=== PATIENT | male | born 1950 | race Caucasian/White ===

== ENCOUNTER → 2017-12-28 11:38 | Outpatient (CLI) | payer BC, MEDICARE, SELFPAY ==
[2017-12-28 11:44] LABS: Mucous, Urine 0 SEEN /hpf (<or=2+); Squamous Epithelial Cells - UA 0 SEEN /hpf (0-5)
[2017-12-28 14:06] LABS: Color, Urine Yellow (Yellow); Glucose, Dipstick Normal (Normal); Ketone-Dipstick Negative (Negative); Leukocyte Esterase-Dipstick 500 /ul (Negative); Nitrite-Dipstick Negative (Negative); Occult Blood-Urine 250 /ul (Negative); Protein-Dipstick 30 mg/dl (Negative); Specific Gravity, Urine 1.005 (1.002-1.030); Urine Clarity Sl. Cloudy (Clear); Urine Urobilinogen Normal (Normal)
[2017-12-28 14:08] LABS: Urine Bilirubin Dipstick 6 mg/dL (Negative)
[2017-12-28 14:12] LABS: Bacteria 2+ /hpf (None Seen); Red Blood Cells-Urine 25-50 SEEN /hpf (0-5); White Blood Cells 25-50 SEEN /hpf (0-5)
== END ==
PROVIDERS: Family Provider Family Medicine; PCP Family Medicine; Visit Provider Family Medicine
DX: N41.9 Inflammatory disease of prostate, unspecified (principal)
CPT/HCPCS: 81001; 87077; 87086; 87088; 87186

== ENCOUNTER → 2018-01-14 13:05 | Outpatient (CLI) | payer BC, SELFPAY ==
--- NOTE | 2018-01-14 13:09 | RAD_ITS ---
STUDY: X-RAY - LEFT KNEE REASON FOR EXAM: Male, 67 years old. Chronic pain TECHNIQUE: Four view(s) of the knee were obtained. COMPARISON: None. FINDINGS: There are small osteophytes on the distal femur. There are small osteophytes on the tibial plateau. There is marked narrowing of the medial femorotibial compartment. There is marked narrowing of the lateral femorotibial compartment. Normal patellofemoral articulation. There is minimal fullness above the patella. The soft tissue structures are unremarkable. RAD/Knee 4 or More Views IMPRESSION: There are marked degenerative changes in the medial and lateral compartments of the left knee. There is a small joint effusion. Electronically Signed: Hattie Zaragoza MD at 16:54 EST Tel Direct: [phone], Service support ,
--- NOTE | 2018-01-14 13:09 | RAD_ITS ---
STUDY: X-RAY - RIGHT KNEE REASON FOR EXAM: Male, 67 years old. Chronic pain TECHNIQUE: Four view(s) of the knee were obtained. COMPARISON: None. FINDINGS: There are small spurs off the medial femoral condyle. There are small spurs off the medial tibial plateau. There is marked narrowing of the medial femorotibial compartment. Normal lateral femorotibial compartment. Normal patellofemoral articulation. There is trace fullness above the patella. The soft tissue structures are unremarkable. RAD/Knee 4 or More Views IMPRESSION: There are marked degenerative changes in the medial compartment of the right knee. There is a trace joint effusion. Electronically Signed: Hattie Zaragoza MD at 16:53 EST Tel Direct: [phone], Service support ,
== END ==
PROVIDERS: Family Provider Family Medicine; PCP Family Medicine; Visit Provider Orthopaedic Surgery
DX: M25.561 Pain in right knee (principal); M25.562 Pain in left knee
CPT/HCPCS: 73564

== ENCOUNTER → 2018-06-23 12:34 | Outpatient (CLI) | payer BC, SELFPAY ==
--- NOTE | 2018-06-23 12:54 | RAD_ITS ---
STUDY: X-RAY CHEST REASON FOR EXAM: Male, 67 years old. Right-sided chest tightness with history of pneumonia. TECHNIQUE: PA and lateral chest. COMPARISON: 12/29/2016. FINDINGS: There are pulmonary features consistent with underlying COPD/emphysema. Correlate smoking history. The lungs are otherwise acutely clear. Normal cardiomediastinal silhouette, helen and pleural margins. No acute osseous or upper abdominal process. RAD/Chest PA and Lateral IMPRESSION: No acute cardiopulmonary process. Electronically Signed: Brijesh Mccollum, at 13:17 EDT Tel , Service support ,
== END ==
PROVIDERS: Family Provider Family Medicine; PCP Family Medicine; Visit Provider Nurse Practitioner Family
DX: R07.89 Other chest pain (principal); Z87.01 Personal history of pneumonia (recurrent)
CPT/HCPCS: 71046

== ENCOUNTER → 2018-08-04 10:54 | Outpatient (CLI) | payer BC, SELFPAY ==
[2018-08-04 12:47] LABS: Cholesterol 199 mg/dL (200); Glucose 101 mg/dL (74-106); High Density Lipoprotein 34 mg/dL; Triglycerides 193 mg/dL; Very Low Density Lipoprotein 39 mg/dL (5-40)
== END ==
PROVIDERS: Family Provider Family Medicine; PCP Family Medicine; Visit Provider Family Medicine
DX: Z01.89 Encounter for other specified special examinations (principal)
CPT/HCPCS: 36415; 80061; 82947

== ENCOUNTER 2018-10-25 10:38 | Inpatient (IN) | payer BC, MEDICARE, SELFPAY ==
[2018-10-10 14:38] VITALS: BP 137/97; PULSE 73; RESP 16; TEMP 36.9; O2SAT 96; BMI 28.3
--- NOTE | 2018-10-10 14:46 | SDCEKG_ITS ---
Test Reason : Blood Pressure : / mmHG Vent. Rate : 073 BPM Atrial Rate : 073 BPM P-R Int : 208 ms QRS Dur : 112 ms QT Int : 398 ms P-R-T Axes : 039 -49 032 degrees QTc Int : 438 ms Poor data quality, interpretation may be adversely affected Normal sinus rhythm Incomplete right bundle branch block Left anterior fascicular block Abnormal ECG Confirmed by ISRAEL AYOUB, DILLON ([id number]), fan mail editor SIRI LOZADA ([id number]) on 10/12/2018 1:12:47 PM Referred By: Dwayne Bobo Confirmed By:DILLON WOOD MD
[2018-10-10 15:18] LABS: Absolute Lymphocyte Count 2.43 X10^3/ul (0.83-4.51); Absolute Neutrophil Count 4.3 X10^3/uL (2.0-7.7); Basophil# 0.08 X10^3/uL; Eosinophil# 0.41 X10^3/uL; Eosinophils% 5.2 % (0-5); Hematocrit 46.5 % (40-54); Lymphocyte # 2.43 X10^3/ul (4.0); Lymphocyte % 30.5 % (19-41); Mean Corp Hgb Conc 34.4 g/gl (32-36); Mean Corpuscular Hgb 30.8 pg (27.0-32.0); Mean Corpuscular Volume 89.6 fL (80-94); Mean Platelet Vol. 9.7 fl (6.2-12.0); Monocyte# 0.75 X10^3/uL; Monocyte% 9.4 % (0-10); Neutrophil # 4.26 X10^3/uL (2.7-7.7); Neutrophil % 53.5 % (47-70); Platelet Count 231 K/mm3 (150-450); RBC Distribution Width CV 13.4 % (11.6-14.6); RBC Distribution Width SD 43.8 fl (35.1-43.9); Red Blood Count 5.19 M/mm3 (4.6-6.2)
[2018-10-10 15:19] LABS: POSITIVE COUNT NO; POSITIVE DIFFERENTIAL NO; POSITIVE MORPHOLOGY NO
[2018-10-10 15:39] LABS: Anion Gap 6 (5-15); BUN 12 mg/dL (7-18); BUN/Creat Ratio 11.7 RATIO (10-20); Calcium,Total 8.8 mg/dL (8.5-10.1); Chloride 108 mmol/L (98-107); Creatinine, Serum 1.03 mg/dL (0.70-1.30); EST Glomerular Filtration Rate 76 mL/min (>60); Est Glom Filt Rate - Afr Amer 92 mL/min (>60); Estimated Creatinine Clearance 83.18 ml/min; Glucose 96 mg/dL (74-106); Potassium 3.9 mmol/L (3.5-5.1); Sodium Level 141 mmol/L (136-145); Thyroid Stim Hormone (TSH) 2.55 uIU/mL (0.358-3.74)
[2018-10-25] VITALS (9 sets, daily range): BP systolic 106–154; BP diastolic 73–103; PULSE 73–91; RESP 16–18; TEMP 36.3–37; O2SAT 93–97; BMI 28.3
[2018-10-25] MEDS: Acetaminophen 500 MG Tablet 1000 MG PO ×2 (11:15→21:47)
[2018-10-25] MEDS: Cefazolin 2 GM in 0.9% Normal Saline 100 ML IV (13:58)
--- NOTE | 2018-10-25 14:25 | RAD_ITS ---
STUDY: X-RAY - LEFT KNEE REASON FOR EXAM: Male, 67 years old. Postop left knee replacement. TECHNIQUE: 2 view(s) of the knee. COMPARISON: 01/14/2018. Findings: There is a recent total knee arthroplasty. The femoral and tibial components appear in satisfactory position. There has been patellar resurfacing. The visualized femoral, tibial, and fibular shafts are unremarkable. RAD/Knee 1 or 2 Views IMPRESSION: Satisfactory appearance of a total knee arthroplasty. Electronically Signed: Theodore Coughlin MD at 16:52 EST , Service support ,
--- NOTE | 2018-10-25 15:36 | PCM.OPRPT ---
Report of Operation Date of Procedure: 10/25/18 Pre-Operative Diagnosis: Left knee osteoarthritis Post-Operative Diagnosis: Left knee osteoarthritis Surgery/Procedure Performed:: Left total knee replacement, cemented CR Description of Surgical Findings:: Stable knee with good patella tracking linen room worker: Sarabjit Lovell Type of Anesthesia:: Spinal Anesthesiologist: Montana Puentes Special Medications: 2 g Ancef, 1 g TXA at incision, 1 g TXA closure, 10 mg Decadron, joint cocktail (5 mg Duramorph, 30 mL of 0.5% Ropivicaine, 1000 units of epinephrine, 30 mg of Toradol) Specimen's removed: Bony cuts Estimated Blood Loss (mL): 150 Fluids Replaced: 1600 ML Description of Procedure: Implants used: 1. Addie size 6 press-fit triathlon cruciate retaining distal femoral component 2. [place] size 7 press-fit tibial baseplate 3. [place] X3 9 mm CS polyethylene 4. Addie X3 38 mm asymmetric patella Brief history operative indications: 67-year-old M with history of L knee osteoarthritis with radiographic findings with loss of joint space, osteophyte formation and subchondral sclerosis. Failed conservative measures as mentioned in the H&P. Discussion of total knee arthroplasty as well as risk and benefits were discussed the patient including but not limited to blood loss, DVTs, PEs, neurovascular damage, general risk of anesthesia including loss of life, and stiffness or instability were discussed with patient. Patient demonstrated understanding and was able to sign informed consent. Procedure: On the date of procedure patient's L lower extremity was marked in the preoperative area. The patient was then taken back to the operating room where the patient was placed on the table in the supine position. All bony prominences were identified a well-padded. Anesthesia assumed control of the C-spine and airway and remained controlled throughout the remainder of the procedure. A tourniquet was placed on the L upper thigh and the leg was prepped in a sterile fashion. The surgeon then scrubbed at this time. Upon reentering the room R lower extremity was draped in a standard orthopedic fashion. A timeout was then called and everyone agreed upon the side, the site, the procedure to be performed, patient's identity and antibiotics given. Esmarch bandage was used to exsanguinate the extremity and the tourniquet was placed up to 250 mmHg with the knee in flexion. A midline skin incision was made and sharp dissection was taken down through skin subcutaneous tissue and fat. The standard medial parapatellar incision was made and the patella was subluxed laterally. The standard deep MCL release was done and the fat pad was resected. Next our attention was directed to the femur. Navigation pins were placed, navigation was registered. We attempted to use the navigation however the size of the patient made the resection quite large based on the interpretation provided. At this time we elected to not use navigation. Intramedullary drill was used to open up the medullary canal. Intramedullary guide was placed. The distal femur was cut at 5 degrees valgus and a 10 mm resection was measured and cut.. The knee was then placed in deep flexion in the standard [place] sizing guide was used to place the femoral component in 3? external rotation based on the posterior condyles. A size 6 4-in-1 cutting block was selected and pinned into place. The anterior cut was then made and checked for notching. The subsequent anterior chamfer cuts, posterior condylar cuts and posterior chamfer cuts were made while ensuring the MCL and LCL were protected. Our attention was then turned to the tibia where the DigePrint tibial cutting guide was used to make the appropriate tibial cut 90 degrees from the mechanical axis. A drop russel was then used to verify the cut. A size 7 tibial base plate was selected. the knee was flexed to 90 degrees and the soft tissues and posterior osteophytes were removed from the joint. 40 cc of the periarticular injection was injected into the posterior medial corner of the joint. The appropriate trials were then placed on the femur and tibia. A trial polyethylene was trialed to ensure proper balancing and stability of the knee. Patella tracking, was then verified and corrected appropriately as needed. The appropriate tibial internal rotation was then marked with a bovie. Our attention was then directed to the patella. The patella was everted and a flat resection was made. The lug holes were drilled and the patella trial was placed. Patellar tracking was checked and deemed appropriate. Once we were happy lug holes were drilled for the femur and trial components were removed. Cement was mixed at this time and the tourniquet was let down the tibia was subluxed and pinned into place and the keel was punched and the canal was reamed. Final components were verified and opened, and cement was mixed in a vacuum. Salem Simplex cement was used. The wound was copiously irrigated with normal saline. When the cement was ready the press-fit components were impacted into place starting with the tibia, femur and finally the patella cemented into place. The trial poly component was placed and the knee was placed in full extension. All excess cement was removed in the process. Once the cement had cured the tracking, alignment and balance were verified and a size 11 mm polyethylene component was placed. Once the final components were placed the wound was copiously irrigated with normal saline solution and the periarticular injection was given. The wound was closed in a layer urbina fashion using #1 vicryl interrupted sutures for the arthrotomy, 2-0 interrupted Vicryl suture for the subcuticular layer and sony for final skin closure. A sterile compressive dressing was then placed. The patient was then awakened from anesthesia, transferred to the [facility] and transferred to the PACU for recovery. Post op plan DVT ppx: ASA 81mg, thigh high compression stockings Follow up: in office in 2 weeks for wound check PT: to start POD #0 at hospital, outpatient PT should be arranged. My physician catalog library assistant was a vital part of this case. He was important in appropriate retraction during the case, and protection of soft tissues during bony cuts. His intimate knowledge of the case and my steps aided in safe and expedient completion of the procedure as well as appropriate position of the leg during the case. He was also vital in assisting with closure under my direct supervision. Grafts/Implants Used: Addie triathlon press-fit CR total knee - Complications NONE - Admit VTE Documentation VTE Present on Admission: No VTE Mechan Device Prophylaxis: SCD's, Thigh High SONG Hose VTE Pharm Prophylaxis ordered?: Yes
[2018-10-25] MEDS: Lactated Ringers 1,000 ML 999 ML IV (16:00)
[2018-10-25] MEDS: Lactated Ringers 1,000 ML 125 ML IV (17:18)
[2018-10-25] MEDS: Aspirin 81 MG TAB.CHEW PO (17:54)
[2018-10-25] MEDS: oxyCODONE 5 MG Tablet PO ×2 (17:57→23:26)
[2018-10-25] MEDS: Pantoprazole Sodium 20 MG Tablet PO (21:46)
[2018-10-25] MEDS: Senna/Docusate Sodium 1 Tablet 2 TABLET PO (21:46)
[2018-10-25] MEDS: Cefazolin 1 GM/50 ML BAG IV (21:46)
[2018-10-25] MEDS: Fluticasone 0.05% 1 SPRAY NASAL.SRY NASAL (23:25)
[2018-10-26 03:40] VITALS: BP 149/103; PULSE 95; RESP 16; TEMP 36.4; O2SAT 93
[2018-10-26] MEDS: Levothyroxine 75 MCG Tablet PO (05:37)
[2018-10-26] MEDS: Acetaminophen 500 MG Tablet 1000 MG PO ×2 (05:37→15:17)
[2018-10-26] MEDS: Cefazolin 1 GM/50 ML BAG IV (05:37)
[2018-10-26] MEDS: 0.9% NaCl Peripheral Flush Adult/Peds IV (06:12)
[2018-10-26 06:27] LABS: Hematocrit 43.6 % (40-54); Hemoglobin 15.2 g/dl (13.0-16.5); Mean Corp Hgb Conc 34.9 g/gl (32-36); Mean Corpuscular Hgb 30.9 pg (27.0-32.0); Mean Corpuscular Volume 88.6 fL (80-94); Mean Platelet Vol. 9.9 fl (6.2-12.0); Platelet Count 232 K/mm3 (150-450); RBC Distribution Width CV 13.3 % (11.6-14.6); RBC Distribution Width SD 42.9 fl (35.1-43.9); Red Blood Count 4.92 M/mm3 (4.6-6.2); White Blood Count 16.7 K/mm3 (4.4-11.0)
[2018-10-26 06:32] LABS: Scan Indicated on CBC? Y/N NO
[2018-10-26 06:43] LABS: BUN 13 mg/dL (7-18); BUN/Creat Ratio 12.1 RATIO (10-20); Calcium,Total 8.6 mg/dL (8.5-10.1); Creatinine, Serum 1.07 mg/dL (0.70-1.30); EST Glomerular Filtration Rate 73 mL/min (>60); Est Glom Filt Rate - Afr Amer 88 mL/min (>60); Estimated Creatinine Clearance 80.07 ml/min; Glucose 134 mg/dL (74-106); Potassium 4.1 mmol/L (3.5-5.1); Sodium Level 141 mmol/L (136-145)
[2018-10-26 06:44] LABS: Anion Gap 11 (5-15); Chloride 107 mmol/L (98-107)
[2018-10-26] MEDS: oxyCODONE 5 MG Tablet PO ×2 (06:53→12:30)
--- NOTE | 2018-10-26 07:43 | PCM.PN.ORT ---
Subjective: The patient was sitting in bedside chair upon examination. Patient denies any chest pain, shortness of breath, dizziness, lightheadedness, nausea or vomiting, or calf pain. Pain is controlled on medications. No adverse overnight events. [ ]. Objective: Vital signs stable and afebrile. Patient is able to plantarflex and dorsiflex actively. Sensation is intact to light touch to saphenous, sural, superficial and deep peroneal, and tibial distribution. Dressing is clean dry and intact. Negative Homans bilaterally, negative signs and symptoms of DVT. - Physical Exam General: Alert, Oriented x3, Cooperative, No apparent distress Vital Signs Temp Pulse Resp BP Pulse Ox 97.5 F L 95 16 149/103 H 93 10/26/18 03:40 10/26/18 03:40 10/26/18 03:40 10/26/18 03:40 10/26/18 03:40 Oxygen Delivery Method Room Air Weight: 102.7 kg Body Mass Index (BMI) 28.3 Intake and Output for Last 24 Hours 10/24/18 10/25/18 10/26/18 23:59 23:59 23:59 Intake Total 4228 / 4228 998 / 998 Output Total 525 / 525 525 / 525 Balance 3703 / 3703 473 / 473 Laboratory Tests Past 24 Hrs 10/26/18 10/26/18 05:50 05:50 WBC 16.7 H RBC 4.92 Hgb 15.2 Hct 43.6 MCV 88.6 MCH 30.9 MCHC 34.9 RDW 13.3 RDW Differential 42.9 Plt Count 232 MPV 9.9 Sodium 141 Potassium 4.1 Chloride 107 Carbon Dioxide 23.0 Anion Gap 11 BUN 13 Creatinine 1.07 Estim Creat Clear Calc 80.07 Est GFR (MDRD) Af Amer 88 Est GFR (MDRD) Non-Af 73 BUN/Creatinine Ratio 12.1 Glucose 134 H Calcium 8.6 Medical Necessity - Tobacco Use Smoking Status: Former smoker Assessment/Plan 1. S/P left total knee arthroplasty POD #1 2. Continue Pain Medications: Tylenol and OxyIR 3. DVT Prophylaxis: Aspirin 81 mg twice daily with food for 4 weeks postoperatively 4. PT/OT: Weightbearing as tolerated 5. H & H: 15.2/43.6, asymptomatic 6. Reactive leukocytosis: Currently 16.7, afebrile. Patient did receive Decadron intraoperatively 7. Encouraged Incentive Spirometry 8. Disposition: Plan will be for possible discharge home this afternoon if patient tolerates physical therapy and pain is well controlled. Patient did have elevated blood pressure today denies any symptoms associated with this or any chest pain. Patient preoperatively came in with higher blood pressure. I explained to the patient I would like him to follow-up with his primary care physician upon discharge to discuss his hypertension. Patient states he has never had a problem in the past. Prescriptions will be attached to chart. Patient will follow-up per postop instructions. Patient currently takes 5 HTP for depression and there is an interaction with the oxycodone. I advised him to not take that medication while taking the oxycodone if he is having pain. He is to also discuss this medication with his primary care physician. Patient voiced understanding and agreement with treatment plan.
[2018-10-26] MEDS: Loratadine 10 MG Tablet PO (07:50)
[2018-10-26] MEDS: Famotidine 20 MG Tablet PO (07:50)
[2018-10-26] MEDS: Senna/Docusate Sodium 1 Tablet 2 TABLET PO (07:50)
[2018-10-26] MEDS: Multivitamins,Ther W-Minerals Tablet 1 TABLET PO (07:50)
[2018-10-26] MEDS: Aspirin 81 MG TAB.CHEW PO (07:50)
--- NOTE | 2018-10-26 07:51 | DCINST_ITS ---
Discharge Diet: No Restrictions Discharge Activity: May Not Drive May shower in (days): 1 - Turned dressing away from water Ice area for (Minutes): 20 - every hour while awake. Weight Bearing Status: Weight bearing as tolerated Elevate: Operative Extremity Additional Activity Instructions:: Wear elastic stockings for 2 weeks after your surgery. Call your doctor if your incision/area has: Continuous Slow Oozing, Sudden Increased Bleeding, Increased Pain/ Swelling, Increased Redness, Foul Smelling Discharge Call your doctor if you observe: Fever of 101 or Higher, Coldness, Increased Pain, Numbness or Tingling, Change in Color, Calf discomfort, Uncontrolled pain Remove Dressing in (days):: 4 - Remove dressing on October 30, 2018 Additional Instructions: Follow [facility] postop instructions Do not take herbals and supplements for 2 weeks postoperatively while taking current medications Discussed taking 5 HTP with your primary care physician with current medications Allergies/Adverse Reactions: Allergies Sulfa (Sulfonamide Antibiotics) Allergy (Verified 10/10/18 14:12) Rash Medications to take at Discharge Celecoxib [Celebrex] 100 mg PO BID 11/21/17 Levothyroxine Sodium 75 mcg PO DAILY 11/21/17 Omeprazole [Prilosec] 20 mg PO BID 11/21/17 calcium carbonate 550 mg-magnesium hydroxide 110 mg chewable tablet 2 tab PO Q6H PRN 01/14/18 dicyclomine 20 mg tablet 20 mg PO Q6H PRN 01/14/18 fexofenadine 180 mg tablet 180 mg PO DAILY 01/14/18 fluticasone 50 mcg/actuation nasal spray,suspension 50 mcg INTRANASAL QHS 01/14/18 magnesium 200 mg tablet 200 mg PO PRN PRN 01/14/18 multivit with minerals-folic acid-lycopene 0.4 mg-600 mcg tablet 1 tab PO DAILY 01/14/18 sildenafil 100 mg tablet 100 mg PO ONCE PRN 01/14/18 valacyclovir 1 gram tablet 1,000 mg PO QDAY PRN 01/14/18 Chlorpheniramine Maleate 4 mg PO Q6H PRN PRN 10/10/18 Acetaminophen [Tylenol Extra Strength] 1,000 mg PO Q8 #60 tab 10/26/18 Aspirin [Aspirin, Baby] 81 mg PO BIDCM #60 tab.chew 10/26/18 Oxycodone [Oxyir] 5 - 10 mg PO Q4H PRN PRN 5 Days #60 tab 10/26/18 Senna/Docusate Sodium [Senokot-S] 2 tab PO BID #20 tab 10/26/18 The following prescriptions were given: Oxycodone [Oxyir] 5 - 10 mg PO Q4H PRN PRN 5 Days #60 tab PRN Reason: Mod-Severe Pain (-08/31) Acetaminophen [Tylenol Extra Strength] 1,000 mg PO Q8 #60 tab Aspirin [Aspirin, Baby] 81 mg PO BIDCM #60 tab.chew Senna/Docusate Sodium [Senokot-S] 2 tab PO BID #20 tab Primary Care Physician: Montana Bills MD [Primary Care Provider] - Please follow up with your Primary Care Physician in: In the next 1 week upon discharge Test Results: Test results from this visit will be discussed in further detail at your follow- up appointment, if applicable. Please Follow Up With: [facility] When: 10/28/18 @ 1:00 pm Please Follow Up With: Sarabjit Lovell PA-C When: 11/07/18 @ 1:15 pm
[2018-10-26] MEDS: Pantoprazole Sodium 20 MG Tablet PO (07:55)
[2018-10-26 08:03] VITALS: BP 129/90; PULSE 79; RESP 16; TEMP 36.4; O2SAT 97
--- NOTE | 2018-10-26 10:25 | CASEMGMT ---
DELROY LADD Face to Face with patient for initial transition planning/care coordination assessment. RN CM introduced self and role at [facility]. Patient lying in bed, alert and oriented. Patient willing to participate in assessment and is able to answer all questions appropriately. Care providers, pharmacy, and demographics verified. Patient wishes to discharge home with [facility] for therapy, patient is homebound. DELROY CM to setup HHC with in-network provider. Patient states he has no further needs or concerns at this time. CM to follow for discharge planning needs that may arise. Disposition Plan: Patient to discharge with C, family support, and follow-up plans in place. Keyonna VIVAS, RN, CM
--- NOTE | 2018-10-26 15:00 | CASEMGMT ---
Referral sent to [facility] for HHC. [facility] not in network. RN CM sent referral to [facility] and they are able to accept the patient with start of care for Wednesday 10/31. Dr. Bobo updated with start of care for therpay and ok with start of care for 10/31 and instructed for patient to continue home exercises.
[2018-10-26 15:42] VITALS: BP 144/82; PULSE 79; RESP 16; TEMP 36.5; O2SAT 99
== END 2018-10-26 16:30 | disposition home or self-care (01) | DRG 470 ==
LOC: ACINP 10:39 → MS3 11:57
PROVIDERS: Anesthesiology; Admitting Provider Specialist; Family Provider Family Medicine; PCP Family Medicine; Referring Provider Specialist; Visit Provider Specialist
PROC: 0SRD0J9 Replacement of Left Knee Joint with Synthetic Substitute, Cemented, Open Approach (ICD-10-PCS; CPT 27447; principal; 2018-10-25 12:45)
DX: M17.12 Unilateral primary osteoarthritis, left knee (principal); Z87.891 Personal history of nicotine dependence; F32.9 Major depressive disorder, single episode, unspecified
CPT/HCPCS: 36415; 73560; 80048; 84443; 85025; 85027; 87081; 93005; 97161; 97165; 97530; 97802; 99406; C1776; J7120; A4216

== ENCOUNTER 2018-10-30 13:15 | Emergency (ER) | payer BC, SELFPAY ==
[2018-10-25 17:39] VITALS: BMI 28.3
[2018-10-30 13:15] VITALS: BP 132/76; PULSE 94; RESP 18; TEMP 37.1; O2SAT 99; BMI 25.8
--- NOTE | 2018-10-30 13:33 | RAD_ITS ---
STUDY: X-RAY CHEST REASON FOR EXAM: Male, 67 years old. Postop, left-sided pleuritic chest pain TECHNIQUE: PA and lateral views of the chest. COMPARISON: 06/23/2018 FINDINGS: There is hyperinflation of the lungs consistent with chronic obstructive lung disease (COPD). There is no demonstrated pleural abnormality. Normal size heart. Normal mediastinum and helen. Normal visualized pulmonary arteries. There is atherosclerotic tortuosity of the aortic arch and descending thoracic aorta. There is demineralization of the osseous structures. Normal visualized ribs, clavicles, and shoulders. There is no demonstrated abnormality of the visualized soft tissue structures of the upper abdomen. RAD/Chest PA and Lateral IMPRESSION: 1. No acute cardiopulmonary process. 2. COPD. Stable exam. Electronically Signed: Jorge Lange MD at 16:14 EST , Service support ,
--- NOTE | 2018-10-30 13:33 | EKG12_ITS ---
Test Reason : DISRHYTHMIA Blood Pressure : / mmHG Vent. Rate : 091 BPM Atrial Rate : 091 BPM P-R Int : 200 ms QRS Dur : 112 ms QT Int : 376 ms P-R-T Axes : 056 -45 024 degrees QTc Int : 462 ms Normal sinus rhythm Left anterior fascicular block Abnormal ECG Confirmed by ISRAEL AYOUB, DILLON ([id number]), online editor SIRI LOZADA ([id number]) on 11/01/2018 8:51:03 AM Referred By: ZAKI Confirmed By:DILLON WOOD MD
[2018-10-30 14:19] LABS: Absolute Lymphocyte Count 1.12 X10^3/ul (0.83-4.51); Absolute Neutrophil Count 8.8 X10^3/uL (2.0-7.7); Basophil# 0.03 X10^3/uL; Basophil% 0.3 % (0-1); Eosinophil# 0.21 X10^3/uL; Eosinophils% 1.8 % (0-5); Hematocrit 36.5 % (40-54); Hemoglobin 12.5 g/dl (13.0-16.5); Lymphocyte # 1.12 X10^3/ul (4.0); Lymphocyte % 9.6 % (19-41); Mean Corp Hgb Conc 34.2 g/gl (32-36); Mean Corpuscular Hgb 30.3 pg (27.0-32.0); Mean Corpuscular Volume 88.4 fL (80-94); Mean Platelet Vol. 9.6 fl (6.2-12.0); Monocyte# 1.47 X10^3/uL; Monocyte% 12.6 % (0-10); Neutrophil # 8.82 X10^3/uL (2.7-7.7); Neutrophil % 75.4 % (47-70); Platelet Count 261 K/mm3 (150-450); RBC Distribution Width SD 42.2 fl (35.1-43.9); Red Blood Count 4.13 M/mm3 (4.6-6.2); White Blood Count 11.7 K/mm3 (4.4-11.0)
[2018-10-30 14:23] LABS: POSITIVE COUNT NO; POSITIVE DIFFERENTIAL NO; POSITIVE MORPHOLOGY NO
[2018-10-30 14:32] LABS: Anion Gap 9 (5-15); BUN 11 mg/dL (7-18); BUN/Creat Ratio 11.2 RATIO (10-20); Calcium,Total 8.8 mg/dL (8.5-10.1); Chloride 98 mmol/L (98-107); Creatinine, Serum 0.98 mg/dL (0.70-1.30); EST Glomerular Filtration Rate 80 mL/min (>60); Est Glom Filt Rate - Afr Amer 97 mL/min (>60); Estimated Creatinine Clearance 92.18 ml/min; Glucose 155 mg/dL (74-106); Sodium Level 135 mmol/L (136-145)
[2018-10-30] MEDS: LORazepam 2 MG/ML Syringe 0.5 MG IV (14:41)
--- NOTE | 2018-10-30 15:09 | CT_ITS ---
STUDY: CTA CHEST REASON FOR EXAM: Male, 67 years old. Status post knee replacement, shortness of breath, chest pain RADIATION DOSAGE (If Supplied By Facility): CTDIvol = ( 15.18 ) mGy, DLP = ( 535.25 ) mGycm TECHNIQUE: The examination was performed with the intravenous administration of 100 ml of Isovue 370 contrast material. Post-processing of the angiographic images was performed, with multiplanar reformation and 3D reconstruction. Individualized dose optimization techniques were used for this CT. COMPARISON: None. FINDINGS: Normal enhancement of the main pulmonary artery and right and left pulmonary arteries. Normal enhancement of the bilateral peripheral pulmonary arteries. There is no demonstrated pulmonary embolism. Normal thoracic aorta and visualized great vessels. There is no demonstrated aortic dissection. Normal heart and pericardium. Normal mediastinum. Normal hilar regions. Normal visualized trachea and bronchi. The lungs are well expanded. Airspace consolidation with air bronchograms involving the medial right upper lobe abuts the mediastinum. No cavitating process is seen. Moderate paraseptal and centrilobular emphysema of the bilateral upper lobes. There is pleural fibrotic thickening of the pulmonary lung apices. Normal chest wall structures. There are degenerative changes of thoracic spine. Normal visualized upper abdomen. Normal variant accessory left hepatic artery arises from the left gastric artery. CT/CTA Chest W/WO Contrast IMPRESSION: 1. No central or segmental pulmonary embolism. 2. Right upper lobe (anterior segment) pneumonia. 3. Emphysema. Electronically Signed: Jorge Lange MD at 16:46 EST , Service support ,
--- NOTE | 2018-10-30 15:54 | ED.DCSUM_ITS ---
- ER Visit Summary Date of Service: 10/30/18 Chief Complaint: Left lower extremity pain, swelling discoloration. History of Present Illness: The patient is a 67 M Left lower extremity pain, swelling discoloration. This was noted and of last week. He is postop day 5 from total knee arthroplasty by Dr. Kemal Bobo. This morning he complained of shortness of breath and complained of pleuritic chest pain while using incentive spirometer. He states he is not able to take his breath. He does report slight shortness of breath. He denies hemoptysis. He does report temperature 100 degrees. He denies rhinorrhea, congestion, postnasal drainage. Denies sore throat. He denies earache. He denies nausea, vomiting diarrhea. He denies any urologic symptoms. Please read note for complete detail. Physical Examination: Vital signs were noted. Blood pressure is elevated sligh tly at 132/76. Heart rate is 91. He is not hypoxic. Head is atraumatic normocephalic. Pupils are equal round reactive. Extraocular muscles are intact. TMs are pearly white with landmarks noted. Nares patent with no drainage. Posterior pharynx without erythema or exudate. Uvula is midline. There is no dysphonia or dysphasia. Trachea is midline. There is no stridor with auscultation of the neck. Heart is regular without murmur, gallop or rub. Rales noted left side. There is no wheezing with forced expiration. Abdomen soft nontender. Left lower extremity is discolored swollen with tenderness along the distribution of deep venous system. Neuro exam is nonfocal. Test Results: EKG reveals a normal sinus rhythm rate of 91 with a left anterior fascicular block. KS interval is 200 ms. QRS duration is prolonged at 112 ms. QT interval is normal. [place] is to the left. There is no ischemic changes noted. Two-view chest x-ray reveals no evidence of infiltrate, pneumonia or effusion. There is prominence of the right hilum. Cardiac silhouette is normal. Osseous structures appear normal. White count is slightly low at 11.7. I panel is remarkable for slight elevation of glucose 155. Sodium and potassium are slightly low at 135 and 3.0. CTA for pulmonary embolus is pending. Emergency Department Course and Treatment: Patient is moderate to high risk for pulmonary embolus. Since there is abnormal findings on the left will obtain chest x-ray to determine if he has a pneumonia or explanation for his pleuritic pain, elevated temperature and shortness of breath. Otherwise a CTA is indicated. Baseline blood work was obtained to assess white count, hemoglobin renal function. D-dimer was not obtained since he is not low risk. Treatment Plan: If CTA is negative he will require Lovenox and outpatient venous duplex study. If CTA is positive he will require long-term anticoagulation therapy. Also will contact his orthopedic surgeon. Disposition: Pending results of CTA and to be determined by Dr. Montana Baptiste the afternoon physician. Impression: 1. Dyspnea with pleuritic chest pain uncertain etiology 2. Left lower extremity swelling discoloration evaluate for DVT 3. Postop day 5 left total knee arthroplasty 4. History of anxiety disorder 5. History of hypothyroidism This note was generated with [employer] dictation software. It may contain incorrect words, spelling, and punctuation that were not noted in review of the chart prior to signing ED Disposition - Plan for ED Patient: Chief Complaint: Lower Extremity Injury Referrals: Montana Bills MD [Primary Care Provider] -
[2018-10-30 15:58] VITALS: BP 136/89; PULSE 97; RESP 19; O2SAT 95
[2018-10-30] MEDS: Acetaminophen 500 MG Tablet 1000 MG PO (16:37)
[2018-10-30] MEDS: oxyCODONE 5 MG Tablet PO (16:38)
--- NOTE | 2018-10-30 17:17 | ED.VISSUMM ---
- ER Visit Summary Date of Service: 10/30/18 Chief Complaint: [] History of Present Illness: The patient is a 67 M [] Physical Examination: [] Test Results: [] Emergency Department Course and Treatment: [] Treatment Plan: [] Disposition: [] Impression: [] This note was generated with [employer] dictation software. It may contain incorrect words, spelling, and punctuation that were not noted in review of the chart prior to signing ED Disposition - Plan for ED Patient: Disposition: Home or Assisted Living Chief Complaint: Lower Extremity Injury Diagnosis: Healthcare-associated pneumonia Instructions: ED Pneumonia Adult Prescriptions: levoFLOXacin tablet [Levaquin tablet] 750 mg PO DAILY #10 tab Referrals: Montana Bills MD [Primary Care Provider] -
[2018-10-30 17:34] VITALS: BP 113/69; PULSE 105; RESP 14; O2SAT 92
[2018-10-30] MEDS: levoFLOXacin 750 MG Tablet PO (17:36)
[2018-10-30] MEDS: Enoxaparin 100 MG/ML Syringe SC (17:36)
== END 2018-10-30 18:14 | disposition home or self-care (01) ==
PROVIDERS: Emergency Medicine; Emergency Provider Emergency Medicine; Family Provider Family Medicine; PCP Family Medicine
DX: R06.00 Dyspnea, unspecified (principal); R07.81 Pleurodynia; M79.89 Other specified soft tissue disorders; F41.9 Anxiety disorder, unspecified; E03.9 Hypothyroidism, unspecified; Z96.652 Presence of left artificial knee joint; I44.4 Left anterior fascicular block; R21 Rash and other nonspecific skin eruption
CPT/HCPCS: 71046; 71275; 80048; 85025; 93005; 96361; 96374; 99285; J7030; J7040; Q9967; A4216

== ENCOUNTER → 2018-10-31 11:09 | Outpatient (CLI) | payer BC, SELFPAY ==
[2018-10-25 17:39] VITALS: BMI 28.3
[2018-10-30 13:15] VITALS: BMI 25.8
--- NOTE | 2018-10-31 11:13 | VDLE_ITS ---
Reason For Study: LLE Pain RIGHT LEFT CFV is compressible, spontaneous, phasic, GSV is normal. competent and demonstrates normal CFV is compressible, spontaneous, phasic, augmentation. competent, and demonstrates normal Procedure augmentation. Exam performed in department. FV is compressible, spontaneous, phasic, A preliminary report was called and/or faxed competent and demonstrates normal to Dr. Bobo. augmentation. POP V is compressible, spontaneous, phasic, competent and demonstrates normal augmentation. T/P Trunk is compressible. PTV is compressible. LT PerV is compressible. Interpretation Summary Deep veins of the left lower extremity are patent and compressible segmentally. There is no evidence of left lower extremity deep vein thrombosis. Valvular competence appears intact within the proximal deep venous system on the left . The left greater saphenous vein appears patent and compressible segmentally. Ordering Physician: Dwayne Bobo Referring Physician: Montana Bills MD Performed By: Darcy Armstrong RVT and Student
== END ==
PROVIDERS: Family Provider Family Medicine; PCP Family Medicine; Visit Provider Specialist
DX: M79.662 Pain in left lower leg (principal)
CPT/HCPCS: 93971

== ENCOUNTER → 2018-12-06 15:02 | Outpatient (CLI) | payer BC, SELFPAY | PROVIDERS: Family Provider Family Medicine; PCP Family Medicine; Visit Provider Urology | DX: R35.1 Nocturia (principal) | CPT/HCPCS: 36415; 84153; G0103 ==

== ENCOUNTER → 2019-03-20 14:10 | Outpatient (CLI) | payer BC, SELFPAY ==
--- NOTE | 2019-03-20 14:16 | CT_ITS ---
STUDY: CT ABDOMEN AND PELVIS WITH CONTRAST REASON FOR EXAM: Male, 68 years old. Left-sided inguinal lymphadenopathy. RADIATION DOSAGE (If Supplied By Facility): CTDIvol = ( 21.51 ) mGy, DLP = ( 1208.19 ) mGycm TECHNIQUE: Transaxial images were obtained from the dome of the diaphragm to the symphysis pubis with oral contrast. 100 of ml IV Isovue 300 was administered. Sagittal and coronal images were reconstructed. Individualized dose optimization techniques were used for this CT. COMPARISON: Prior comparison studies are not available for review at this time. FINDINGS: The visualized lung bases are unremarkable. The visualized portions of the heart are within normal limits. Normal liver. Normal gallbladder and extrahepatic biliary system. Normal spleen. Normal pancreas. Normal bilateral adrenal glands. The right kidney has a small cyst measuring approximately 11.7 mm in greatest dimension. Left kidney has multiple cysts with the largest measuring approximately 4.9 cm in size. This is attenuation of approximately 12.5 Hounsfield units. Normal visualized stomach. There is no evidence for dilated bowel, ascites or pneumoperitoneum. There is groundglass attenuation within the central mesentery suggesting possible sequela of mesenteric adenitis. Stool and/or enteric contrast is visible throughout most of the colon with scattered diverticula. The appendix is visualized and appears normal. There is mild atherosclerotic calcification of the abdominal aorta with elongation and tortuosity, but without a demonstrated aneurysm. There is venous distention of the inferior vena cava (IVC). Normal retroperitoneum. Normal urinary bladder. There is enlargement of the prostate gland. There are enlarged left-sided inguinal lymph nodes. The largest haris mass measures 4.9 x 1.9 x 1.6 cm in size. There are also large right-sided inguinal lymph nodes. There are diffuse degenerative changes of the visualized lumbar spine. CT/Abdomen/Pelvis WITH Contrast IMPRESSION: 1. Increased attenuation within the central mesentery of the small bowel suggests possible sequela of mesenteric adenitis with prominent mesenteric nodes. 2. Bilateral inguinal lymphadenopathy. 3. Bilateral renal cystic lesions. Electronically Signed: Anna Gonzales MD at 18:33 EDT , Service support ,
[2019-03-20 14:41] LABS: CREATININE FINGERSTICK 1.1 mg/dL (0.70-1.30)
== END ==
PROVIDERS: Family Provider Family Medicine; PCP Family Medicine; Referring Provider Family Medicine; Visit Provider Family Medicine
DX: R59.0 Localized enlarged lymph nodes (principal)
CPT/HCPCS: 74177; Q9967

== ENCOUNTER → 2019-04-20 15:59 | Outpatient (CLI) | payer BC, SELFPAY ==
--- NOTE | 2019-04-19 | IMM_PTH ---
PATIENT: ROB BLANCO LOC: [facility] U#:[id number] AGE/SX: 74/M ROOM: RE04/20/[address]: Dr. Flavia Gay MD : 1950 BED: DIS: SPEC #: [id number] RECD: 04/21/19 13:38 STATUS: SALVADOR REQ #: [id number] COLT: 04/19/19 00:[address]: Flavia Gay DEPT: IMMUNOHISTOCHEMISTRY RECD BY: Nuvia Quispe ENTERED: 04/21/19 13:41 SP TYPE: IMMUNO OTHR DR: Dr. Montana Bills MD Tissues: LYMPH NODE BIOPSY Procedures: BCL-2 (add) BCL-6 (add) CD10 (add) CD138 (add) CD15 (add) CD20 (add) CD23 (add) CD3 (add) CD30 (add) CD43 (add) CD45 (add) CD5 (add) CD79A (add) CYCLIN (add) KAPPA (add) LAMBDA (add) Vimentin (add) MUM1 (add) C-MYC (add) Pankeratin (initial) PHYSICIAN & [address] [address] SPECIMEN INFORMATION: Tissue Source: Left groin lymph node biopsy Clinical Info: Left groin enlarged lymph nodes Specimen Number: [id number] CPT code: 86938, 68761 x19 METHODOLOGY: Deparaffinized sections of prefer/formalin-fixed tissue or PAP/DQ stained slides are incubated with monoclonal/polyclonal antibodies/oligonucleotide probes. Localization is made via biotin free immunoperoxidase method. Appropriate controls are performed and reacted as expected. Results on target cell population are indicated in the following table: RESULTS: ANTIBODY / CLONE RESULT AE1-3 (AE1/AE3/PCK26) negative CD3 (PS1) positive CD5 (SP10) positive CD10 (56C6) positive CD15 (MMA) negative CD20 (L26) positive CD23 (1B12) positive CD30 (Tal-H2) negative CD43 (L60) positive CD45 (RP2/18) positive CD79a (11E3) positive CD138 (B-A38) negative BCL-2 (bcl-2/100/D5) positive BCL-6 (LD348Q/A8) negative Minkler (polyclonal) negative Lambda (polyclonal) negative Cyclin D1/BCL-1 (SP4) negative MUM1 (MRQ-43) negative C-MYC (Y69) negative Vimentin (V9) positive These tests were developed and their performance characteristics determined by [facility]. They may not have been cleared or approved by the U.S. Food and Drug Administration. The FDA has determined that such clearance or approval is not necessary. INTERPRETATION: Left groin lymph node biopsy: B-cell clonal proliferation. AM:lance 04/25/19 Comment: A CD10 positive B-cell neoplasm is present. The above IHC profile and flow analysis concur. A follicular lymphoma is in the differential diagnosis. Excision of lymph node is recommended for definitive classification. Case has been reviewed in consultation with Dr. Robles who concurs with the above diagnosis. IDC:SJ
--- NOTE | 2019-04-19 14:35 | LYMN_PTH ---
PATIENT: ROB BLANCO LOC: [facility] U#:[id number] AGE/SX: 74/M ROOM: RE04/20/[address]: Dr. Flavia Gay MD : 1950 BED: DIS: SPEC #: [id number] RECD: 04/20/19 15:06 STATUS: SALVADOR LAVON #: [id number] COLT: 04/19/19 14:[address]: Flavia Gay DEPT: SURGICAL PATHOLOGY RECD BY: Nuvia Quispe ENTERED: 04/21/19 07:30 SP TYPE: LYMPH NODE OTHR DR: Dr. Montana Bills MD Tissues: LYMPH NODE BIOPSY Procedures: Surgery Specimen Level IV HEADER OPERATION: Left groin lymph node biopsy PRE-OP DIAGNOSIS: Left groin enlarged lymph nodes; rule out lymphoma TISSUE SUBMITTED: Left groin lymph node MICROSCOPIC DIAGNOSIS Left groin lymph node, needle core biopsy: Atypical CD10 positive B-cell proliferation See comment. AM:lance 04/21/19 COMMENT Immunohistochemistry ([id number]) and flow cytometry analysis supports the above diagnosis. The complete flow cytometry analysis report is viewable in patient's EMR. A low grade lymphoma such as follicular lyphoma is suspected. Excisional biopsy is recommended for definitive classification. Case has been reviewed in consultation with Dr. Robles who concurs with the above diagnosis. IDC:SJ MICROSCOPIC DESCRIPTION Slides are reviewed. GROSS DESCRIPTION Received fresh labeled with the patient's name is a specimen designated left groin lymph node. The specimen consists of three cores of light bentley soft tissue. Each core has an average length of 1 cm and maximal diameter of <0.1 cm. One core is submitted for flow cytometry analysis. Lean Specialist touch preps are prepared from the other core and the remainder of the cores is submitted for permanent sections in one cassette. / AM:lance 04/20/19 TC:0 CPT: 22695
[2019-04-20 14:27] VITALS: BMI 25.8
== END ==
PROVIDERS: Family Provider Family Medicine; PCP Family Medicine; Referring Provider Surgery; Visit Provider Surgery
DX: R59.9 Enlarged lymph nodes, unspecified (principal)
CPT/HCPCS: 88305; 88341; 88342

== ENCOUNTER 2019-04-28 09:09 | Day surgery (SDC) | payer BC, SELFPAY ==
[2019-04-20 14:27] VITALS: BMI 25.8
--- NOTE | 2019-04-28 | IMM_PTH ---
PATIENT: ROB BLANCO LOC: [facility] U#:[id number] AGE/SX: 68/M ROOM: RE04/28/[address]: Dr. Flavia Gay MD : 1950 BED: DIS: 04/28/2019 SPEC #: [id number] RECD: 05/01/19 12:12 STATUS: SOUMustapha REQ #: [id number] COLT: 04/28/19 00:[address]: Flavia Gay DEPT: IMMUNOHISTOCHEMISTRY RECD BY: Nuvia Quispe ENTERED: 05/01/19 12:21 SP TYPE: IMMUNO OTHR DR: Dr. Montana Bills MD Tissues: Inguinal lymph node, NOS Procedures: BCL-2 (add) BCL-6 (add) CD10 (add) CD138 (add) CD15 (add) CD20 (add) CD23 (add) CD3 (add) CD30 (add) CD43 (add) CD45 (add) CD5 (add) CD79A (add) CYCLIN (add) KAPPA (add) KI-67 (add) LAMBDA (add) MPO (add) P53 (add) Vimentin (add) MUM1 (add) C-MYC (add) Pankeratin (initial) PHYSICIAN & INSTITUTION [place] [address] SPECIMEN INFORMATION: Tissue Source: Left inguinal lymph node Clinical Info: Left inguinal lymphadenopathy; abnormal CT Specimen Number: [id number] #1 CPT code: 89434, 48933 x22 METHODOLOGY: Deparaffinized sections of prefer/formalin-fixed tissue or PAP/DQ stained slides are incubated with monoclonal/polyclonal antibodies/oligonucleotide probes. Localization is made via biotin free immunoperoxidase method. Appropriate controls are performed and reacted as expected. Results on target cell population are indicated in the following table: RESULTS: ANTIBODY / CLONE RESULT Block 1 AE1-3 (AE1/AE3/PCK26) negative CD3 (PS1) negative CD5 (SP10) negative CD10 (56C6) positive CD15 (MMA) negative CD20 (L26) positive CD23 (1B12) positive CD30 (Tal-H2) negative CD43 (L60) negative CD45 (RP2/18) positive CD79a (11E3) positive CD138 (B-A38) negative BCL-2 (bcl-2/100/D5) positive BCL-6 (IS078A/A8) positive Cyclin D1/BCL-1 (SP4) negative [place] (polyclonal) negative Lambda (polyclonal) negative MUM1 (MRQ-43) negative C-MYC (Y69) negative MPO (polyclonal) negative Vimentin (V9) positive Ki-67 (30-9) positive, low P53 (DO-7) negative These tests were developed and their performance characteristics determined by [facility]. They may not have been cleared or approved by the U.S. Food and Drug Administration. The FDA has determined that such clearance or approval is not necessary. INTERPRETATION: Left inguinal lymph node, excisional biopsy: Consistent with follicle center lymphoma, grade 1. AM:lance 05/02/19 FLOW analysis concurs with the diagnosis. Case has been reviewed in consultation with Dr. Robles who concurs with the above diagnosis. IDC:SJ
[2019-04-28 09:45] VITALS: BP 135/86; PULSE 74; RESP 16; TEMP 36.9; O2SAT 97; BMI 27.7
--- NOTE | 2019-04-28 10:29 | HP.PCM_ITS ---
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 Is patient in pain?: Yes (LLQ to Left testicle ) Pain scale (1-10): 5 Allergies Sulfa (Sulfonamide Antibiotics) Allergy (Verified 04/19/19 13:57) Rash Medications Celecoxib [Celebrex] 100 mg PO BID 11/21/17 [History Confirmed 04/19/19] Levothyroxine Sodium 75 mcg PO DAILY 11/21/17 [History Confirmed 04/19/19] Omeprazole [Prilosec] 20 mg PO BID 11/21/17 [History Confirmed 04/19/19] calcium carbonate 550 mg-magnesium hydroxide 110 mg chewable tablet 2 tab PO Q6H PRN 01/14/18 [History Confirmed 04/19/19] dicyclomine 20 mg tablet 20 mg PO Q6H PRN 01/14/18 [History Confirmed 04/19/19] fexofenadine 180 mg tablet 180 mg PO DAILY 01/14/18 [History Confirmed 04/19/19] fluticasone propionate 50 mcg/actuation nasal spray,suspension 50 mcg INTRANASAL QHS 01/14/18 [History Confirmed 04/19/19] multivit with minerals-folic acid-lycopene 0.4 mg-600 mcg tablet 1 tab PO DAILY 01/14/18 [History Confirmed 04/19/19] sildenafil 100 mg tablet 100 mg PO ONCE PRN 01/14/18 [History Confirmed 04/19/19] valacyclovir 1 gram tablet 1,000 mg PO QDAY PRN 01/14/18 [History Confirmed 04/19/19] Chlorpheniramine Maleate 4 mg PO Q6H PRN PRN 10/10/18 [History Confirmed 04/19/19] Senna/Docusate Sodium [Senokot-S] 2 tab PO BID #20 tab 10/26/18 [Rx Confirmed ] 5-hydroxytryptophan (5-HTP) 100 mg capsule 200 mg PO DAILY cap 04/19/19 [History Confirmed 04/19/19] hydroxyzine HCl 25 mg tablet 25 mg PO QHS 04/19/19 [History Confirmed 04/19/19] tamsulosin 0.4 mg capsule 0.4 mg PO DAILY PRN 04/19/19 [History Confirmed 04/19/19] PFSH Medical History Hemorrhoids (Acute) Abdominal pain (Acute) COPD (chronic obstructive pulmonary disease) (Chronic) SOB (shortness of breath) (Acute) Anxiety (Acute) Depression (Acute) Hypertension (Chronic) Numbness and tingling (Acute) Gout (Acute) Arthritis (Acute) Back problem (Acute) Thyroid disease (Acute) Fatigue (Acute) Hypothyroidism (Chronic) IBS (irritable bowel syndrome) (Chronic) GERD (gastroesophageal reflux disease) (Chronic) Surgical History Hx of colonoscopy (Acute) Hx of bilateral inguinal hernia repair (Acute) Hx of vasectomy (Acute) H/O vasectomy (Inactive) S/P hernia repair (Inactive) Family History Mother CVA (cerebral vascular accident) Diabetes Heart disease Arthritis Father Cancer lung Arthritis Ulcer Social History Smoking Status: Never smoker second hand exposure: No alcohol intake: current alcohol intake frequency: 0-2 drinks per day substance use type: does not use caffeine: Yes what type of physical activity do you participate in: walking, running, bi cycling frequency: 5-6 times per week seatbelt use: always HPI HPI HPI: ROB BLANCO, is a 68 M who presents to the office today for bilateral and large inguinal lymph nodes. Patient states that back in December he had some back pain which will run around to his sides. And he can get some tingling in his arms. Patient states he still gets tingling in his arms and has some dull back pain. he did go see Dr. Bills for that who recommended further exercises however it did not improve. During this time approximate about 2 months ago, he did start having some left lower quadrant pain which would radiate to his left testicle as well. He states the pain is 5/10 in the left lower quadrant abdominal pain comes and goes in the left testicle pains pretty constant. Patient states he does have bowel movements daily. Last colonoscopy was 18 years ago. Denies any family history of colon cancer. Patient currently denies any abdominal pain. He denies any nausea or vomiting has been able to tolerate p.o. He had a CT scan of abdomen pelvis done which did show some groundglass opacity of the central mesentery questionable mesenteric adenitis as well as the enlarged bilateral inguinal lymph nodes. HPI HPI HPI: ROB BLANCO, is a 68 M who presents to the office today for ROS General General: Yes fatigue; no weight change Psych Psychiatric: Yes depression and anxiety Gastro Gastrointestinal: Yes abdominal pain, No nausea or vomiting, No diarrhea, No constipation, No blood in stool, Yes acid reflux, Yes hemorrhoids, No ulcers, No gallbladder problem, No black,tarry stools Russell Hematologic: No blood thinners, No blood disorders, No bleeding, No anemia, No blood clots Exam Const General: cooperative Chest Breast Palpation: No axillary lymphadenopathy Resp Effort & Inspection: normal respiratory effort Cardio Rate: regular rate GI Inspection: non-distended Palpation: soft, no guarding, nontender Other: Bilateral inguinal adenopathy on exam larger on the left Assessment & Plan Problems 1. Inguinal lymphadenopathy R59.[address] of the abdomen R93.5 Groundglass opacity to the central mesentery, questionable mesenteric adenitis per report Plan Discussed with patient is would plan to do ultrasound-guided inguinal lymph node core biopsy in the office. Did describe the procedure to the patient and his including but not limited to risk of bleeding, infection, need for further surgery if not get enough sample for diagnosis, and etc. Patient that since his last colonoscopy was 18 years ago-and he had a polyp per the patient- also be recommending an EGD and colonoscopy once the inguinal lymph nodes were biopsied. Flavia Gay M.D. Pager: [phone] [facility] [address] [place] [address], [address] [place] [id number] Office: [phone] Plan Detail Follow Up Patient will come back for ultrasound-guided biopsy of inguinal lymph nodes. Coding Level of Care Code Off vis,new,level 3 Diagnoses Inguinal lymphadenopathy R59.[address] of the abdomen R93.5 04/19/19 1429 <Electronically signed by Flavia Gay MD> Date Flavia Gay MD I have examined the patient the following changes are noted: Patient did undergo a core needle biopsy of left inguinal lymph nodes. Pathology report consistent with low-grade lymphoma however they preferred an excisional biopsy for a more definite diagnosis. Patient has been referred to hematology?Dr. laurent, still complains of left-sided abdominal pain on exam and some left testicular pain which is more constant. Discussed the procedure of excision of the left inguinal lymph node with the patient including but not limited to bleeding, hematoma, seroma, and anesthesia. Patient is had no further questions at this time. Flavia Gay M.D. Pager: [phone] [facility] [address] [place] [address] [address] [place] [address] Office: [phone]
[2019-04-28] MEDS: Cefazolin 2 GM in 0.9% Normal Saline 100 ML IV (10:45)
--- NOTE | 2019-04-28 10:45 | LYMN_PTH ---
PATIENT: ROB BLANCO LOC: [facility] [place] U#:[id number] AGE/SX: 68/M ROOM: RE04/28/[address]: Dr. Flavia Gay MD : 1950 BED: DIS: 04/28/2019 SPEC #: [id number] RECD: 04/28/19 11:50 STATUS: SALVADOR LAVON #: [id number] COLT: 04/28/19 10:[address]: Flavia Gay DEPT: SURGICAL PATHOLOGY RECD BY: Joselito Joshua ENTERED: 04/28/19 14:00 SP TYPE: LYMPH NODE OTHR DR: Dr. Montana Bills MD Tissues: Inguinal lymph node, NOS Procedures: Surgery Specimen Level V HEADER OPERATION: Excisional inguinal lymph node biopsy PRE-OP DIAGNOSIS: Left inguinal lymphadenopathy, abnormal CT of abdomen TISSUE SUBMITTED: Left inguinal lymph node MICROSCOPIC DIAGNOSIS Left inguinal lymph node, excisional biopsy: Consistent with follicular lymphoma, grade 1. AM:lance 05/01/19 COMMENT Immunohistochemistry ([id number]) and flow cytometry analysis supports the above diagnosis. The flow report is viewable in patient's EMR. Case has been reviewed in consultation with Dr. Robles who concurs with the above diagnosis. IDC:SJ MICROSCOPIC DESCRIPTION Slides are reviewed. GROSS DESCRIPTION Received fresh for lymph node protocol labeled with the patient's name is a specimen designated left inguinal lymph node biopsy. The specimen consists of an ovoid fragment of pink, glistening tissue measuring 4.5 x 2 x 0.5 cm. Serial sections reveal homogenous light bentley-pink, bulging tissue. Iron Melter touch prep (four Diff-Quik and four H & E) are prepared. Iron Melter portions are submitted for flow cytometry analysis. The remainder of the tissue is totally submitted in two cassettes. / AM:lance 04/28/19 TC:0 CPT: 41558
--- NOTE | 2019-04-28 11:49 | OP.PCM_ITS ---
Report of Operation Date of Procedure: 04/28/19 Pre-Operative Diagnosis: Bilateral inguinal lymphadenopathy, suspect low-grade lymphoma Post-Operative Diagnosis: Same Type of Anesthesia:: Local MAC Anesthesiologist: Montana Puentes Specimen's removed: Left inguinal lymph node Estimated Blood Loss (mL): < 5 cc Fluids Replaced: 800 cc Description of Procedure: Indications: 60-year-old male who presented with bilateral inguinal lymphadenopathy, glasslike opacity in the mesentery with left-sided abdominal pain. Patient underwent a core needle biopsy of left inguinal nodes which suspect low-grade lymphoma recommended excisional biopsy for more definitive diagnosis. Patient was brought in the operating room placed supine operating table. Time out was completed verifying correct patient, procedure, site, positioning, special, prior to beginning procedure. MAC anesthesia was induced. The left groin was prepped draped in usual sterile fashion. Using ultrasound the lymph nodes were localized. Local anesthesia of 1% lidocaine with epinephrine was used for local anesthesia. This was infiltrated with the use of ultrasound. A transverse incision of the left groin was made overlying the nodes with a 15 blade scalpel. This was deepened with electrocautery. Multiple lymph nodes were identified. The node was dissected with lymphatics and vessels clipped then ligated. Left inguinal lymph node was sent to pathology. Wound was irrigated. Hemostasis was assured. The wound was closed with subdermal 3-0 Vicryl sutures and the skin was closed with a running suture of 4-0 Monocryl. Steri-Strips and OpSite were placed. Patient tolerated procedure well was taken to the postanesthesia care unit in stable condition. - Complications none
--- NOTE | 2019-04-28 11:51 | DCINST_ITS ---
Discharge Diet: No Restrictions Discharge Activity: May not drive while taking narcotic pain medications. May shower in (days): 1 Ice area for (Minutes): 20 - PRN Call your doctor if your incision/area has: Continuous Slow Oozing, Sudden Increased Bleeding, Increased Pain/ Swelling, Increased Redness, Foul Smelling Discharge, Swelling at the incision site Remove Dressing in (days):: 1 - opsite maybe removed tomorrow, steri stay on un til fall off in 7-10 days, after 10 days ok to remove Allergies/Adverse Reactions: Allergies Sulfa (Sulfonamide Antibiotics) Allergy (Verified 04/27/19 08:25) Rash Medications to take at Discharge Celecoxib [Celebrex] 100 mg PO BID 11/21/17 Levothyroxine Sodium 75 mcg PO DAILY 11/21/17 Omeprazole [Prilosec] 20 mg PO BID 11/21/17 calcium carbonate 550 mg-magnesium hydroxide 110 mg chewable tablet 2 tab PO Q6H PRN 01/14/18 fexofenadine 180 mg tablet 180 mg PO DAILY 01/14/18 fluticasone propionate 50 mcg/actuation nasal spray,suspension 50 mcg INTRANASAL QHS 01/14/18 multivit with minerals-folic acid-lycopene 0.4 mg-600 mcg tablet 1 tab PO DAILY 01/14/18 sildenafil 100 mg tablet 100 mg PO ONCE PRN 01/14/18 valacyclovir 1 gram tablet 1,000 mg PO QDAY PRN 01/14/18 5-hydroxytryptophan (5-HTP) 100 mg capsule 200 mg PO DAILY cap 04/19/19 hydroxyzine HCl 25 mg tablet 25 mg PO QHS 04/19/19 Oxycodone HCl/Acetaminophen [Percocet 5/325] 1 - 2 tablet PO Q6H PRN PRN #5 tablet 04/28/19 The following prescriptions were given: Oxycodone HCl/Acetaminophen [Percocet 5/325] 1 - 2 tablet PO Q6H PRN PRN #5 ta blet PRN Reason: Pain Primary Care Physician: Montana Bills MD [Primary Care Provider] - Test Results: Test results from this visit will be discussed in further detail at your follow- up appointment, if applicable. Please Follow Up With: Flavia Gay MD - After 5 PM and on weekends call [phone] with any concerns When: Follow-up in the office 1 to 2 weeks call the office for appointment Proposed Discharge Date: 04/28/19
[2019-04-28 11:55] VITALS: BP 110/79; BP 135/86; PULSE 72; RESP 15; TEMP 36.7; O2SAT 93
[2019-04-28 12:00] VITALS: BP 123/83; BP 135/86; PULSE 71; RESP 16; O2SAT 93
[2019-04-28 12:05] VITALS: BP 116/77; BP 135/86; PULSE 67; RESP 16; O2SAT 93
[2019-04-28 12:08] VITALS: BP 119/85; BP 135/86; PULSE 63; RESP 16; TEMP 36.6; O2SAT 93
[2019-04-28 12:39] VITALS: BP 135/86
== END 2019-04-28 12:49 | disposition home or self-care (01) ==
LOC: SDC 09:12 → AC 09:12
PROVIDERS: Family Provider Family Medicine; PCP Family Medicine; Referring Provider Surgery; Visit Provider Surgery
PROC: (CPT 38500; principal; 2019-04-28 10:30)
DX: C82.05 Follicular lymphoma grade I, lymph nodes of inguinal region and lower limb (principal); R93.5 Abnormal findings on diagnostic imaging of other abdominal regions, including retroperitoneum; I10 Essential (primary) hypertension; J44.9 Chronic obstructive pulmonary disease, unspecified; E03.9 Hypothyroidism, unspecified; K21.9 Gastro-esophageal reflux disease without esophagitis; K58.9 Irritable bowel syndrome, unspecified; Z88.2 Allergy status to sulfonamides; F32.9 Major depressive disorder, single episode, unspecified; F41.9 Anxiety disorder, unspecified
CPT/HCPCS: 00800; 38531; 88307; 88341; 88342; J7120; J2405

== ENCOUNTER 2019-05-24 08:44 | Day surgery (SDC) | payer BC, SELFPAY ==
[2019-05-22 13:09] VITALS: BMI 28.0
[2019-05-24] VITALS (9 sets, daily range): BP systolic 105–166; BP diastolic 80–134; PULSE 63–84; RESP 16; TEMP 36.3–36.9; O2SAT 92–98; BMI 27.7
--- NOTE | 2019-05-24 | FLU_PTH ---
PATIENT: ROB BLANCO LOC: EN U#:[id number] AGE/SX: 68/M ROOM: RE05/24/[address]: Dr. Dalton oPtter DO : 1950 BED: DIS: 05/24/2019 SPEC #: [id number] RECD: 05/24/19 14:06 STATUS: SALVADOR LAVON #: [id number] COLT: 05/24/19 00:[address]: Dalton Potter DEPT: CYTOLOGY RECD BY: Iglesia Walton ENTERED: 05/24/19 14:06 SP TYPE: Fluid OTHR DR: Dr. Montana Bills MD Tissues: Lung, NOS Procedures: PAS Fungus (control) Special Stain Group II Special Stain Group I Surgery Specimen Level IV AFB Stain (control) Cytospin Fluid HEADER OPERATION: Bronchoscopy with BAL PRE-OP DIAGNOSIS: Abnormal PET TISSUE SUBMITTED: Right middle lobe, fluid for cytology DIAGNOSIS CYTOLOGY Right middle lobe fluid, BAL (cytospin and cell block): Negative for malignant cells. Numerous organisms consistent with actinomyces. Special stains for acid fast bacilli and fungi are negative for organisms; matched controls are appropriate. See comment. SJ:rg 05/26/19 COMMENT Organisms may represent contents from the mouth. Correlation with clinical findings and appropriate follow up are necessary. CYTOLOGY STUDY Slides are reviewed. CYTOLOGY GROSS Received is 20 ml of red cloudy fluid labeled with the patient's name and and designated per the requisition as right middle lobe. Submitted for cytology preparation including cell block. 05/24/19 TC:5 CPT: 90064, 38439, 42797 x2
--- NOTE | 2019-05-24 08:49 | PCM.HP.STD ---
History of Present Illness Date of Admission: 05/24/19 Chief Complaint: Abnormal PET scan of lung The patient is a 68-year-old male who presented to the pulmonary clinic on May 22, 2019 for the evaluation of an abnormal PET scan. The patient is currently being followed by Dr. Coyne of oncology due to a history of grade 1 follicular lymphoma. As part of his recent work-up, a PET scan was obtained on May 08, 2019 which revealed increased glucose metabolism noted in the right mid/lower anterior medial hemithorax extending anterior to the pleural space. Prior CTA chest from October 2018 was personally reviewed, and at that time, revealed what appeared to be possible airspace consolidation with air bronchograms involving the area in question on the PET scan. The patient does have a reported smoking history of approximately 30 pack years, having quit smoking completely 20 years ago. He denies any significant shortness of breath, chest tightness, wheezing or cough. His weight has been stable. His appetite is good. He does report occasional episodes of intermittent rather acute onset shortness of breath which is self-limited. The patient attributes most of the symptoms to underlying anxiety. He denies any hemoptysis, fevers, chills or night sweats. He denies any previous TB exposure. The patient is currently prescribed an albuterol metered-dose inhaler that he is able to utilize on an as-needed basis in his home environment. He did undergo pulmonary function studies in 2017 which did reveal evidence of irreversible mild large airways obstructive lung disease. Given concerns over the findings noted on the patient's PET scan, he was referred to undergo bronchoscopic evaluation of his airway. Past Medical History Past Medical History (Chronic Problems): Chronic Problems (Last Reviewed 05/22/19 @ 13:10 by Samantha Duke) Follicular lymphoma (Chronic) Abnormal PET scan of lung (Chronic) COPD (chronic obstructive pulmonary disease) (Chronic) Hypertension (Chronic) Hypothyroidism (Chronic) IBS (irritable bowel syndrome) (Chronic) GERD (gastroesophageal reflux disease) (Chronic) Medical History: Medical History (Last Reviewed 05/22/19 @ 13:10 by Samantha Duke) Hemorrhoids (Acute) K64.9 Abdominal pain (Acute) R10.9 COPD (chronic obstructive pulmonary disease) (Chronic) J44.9 SOB (shortness of breath) (Acute) R06.02 Anxiety (Acute) F41.9 Depression (Acute) F32.9 Hypertension (Chronic) I10 Numbness and tingling (Acute) R20.0, R20.2 Gout (Acute) M10.9 Arthritis (Acute) M19.90 Back problem (Acute) M53.9 Thyroid disease (Acute) E07.9 Fatigue (Acute) R53.83 Hypothyroidism (Chronic) E03.9 IBS (irritable bowel syndrome) (Chronic) K58.9 GERD (gastroesophageal reflux disease) (Chronic) K21.9 Allergies Sulfa (Sulfonamide Antibiotics) Allergy (Severe, Verified 05/23/19 08:25) Rash Home Medications: Ambulatory Orders Medication Instructions Recorded Celecoxib [Celebrex] 100 mg PO BID 11/21/17 Levothyroxine Sodium 75 mcg PO DAILY 11/21/17 Omeprazole [Prilosec] 20 mg PO BID 11/21/17 calcium carbonate 550 mg-magnesium 2 tab PO Q6H PRN 01/14/18 hydroxide 110 mg chewable tablet fexofenadine 180 mg tablet 180 mg PO DAILY 01/14/18 fluticasone propionate 50 50 mcg INTRANASAL QHS PRN 01/14/18 mcg/actuation nasal spray,suspension multivit with minerals-folic 1 tab PO DAILY 01/14/18 acid-lycopene 0.4 mg-600 mcg tablet sildenafil 100 mg tablet 100 mg PO ONCE PRN 01/14/18 valacyclovir 1 gram tablet 1,000 mg PO QDAY PRN 01/14/18 5-hydroxytryptophan (5-HTP) 100 mg 200 mg PO DAILY cap 04/19/19 capsule hydroxyzine HCl 25 mg tablet 25 mg PO QHS 04/19/19 Chlorpheniramine Maleate 4 mg PO UD PRN 05/03/19 Colchicine [Colcrys] 0.6 mg PO UD PRN 05/03/19 Dicyclomine HCl 20 mg PO UD PRN 05/03/19 Tamsulosin HCl [Flomax] 0.4 mg PO UD PRN 05/03/19 Surgical History: Surgical History (Last Reviewed 05/22/19 @ 13:10 by Samantha Duke) Hx of colonoscopy (Acute) Z98.890 2001 Hx of bilateral inguinal hernia repair (Acute) Z98.890, Z87.19 2008 Hx of vasectomy (Acute) Z98.52 History of left knee replacement Z96.652 OCT 2018 H/O vasectomy Z98.52 S/P hernia repair Z98.890, Z87.19 Smoking Status: Former smoker Review of Systems Constitutional: Denies: Chills, Fever, Night Sweats Eyes: Denies: Double vision HEENT: Denies: Head Aches, Sinus Congestion, Sinus Drainage Cardiovascular: Denies: Chest Pain, Palpitations Respiratory: Denies: Cough, Shortness of breath at rest, Sputum production Gastrointestinal: Denies: Abdominal Pain, Nausea, Vomiting Genitourinary: Denies: Dysuria Musculoskeletal: Denies: Joint Pain, Joint Tenderness Skin: Denies: Rash, Wounds Neurological: Denies: Numbness, Tingling, Focal weakness Psychiatric: Denies: Anxiety, Depression, Homicidal Ideations, Suicidal Ideations Hematologic/ Lymphatic: Denies: Easy Bruising, Easy Bleeding VTE Information - Inpt Only VTE Present on Admission: No VTE Mechan Device Prophylaxis: None VTE Pharm Prophylaxis ordered?: No - Physical Exam General: Alert, Oriented x3, Cooperative HEENT: Atraumatic, PERRLA, EOMI, Normocephalic Neck: Supple, No JVD, Negative Carotid Bruits Lungs: Clear to auscultation, Normal air movement Cardiovascular: Regular rate, No murmurs Abdomen: Bowel Sounds Present, Soft, Non Tender Extremities: No edema, Capillary Refill Less than 3 Seconds Skin: No rashes, No breakdown Musculoskeletal: No Tenderness to Palpation of Joints or Extremities Neurological: Cranial nerves II-XII grossly intact Psych/Mental Status: Normal Affect, Appropriate Body Mass Index (BMI) 28.0 Assessment/Plan All Active Problems (Last Reviewed 05/22/19 @ 13:10 by Samantha Duke) Hx of colonoscopy (Acute) Hx of bilateral inguinal hernia repair (Acute) Hx of vasectomy (Acute) Hemorrhoids (Acute) Abdominal pain (Acute) SOB (shortness of breath) (Acute) Anxiety (Acute) Depression (Acute) Numbness and tingling (Acute) Gout (Acute) Arthritis (Acute) Back problem (Acute) Thyroid disease (Acute) Fatigue (Acute) 1. Abnormal PET scan of lung R94.2 Plan The patient's recent PET scan revealed an intense focus of increased glucose metabolism in the right mid hemithorax which extended outward to involve the pleural surface. This happens to coincide with an area of infection previously noted on CT chest from 2018. Clinical considerations would be that for an underlying indolent infectious process (such as MAC), possible endobronchial lesion leading to atelectasis and possible malignancy. At this time, given the location of the PET positive lesion, EBUS would be of little utility given its peripheral location and lack of mediastinal lymphadenopathy. Alternatively, I spoke with the patient at length about proceeding with a basic bronchoscopy to perform an airway evaluation to ensure that there are no endobronchial lesions of concern. If nothing is noted within the patient's airway, I would proceed with obtaining a bronchoalveolar lavage of the patient's right middle lobe to evaluate for the presence of an indolent infection. Following a discussion regarding the risks of benefits of proceeding with such a procedure, the patient is in agreement to move forward.
--- NOTE | 2019-05-24 10:46 | OP.ENDO_ITS ---
Patient Name: Brett Leslie Procedure Date: 05/24/2019 9:34 AM Date of : 1950 Age: 68 Procedure: Bronchoscopy Indications: Abnormal CT scan of chest Providers: Dalton Potter MD Referring MD: Dalton Potter MD Medicines: Monitored Anesthesia Care Complications: No immediate complications Procedure: Pre-Anesthesia Assessment: - A History and Physical has been performed. Patient meds and allergies have been reviewed. The risks and benefits of the procedure and the sedation options and risks were discussed with the patient. All questions were answered and informed consent was obtained. Patient identification and proposed procedure were verified prior to the procedure by the physician and the nurse in the procedure room. Mental Status Examination: normal. Airway Examination: normal oropharyngeal airway. Respiratory Examination: clear to auscultation. CV Examination: normal. ASA Grade Assessment: II - A patient with mild systemic disease. After reviewing the risks and benefits, the patient was deemed in satisfactory condition to undergo the procedure. The anesthesia plan was to use monitored anesthesia care (MAC). Immediately prior to administration of medications, the patient was re-assessed for adequacy to receive sedatives. The heart rate, respiratory rate, oxygen saturations, blood pressure, adequacy of pulmonary ventilation, and response to care were monitored throughout the procedure. The physical status of the patient was re-assessed after the procedure. After I obtained informed consent, the scope was passed under direct vision. Throughout the procedure, the patient's blood pressure, pulse, and oxygen saturations were monitored continuously. The bronchoscope was introduced through the mouth and advanced to the tracheobronchial tree. The procedure was accomplished without difficulty. The patient tolerated the procedure well. Findings: The oropharynx appears normal. The larynx appears normal. The vocal cords appear normal. The subglottic space is normal. The trachea is of normal caliber. The bita is sharp. The tracheobronchial tree was examined to at least the first subsegmental level. Bronchial mucosa and anatomy are normal; there are no endobronchial lesions. Bilateral Lung Abnormalities: Scant, mucoid secretions were found throughout the tracheobronchial tree. They were not obstructing the airway. BAL was performed in the right middle lobe of the lung and sent for cell count, bacterial culture, viral smears & culture, and fungal & AFB analysis and cytology. 80 mL of fluid were instilled. 30 mL were returned. The return was cloudy. There were no mucoid plugs in the return fluid. Impression: - Abnormal CT scan of chest - The airway examination was normal. - Scant, mucoid secretions were found throughout the tracheobronchial tree. - Bronchoalveolar lavage was performed. Recommendation: - Await BAL results. Procedure Code(s): --- Professional --- 31154, Bronchoscopy, rigid or flexible, including fluoroscopic guidance, when performed; with bronchial alveolar lavage Diagnosis Code(s): --- Professional --- R09.89, Other specified symptoms and signs involving the circulatory and respiratory systems R93.8, Abnormal findings on diagnostic imaging of other specified body structures CPT copyright 2017 [employer]. All rights reserved. The codes documented in this report are preliminary and upon fundraising manager review may be revised to meet current compliance requirements. DO Dalton Cullen MD 05/24/2019 10:30:58 AM This report has been signed electronically. Number of Addenda: 0 Note Initiated On: 05/24/2019 9:34 AM
[2019-05-24 10:49] LABS: Cytology, Washings SEE PATHOLOGY REPORT
[2019-05-24 11:44] LABS: Appearance/Body Fluid SL CLDY; Color/Body Fluid SLIGHTLY PINK; Source- Body Fluid BRONCHIAL LAVAGE
[2019-05-24 11:53] LABS: Red Cell Count/Body Fluid 1292 /mm3; White Blood Count/Body Fluid 412 /mm3
[2019-05-24 12:33] LABS: Body Fluid QC Type(s) BF1Q; Lymphocytes 24 %; Neutrophil (Segs) 37 %; Other Cell Type/BF 39 %
[2019-05-29 14:17] LABS: Pathologist Comment/Body Fluid Reviewed
== END 2019-05-24 12:02 | disposition home or self-care (01) ==
LOC: EN 08:44 → AC 08:46
PROVIDERS: Family Provider Family Medicine; PCP Family Medicine; Referring Provider Internal Medicine Critical Care Medicine; Visit Provider Internal Medicine Critical Care Medicine
PROC: 0BJ08ZZ Inspection of Tracheobronchial Tree, Via Natural or Artificial Opening Endoscopic (ICD-10-PCS; CPT 31622; principal; 2019-05-24 09:45)
DX: R94.2 Abnormal results of pulmonary function studies (principal); C82.00 Follicular lymphoma grade I, unspecified site; J44.9 Chronic obstructive pulmonary disease, unspecified; I10 Essential (primary) hypertension; E03.9 Hypothyroidism, unspecified; K21.9 Gastro-esophageal reflux disease without esophagitis; M19.90 Unspecified osteoarthritis, unspecified site; F41.9 Anxiety disorder, unspecified; F32.9 Major depressive disorder, single episode, unspecified; Z79.899 Other long term (current) drug therapy; Z87.891 Personal history of nicotine dependence
CPT/HCPCS: 31624; 87015; 87070; 87077; 87101; 87106; 87116; 87186; 87205; 87206; 87252; 88108; 88305; 88312; 88313; 89050; J7120; J2405

== ENCOUNTER 2019-06-08 13:28 | Emergency (ER) | payer BC, SELFPAY ==
[2019-05-31 10:51] VITALS: BMI 27.7
[2019-06-08 13:29] VITALS: BP 141/95; PULSE 72; RESP 17; TEMP 36.4; O2SAT 98; BMI 27.5
[2019-06-08 13:33] VITALS: BP 129/103; PULSE 72; RESP 18; O2SAT 96
--- NOTE | 2019-06-08 13:46 | RAD_ITS ---
STUDY: X-RAY CHEST REASON FOR EXAM: Male, 68 years old. Chest pain and left arm pain. TECHNIQUE: Single AP portable view of the chest. COMPARISON: Comparison is made with prior study dated October 30, 2018. FINDINGS: EKG electrodes are seen. Hyperinflation. Increased density in the right infrahilar region. This may represent an area of infiltration. Radiographic follow-up is recommended. There is no demonstrated pleural abnormality. Normal size heart. Normal visualized pulmonary arteries. There is atherosclerotic tortuosity of the aortic arch and descending thoracic aorta. Normal visualized thoracic spine. Normal visualized ribs, clavicles, and shoulders. There is no demonstrated abnormality of the visualized soft tissue structures of the upper abdomen. RAD/Chest 1 View (Portable) IMPRESSION: Prominence of the right hilar region. Early infiltration be ruled out. Follow-up is recommended. Electronically Signed: Cam Dawn, at 14:24 EDT , Service support ,
--- NOTE | 2019-06-08 13:46 | EKG12_ITS ---
Test Reason : CP Blood Pressure : / mmHG Vent. Rate : 067 BPM Atrial Rate : 067 BPM P-R Int : 200 ms QRS Dur : 112 ms QT Int : 404 ms P-R-T Axes : 055 -51 044 degrees QTc Int : 426 ms Normal sinus rhythm Left anterior fascicular block Abnormal ECG Confirmed by ISRAEL AYOUB, DILLON ([id number]), fan mail editor TAM SCHUSTER ([id number]) on 06/12/2019 12:55:20 PM Referred By: Montana Bills Confirmed By:DILLON WOOD MD
[2019-06-08 14:03] LABS: Absolute Neutrophil Count 3.6 X10^3/uL (2.0-7.7); Basophil# 0.09 X10^3/uL; Basophil% 1.2 % (0-1); Eosinophil# 0.46 X10^3/uL; Hematocrit 46.3 % (40-54); Hemoglobin 15.9 g/dL (13.0-16.5); Lymphocyte % 35.3 % (19-41); Mean Corp Hgb Conc 34.3 g/dL (32-36); Mean Corpuscular Hgb 30.5 pg (27.0-32.0); Mean Corpuscular Volume 88.9 fL (80-94); Mean Platelet Vol. 9.6 fl (6.2-12.0); Monocyte% 10.5 % (0-10); NRBC Flagged by Analyzer 0 % (0-5); Neutrophil # 3.55 X10^3/uL (2.7-7.7); Neutrophil % 46.5 % (47-70); Platelet Count 211 K/mm3 (150-450); RBC Distribution Width CV 13.4 % (11.6-14.6); Red Blood Count 5.21 M/mm3 (4.6-6.2); White Blood Count 7.6 K/mm3 (4.4-11.0)
[2019-06-08 14:12] LABS: Anion Gap 3 (5-15); BUN 11 mg/dL (7-18); BUN/Creat Ratio 9.3 RATIO (10-20); Calcium,Total 9.1 mg/dL (8.5-10.1); Chloride 104 mmol/L (98-107); Creatinine, Serum 1.18 mg/dL (0.70-1.30); EST Glomerular Filtration Rate 65 mL/min (>60); Est Glom Filt Rate - Afr Amer 79 mL/min (>60); Estimated Creatinine Clearance 71.61 ml/min; Glucose 95 mg/dL (74-106); Sodium Level 137 mmol/L (136-145)
--- NOTE | 2019-06-08 15:45 | ED.DCSUM_ITS ---
- ER Visit Summary Date of Service: 06/08/19 Chief Complaint: Chest pain History of Present Illness: The patient is a [address] Montana Bills and Dr. Potter. He reports that he has left-sided chest pain that began yesterday while he was at rest. Its a constant pain that he describes as a dull, pressur e. It is 7 out of 10 at worst and 3 out of 10 currently. Is worsened by nothing including exertion, movement, or breathing. He actually reports it is relieved by walking. He denies any associated nausea, vomiting, or diaphoresis. He reports he has shortness of breath that is chronic and unchanged. 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 Potter. Physical Examination: Vitals: Stable. Afebrile. General: Well-nourished and well-developed. Head: Normocephalic atraumatic. Neck: Supple, no lymphadenopathy. No JVD. Nontender. Cardiovascular: Regular rate and rhythm. No murmurs. Respiratory: No respiratory distress. Clear to auscultation bilaterally. Abdominal: Soft, nontender, nondistended, normal bowel sounds. No guarding, rebound, or peritoneal signs. Back: Nontender. Extremities: Nontender, no edema. Skin: Normal color, no rash. Neurologic: Alert and oriented ?3. Cranial nerves II through XII are intact. Normal strength and sensation. Psych: Normal affect. Test Results: EKG sinus at 67 with left anterior fascicular block. There are no acute changes. Troponin is negative despite greater than 12 hours of constant pain. Chem-7 is normal. CBC is more for monocytes 11 eosinophils of 6. Chest x-ray shows prominence of the right hilar region, infiltrate should be ruled out. Emergency Department Course and Treatment: Patient has rested comfortably throughout his stay in the emergency department without complaint. I did discuss him the risk of a PE with his history of lymphoma. He is refused a CT of the chest and reports that he feels much improved. Treatment Plan: Patient's pain is very atypical and I do not feel that this is cardiac in etiology. He will be discharged instructions to follow-up with his primary care physician 1 to 2 days for another exam. He does understand that if he has worsening symptoms to return. He also understands that he will require a CT of the chest for further evaluation if not improving. Disposition: To home in improved and stable condition. Impression: 1. Atypical chest pain. This note was generated with [employer] dictation software. It may contain incorrect words, spelling, and punctuation that were not noted in review of the chart prior to signing ED Disposition - Plan for ED Patient: Disposition: Home or Assisted Living Instructions: CHEST PAIN, Uncertain Cause Referrals: Montana Bills MD [Primary Care Provider] - 1-2 Days if not improving
[2019-06-08 16:11] VITALS: RESP 17
== END 2019-06-08 16:13 | disposition home or self-care (01) ==
LOC: ED 14:06
PROVIDERS: Emergency Provider Emergency Medicine; Family Provider Family Medicine; PCP Family Medicine
DX: R07.89 Other chest pain (principal); I44.4 Left anterior fascicular block; R06.02 Shortness of breath; A42.9 Actinomycosis, unspecified; B96.1 Klebsiella pneumoniae [K. pneumoniae] as the cause of diseases classified elsewhere; E78.00 Pure hypercholesterolemia, unspecified; R19.7 Diarrhea, unspecified; Z85.79 Personal history of other malignant neoplasms of lymphoid, hematopoietic and related tissues
CPT/HCPCS: 71045; 80048; 84484; 85025; 93005; 99285

== ENCOUNTER 2019-07-05 07:55 | Day surgery (SDC) | payer BC, SELFPAY ==
--- NOTE | 2019-05-11 08:06 | HP_ITS ---
Intake Vital Signs 05/10/19 Body Mass Index (BMI) 28.1 Intake Visit Reasons: Removal Lymph Node lt Groin 04/28 Chief Complaint: Lymphoma, new diagnosis Clockmaker Required: No Is patient in pain?: Yes (lower abdomen) Pain scale (1-10): 1 Allergies Sulfa (Sulfonamide Antibiotics) Allergy (Severe, Verified 05/10/19 09:59) Rash Medications Celecoxib [Celebrex] 100 mg PO BID 11/21/17 [History Confirmed 05/10/19] Levothyroxine Sodium 75 mcg PO DAILY 11/21/17 [History Confirmed 05/10/19] Omeprazole [Prilosec] 20 mg PO BID 11/21/17 [History Confirmed 05/10/19] calcium carbonate 550 mg-magnesium hydroxide 110 mg chewable tablet 2 tab PO Q6H PRN 01/14/18 [History Confirmed 05/10/19] fexofenadine 180 mg tablet 180 mg PO DAILY 01/14/18 [History Confirmed 05/10/19] fluticasone propionate 50 mcg/actuation nasal spray,suspension 50 mcg INTRANASAL QHS 01/14/18 [History Confirmed 05/10/19] multivit with minerals-folic acid-lycopene 0.4 mg-600 mcg tablet 1 tab PO DAILY 01/14/18 [History Confirmed 05/10/19] sildenafil 100 mg tablet 100 mg PO ONCE PRN 01/14/18 [History Confirmed 05/10/19] valacyclovir 1 gram tablet 1,000 mg PO QDAY PRN 01/14/18 [History Confirmed 05/10/19] 5-hydroxytryptophan (5-HTP) 100 mg capsule 200 mg PO DAILY cap 04/19/19 [History Confirmed 05/10/19] hydroxyzine HCl 25 mg tablet 25 mg PO QHS 04/19/19 [History Confirmed 05/10/19] Chlorpheniramine Maleate 4 mg PO UD PRN 05/03/19 [History Confirmed 05/10/19] Colchicine [Colcrys] 0.6 mg PO UD PRN 05/03/19 [History Confirmed 05/10/19] Dicyclomine HCl 20 mg PO UD PRN 05/03/19 [History Confirmed 05/10/19] Tamsulosin HCl [Flomax] 0.4 mg PO UD PRN 05/03/19 [History Confirmed 05/10/19] PFSH Medical History Hemorrhoids (Acute) Abdominal pain (Acute) COPD (chronic obstructive pulmonary disease) (Chronic) SOB (shortness of breath) (Acute) Anxiety (Acute) Depression (Acute) Hypertension (Chronic) Numbness and tingling (Acute) Gout (Acute) Arthritis (Acute) Back problem (Acute) Thyroid disease (Acute) Fatigue (Acute) Hypothyroidism (Chronic) IBS (irritable bowel syndrome) (Chronic) GERD (gastroesophageal reflux disease) (Chronic) Surgical History Hx of colonoscopy (Acute) Hx of bilateral inguinal hernia repair (Acute) Hx of vasectomy (Acute) History of left knee replacement (Acute) H/O vasectomy (Inactive) S/P hernia repair (Inactive) Family History Mother CVA (cerebral vascular accident) Diabetes Heart disease Arthritis Father Cancer lung Arthritis Ulcer Social History (Updated 05/11/19 @ 10:15 by Flavia Gay MD) Smoking Status: Former smoker second hand exposure: No alcohol intake: current alcohol intake frequency: 0-2 drinks per day substance use type: does not use caffeine: Yes what type of physical activity do you participate in: walking, running, bicycling frequency: 5-6 times per week seatbelt use: always HPI HPI HPI: ROB BLANCO, is a 68 M who presents to the office today for HPI HPI Surgical H&P: Yes HPI: ROB BLANCO, is a 68 M who presents to the office today for follow-up from left inguinal node excision. Patient states the left groin is doing well he did bump it the other day so it has been a little bit sore since then but has not needed any pain meds. Patient does have an appoint with Dr. Coyne tomorrow to discuss his PET CT results. Patient does complain of bloating in the after abdomen states he is taking Bentyl but is not really helping. He is also on omeprazole 20 mg p.o. twice daily and takes another form of antacid as well. Patient has been under quite a bit of stress with his new diagnosis as well as his 's surgery is coming up next week. Patient has never had an EGD or colonoscopy in the past. He states he has been on the omeprazole off on for about 20 years. Patient states he still has his left mid/lower quadrant abdominal pain which is constant but mild. he denies any family history of colon cancer. His dad did have a history of ulcers which required resection of the stomach. Patient states he drinks 2 beers nightly and does smoke pot does not smoke any cigarettes. Patient also gives a history of having diverticulitis about 5 years ago he went to [place] for abdominal pain in the left lower quadrant he had pain meds and antibiotics saw his PCP who put him on 2 different antibiotics. He denies having any further attacks with that. ROS General General: Yes fatigue; no weight change Gastro Gastrointestinal: Yes abdominal pain, Yes nausea or vomiting (Nauseated no vomiting), No diarrhea, No constipation, No hemorrhoids Exam Const General: cooperative, comfortable, no acute distress Resp Effort & Inspection: normal respiratory effort Cardio Rate: regular rate GI Inspection: distended Palpation: soft, no guarding, tender (mild L midquad, no PS) Skin Other: Left groin incision healing well, mild swelling no signs of erythema. Assessment & Plan Problems 1. 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 GERD (gastroesophageal reflux disease) K21.9 3. Screening for colon cancer Z12.11 Plan Patient's left groin incisions healing well, mild swelling. Patient meets with Dr. Coyne tomorrow to discuss treatment. I have discussed the above with the patient. I have offered the patient EGD & colonoscopy for evaluation, will schedule depending on patient's treatment plans with oncology I have explained the risks/benefits of the procedure and described the procedure. I have discussed the risks with the patient, including but not limited to: infection, bleeding, perforation of the GI tract requiring emergency surgery, inability to complete the procedure, injury to any internal organs, complications of anesthesia, etc. - the patient understands and agrees to proceed. I have answered all the patient's questions to the patient's satisfaction and the patient has no further questions. The patient has been given instructions for the colon cleansing preparation. 1 day of clears, MiraLAX Dulcolax split prep. Flavia Gay M.D. Pager: [phone] [facility] [address] [place] [address], [facility], [address] [place] [address] Office: 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
[2019-05-11 11:49] VITALS: BMI 27.7
[2019-07-05] VITALS (7 sets, daily range): BP systolic 131–152; BP diastolic 84–99; PULSE 66–78; RESP 16; TEMP 36.2–36.7; O2SAT 92–97; BMI 28.1
--- NOTE | 2019-07-05 08:35 | HP.PCM_ITS ---
History of Present Illness Date of Admission: 07/05/19 The patient is a 68 year old M presents for an EGD and colonoscopy. Patient has never had an EGD has been on omeprazole for reflux for a while. Patient states currently the omeprazole 20 mg p.o. twice daily does not seem to be working as well. Patient states that his last colonoscopy was about 18 years ago. He did have a couple polyps at that time. Patient was also recently diagnosed with low-grade follicular lymphoma. Patient denies any abdominal pain, vomiting. He denies any family history of colon cancer. His dad did have a history of ulcers which required resection of the stomach. Patient states he drinks 2 beers nightly and does smoke pot does not smoke any cigarettes. Patient also gives a history of having diverticulitis about 5 years ago he went to [place] for abdominal pain in the left lower quadrant he had pain meds and antibiotics saw his PCP who put him on 2 different antibiotics. He denies having any further attacks with that. Past Medical History Past Medical History (Chronic Problems): Chronic Problems (Last Reviewed 06/08/19 @ 13:08 by Xin García) Actinomycosis, pulmonary (Chronic) Follicular lymphoma (Chronic) COPD (chronic obstructive pulmonary disease) (Chronic) Hypertension (Chronic) Hypothyroidism (Chronic) IBS (irritable bowel syndrome) (Chronic) GERD (gastroesophageal reflux disease) (Chronic) Medical History: Medical History (Last Reviewed 06/08/19 @ 13:08 by Xin García) Hemorrhoids (Acute) K64.9 Abdominal pain (Acute) R10.9 COPD (chronic obstructive pulmonary disease) (Chronic) J44.9 SOB (shortness of breath) (Acute) R06.02 Anxiety (Acute) F41.9 Depression (Acute) F32.9 Hypertension (Chronic) I10 Numbness and tingling (Acute) R20.0, R20.2 Gout (Acute) M10.9 Arthritis (Acute) M19.90 Back problem (Acute) M53.9 Thyroid disease (Acute) E07.9 Fatigue (Acute) R53.83 Hypothyroidism (Chronic) E03.9 IBS (irritable bowel syndrome) (Chronic) K58.9 GERD (gastroesophageal reflux disease) (Chronic) K21.9 Allergies Sulfa (Sulfonamide Antibiotics) Allergy (Severe, Verified 06/29/19 10:45) Rash Home Medications: Ambulatory Orders Medication Instructions Recorded Celecoxib [Celebrex] 100 mg PO BID 11/21/17 Levothyroxine Sodium 75 mcg PO DAILY 11/21/17 Omeprazole [Prilosec] 20 mg PO BID 11/21/17 calcium carbonate 550 mg-magnesium 2 tab PO Q6H PRN 01/14/18 hydroxide 110 mg chewable tablet fexofenadine 180 mg tablet 180 mg PO DAILY 01/14/18 fluticasone propionate 50 50 mcg INTRANASAL QHS PRN 01/14/18 mcg/actuation nasal spray,suspension multivit with minerals-folic 1 tab PO DAILY 01/14/18 acid-lycopene 0.4 mg-600 mcg tablet sildenafil 100 mg tablet 100 mg PO ONCE PRN 01/14/18 valacyclovir 1 gram tablet 1,000 mg PO QDAY PRN 01/14/18 5-hydroxytryptophan (5-HTP) 100 mg 200 mg PO DAILY cap 04/19/19 capsule hydroxyzine HCl 25 mg tablet 25 mg PO QHS 04/19/19 Chlorpheniramine Maleate 4 mg PO UD PRN 05/03/19 Colchicine [Colcrys] 0.6 mg PO UD PRN 05/03/19 Dicyclomine HCl 20 mg PO UD PRN 05/03/19 Tamsulosin HCl [Flomax] 0.4 mg PO UD PRN 05/03/19 Amoxicillin [Amoxil] 500 mg PO TID 06/29/19 Surgical History: Surgical History (Last Reviewed 06/08/19 @ 13:08 by Xin García) Hx of colonoscopy (Acute) Z98.890 2000 Hx of bilateral inguinal hernia repair (Acute) Z98.890, Z87.19 2007 Hx of vasectomy (Acute) Z98.52 History of left knee replacement Z96.652 OCT 2018 H/O vasectomy Z98.52 S/P hernia repair Z98.890, Z87.19 Smoking Status: Former smoker VTE Information - Inpt Only VTE Present on Admission: Yes VTE Mechan Device Prophylaxis: SCD's - Physical Exam General: Alert, Oriented x3, Cooperative, No apparent distress HEENT: Atraumatic Lungs: Normal air movement Cardiovascular: Regular Rhythm Abdomen: Soft, Non Tender, Non-Distended Extremities: No clubbing, No cyanosis, No edema Vital Signs Temp Pulse Resp BP Pulse Ox 97.6 F L 75 16 135/84 H 97 07/05/19 08:09 07/05/19 08:09 07/05/19 08:09 07/05/19 08:09 07/05/19 08:09 Oxygen Delivery Method Room Air Weight: 225 lb 4.999 oz Body Mass Index (BMI) 28.1 Assessment/Plan All Active Problems (Last Reviewed 06/08/19 @ 13:08 by Xin García) Hx of colonoscopy (Acute) Hx of bilateral inguinal hernia repair (Acute) Hx of vasectomy (Acute) Hemorrhoids (Acute) Abdominal pain (Acute) SOB (shortness of breath) (Acute) Anxiety (Acute) Depression (Acute) Numbness and tingling (Acute) Gout (Acute) Arthritis (Acute) Back problem (Acute) Thyroid disease (Acute) Fatigue (Acute) 68-year-old male GERD, screening for colon cancer, recent diagnosis of follicular lymphoma I have discussed the above with the patient. I have offered the patient EGD and colonoscopy for evaluation. I have explained the risks/benefits of the procedure and described the procedure. I have discussed the risks with the patient, including but not limited to: infection, bleeding, perforation of the GI tract requiring emergency surgery, inability to complete the procedure, injury to any internal organs, complications of anesthesia, etc. - the patient understands and agrees to proceed. I have answered all the patient's questions to the patient's satisfaction and the patient has no further questions. Flavia Gay M.D. Pager: [phone] [facility] [address] [place] [address], [address] [place] [address] Office: [phone]
--- NOTE | 2019-07-05 08:45 | IMM_PTH ---
PATIENT: ROB BLANCO LOC: LINDA U#:[id number] AGE/SX: 68/M ROOM: RE07/05/[address]: Dr. Flavia Gay MD : 1950 BED: DIS: 07/05/2019 SPEC #: [id number] RECD: 07/05/19 13:44 STATUS: SALVADOR REQ #: [id number] COLT: 07/05/19 08:[address]: Flavia Gay DEPT: IMMUNOHISTOCHEMISTRY RECD BY: Nuvia Quispe ENTERED: 07/05/19 13:44 SP TYPE: IMMUNO OTHR DR: Dr. Montana Bills MD Tissues: A - Stomach, NOS Procedures: H Pylori (initial) PHYSICIAN & INSTITUTION [place] [id number] SPECIMEN INFORMATION: Tissue Source: A - Antrum biopsy Clinical Info: GERD, screening Specimen Number: [id number] CPT code: 80937 METHODOLOGY: Deparaffinized sections of prefer/formalin-fixed tissue or PAP/DQ stained slides are incubated with monoclonal/polyclonal antibodies/oligonucleotide probes. Localization is made via biotin free immunoperoxidase method. Appropriate controls are performed and reacted as expected. Results on target cell population are indicated in the following table: RESULTS: ANTIBODY / CLONE RESULT Block A H Pylori (polyclonal) negative These tests were developed and their performance characteristics determined by [facility]. They may not have been cleared or approved by the U.S. Food and Drug Administration. The FDA has determined that such clearance or approval is not necessary. INTERPRETATION: A. Antrum biopsy: Negative for Helicobacter pylori organisms. SJ:lance 07/06/19
--- NOTE | 2019-07-05 08:45 | EGD_PTH ---
PATIENT: ROB BLANCO LOC: LINDA U#:[id number] AGE/SX: 68/M ROOM: RE07/05/[address]: Dr. Flavia Gay MD : 1950 BED: DIS: 07/05/2019 SPEC #: [id number] RECD: 07/05/19 11:52 STATUS: SALVADOR LAVON #: [id number] COLT: 07/05/19 08:[address]: Flavia Gay DEPT: SURGICAL PATHOLOGY RECD BY: Peyman Alvarez ENTERED: 07/05/19 13:13 SP TYPE: EGD BIOPSY OTHR DR: Dr. Montana Bills MD Tissues: A - Gastric mucous membrane B - Gastric mucous membrane C - Gastric mucous membrane D - Gastric mucous membrane E - Ascending colon F - Ascending colon Procedures: Special Stain Group II Surgery Specimen Level IV Alcian Blue/PAS (control) HEADER OPERATION: Colonoscopy, EGD ([facility]) PRE-OP DIAGNOSIS: GERD, screening TISSUE SUBMITTED: A - Antrum biopsy for H. pylori and path, B - Gastric body biopsy, C - Gastric polyp, D - GE junction biopsy, E - Biopsy of ascending colon polyp, F - Biopsy of ascending colon polyp?#2 MICROSCOPIC DIAGNOSIS A. Antrum, biopsy: Mild gastritis. See microscopic description and comment. B. Gastric body, biopsy: Fragments of gastric mucosa with changes consistent with fundic gland polyp. C. Gastric polyp, biopsy: Fundic gland polyp. D. GE junction, biopsy: A fragment of gastroesophageal mucosa with chronic inflammation. Intestinal metaplasia (goblet cell metaplasia) is not identified. See comment. E. Ascending colon polyp, biopsy: Fragments of tubular adenoma. F. Ascending colon polyp #2, biopsy: Fragments of tubular adenoma. SJ:lance 07/06/19 COMMENT A. The results of immunohistochemistry for Helicobacter pylori will be reported separately ([id number]). D. Alcian blue/PAS stain with matched control is used in the evaluation of the specimen. This case is discussed with Dr. Gay on 07/06/19. MICROSCOPIC DESCRIPTION Slides are reviewed. A. The specimen shows fragments of gastric mucosa with chronic inflammatory cell infiltrates in the lamina propria consisting of lymphocytes and plasma cells, consistent with mild chronic gastritis. Focal mucosal congestion is also noted. GROSS DESCRIPTION A - Received in fixative is one container labeled with the patient's name and designated antrum biopsy. The specimen consists of one irregular fragment of light bentley soft tissue that measures 0.4 x 0.3 x 0.1 cm. The specimen is totally submitted in one cassette. B - Received in fixative is one container labeled with the patient's name and designated gastric body biopsy. The specimen consists of two irregular fragments of light bentley soft tissue that in aggregate measure 0.6 x 0.3 x 0.1 cm. The specimen is totally submitted in one cassette. C - Received in fixative is one container labeled with the patient's name and designated gastric polyp. The specimen consists of a bentley-pink polyp measuring 0.5 x 0.6 x 0.3 cm. The specimen is totally submitted in one cassette. D - Received in fixative is one container labeled with the patient's name and designated GE junction biopsy. The specimen consists of one irregular fragment of light bentley soft tissue that measures 0.6 x 0.2 x 0.1 cm. The specimen is totally submitted in one cassette. E - Received in fixative is one container labeled with the patient's name and designated biopsy of ascending colon polyp. The specimen consists of multiple irregular fragments of light bentley soft tissue that in aggregate measure 0.5 x 0.4 x 0.1 cm. The specimen is totally submitted in one cassette. F - Received in fixative is one container labeled with the patient's name and designated biopsy of ascending colon polyp #2. The specimen consists of multiple irregular fragments of light bentley soft tissue that in aggregate measure 0.7 x 0.5 x 0.1 cm. The specimen is totally submitted in one cassette. / SJ:rg 07/05/19 TC:1 CPT: 33242 x6, 66729
--- NOTE | 2019-07-05 09:37 | OP.ENDO_ITS ---
07/05/2019 Montana Bills [address] [place] [address] Re : Upper GI endoscopy procedure for Brett Leslie Dear Dr. Bills This procedure was performed on Friday, July 05, 2019. My impressions and recommendations are as follows: Impressions : - Z-line irregular. Biopsied. - Nodular mucosa in the gastric body. Biopsied. - Erythematous mucosa in the antrum. Biopsied. - Multiple gastric polyps. Resected and retrieved. - Normal examined duodenum. Recommendations : - Await pathology results. - Discharge patient to home. - Use Protonix (pantoprazole) 40 mg PO daily. - Use sucralfate tablets 1 gram PO QID. - Continue present medications. My findings are described in the full procedure note, which is enclosed. If I can be of further assistance, please feel free to contact me at Doctor phone number(s): , Work: . Sincerely, MD Flavia Jones MD 07/05/2019 9:37:42 AM This report has been signed electronically.
--- NOTE | 2019-07-05 09:44 | OP.ENDO_ITS ---
07/05/2019 Montana Bills [address] [place] [address] Re : Colonoscopy procedure for Brett Leslie Dear Dr. Bills This procedure was performed on Friday, July 05, 2019. My impressions and recommendations are as follows: Impressions : - Hemorrhoids found on perianal exam. - Four less than 5 mm polyps in the ascending colon, removed with a cold biopsy forceps. Resected and retrieved. - Diverticulosis in the sigmoid colon. - The examination was otherwise normal on direct and retroflexion views. Recommendations : - Discharge patient to home. - High fiber diet. - Continue present medications. - Await pathology results. - Repeat colonoscopy in 3 - 5 years for surveillance based on pathology results. My findings are described in the full procedure note, which is enclosed. If I can be of further assistance, please feel free to contact me at Doctor phone number(s): , Work: . Sincerely, MD Flavia Jones MD 07/05/2019 9:43:33 AM This report has been signed electronically.
== END 2019-07-05 11:14 | disposition home or self-care (01) ==
LOC: EN 07:55 → AC 07:56
PROVIDERS: Family Provider Family Medicine; PCP Family Medicine; Referring Provider Family Medicine; Visit Provider Surgery
PROC: 0DJD8ZZ Inspection of Lower Intestinal Tract, Via Natural or Artificial Opening Endoscopic (ICD-10-PCS; CPT 45378; principal; 2019-07-05 08:40)
DX: Z12.11 Encounter for screening for malignant neoplasm of colon (principal); K64.9 Unspecified hemorrhoids; D12.2 Benign neoplasm of ascending colon; K57.30 Diverticulosis of large intestine without perforation or abscess without bleeding; K22.8 Other specified diseases of esophagus; K31.89 Other diseases of stomach and duodenum; K31.7 Polyp of stomach and duodenum; K29.70 Gastritis, unspecified, without bleeding; B96.1 Klebsiella pneumoniae [K. pneumoniae] as the cause of diseases classified elsewhere; C82.90 Follicular lymphoma, unspecified, unspecified site; F12.90 Cannabis use, unspecified, uncomplicated; J44.9 Chronic obstructive pulmonary disease, unspecified; I10 Essential (primary) hypertension; E03.9 Hypothyroidism, unspecified; K21.9 Gastro-esophageal reflux disease without esophagitis; K58.9 Irritable bowel syndrome, unspecified; A42.0 Pulmonary actinomycosis; Z88.2 Allergy status to sulfonamides; Z87.891 Personal history of nicotine dependence
CPT/HCPCS: 43251; 45380; 88305; 88313; 88342; J7120; A4216; J2405

== ENCOUNTER → 2019-10-05 10:56 | Outpatient (CLI) | payer BC, SELFPAY ==
[2019-08-29 08:21] VITALS: BMI 28.8
--- NOTE | 2019-10-05 14:00 | PFTCOMP ---
COMPLETE PULMONARY FUNCTION TEST INTERPRETATION Brief HPI: Patient is a 68 year old male, currently under the care of Dr. Potter, who presents to [facility] for complete pulmonary function tests secondary to diagnosis of dyspnea. Respiratory therapist reports good effort and reproducible results. Interpretation: Forced expiration spirometry shows a mild large airways obstructive ventilatory defect with an FEV1 of 103% predicted. There is no significant bronchodilator response by strict ATS criteria. Spirograms are of good quality and plateau slowly, indicating slowly emptying areas of the lungs. The respiratory flow volume loop shows decreased expiratory flow rates at all lung volumes consistent with airway obstruction. Lung volumes by body plethysmography show a normal total lung capacity at 7.82 L, 101% predicted. All other lung volumes are within normal limits. Diffusion capacity by carbon monoxide is normal at 94% predicted. The airway resistance is slightly elevated. Compared to previous pulmonary function tests from 02/22/2017, there has been no significant change. Impression: These pulmonary function tests are grossly within normal limits.
== END ==
PROVIDERS: Family Provider Family Medicine; PCP Family Medicine; Referring Provider Internal Medicine Critical Care Medicine; Visit Provider Internal Medicine Critical Care Medicine
DX: R06.02 Shortness of breath (principal); A42.0 Pulmonary actinomycosis
CPT/HCPCS: 94060; 94726; 94729

== ENCOUNTER → 2019-11-06 13:36 | Outpatient (CLI) | payer BC, SELFPAY ==
[2019-08-29 08:21] VITALS: BMI 28.8
== END ==
PROVIDERS: Family Provider Family Medicine; PCP Family Medicine; Visit Provider Family Medicine
DX: E03.9 Hypothyroidism, unspecified (principal)

== ENCOUNTER → 2019-11-17 12:36 | Outpatient (CLI) | payer BC, SELFPAY ==
[2019-08-09 13:50] VITALS: BMI 28.6
[2019-08-29 08:21] VITALS: BMI 28.8
--- NOTE | 2019-11-17 12:37 | CT_ITS ---
STUDY: CT ABDOMEN AND PELVIS WITHOUT CONTRAST REASON FOR EXAM: Male, 68 years old. LYMPHOMA F/U. Lump lt groin. Previous bilateral inguinal hernia repair RADIATION DOSAGE (If Supplied By Facility): CTDIvol = ( 21.97 ) mGy, DLP = ( 3066.85 ) mGycm TECHNIQUE: Transaxial images were obtained from the dome of the diaphragm to the symphysis pubis without oral contrast, and without intravenous contrast. Sagittal and coronal images were reconstructed. Individualized dose optimization techniques were used for this CT. COMPARISON: Abdomen/pelvis CT of 03/20/2019, PET scan 05/08/2019 FINDINGS: Base of the chest described on chest CT report. Normal liver. Normal gallbladder and extrahepatic biliary system. Normal spleen. Normal pancreas. Normal bilateral adrenal glands. There are simple bilateral renal cysts, stable. Normal visualized stomach. Normal small intestine. Normal colon. The appendix is visualized and appears normal. Normal abdominal aorta. Induration of the mesentery root similar since the prior study with mildly prominent lymph nodes overall decreased in size since the prior study. No dominant haris mass. The largest single lymph node on axial image 45 has short axis VII mm (previously measured 9 mm). Normal inferior vena cava. There is borderline retroperitoneal lymphadenopathy with enlarged nodes no greater than 10mm in the short axis diameter. Normal urinary bladder. There is enlargement of the prostate gland. Left inguinal adenopathy has increased (adjacent surgical clips) since prior abdomen/pelvis CT. There are 2 lymph nodes on image 100 measuring 2.0 x 2.3 cm and 2.4 x 2.4 cm, respectively. These lymph nodes measure 1.6 x 1.9 cm and 1.5 x 2.1 cm on the prior study. Right inguinal adenopathy has also increased in size. For instance, lymph node on image 110 measures 1.5 x 1.7 cm (previously measured 1.1 x 1.3 cm). Bilateral iliac chain lymph nodes have also increased in size. For instance, 0.8 x 1.1 cm lymph node on axial image 82 previously measured 6 x 8 mm. There are diffuse degenerative changes of the visualized lumbar spine. CT/Abdomen/Pelvis W IV Cont ONLY IMPRESSION: 1. Since 03/20/2019 abdomen/pelvis CT (and April 2019 PET scan), unfavorable change. Increased size of bilateral inguinal and iliac chain adenopathy, detailed above. 2. Slightly decreased mesenteric root lymph node size since prior study. Electronically Signed: Jorge Lange MD ([place]) at 15:44 EST , Service support ,
--- NOTE | 2019-11-17 12:37 | CT_ITS ---
STUDY: CT CHEST WITH CONTRAST REASON FOR EXAM: Male, 68 years old. LYMPHOMA F/U. Lump lt groin. Previous bilateral inguinal hernia repair RADIATION DOSAGE (If Supplied By Facility): CTDIvol = ( 21.97 ) mGy, DLP = ( 3066.85 ) mGycm TECHNIQUE: Transaxial imaging was performed following intravenous administration of IV 100mL Isovue-300. Multiplanar coronal and sagittal images were reformatted. Individualized dose optimization techniques were used for this CT. COMPARISON: PET scan from 05/08/2019 FINDINGS: Base of the neck described on soft tissue neck CT report. Lungs are hyperinflated with centrilobular and paraseptal emphysematous changes predominantly in the upper lungs, stable. Localized parenchymal consolidation involving the medial right upper lobe is stable measures 5.2 x 4.2 cm on image 87 (previously measured 5.7 x 5.4 cm on a similar slice position on PET scan). Minimal parenchymal opacity extends into the superior portion of the right middle lobe (sagittal image 135). There is a granuloma the posterior right upper lobe. There is no demonstrated pleural abnormality. Normal heart and pericardium. Normal variant pericardial recess noted. Bilateral axillary adenopathy overall similar since the prior study, accounting for variation in arm positioning for the 2 studies. The largest single lymph node is lateral to the right pectoralis muscle on image with short axis measuring 1.5 long axis measuring 2.1 cm (stable). Normal hilar regions. Normal enhanced pulmonary arteries. There is atherosclerotic calcification of the aortic arch with tortuosity and elongation of the aortic arch and descending thoracic aorta. There are multi-level degenerative changes of the thoracic spine. Upper abdomen described on abdomen/pelvis CT report. CT/Chest WITH Contrast IMPRESSION: 1. Since 05/08/2019, stable exam. Right upper lobe masslike consolidation with minimal extension across the minor fissure into the right middle lobe. 2. Grossly stable bilateral axillary adenopathy. 3. Emphysema. 4. Atherosclerosis Electronically Signed: Jorge Lange MD ([place]) at 12:52 EST , Service support ,
--- NOTE | 2019-11-17 12:37 | CT_ITS ---
STUDY: CT SOFT TISSUE NECK WITH CONTRAST REASON FOR EXAM: Male, 68 years old. LYMPHOMA F/U. Lump lt groin. Previous bilateral inguinal hernia repair RADIATION DOSAGE (If Supplied By Facility): CTDIvol = ( 0 ) mGy, DLP = ( 0 ) mGycm TECHNIQUE: The patient was scanned in a multi-detector CT scanner. High resolution transaxial imaging was performed following intravenous administration of IV 100mL Isovue-300. Sagittal and coronal images were reconstructed. Individualized dose optimization techniques were used for this CT. COMPARISON: None. FINDINGS: Normal bilateral parotid glands. Normal bilateral computer drafter spaces. Normal bilateral parapharyngeal spaces. Normal bilateral carotid spaces. Normal bilateral sublingual and submandibular glands and spaces. Normal visualized nasopharynx. Normal retropharyngeal space. Normal perivertebral space. Normal visualized bilateral faucial tonsils. The visualized tongue, tongue base and oropharynx are normal. The visualized cervical lymph nodes (levels I-) are within normal size limits, and maintain normal morphology. There is no demonstrated solid or cystic mass lesion. There is no abnormal contrast enhancement. Normal epiglottis, bilateral vallecula and hypopharynx. The pre-epiglottic and paraglottic adipose spaces are normal. Normal visualized bilateral piriform sinuses, aryepiglottic folds, vocal cords, and arytenoid-cricoid articulations. Normal subglottic trachea. Normal bilateral lobes of the thyroid gland. There is multilevel degenerative changes of the cervical spine. CT/Soft Tissue Neck WITH Contrast IMPRESSION: No masses or lymphadenopathy. Electronically Signed: Dinesh Fry MD at 10:40 EST Tel , Service support ,
[2019-11-17 12:51] LABS: CREATININE FINGERSTICK 0.7 mg/dL (0.70-1.30); EGFR FINGERSTICK > 60.0000 mL/min (>60)
== END ==
PROVIDERS: Family Provider Family Medicine; PCP Family Medicine; Referring Provider Internal Medicine Hematology & Oncology; Visit Provider Internal Medicine Hematology & Oncology
DX: C82.90 Follicular lymphoma, unspecified, unspecified site (principal); A42.0 Pulmonary actinomycosis
CPT/HCPCS: 70491; 71260; 74177; Q9967

== ENCOUNTER → 2019-12-07 09:54 | Outpatient (CLI) | payer BC, SELFPAY ==
[2019-11-30 07:04] VITALS: BMI 29.3
[2019-12-07 12:45] LABS: ALB/GLOB Ratio 1.1 RATIO (0.9-2.4); AST(SGOT) 17 U/L (15-37); Alanine Aminotransfer ALT/SGPT 33 U/L (16-61); Albumin, Serum 3.9 g/dL (3.2-5.0); Alkaline Phosphatase 47 U/L (45-117); Anion Gap 6 (5-15); BUN 10 mg/dL (7-18); BUN/Creat Ratio 8.3 RATIO (10-20); Calcium,Total 9.3 mg/dL (8.5-10.1); Chloride 108 mmol/L (98-107); Creatinine, Serum 1.21 mg/dL (0.70-1.30); EST Glomerular Filtration Rate 63 mL/min (>60); Est Glom Filt Rate - Afr Amer 77 mL/min (>60); Globulin 3.5 g/dL (2.2-4.2); Glucose 97 mg/dL (74-106); PSA,Total - Annual Screen 1.43 ng/mL (0.00-4.00); Protein, Total 7.4 g/dL (6.4-8.2); Sodium Level 141 mmol/L (136-145); Thyroid Stim Hormone (TSH) 2.32 uIU/mL (0.358-3.74)
== END ==
PROVIDERS: PCP Family Medicine; Referring Provider Family Medicine; Visit Provider Family Medicine
DX: E03.9 Hypothyroidism, unspecified (principal)
CPT/HCPCS: 36415; 80053; 84153; 84443; G0103

== ENCOUNTER → 2019-12-18 12:43 | Outpatient (CLI) | payer BC, SELFPAY ==
[2019-11-30 07:04] VITALS: BMI 29.3
--- NOTE | 2019-12-18 12:45 | ECHODONC_ITS ---
Version 2 Reason For Study: DYSPNEA/SOB Procedure This was a 2D Doppler, Color Flow transthoracic echocardiogram. Myocardial strain analysis was performed in this exam to aid in the assessment of cardiac function. Exam performed in department. Left Ventricle Normal LV size. Left ventricular systolic function is normal. The estimated ejection fraction is 55 %. Stage 1 diastolic dysfunction. No regional wall motion abnormalities noted. Right Ventricle Normal RV size. Normal systolic function. Atria Normal left atrium. Normal right atrium. Mitral Valve There is mild to moderate mitral annular calcification. Tricuspid Valve Normal tricuspid valve. Mild tricuspid valve insufficiency. Aortic Valve Trisinus/trileaflet aortic valve. Pulmonic Valve The pulmonic valve is not well visualized. Great Vessels Normal aortic root. The pulmonary artery is normal size. Normal inferior vena cava. Pericardium/Pleural No pericardial effusion. MMode/2D Measurements & Calculations LVIDd: 4.5 cm IVSd: 1.1 cm Ao root diam: 3.5 cm LVIDs: 3.2 cm LVPWd: 1.1 cm RVDd: 2.8 cm FS: 29.0 % LAV(MOD-bp): 54.8 ml LA A4 area: 15.6 cm2 LA dimension(2D): 3.8 cm LAV(MOD-bp) Indexed: 23.4 ml/m2 LAV(MOD-sp2): 54.6 ml LAV(MOD-sp4): 43.6 ml RA A4 area: 12.8 cm2 Time Measurements MV dec time: 0.20 sec Doppler Measurements & Calculations MV E max adrien: 52.1 cm/sec Lat Peak E' Adrien: 8.6 cm/sec Med Peak E' Adrien: 6.6 cm/sec MV A max adrien: 76.4 cm/sec E/E' lat: 6.1 E/E' med: 7.8 MV E/A: 0.68 Ao V2 max: 111.9 cm/sec LV V1 max: 79.4 cm/sec TR max adrien: 222.7 cm/sec Ao max P.0 mmHg LV V1 max P.5 mmHg TR max P.8 mmHg Interpretation Summary Normal LV size. Left ventricular systolic function is normal. The estimated ejection fraction is 55 %. Stage 1 diastolic dysfunction. There is mild to moderate mitral annular calcification. The global longitudinal strain = -17.7 % (normal). Ordering Physician: Dalton Potter Referring Physician: Montana Bills Performed By: Manda Black RDCS, RVT
== END ==
PROVIDERS: PCP Family Medicine; Referring Provider Internal Medicine Critical Care Medicine; Visit Provider Internal Medicine Critical Care Medicine
DX: R06.02 Shortness of breath (principal); R06.00 Dyspnea, unspecified
CPT/HCPCS: 93306; 93356

== ENCOUNTER → 2020-04-19 12:24 | Outpatient (CLI) | payer MEDICARE, OTHER, SELFPAY ==
[2020-04-03 12:54] VITALS: BMI 29.3
--- NOTE | 2020-04-19 12:25 | CT_ITS ---
STUDY: CT CHEST WITHOUT CONTRAST REASON FOR EXAM: Male, 69 years old. LUNG INFECTION. HISTORY OF LYMPHOMA RADIATION DOSAGE (If Supplied By Facility): CTDIvol = ( 14.07 ) mGy, DLP = ( 558.95 ) mGycm TECHNIQUE: Transaxial imaging was performed without the administration of intravenous contrast material. Multiplanar coronal and sagittal images were reformatted. Individualized dose optimization techniques were used for this CT. COMPARISON: Comparison is made with prior examination dated November 17, 2019. FINDINGS: Stable slightly enlarged bilateral axillary lymph nodes more prominent on the right side. Emphysematous changes in both lungs with bullous formation more prominent in the right upper lobe with a fibrocalcific scarring. This is unchanged. Since prior study, there has been a progression of the airspace disease in the right upper lobe with volume loss. This may represent post radiation pneumonitis if the patient received radiation to that site. There is no demonstrated pleural abnormality. Normal heart and pericardium. There are multiple small lymph nodes within the mediastinum, which are normal in size and morphology most compatible with reactive lymph hyperplasia. Normal hilar regions. Normal unenhanced pulmonary arteries. There is atherosclerotic calcification of the aortic arch with tortuosity and elongation of the aortic arch and descending thoracic aorta. There are multi-level degenerative changes of the thoracic spine. There is no demonstrated abnormality of the visualized upper abdomen. CT/Chest without Contrast IMPRESSION: Progressive airspace disease in the medial aspect of the right upper lobe as described. Stable appearance of the emphysematous changes with bullous formation worse in the right upper lobe. Stable enlargement of the axillary lymph nodes bilaterally. Electronically Signed: Cam Dawn, at 13:17 EDT , Service support ,
[2020-04-19 12:52] VITALS: PULSE 100; PULSE 80; PULSE 81; PULSE 91; PULSE 94; PULSE 97; PULSE 99; O2SAT 92; O2SAT 93; O2SAT 94; O2SAT 95
--- NOTE | 2020-04-19 15:15 | PCM.PSN.6M ---
PSN 6 Minute Walk Test - 6 Minute Walk Test 6 Minute Walk Test: 6 Minute Walk Test PSN:6-Minute Walk Test Start: 04/19/20 12:52 Freq: Status: Active Protocol: [id number].6MINW Document 04/19/20 12:52 [facility] (Rec: 04/19/20 12:57 [facility] [id number]) 6 Minute Walk Test Date Performed 04/19/20 Time Performed 12:30 Height 6 ft 3 in Weight: 103.419 kg Weight in Pounds 228.[address]: Adela Rivera Assistive device used: None Pre-test Oxygen Delivery Method Room Air Pulse Ox (%) 94 Pulse Rate (60-100 beats/min) 80 Dyspnea Soledad Scale (0-10) 3 Reported Symptoms Increased Work of Breathing 1st minute Oxygen Delivery Method Room Air Pulse Ox (%) 93 Pulse Rate (60-100 beats/min) 91 Dyspnea Soledad Scale (0-10) 3 Number of Rests Taken 0 Reported Symptoms Increased Work of Breathing 2nd minute Oxygen Delivery Method Room Air Pulse Ox (%) 92 Pulse Rate (60-100 beats/min) 94 Dyspnea Sol[place]ad Scale (0-10) 3 Number of Rests Taken 0 Reported Symptoms Increased Work of Breathing 3rd minute Oxygen Delivery Method Room Air Pulse Ox (%) 92 Pulse Rate (60-100 beats/min) 97 Dyspnea Soledad Scale (0-10) 3 Number of Rests Taken 0 Reported Symptoms Increased Work of Breathing 4th minute Oxygen Delivery Method Room Air Pulse Ox (%) 93 Pulse Rate (60-100 beats/min) 99 Dyspnea Sol[place]ad Scale (0-10) 3 Number of Rests Taken 0 Reported Symptoms Increased Work of Breathing 5th minute Oxygen Delivery Method Room Air Pulse Ox (%) 92 Pulse Rate (60-100 beats/min) 100 Dyspnea Soledad Scale (0-10) 3 Number of Rests Taken 0 Reported Symptoms Increased Work of Breathing 6th minute Oxygen Delivery Method Room Air Pulse Ox (%) 95 Pulse Rate (60-100 beats/min) 99 Dyspnea Soledad Scale (0-10) 3 Number of Rests Taken 0 Reported Symptoms Increased Work of Breathing Post-test Oxygen Delivery Method Room Air Pulse Ox (%) 95 Pulse Rate (60-100 beats/min) 81 Dyspnea Soledad Scale (0-10) 3 Reported Symptoms Increased Work of Breathing Full Laps Walked 20 Partial Lap, Number of Tiles Walked 48 Total Distance Walked (ft) 1228 - Interpretation Interpretation: The patient was able to ambulate 1228 feet over the course of 6 minutes on room air with no assistive devices or breaks. The patient did have significant desaturation as low as 92% and tachycardia to 100 bpm. These findings are suggestive of a respiratory limitation exercise tolerance. - Recommendations Recommendations: No supplemental oxygen is indicated at this time.
== END ==
PROVIDERS: PCP Family Medicine; Referring Provider Nurse Practitioner Acute Care; Visit Provider Nurse Practitioner Acute Care
DX: R06.02 Shortness of breath (principal); A42.0 Pulmonary actinomycosis
CPT/HCPCS: 71250; 94618

== ENCOUNTER → 2020-04-29 14:58 | Outpatient (CLI) | payer MEDICARE, OTHER, SELFPAY ==
[2020-04-23 15:32] VITALS: BMI 28.7
--- NOTE | 2020-04-29 14:59 | CT_ITS ---
STUDY: CT ABDOMEN AND PELVIS WITH CONTRAST REASON FOR EXAM: Male, 69 years old. LYMPHOMA FOLLOW UP/SWOLLEN LYMPH NODES LEFT GROIN -- SURG- BILAT INGUINAL/UMBILLICAL RADIATION DOSAGE (If Supplied By Facility): CTDIvol = ( 20.93 ) mGy, DLP = ( 908.14 ) mGycm TECHNIQUE: Transaxial 3.75 mm images were obtained from the dome of the diaphragm to the symphysis pubis without oral contrast. IV 100ML ISOVUE 300 was administered. Sagittal and coronal images were reconstructed. Individualized dose optimization techniques were used for this CT. COMPARISON: CT abdomen and pelvis 11/17/2019. CT chest 11/17/2019. PET scan 05/08/2019. FINDINGS: Hyperinflation of lung bases. Stable minimal nodularity in the right middle lobe medial segment at the site of previous inflammation. The visualized portions of the heart are within normal limits. Normal liver. Normal gallbladder and extrahepatic biliary system. Normal spleen. Normal pancreas. Normal bilateral adrenal glands. Stable subcentimeter low-attenuation in the right upper renal pole and anterior mid renal cortex off 0.9 x 1.2 cm. Stable left upper renal pole cortical thinning and stable 2 x 2.4 and 2.9 x 3.7 cm left mid renal cyst. Normal visualized stomach. Normal small intestine. There are stable colonic diverticula consistent with diverticulosis. The appendix is visualized and appears normal. Stable central mesenteric induration with indistinct small and mildly enlarged mesenteric lymph nodes, the largest of 0.7 x 0.8 cm image 47 series 1002 measured 0.8 x 0.8 cm previously. There are multiple small indistinct retroperitoneal lymph nodes the largest between aorta and inferior vena cava anteriorly measuring 0.9 x 1.3 cm image 48, previously 0.8 x 1.3 cm. The indistinct precaval lymph node in the superior pelvis measures 2 x 1.7 cm, previously 1.9 x 1.6 cm image 64. The right external iliac chain lymph nodes appear overall stable measuring 1.5 x 2.6 cm, previously 1.6 x 2.6 cm. The bilateral inguinal lymph nodes appear stable, measuring on the right 2 x 2.6, 1.4 x 1.3 cm, image 105, previously 1.7 x 2.3, 1.4 and 1.7 cm, left 2.9 x 2.3 centimeter image 101, previously 3 x 2.3 cm. The conglomeration of lymph nodes along the left iliac chains are stable. The current lymph nodes appears slightly more indistinct. There is diffuse atherosclerotic calcification of the abdominal aorta and pelvic arteries, without a demonstrated aneurysm. Mild stable infrarenal ectasia 2.4 x 2.2 cm. Normal inferior vena cava. Normal retroperitoneum. Normal urinary bladder. There is enlargement of the prostate gland. Left inguinal surgical clips. There are stable diffuse degenerative changes of the visualized lumbar spine. CT/Abdomen/Pelvis W IV Cont ONLY IMPRESSION: Bilateral pelvic and inguinal lymphadenopathy, borderline to minimally enlarged retroperitoneal and mesenteric lymph nodes with mesenteric induration appear overall stable since most recent CT abdomen and pelvis exam. No new or large masses detected. Stable nodularity of the right middle lobe medial segment at the site of previous airspace disease is stable. Bilateral stable renal cysts, few scattered colonic diverticula, arteriosclerosis, prostate enlargement and degenerative changes. Electronically Signed: Aileen Julio MD at 5:57 EDT , Service support ,
== END ==
PROVIDERS: PCP Family Medicine; Referring Provider Internal Medicine Hematology & Oncology; Visit Provider Internal Medicine Hematology & Oncology
DX: C82.90 Follicular lymphoma, unspecified, unspecified site (principal)
CPT/HCPCS: 74177; Q9967

== ENCOUNTER → 2020-12-17 15:31 | Outpatient (CLI) | payer MEDICARE, OTHER, SELFPAY ==
[2020-04-23 15:32] VITALS: BMI 28.7
== END ==
PROVIDERS: PCP Family Medicine; Referring Provider Family Medicine; Visit Provider Family Medicine
DX: R09.89 Other specified symptoms and signs involving the circulatory and respiratory systems (principal)
CPT/HCPCS: 87635; U0003

== ENCOUNTER → 2020-12-18 11:40 | Outpatient (CLI) | payer MEDICARE, OTHER, SELFPAY ==
[2020-04-23 15:32] VITALS: BMI 28.7
== END ==
PROVIDERS: PCP Family Medicine; Referring Provider Family Medicine; Visit Provider Family Medicine
DX: R19.7 Diarrhea, unspecified (principal)
CPT/HCPCS: 87493; 87506

== ENCOUNTER → 2021-03-12 15:36 | Outpatient (CLI) | payer MEDICARE, OTHER, SELFPAY ==
[2020-04-23 15:32] VITALS: BMI 28.7
[2021-03-12 16:06] LABS: EGFR FINGERSTICK > 60.0000 mL/min (>60)
--- NOTE | 2021-03-12 16:10 | CT_ITS ---
STUDY: CT ABDOMEN AND PELVIS WITH CONTRAST REASON FOR EXAM: Male, 70 years old. Pain RADIATION DOSAGE (If Supplied By Facility): CTDIvol = ( 22.64 ) mGy, DLP = ( 955.87 ) mGycm TECHNIQUE: Transaxial images were obtained from the dome of the diaphragm to the symphysis pubis without oral contrast. Oral and amp; IV Readi-CAT and amp; 100mL Isovue-300 was administered. Sagittal and coronal images were reconstructed. Individualized dose optimization techniques were used for this CT. COMPARISON: 04/29/2020. FINDINGS: Patchy right middle lobe infiltrates. The visualized portions of the heart are within normal limits. Normal liver. Normal gallbladder and extrahepatic biliary system. Normal spleen. Normal pancreas. There are slightly prominent mesenteric nodes and mild central mesenteric thickening. Normal bilateral adrenal glands. Subcentimeter cysts in the right kidney. Up to 4 cm cysts in the left kidney. There is intraluminal density within the pylorus of the stomach, possibly related to intraluminal content. A an intraluminal nodule cannot be completely excluded. Normal small intestine. Normal colon. The appendix is visualized and appears normal. Normal abdominal aorta. Normal inferior vena cava. Subcentimeter nodes in the retroperitoneum and left iliac region. Normal urinary bladder. Mild bilateral inguinal adenopathy. Normal abdominal wall. Degenerative vertebral changes. CT/Abdomen/Pelvis WITH Contrast IMPRESSION: Slightly prominent mesenteric nodes and central mesenteric thickening. Subcentimeter retroperitoneal and left iliac nodes. Mild bilateral inguinal adenopathy. There is overall slightly improved adenopathy since the previous study. Bilateral renal cysts. Patchy right middle lobe infiltrates. There is intraluminal density within the pylorus of the stomach, possibly related to intraluminal content. A an intraluminal nodule cannot be completely excluded. Electronically Signed: Lamont Moore DO at 20:58 EDT Tel [phone], Service support ,
== END ==
PROVIDERS: PCP Family Medicine; Referring Provider Family Medicine; Visit Provider Family Medicine
DX: K57.92 Diverticulitis of intestine, part unspecified, without perforation or abscess without bleeding (principal)
CPT/HCPCS: 74177; Q9967

== ENCOUNTER → 2021-04-02 10:41 | Outpatient (CLI) | payer MEDICARE, OTHER, SELFPAY ==
[2020-04-23 15:32] VITALS: BMI 28.7
[2021-04-02 12:20] LABS: Absolute Lymphocyte Count 1.61 X10^3/uL (0.83-4.51); Basophil# 0.11 X10^3/uL; Basophil% 1.2 % (0-1); Eosinophil# 0.42 X10^3/uL; Eosinophils% 4.6 % (0-5); Hematocrit 50.7 % (40-54); Hemoglobin 17.2 g/dL (13.0-16.5); Lymphocyte # 1.61 X10^3/ul (0.83-4.51); Lymphocyte % 17.6 % (19-41); Mean Corp Hgb Conc 33.9 g/dL (32-36); Mean Corpuscular Hgb 30.3 pg (27.0-32.0); Mean Corpuscular Volume 89.4 fL (80-94); Mean Platelet Vol. 9.6 fl (6.2-12.0); Monocyte# 0.94 X10^3/uL; Monocyte% 10.3 % (0-10); NRBC Flagged by Analyzer 0 % (0-5); Neutrophil # 6.03 X10^3/uL (2.7-7.7); Neutrophil % 65.9 % (47-70); Platelet Count 257 K/mm3 (150-450); RBC Distribution Width CV 13.1 % (11.6-14.6); RBC Distribution Width SD 43.4 fl (35.1-43.9); Red Blood Count 5.67 M/mm3 (4.6-6.2); White Blood Count 9.2 K/mm3 (4.4-11.0)
[2021-04-02 12:43] LABS: ALB/GLOB Ratio 1.2 RATIO (0.9-2.4); AST(SGOT) 20 U/L (15-37); Alanine Aminotransfer ALT/SGPT 43 U/L (16-61); Albumin, Serum 4.1 g/dL (3.2-5.0); Alkaline Phosphatase 46 U/L (45-117); Anion Gap 8 (5-15); BUN 11 mg/dL (7-18); BUN/Creat Ratio 10.8 RATIO (10-20); Calcium,Total 9.1 mg/dL (8.5-10.1); Chloride 103 mmol/L (98-107); Creatinine, Serum 1.02 mg/dL (0.70-1.30); EST Glomerular Filtration Rate 77 mL/min (>60); Est Glom Filt Rate - Afr Amer 93 mL/min (>60); Globulin 3.3 g/dL (2.2-4.2); Glucose 107 mg/dL (74-106); PSA,Total - Annual Screen 1.54 ng/mL (0.00-4.00); Potassium 3.8 mmol/L (3.5-5.1); Protein, Total 7.4 g/dL (6.4-8.2); Sodium Level 136 mmol/L (136-145); Thyroid Stim Hormone (TSH) 1.13 uIU/mL (0.358-3.74)
== END ==
PROVIDERS: PCP Family Medicine; Referring Provider Family Medicine; Visit Provider Family Medicine
DX: C82.00 Follicular lymphoma grade I, unspecified site (principal); E03.9 Hypothyroidism, unspecified; Z12.5 Encounter for screening for malignant neoplasm of prostate
CPT/HCPCS: 36415; 80053; 84153; 84443; 85025; G0103

== ENCOUNTER → 2021-05-06 12:50 | Outpatient (CLI) | payer MEDICARE, OTHER, SELFPAY ==
[2020-04-23 15:32] VITALS: BMI 28.7
--- NOTE | 2021-05-07 14:17 | PFT ---
INTRODUCTION: The patient is a 70-year-old male that presents for pulmonary function studies secondary to a diagnosis of lung cancer. Respiratory therapy reports good patient effort. Bronchodilators were used during testing. INTERPRETATION: Forced expiration spirometry demonstrates the presence of a mild large airways obstructive ventilatory defect. There was no significant response to aerosolized bronchodilators. Spirograms are of good quality but do not plateau indicating slow emptying of the lungs. Body plethysmography was performed and reveals lung volumes to be within normal limits. Diffusing capacity by single breath CO was also within normal limits. IMPRESSION: Irreversible mild large airways obstructive ventilatory defect with preserved lung volumes and diffusing capacity.
== END ==
PROVIDERS: PCP Family Medicine
DX: C34.90 Malignant neoplasm of unspecified part of unspecified bronchus or lung (principal)
CPT/HCPCS: 94060; 94726; 94729

== ENCOUNTER 2022-02-10 15:21 | Emergency (ER) | payer MEDICARE, OTHER, SELFPAY ==
[2022-02-10 15:24] VITALS: BP 137/93; PULSE 103; RESP 20; TEMP 36.2; O2SAT 88; BMI 23.9
--- NOTE | 2022-02-10 15:49 | EDS_ITS ---
HPI History of Present Illness Chief Complaint: Cellulitis Informant: patient Onset/Context/Timing Onset: Days (8) Context: Gradual Onset Timing: Continuous Quality: Dull Location: Left foot Worsened by: Weightbearing Relieved by: Nothing Narrative Narrative: Patient presents with redness to his left foot that has been getting worse over the last 8 days. Initially, the patient stated that he thought it was his gout that was flaring up. Patient states this did not respond to his typical gout treatment. Patient states that initially it started on the bottom of his foot but is now over the dorsum of his foot. Patient denies any fevers or chills. Patient is on chemotherapy for stage IV lung cancer and lymphoma. Patient states his last chemo was 1 week ago. [facility] Medical History (Updated 02/10/22 @ 18:[address] Montana Chavez, ) Abdominal pain Anxiety Arthritis Back problem COPD (chronic obstructive pulmonary disease) Depression Fatigue GERD (gastroesophageal reflux disease) Gout Hemorrhoids Hypertension Hypothyroidism IBS (irritable bowel syndrome) Numbness and tingling SOB (shortness of breath) Thyroid disease Home Medications levothyroxine 150 mcg PO DAILY 11/21/17 [History Last Taken 07/05/19] fexofenadine 180 mg tablet 180 mg PO DAILY 01/14/18 [History Last Taken Unknown] fluticasone propionate 50 mcg/actuation nasal spray,suspension 50 mcg INTRANASAL QHS PRN 01/14/18 [History Last Taken Unknown] multivit with minerals-folic acid-lycopene 0.4 mg-600 mcg tablet 1 tab PO DAILY 01/14/18 [History Last Taken Unknown] valacyclovir 1 gram tablet 1,000 mg PO QDAY PRN 01/14/18 [History Last Taken Unknown] hydroxyzine HCl 25 mg tablet 25 mg PO QHS 04/19/19 [History Last Taken Unknown] colchicine 0.6 mg PO UD PRN 05/03/19 [History Last Taken Unknown] magnesium 1 tab PO DAILY 02/27/20 [History Last Taken Unknown] dicyclomine 20 mg PO DAILY 02/10/22 [History Last Taken Unknown] lorazepam 02/10/22 [History Last Taken Unknown] omeprazole 40 mg PO DAILY 02/10/22 [History Last Taken Unknown] promethazine 25 mg PO DAILY 02/10/22 [History Last Taken Unknown] tramadol 50 mg PO Q6H PRN PRN 02/10/22 [History Last Taken Unknown] Allergy/AdvReac Type Severity Reaction Status Date / Time Sulfa (Sulfonamide Allergy Severe Rash Verified 04/23/20 15:29 Antibiotics) levofloxacin [From Levaquin] Allergy Unknown Verified 04/23/20 15:29 metronidazole Allergy PT UNSURE Verified 02/10/22 15:27 OF REACTION Family History Mother CVA (cerebral vascular accident) Diabetes Heart disease Arthritis Father Cancer lung Arthritis Ulcer Surgical History H/O vasectomy History of left knee replacement Hx of bilateral inguinal hernia repair Hx of colonoscopy Hx of vasectomy S/P hernia repair Social History Smoking Status: Former smoker Tobacco: How many years used: 30 how long ago did patient quit smokin second hand exposure: No alcohol intake: current alcohol intake frequency: 0-2 drinks per day substance use type: does not use caffeine: Yes what type of physical activity do you participate in: walking, running and bicycling frequency: 5-6 times per week seatbelt use: always ROS ROS ED Constitutional Constitutional ED: Denies chills or fever(s) Eyes Eyes: Denies blurry vision or change in vision ENT ENT ED: Denies rhinorrhea or sore throat Cardiovascular Cardiovascular: Denies chest pain or palpitations Respiratory/Chest Respiratory/Chest: Denies cough or dyspnea Gastrointestinal Gastrointestinal: Denies nausea or vomiting Genitourinary Genitourinary ED: Denies dysuria or hematuria Musculoskeletal Musculoskeletal: Denies back pain or neck pain Integumentary Reports rash; Denies abscess Neurologic Neurologic: Denies headache(s) or weakness Allergic/Immunologic Allergic/Immunologic ED: Denies mouth swelling or urticaria EXAM Physical Exam Const Vital Signs: 02/10/22 15:24 02/10/22 16:15 02/10/22 17:00 Temperature 97.2 F L 97.8 F Temperature Source Temporal Temporal Pulse Rate 103 H 90 82 Respiratory Rate 20 H 20 H 17 Blood Pressure 137/93 H 115/75 118/82 H Blood Pressure Mean 107 88 94 Pulse Ox 88 95 98 Oxygen Delivery Method Nasal Cannula Nasal Cannula Nasal Cannula Oxygen Flow Rate (L/min) 2 2 2 Positive well nourished and well developed General Appearance ED: well developed HEENT Reports moist mucous membranes Neck supple and no JVD Resp normal respiratory effort and clear to auscultation bilaterally Cardio regular rate, regular rhythm and no murmurs GI normal to inspection, nondistended, normoactive bowel sounds and non-tender Palpation: soft Extremity Extremity Narrative: There is some erythema over the dorsal aspect of the left foot. There is no warmth noted. There is no discharge or drainage. There are no vesicles or pustules. There are no petechia noted. There is full range of motion of the left foot. Sensation was intact to light touch in all digits. Capillary refill is less than 2 seconds in all digits. Strength is 5/5 in flexion extension of all the digits as well as the ankle. General Extremety ED: Negative for edema or tenderness General Extremity: Negative for edema Neuro oriented x3, CN's II-XII intact bilaterally and no sensory deficits noted Sensorium / Orientation: alert Motor Exam: strength 5/5 throughout Psych mental status grossly normal MDM MDM MDM Narrative Medical decision making narrative: X-rays of the [left] foot were obtained. There are [3] views. On my interpretation, there is no acute fracture. There is no dislocation. There is no soft tissue swelling. Radiologist also interpreted the x-rays and agrees. CBC shows white blood cell count of 3.0. Absolute neutrophil count was 1.4. Comprehensive metabolic profile shows creatinine of 1.56. This is consistent with prior results. The remainder was within normal limits. Lactate was normal. I do not believe that this is a cellulitis. However, patient states he is already on Augmentin 875 mg 3 times a day. This would cover any cellulitis. The case was discussed with Dr. Menard. He will follow up with the patient. He has no further recommendations at this time. Patient understood and was agreeable with the plan. All questions were answered. Lab Data Attestation: I reviewed the patient's lab results. Labs: Laboratory Results - last 24 hr 02/10/22 02/10/22 02/10/22 16:00 16:00 16:00 WBC 3.0 L RBC 3.29 L Hgb 11.7 L Hct 33.4 L MCV 101.5 H MCH 35.6 H MCHC 35.0 RDW Std Deviation 52.1 H RDW Coeff of Callie 14.1 Plt Count 135 L MPV 9.3 Immature Gran % (Auto) 1.300 H Neut % (Auto) 46.2 L Lymph % (Auto) 41.9 H Dim[place] % (Auto) 5.3 Eos % (Auto) 5.0 Baso % (Auto) 0.3 Absolute Neuts (auto) 1.4 L Absolute Lymphs (auto) 1.27 Nucleated RBC % 0 Differential Comment SCANNED Reactive Lymphocytes RARE Sodium 137 Potassium 3.7 Chloride 102 Carbon Dioxide 29.0 Anion Gap 6 BUN 17 Creatinine 1.56 H Estim Creat Clear Calc 51.91 Est GFR (MDRD) Af Amer 57 L Est GFR (MDRD) Non-Af 47 L BUN/Creatinine Ratio 10.9 Glucose 110 H Lactic Acid 0.9 Calcium 9.1 Total Bilirubin 0.60 AST 26 ALT 36 Alkaline Phosphatase 102 Total Protein 6.9 Albumin 2.9 L Globulin 4.0 Albumin/Globulin Ratio 0.7 L Radiography Diagnostic Testing: Clinical Impression(s) from Imaging Studies Foot X-Ray 02/10/22 16:20 IMPRESSION: 1. No acute fracture or malalignment. No destructive bony process. 2. 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 Electronically Signed: Jorge Lange MD ([place]) at 16:38 EDT Reading Location ID and State: [address] [address] , Service support , Discharge Plan Triage Chief Complaint: Cellulitis Other Complaint: Lower Extremity Injury ED Provider: Montana Chavez Dx/Rx/DC Orders Clinical Impression: Dermatitis of left foot Instructions: Self-Care for Skin Rashes Prescriptions: No Action multivit with [id number] [Men's Daily Multivit-Mineral] 0.4-600 mg-mcg tablet 1 tab PO DAILY RF: 0 fexofenadine 180 mg tablet 180 mg PO DAILY RF: 0 fluticasone propionate 50 mcg/actuation spray,suspension 50 mcg INTRANASAL QHS PRN (Reason: Nasal Congestion) RF: 0 valacyclovir 1 gram tablet 1,000 mg PO QDAY PRN (Reason: cold sore) RF: 0 hydroxyzine HCl 25 mg tablet 25 mg PO QHS RF: 0 levothyroxine 75 MCG tablet 150 mcg PO DAILY RF: 0 colchicine 0.6 MG tablet 0.6 mg PO UD PRN (Reason: Pain) RF: 0 magnesium 30 MG tablet 1 tab PO DAILY RF: 0 omeprazole 40 mg capsule,delayed release(DR/EC) 40 mg PO DAILY RF: 0 tramadol 50 mg tablet 50 mg PO Q6H PRN PRN (Reason: Pain) RF: 0 lorazepam 0.5 mg tablet RF: 0 dicyclomine 20 mg Tablet 20 mg PO DAILY RF: 0 promethazine 25 mg tablet 25 mg PO DAILY RF: 0 Primary Care Provider: Montana Bills Referrals: Montana Bills MD [Primary Care Provider] - 3-5 Days Alfredo Walter DO [STAFF PHYSICIAN] - 3-5 Days Disposition Disposition: Home, Self Care
[2022-02-10 16:13] LABS: Absolute Lymphocyte Count 1.27 X10^3/uL (0.83-4.51); Absolute Neutrophil Count 1.4 X10^3/uL (2.0-7.7); Basophil# 0.01 X10^3/uL; Basophil% 0.3 % (0-1); Eosinophil# 0.15 X10^3/uL; Hematocrit 33.4 % (40-54); Hemoglobin 11.7 g/dL (13.0-16.5); Lymphocyte # 1.27 X10^3/ul (0.83-4.51); Lymphocyte % 41.9 % (19-41); Mean Corpuscular Hgb 35.6 pg (27.0-32.0); Mean Corpuscular Volume 101.5 fL (80-94); Mean Platelet Vol. 9.3 fl (6.2-12.0); Monocyte# 0.16 X10^3/uL; Monocyte% 5.3 % (0-10); NRBC Flagged by Analyzer 0 % (0-5); Neutrophil % 46.2 % (47-70); POSITIVE MORPHOLOGY YES; Platelet Count 135 K/mm3 (150-450); RBC Distribution Width CV 14.1 % (11.6-14.6); RBC Distribution Width SD 52.1 fl (35.1-43.9); Red Blood Count 3.29 M/mm3 (4.6-6.2)
[2022-02-10 16:15] VITALS: BP 115/75; PULSE 90; RESP 20; O2SAT 95
--- NOTE | 2022-02-10 16:20 | RAD_ITS ---
STUDY: X-RAY - LEFT FOOT CLINICAL: Male, 71 years old. PT STATES REDNESS AND PAIN ON TOP OF FOOT THAT STARTED ON BOTTOM OF THE FOOT. TECHNIQUE: 3 view(s) of the foot. COMPARISON: None. FINDINGS: Normal talus, calcaneus, and tarsal bones. There is ankylosis involving the first, second and third tarsal-metatarsal articulations. Normal metatarsi. There is degenerative arthrosis of the metatarsophalangeal joint of the hallux with a hallux valgus deformity. Normal tibial and fibular sesamoid bones. Normal interphalangeal joint of the great toe. Normal phalanges of the great toe. Normal second through fifth metatarsophalangeal joints. Normal interphalangeal joints and phalanges of the lesser toes. The soft tissue structures are unremarkable. RAD/Foot min 3 Views IMPRESSION: 1. No acute fracture or malalignment. No destructive bony process. 2. 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 Electronically Signed: Jorge Lange MD ([place]) at 16:38 EDT ,
[2022-02-10 16:21] LABS: Differential Indicated SCAN CRITERIA MET
[2022-02-10 16:28] LABS: ALB/GLOB Ratio 0.7 RATIO (0.9-2.4); AST(SGOT) 26 U/L (15-37); Alanine Aminotransfer ALT/SGPT 36 U/L (16-61); Albumin, Serum 2.9 g/dL (3.2-5.0); Alkaline Phosphatase 102 U/L (45-117); Anion Gap 6 (5-15); BUN 17 mg/dL (7-18); BUN/Creat Ratio 10.9 RATIO (10-20); Calcium,Total 9.1 mg/dL (8.5-10.1); Chloride 102 mmol/L (98-107); Creatinine, Serum 1.56 mg/dL (0.70-1.30); EST Glomerular Filtration Rate 47 mL/min (>60); Est Glom Filt Rate - Afr Amer 57 mL/min (>60); Estimated Creatinine Clearance 51.91 ml/min; Glucose 110 mg/dL (74-106); Potassium 3.7 mmol/L (3.5-5.1); Protein, Total 6.9 g/dL (6.4-8.2); Sodium Level 137 mmol/L (136-145)
[2022-02-10 16:38] LABS: Lactic Acid 0.9 mmol/L (0.4-1.9)
[2022-02-10 16:42] LABS: Differential Comment SCANNED; Reactive Lymphocyte RARE
[2022-02-10 17:00] VITALS: BP 118/82; PULSE 82; RESP 17; TEMP 36.6; O2SAT 98
== END 2022-02-10 18:25 | disposition home or self-care (01) ==
PROVIDERS: Emergency Provider Emergency Medicine; PCP Family Medicine; Visit Provider Emergency Medicine
DX: L30.9 Dermatitis, unspecified (principal); E03.9 Hypothyroidism, unspecified; F41.9 Anxiety disorder, unspecified; F32.A Depression, unspecified; Z87.891 Personal history of nicotine dependence; Z79.899 Other long term (current) drug therapy
CPT/HCPCS: 36415; 73630; 80053; 83605; 85025; 87040; 99283; A4216

== ENCOUNTER 2022-03-11 17:17 | Emergency (ER) | payer MEDICARE, OTHER, SELFPAY ==
[2022-03-11 17:18] VITALS: BP 115/70; PULSE 114; RESP 21; TEMP 36.6; O2SAT 88; BMI 23.7
[2022-03-11 17:45] VITALS: BP 115/70; PULSE 114; RESP 21; TEMP 36.6; O2SAT 88
--- NOTE | 2022-03-11 17:47 | EKG12_ITS ---
Test Reason : FEVER Blood Pressure : / mmHG Vent. Rate : 099 BPM Atrial Rate : 099 BPM P-R Int : 184 ms QRS Dur : 104 ms QT Int : 360 ms P-R-T Axes : 050 -48 048 degrees QTc Int : 462 ms Normal sinus rhythm Low voltage QRS Left anterior fascicular block Abnormal ECG Confirmed by RENALDO AYOUB, SIMBA ([id number]), online editor KATHY AGUILAR ([id number]) on 03/12/2022 12:50:46 P M Referred By: MARY Confirmed By:ARLENE MACARIO MD
--- NOTE | 2022-03-11 17:48 | EDS_ITS ---
HPI History of Present Illness Chief Complaint: Fever Informant: patient and spouse/S.O. Narrative Narrative: History of metastatic non-small cell lung cancer followed by Dr. Walter diagnosed back in April 2021. Started new chemo treatment this past Wednesday. Today noted fever of 102.3 orally around 2 PM. Status post Tylenol. He states nausea vomiting x2 shortly afterwards no hematemesis. Currently not nauseated. Denies diarrhea. Denies cough or urine symptoms. He states his states he has had erythema of the legs bilaterally 4 weeks ago being treated by his PCP. Since been on 2 antibiotics, finished doxycycline. He is chronically on Augmentin 3 times a day empirically since last year. Denies history of diabetes. Reporting some paresthesias. No injuries or drainage. He called his oncologist sent to the ED for evaluation. Remote tobacco over 20 years ago. Primary lesion on the right side of his lung. States the metastasis is to the left side of his lung there is no other organ involvement. Denies any lymph node involvement. He states he had lymphoma diagnosed 2 years ago. Patient is COVID vaccinated and influenza vaccinated. He reported earlier today had chills. Prior similar symptoms: No PFSH PFSH Medical History (Updated 03/11/22 @ 20:[address] James Pierre DO) Abdominal pain Anxiety Arthritis Back problem COPD (chronic obstructive pulmonary disease) Depression Fatigue GERD (gastroesophageal reflux disease) Gout Hemorrhoids Hypertension Hypothyroidism IBS (irritable bowel syndrome) Numbness and tingling SOB (shortness of breath) Thyroid disease Home Medications levothyroxine 150 mcg PO DAILY 11/21/17 [History Last Taken 07/05/19] fexofenadine 180 mg tablet 180 mg PO DAILY 01/14/18 [History Last Taken Unknown] fluticasone propionate 50 mcg/actuation nasal spray,suspension 50 mcg INTRANASAL QHS PRN 01/14/18 [History Last Taken Unknown] multivit with minerals-folic acid-lycopene 0.4 mg-600 mcg tablet 1 tab PO DAILY 01/14/18 [History Last Taken Unknown] valacyclovir 1 gram tablet 1,000 mg PO QDAY PRN 01/14/18 [History Last Taken Unknown] hydroxyzine HCl 25 mg tablet 25 mg PO QHS 04/19/19 [History Last Taken Unknown] colchicine 0.6 mg PO UD PRN 05/03/19 [History Last Taken Unknown] dicyclomine 20 mg PO DAILY 02/10/22 [History Last Taken Unknown] lorazepam 2 mg PO QHS 02/10/22 [History Last Taken Unknown] promethazine 25 mg PO DAILY 02/10/22 [History Last Taken Unknown] tramadol 50 mg PO Q6H PRN PRN 02/10/22 [History Last Taken Unknown] famotidine 20 mg PO BID 03/11/22 [History Last Taken Unknown] folic acid 1 mg PO DAILY 03/11/22 [History Last Taken Unknown] guaifenesin [Mucinex] 600 mg PO BID 03/11/22 [History Last Taken Unknown] levothyroxine 50 mcg PO DAILY 03/11/22 [History Last Taken Unknown] lubiprostone 24 mcg PO BID 03/11/22 [History Last Taken Unknown] magnesium 400 mg PO TID 03/11/22 [History Last Taken Unknown] morphine 15 mg PO BID 03/11/22 [History Last Taken Unknown] oxycodone 1 - 2 mg PO Q6H PRN 03/11/22 [History Last Taken Unknown] psyllium [Metamucil] 1 packet PO DAILY PRN PRN 03/11/22 [History Last Taken Unknown] Allergy/AdvReac Type Severity Reaction Status Date / Time Sulfa (Sulfonamide Allergy Severe Rash Verified 03/11/22 17:22 Antibiotics) levofloxacin [From Levaquin] Allergy Unknown Verified 03/11/22 17:22 metronidazole Allergy PT UNSURE Verified 03/11/22 17:22 OF REACTION Family History Mother CVA (cerebral vascular accident) Diabetes Heart disease Arthritis Father Cancer lung Arthritis Ulcer Surgical History H/O vasectomy History of left knee replacement Hx of bilateral inguinal hernia repair Hx of colonoscopy Hx of vasectomy S/P hernia repair Social History Smoking Status: Former smoker Tobacco: How many years used: 30 how long ago did patient quit smokin second hand exposure: No alcohol intake: current alcohol intake frequency: 0-2 drinks per day substance use type: does not use caffeine: Yes what type of physical activity do you participate in: walking, running and bicycling frequency: 5-6 times per week seatbelt use: always ROS ROS ED Constitutional Constitutional ED: Reports chills and fever(s); Denies sweats Eyes Eyes: Denies change in vision ENT ENT ED: Denies dysphagia or sore throat Cardiovascular Cardiovascular: Denies chest pain, leg edema, palpitations or racing heartbeat Respiratory/Chest Respiratory/Chest: Denies cough, dyspnea or dyspnea on exertion Gastrointestinal Gastrointestinal: Denies abdominal pain, diarrhea, nausea or vomiting Genitourinary Genitourinary ED: Denies dysuria, hematuria or urinary frequency Musculoskeletal Musculoskeletal: Denies back pain, extremity pain or neck pain Integumentary Reports other Details: Erythema of legs ; Denies rash or wounds Neurologic Neurologic: Denies headache(s), paresthesias or weakness EXAM Physical Exam Const Vital Signs: 03/11/22 17:18 03/11/22 17:45 03/11/22 17:46 Temperature 98 F 98 F Temperature Source Temporal Temporal Pulse Rate 114 H 114 H Respiratory Rate 21 H 21 H Respiratory Effort Normal Non-Labored Respiratory Pattern Normal Blood Pressure 115/70 115/70 Blood Pressure Mean 85 85 Pulse Ox 88 88 Oxygen Delivery Method Nasal Cannula Nasal Cannula Oxygen Flow Rate (L/min) 2 03/11/22 18:15 03/11/22 18:18 03/11/22 20:31 Temperature 98.8 F Temperature Source Oral Pulse Rate 100 94 Respiratory Rate 19 H 18 Respiratory Effort Respiratory Pattern Blood Pressure 121/74 H 114/71 Blood Pressure Mean 89 Pulse Ox 97 97 Oxygen Delivery Method Room Air Oxygen Flow Rate (L/min) Positive well nourished and well developed Constitutional Narrative: On chronic oxygen nasal cannula. General Appearance ED: well developed and NAD HEENT Reports dry mucous membranes normocephalic and atraumatic Mouth ED: Yes dry mucous membranes Mouth: dry mucous membranes Eyes PERRL, EOMs intact bilaterally and conjunctivae normal General Eye ED: Yes normal appearance of both eyes Neck no lymphadenopathy and supple General: Negative for tenderness Chest Wall Chest: Negative for tenderness Resp normal respiratory effort and normal air movement Effort and Inspection: symmetric chest movement; Negative for respiratory distress Cardio regular rate, regular rhythm and no murmurs Peripheral Pulses: pulses 2+ throughout GI normal to inspection, nondistended, normoactive bowel sounds and non-tender Palpation: Negative for guarding or rebound tenderness present Back/Spine no CVA tenderness and no thoracic nor lumbar tenderness Extremity normal to inspection General Extremety ED: Negative for edema or tenderness General Extremity: Negative for edema Neuro oriented x3 and no sensory deficits noted Sensorium / Orientation: awake and alert Skin Skin Narrative: There is erythema of both legs right greater than left, left side isolated to dorsal foot, right side to the ankle, however erythema yvette bilaterally with elevation and erythema would improve on both legs. Nontender. No crepitus. No distal wounds. MDM MDM MDM Narrative Medical decision making narrative: Patient currently afebrile recent chemo sepsis labs were ordered. Skin exam of the feet with blanching and improving with elevation likely a venous stasis and not cellulitis. Given IV fluids due to dry mucosal membranes. COVID and influenza swabs obtained. Creatinine returned at 1.75 up from 1.56 a month ago. He was given IV fluids. White count 13.1 hemoglobin 11.2 platelets 197. Lactic acid normal at 1.8. COVID and influenza negative. Chest x-ray on my review and read by radiology, there was infiltrative changes on the right side reported partial collapse and tracheal deviation there is no old for comparison, however his known metastatic cancer with no recent old imaging to compare to. There is reported by his oncologist as metastatic diffuse findings to expect changes. He is on chronic 3 L oxygen he is in no respiratory distress he has no cough. He has slight transaminitis on labs. I discussed with his oncologist, Dr. Walter pending urine at this time, reports typically would have fever from his new chemo the day after not 3 days later. He states typically would not have transaminitis. Patient clinically is feeling better. I discussed skin findings for likely venous stasis. He is chronically on Augmentin 3 times daily for over a year. No current fevers. He will be called by oncology nurse tomorrow to check up. I discussed the plan of care with the patient who understands and agrees with plan. Urine only had leukocytes no other findings. Urine culture pending. Is asymptomatic from this. Discharged with return precautions. All questions were answered. Lab Data Attestation: I reviewed the patient's lab results. Labs: Laboratory Results - last 24 hr 03/11/22 03/11/22 03/11/22 18:00 18:00 18:00 WBC 13.1 H RBC 3.20 L Hgb 11.2 L Hct 33.9 L MCV 105.9 H MCH 35.0 H MCHC 33.0 RDW Std Deviation 58.8 H RDW Coeff of Callie 14.9 H Plt Count 197 MPV 9.8 Immature Gran % (Auto) 0.900 Neut % (Auto) 90.7 H Lymph % (Auto) 6.5 L [place] % (Auto) 1.1 Eos % (Auto) 0.3 Baso % (Auto) 0.5 Absolute Neuts (auto) 11.9 H Absolute Lymphs (auto) 0.85 Nucleated RBC % 0 Platelet Estimate ADEQUATE RBC Morphology NORM C+C PT 14.7 INR 1.2 APTT 37.1 H Sodium 134 L Potassium 3.4 L Chloride 98 Carbon Dioxide 31.0 Anion Gap 5 BUN 28 H Creatinine 1.75 H Estim Creat Clear Calc 46.27 Est GFR (MDRD) Af Amer 50 L Est GFR (MDRD) Non-Af 41 L BUN/Creatinine Ratio 16.0 Glucose 130 H Lactic Acid Calcium 9.2 Total Bilirubin 1.00 AST 80 H ALT 86 H Alkaline Phosphatase 136 H Total Protein 7.2 Albumin 3.1 L Globulin 4.1 Albumin/Globulin Ratio 0.8 L Urine Color Urine Clarity Urine pH Ur Specific Gordon Urine Protein Urine Glucose (UA) Urine Ketones Urine Occult Blood Urine Nitrite Urine Bilirubin Urine Urobilinogen Ur Leukocyte Esterase Urine RBC Urine WBC Ur Squamous Epith Cells Urine Bacteria Urine Mucus 03/11/22 03/11/22 18:00 19:00 WBC RBC Hgb Hct MCV MCH MCHC RDW Std Deviation RDW Coeff of Callie Plt Count MPV Immature Gran % (Auto) Neut % (Auto) Lymph % (Auto) [place] % (Auto) Eos % (Auto) Baso % (Auto) Absolute Neuts (auto) Absolute Lymphs (auto) Nucleated RBC % Platelet Estimate RBC Morphology PT INR APTT Sodium Potassium Chloride Carbon Dioxide Anion Gap BUN Creatinine Estim Creat Clear Calc Est GFR (MDRD) Af Amer Est GFR (MDRD) Non-Af BUN/Creatinine Ratio Glucose Lactic Acid 1.8 Calcium Total Bilirubin AST ALT Alkaline Phosphatase Total Protein Albumin Globulin Albumin/Globulin Ratio Urine Color Yellow Urine Clarity Clear Urine pH 6.0 Ur Specific Gordon 1.010 Urine Protein 15 H Urine Glucose (UA) Normal Urine Ketones Negative Urine Occult Blood Negative Urine Nitrite Negative Urine Bilirubin Negative Urine Urobilinogen Normal Ur Leukocyte Esterase 25 H Urine RBC 0 SEEN Urine WBC 0-5 SEEN Ur Squamous Epith Cells 0 SEEN Urine Bacteria 0 SEEN Urine Mucus 0 SEEN Radiography Chest X-Ray - ED: 1 View, Read by ED Physician and Read by Radiologist Diagnostic Testing: Clinical Impression(s) from Imaging Studies Chest X-Ray 03/11/22 18:21 IMPRESSION: Near diffuse consolidation of the right lung with possible partial right lower lobe collapse and tracheal shift to the right. Differential includes chemotherapy induced lung injury and pneumonia. Recommend dedicated chest CT with contrast for further evaluation Electronically Signed: Mike Chen MD at 19:52 EDT , EKG Initial EKG: Attestation: I personally reviewed and interpreted this EKG as follows: Comments: Sinus rhythm 99, no ST or T wave changes. Discharge Plan Triage Chief Complaint: Fever ED Provider: James Pierre Dx/Rx/DC Orders Clinical Impression: Fever, Non-small cell carcinoma of left lung, stage 4, Transaminitis, Acute dehydration, Renal insufficiency, Chemotherapy adverse reaction Instructions: ED Dehydration (Adult), ED FUO Adult, ED Renal Insufficiency Prescriptions: No Action multivit with [id number] [Men's Daily Multivit-Mineral] 0.4-600 mg-mcg tablet 1 tab PO DAILY RF: 0 fexofenadine 180 mg tablet 180 mg PO DAILY RF: 0 fluticasone propionate 50 mcg/actuation spray,suspension 50 mcg INTRANASAL QHS PRN (Reason: Nasal Congestion) RF: 0 valacyclovir 1 gram tablet 1,000 mg PO QDAY PRN (Reason: cold sore) RF: 0 hydroxyzine HCl 25 mg tablet 25 mg PO QHS RF: 0 levothyroxine 75 MCG tablet 150 mcg PO DAILY RF: 0 colchicine 0.6 MG tablet 0.6 mg PO UD PRN (Reason: Pain) RF: 0 tramadol 50 mg tablet 50 mg PO Q6H PRN PRN (Reason: Pain) RF: 0 lorazepam 0.5 mg tablet 2 mg PO QHS RF: 0 dicyclomine 20 mg Tablet 20 mg PO DAILY RF: 0 promethazine 25 mg tablet 25 mg PO DAILY RF: 0 Metamucil Packet 1 packet PO DAILY PRN PRN (Reason: Constipation) RF: 0 famotidine 20 mg Tablet 20 mg PO BID RF: 0 levothyroxine 50 mcg Tablet 50 mcg PO DAILY RF: 0 magnesium 100 mg Tablet 400 mg PO TID RF: 0 folic acid 1 mg Tablet 1 mg PO DAILY RF: 0 morphine 15 mg tablet extended release 15 mg PO BID RF: 0 oxycodone 5 mg Tablet 1 - 2 mg PO Q6H PRN (Reason: Pain) RF: 0 lubiprostone 24 mcg Capsule 24 mcg PO BID RF: 0 guaifenesin [Mucinex] 600 mg Tablet Extended Release 12hr 600 mg PO BID RF: 0 Primary Care Provider: [place] Bills Referrals: [place] Bills MD [Primary Care Provider] - Alfredo Walter DO [STAFF PHYSICIAN] - 2 Days Activity Restrictions/Additional Instructions: WBC 13.1 Cr. 1.75, 1 month ago 1.56. Continue oral fluids. Covid and influenza negative. AST 80, ALT 86, ALP 130. Dr. Walter nurse with call you tomorrow for follow. Return if any worsening symptoms. Disposition Disposition: Home, Self Care Discharge Date/Time: 03/11/22 20:35
[2022-03-11] MEDS: 0.9% Normal Saline 1,000 ML 999 ML IV (18:00)
[2022-03-11 18:15] VITALS: PULSE 100; RESP 19; TEMP 37.1; O2SAT 97
[2022-03-11 18:18] VITALS: BP 121/74
[2022-03-11 18:19] LABS: Absolute Lymphocyte Count 0.85 X10^3/uL (0.83-4.51); Absolute Neutrophil Count 11.9 X10^3/uL (2.0-7.7); Basophil# 0.07 X10^3/uL; Basophil% 0.5 % (0-1); Eosinophil# 0.04 X10^3/uL; Eosinophils% 0.3 % (0-5); Hematocrit 33.9 % (40-54); Hemoglobin 11.2 g/dL (13.0-16.5); Lymphocyte # 0.85 X10^3/ul (0.83-4.51); Lymphocyte % 6.5 % (19-41); Mean Corpuscular Volume 105.9 fL (80-94); Mean Platelet Vol. 9.8 fl (6.2-12.0); Monocyte# 0.14 X10^3/uL; Monocyte% 1.1 % (0-10); NRBC Flagged by Analyzer 0 % (0-5); Neutrophil # 11.85 X10^3/uL (2.7-7.7); Neutrophil % 90.7 % (47-70); POSITIVE MORPHOLOGY YES; Platelet Count 197 K/mm3 (150-450); RBC Distribution Width CV 14.9 % (11.6-14.6); RBC Distribution Width SD 58.8 fl (35.1-43.9); White Blood Count 13.1 K/mm3 (4.4-11.0)
--- NOTE | 2022-03-11 18:21 | RAD_ITS ---
INDICATION: fever EXAMINATION/TECHNIQUE: X-RAY - XR Chest 1 View COMPARISON: 10/30/2018. FINDINGS: There is possible partial right lower lobe collapse. There is near diffuse consolidation of the right lung. Tortuous and calcified thoracic aorta. The heart is mildly enlarged. There is left to right tracheal shift. There is mediastinal adenopathy. No pleural effusion or pneumothorax. Degenerative changes of the thoracic spine. RAD/Chest 1 View (Portable) IMPRESSION: Near diffuse consolidation of the right lung with possible partial right lower lobe collapse and tracheal shift to the right. Differential includes chemotherapy induced lung injury and pneumonia. Recommend dedicated chest CT with contrast for further evaluation Electronically Signed: Mike Chen MD at 19:52 EDT ,
[2022-03-11 18:22] LABS: International Normalized Ratio 1.2; Prothrombin Time (Protime)PT. 14.7 SECONDS (11.7-14.9)
[2022-03-11 18:23] LABS: Partial Thromboplast Time 37.1 Seconds (24.1-36.2)
[2022-03-11 18:35] LABS: ALB/GLOB Ratio 0.8 RATIO (0.9-2.4); AST(SGOT) 80 U/L (15-37); Alanine Aminotransfer ALT/SGPT 86 U/L (16-61); Albumin, Serum 3.1 g/dL (3.2-5.0); Alkaline Phosphatase 136 U/L (45-117); Anion Gap 5 (5-15); BUN 28 mg/dL (7-18); Calcium,Total 9.2 mg/dL (8.5-10.1); Chloride 98 mmol/L (98-107); Creatinine, Serum 1.75 mg/dL (0.70-1.30); EST Glomerular Filtration Rate 41 mL/min (>60); Est Glom Filt Rate - Afr Amer 50 mL/min (>60); Estimated Creatinine Clearance 46.27 ml/min; Globulin 4.1 g/dL (2.2-4.2); Glucose 130 mg/dL (74-106); Lactic Acid 1.8 mmol/L (0.4-1.9); Potassium 3.4 mmol/L (3.5-5.1); Protein, Total 7.2 g/dL (6.4-8.2); Sodium Level 134 mmol/L (136-145)
[2022-03-11 18:46] LABS: Differential Indicated SCAN CRITERIA MET
[2022-03-11 18:47] LABS: Platelet Estimate ADEQUATE (ADEQ); Red Cell Morphology NORM C+C NORMAL (NORM C&C)
[2022-03-11 19:12] LABS: Bacteria 0 SEEN /hpf (None Seen); Mucous, Urine 0 SEEN /hpf (<or=2+); Red Blood Cells-Urine 0 SEEN /hpf (0-5); Squamous Epithelial Cells - UA 0 SEEN /hpf (0-5)
[2022-03-11 19:15] LABS: Color, Urine Yellow (Yellow); Glucose, Dipstick Normal (Normal); Ketone-Dipstick Negative (Negative); Leukocyte Esterase-Dipstick 25 /ul (Negative); Nitrite-Dipstick Negative (Negative); Occult Blood-Urine Negative /ul (Negative); Protein-Dipstick 15 mg/dl (Negative); Urine Bilirubin Dipstick Negative (Negative); Urine Clarity Clear (Clear); Urine Urobilinogen Normal (Normal)
[2022-03-11 20:21] LABS: White Blood Cells 0-5 SEEN /hpf (0-5)
[2022-03-11 20:31] VITALS: BP 114/71; PULSE 94; RESP 18; O2SAT 97
--- NOTE | 2022-03-11 20:33 | NURSING ---
discharge instruction reviewed with pt and spouse. dr rao nurse to follow up tomorrow, encourage to continue PO intake. pt and spouse denied questions.
== END 2022-03-11 20:35 | disposition home or self-care (01) ==
PROVIDERS: Emergency Provider Emergency Medicine; PCP Family Medicine; Visit Provider Emergency Medicine
DX: R50.9 Fever, unspecified (principal); C34.92 Malignant neoplasm of unspecified part of left bronchus or lung; J44.9 Chronic obstructive pulmonary disease, unspecified; T45.1X5A Adverse effect of antineoplastic and immunosuppressive drugs, initial encounter; I10 Essential (primary) hypertension; E86.0 Dehydration; Z87.891 Personal history of nicotine dependence; R74.01 Elevation of levels of liver transaminase levels; N28.9 Disorder of kidney and ureter, unspecified; E03.9 Hypothyroidism, unspecified; M10.9 Gout, unspecified; K21.9 Gastro-esophageal reflux disease without esophagitis
CPT/HCPCS: 71045; 80053; 81001; 83605; 85025; 85610; 85730; 87040; 87086; 87428; 93005; 99284; J7030; A4216

== ENCOUNTER 2022-04-28 16:30 | Emergency (ER) | payer MEDICARE, OTHER, SELFPAY ==
[2022-04-28 16:31] VITALS: BP 133/90; PULSE 92; RESP 17; TEMP 36.6; O2SAT 94; BMI 24.8
--- NOTE | 2022-04-28 16:44 | EKG12_ITS ---
Test Reason : CP Blood Pressure : / mmHG Vent. Rate : 091 BPM Atrial Rate : 091 BPM P-R Int : 202 ms QRS Dur : 094 ms QT Int : 358 ms P-R-T Axes : 044 -49 036 degrees QTc Int : 440 ms Normal sinus rhythm Left axis deviation Abnormal ECG Confirmed by ISRAEL AYOUB, DILLON ([id number]), avid editor KATHY AGUILAR ([id number]) on 04/29/2022 9:04:41 AM Referred By: ANGY Confirmed By:DILLON WOOD MD
--- NOTE | 2022-04-28 16:44 | EDS_ITS ---
HPI History of Present Illness Chief Complaint: Chest Pain Informant: patient Onset/Context/Timing Onset: Today Timing: Continuous Quality: Positive for Aching Location: Substernal Current Severity: Gone Maximum Severity: Mild Worsened By: Nothing Relieved By: Nothing Associated Symptoms: Positive for Acid Reflux; Negative for Nausea, Vomiting, Diaphoresis, Dyspnea, Cough, Fever and Palpitations Narrative Narrative: 71-year-old male history of hypertension and stage IV lung cancer. Today was undergoing a chemotherapy infusion at the [facility] and developed chest pain midsternal about an hour ago. Pain lasted between 35 and 45 minutes and has since totally resolved. He denies any diaphoresis. He denies any shortness of breath. He denies any exertional symptoms. He denies any history of DVT or PE. Pain was not pleuritic. No hemoptysis. No leg pain or swelling. No recent travel, surgery or hospitalization. Currently symptom- free. An episode like this 30 years ago that was secondary to reflux. States he took a stress test about a year ago at the [facility] and it was negative. Prior Similar Symptoms: Yes Recent Illness/Hospitalization: No CVD Risk Factors: Positive for Hypertension; Negative for Diabetes PE Risk Factors: Positive for Cancer; Negative for Recent Travel/Surgery, Recent Immobilization, Prior DVT or PE and OCP + Smoking + >/=35 TAD Risk Factors: Negative for Marfan's Syndrome [facility] Medical History (Updated 04/28/22 @ 20:[address] Edgar Arreaga MD) Abdominal pain Anxiety Arthritis Back problem COPD (chronic obstructive pulmonary disease) Depression Fatigue GERD (gastroesophageal reflux disease) Gout Hemorrhoids Hypertension Hypothyroidism IBS (irritable bowel syndrome) Numbness and tingling SOB (shortness of breath) Thyroid disease Home Medications levothyroxine 150 mcg PO DAILY 11/21/17 [History Last Taken 07/05/19] fexofenadine 180 mg tablet 180 mg PO DAILY 01/14/18 [History Last Taken Unknown] valacyclovir 1 gram tablet 1,000 mg PO QDAY PRN 01/14/18 [History Last Taken Unknown] colchicine 0.6 mg PO UD PRN 05/03/19 [History Last Taken Unknown] dicyclomine 20 mg PO DAILY PRN 02/10/22 [History Last Taken Unknown] lorazepam 1 mg PO Q8H PRN PRN 02/10/22 [History Last Taken Unknown] promethazine 25 mg PO DAILY PRN 02/10/22 [History Last Taken Unknown] famotidine 20 mg PO BID 03/11/22 [History Last Taken Unknown] folic acid 1 mg PO DAILY 03/11/22 [History Last Taken Unknown] guaifenesin [Mucinex] 600 mg PO DAILY PRN PRN 03/11/22 [History Last Taken Unknown] lubiprostone 24 mcg PO BID 03/11/22 [History Last Taken Unknown] morphine 15 mg PO BID 03/11/22 [History Last Taken Unknown] oxycodone 1 - 2 mg PO Q6H PRN 03/11/22 [History Last Taken Unknown] psyllium [Metamucil] 1 packet PO DAILY PRN PRN 03/11/22 [History Last Taken Unknown] celecoxib 200 mg PO BID PRN 04/28/22 [History Last Taken Unknown] chlorpheniramine maleate [Chlorpheniramine Allergy] 4 mg PO Q4H PRN 04/28/22 [History Last Taken Unknown] naloxone [Narcan] 4 mg INTRANASAL Q3M PRN 04/28/22 [History Last Taken Unknown] pregabalin 150 mg PO BID 04/28/22 [History Last Taken Unknown] Allergy/AdvReac Type Severity Reaction Status Date / Time Sulfa (Sulfonamide Allergy Severe Rash Verified 04/28/22 16:35 Antibiotics) levofloxacin [From Levaquin] Allergy Unknown Verified 04/28/22 16:35 metronidazole Allergy PT UNSURE Verified 04/28/22 16:35 OF REACTION Family History Mother CVA (cerebral vascular accident) Diabetes Heart disease Arthritis Father Cancer lung Arthritis Ulcer Surgical History H/O vasectomy History of left knee replacement Hx of bilateral inguinal hernia repair Hx of colonoscopy Hx of vasectomy S/P hernia repair Social History Smoking Status: Former smoker Tobacco: How many years used: 30 how long ago did patient quit smokin second hand exposure: No alcohol intake: current alcohol intake frequency: 0-2 drinks per day substance use type: does not use caffeine: Yes what type of physical activity do you participate in: walking, running and bicycling frequency: 5-6 times per week seatbelt use: always ROS ROS ED ROS Narrative Denies recent symptoms. Review of Systems ROS Unobtainable: Denies due to encephalopathy Constitutional Constitutional ED: Denies fever(s) Eyes Eyes: Denies none ENT ENT ED: Denies ear pain Cardiovascular Cardiovascular: Reports as per HPI and chest pain; Denies palpitations or racing heartbeat Respiratory/Chest Respiratory/Chest: Denies cough or dyspnea Gastrointestinal Gastrointestinal: Denies abdominal pain, diarrhea, nausea or vomiting Genitourinary Genitourinary ED: Denies dysuria Musculoskeletal Musculoskeletal: Denies myalgias Integumentary Denies rash Neurologic Neurologic: Denies headache(s) Psychiatric Psychiatric: Denies depression Endocrine Endocrinology: Denies polyuria Hematologic/Lymphatic Hematologic/Lymphatic: Denies easy bruising Allergic/Immunologic Allergic/Immunologic ED: Denies urticaria EXAM Physical Exam Narrative Exam Narrative: 71-year-old male no acute distress. Vital signs stable afebrile. Pulse ox 94% on 3 L. There is no hypoxia on his oxygen. He is on 3 L of oxygen all the time at home. H EENT exam unremarkable. Neck nontender. No JVD. Lungs clear to auscultation bilaterally. Heart regular rate and rhythm rate about 90 no murmur. Chest wall nontender. Abdomen soft nontender. Moving all 4 extremities. Calves are nontender without edema or cords. Equal symmetrical radial pulses. Normal tube bender hand strength. Neurologically is awake and alert with no focal motor deficits. Const Vital Signs: 04/28/22 16:31 04/28/22 18:01 04/28/22 19:02 Temperature 97.8 F Temperature Source Temporal Pulse Rate 92 84 91 Respiratory Rate 17 16 18 Blood Pressure 133/90 H 115/85 H 122/87 H Blood Pressure Mean 104 95 98 Pulse Ox 94 95 92 Oxygen Delivery Method Nasal Cannula Nasal Cannula Nasal Cannula Oxygen Flow Rate (L/min) 3 3 3 04/28/22 20:04 Temperature Temperature Source Pulse Rate Respiratory Rate Blood Pressure Blood Pressure Mean Pulse Ox Oxygen Delivery Method Nasal Cannula Oxygen Flow Rate (L/min) 3 Positive well nourished and well developed; Negative for obese, cachectic, contractures or unkempt General Appearance ED: well developed and NAD; Negative for unkempt, cachectic or contractures Nutritional Appearance: Negative for cachectic or obese HEENT Reports moist mucous membranes normocephalic and atraumatic; Negative for trauma or tenderness Eyes PERRL and EOMs intact bilaterally General Eye ED: Negative for pale conjunctiva or scleral icterus Neck no lymphadenopathy, supple and no JVD General: Negative for tenderness Chest Wall inspection of chest normal and palpation of chest normal Chest: Negative for tenderness Resp normal respiratory effort and clear to auscultation bilaterally Effort and Inspection: respiratory distress Auscultation: Negative for rales, rhonchi or wheezes Cardio regular rate, regular rhythm, S1 normal heart sound, S2 normal heart sound and no murmurs Rate: Negative for bradycardia or tachycardic Rhythm: Negative for abnormal rhythm GI normal to inspection, nondistended, normoactive bowel sounds, soft to palpation, non-tender, non-distended and no masses; Negative for hepatosplenomegaly Auscultation: Negative for hyperactive bowel sounds Palpation: Negative for splenomegaly or mass Back/Spine no CVA tenderness and no thoracic nor lumbar tenderness General Back: Negative for CVA tenderness or other Cervical Spine: Negative for cervical spine tenderness Extremity normal to inspection General Extremety ED: Negative for edema, pulses abnormal or tenderness General Extremity: Negative for edema or pulses abnormal Neuro oriented x3 Sensorium / Orientation: awake, alert, oriented to person, oriented to place and oriented to time; Negative for lethargic or stuporous Motor Exam: strength 5/5 throughout; Negative for general weakness Psych mental status grossly normal Appearance: Negative for unkempt Mood & Affect: Negative for depressed or tearful Skin no rashes or lesions noted and no wounds General Skin Exam: Negative for jaundice Heart Score History: Slightly/Non-Suspicious ECG: Normal Age: >/= 65 years Risk Factors: 1 or 2 Risk Factors Score: 3 MDM MDM MDM Narrative Medical decision making narrative: 71-year-old male with lung cancer undergoing infusion and midsternal chest pain last about 35 to 45 minutes is resolved. Nonexertional. Had a negative stress test about a year ago. Undergo cardiac work-up. Repeat exam patient is doing well at 8 PM. We went over his test results. I had previously spoken to his oncologist. Patient had had a chemical stress test less than a year ago which was unremarkable. The patient, myself and his oncologist are comfortable with him being discharged home with outpatient follow-up. Lab Data Attestation: I reviewed the patient's lab results. Lab results narrative: CBC shows a white count 8.6. H&H 10.9 and 33.6. Similar prior blood counts and a history of chronic anemia. Electrolytes unremarkable gap of 5 BUN and creatinine 25 and 1.41. High-sensitivity troponins were both less than 3, done 2 hours apart. Labs: Laboratory Results - last 24 hr 04/28/22 04/28/22 04/28/22 17:04 17:04 19:20 WBC 8.6 RBC 3.26 L Hgb 10.9 L Hct 33.6 L MCV 103.1 H MCH 33.4 H MCHC 32.4 RDW Std Deviation 52.7 H RDW Coeff of Callie 13.8 Plt Count 257 MPV 10.9 Immature Gran % (Auto) 2.000 H Neut % (Auto) 84.7 H Lymph % (Auto) 6.0 L [place] % (Auto) 5.8 Eos % (Auto) 0.9 Baso % (Auto) 0.6 Absolute Neuts (auto) 7.2 Absolute Lymphs (auto) 0.51 L Nucleated RBC % 0 Differential Comment SCANNED Sodium 138 Potassium 4.6 Chloride 105 Carbon Dioxide 28.0 Anion Gap 5 BUN 25 H Creatinine 1.41 H Estim Creat Clear Calc 57.43 Est GFR (MDRD) Af Amer 64 Est GFR (MDRD) Non-Af 53 L BUN/Creatinine Ratio 17.7 Glucose 112 H Calcium 9.1 Troponin I High Sens < 3 L < 3 L Radiography Chest X-Ray - ED: 1 View, Read by ED Physician, Heart, Mediastinum, Bony Structures, No Acute Disease and Chronic Changes Diagnostic Testing: Clinical Impression(s) from Imaging Studies Chest X-Ray 04/28/22 17:16 IMPRESSION: There has been no change in the appearance of the chest since the prior study. Electronically Signed: Mendel Leach MD at 17:42 EDT , Chest x-ray, portable, single view shows significant scarring of the right lung with a history of stage IV lung cancer seen on prior films. No acute change. Normal mediastinum. Rhythm Strip Rhythm Strip: Sinus Rhythm Rate: 91 Ectopy: None EKG Initial EKG: Attestation: I personally reviewed and interpreted this EKG as follows: Interpretation: Sinus Rhythm and No Acute Injury Pattern Comments: Normal sinus rhythm rate of 91 no acute signs of IL or ischemia. Discharge Plan Triage Chief Complaint: Chest Pain ED Provider: Edgar Arreaga Dx/Rx/DC Orders Clinical Impression: Chest pain of unknown etiology, History of lung cancer Instructions: ED Chest Pain, Uncertain Cause Prescriptions: No Action fexofenadine 180 mg tablet 180 mg PO DAILY RF: 0 valacyclovir 1 gram tablet 1,000 mg PO QDAY PRN (Reason: cold sore) RF: 0 levothyroxine 75 MCG tablet 150 mcg PO DAILY RF: 0 colchicine 0.6 MG tablet 0.6 mg PO UD PRN (Reason: Pain) RF: 0 lorazepam 0.5 mg tablet 1 mg PO Q8H PRN PRN (Reason: Anxiety) RF: 0 dicyclomine 20 mg Tablet 20 mg PO DAILY PRN (Reason: cramping) RF: 0 promethazine 25 mg tablet 25 mg PO DAILY PRN (Reason: Nausea) RF: 0 Metamucil Packet 1 packet PO DAILY PRN PRN (Reason: Constipation) RF: 0 famotidine 20 mg Tablet 20 mg PO BID RF: 0 folic acid 1 mg Tablet 1 mg PO DAILY RF: 0 morphine 15 mg tablet extended release 15 mg PO BID RF: 0 oxycodone 5 mg Tablet 1 - 2 mg PO Q6H PRN (Reason: Pain) RF: 0 lubiprostone 24 mcg Capsule 24 mcg PO BID RF: 0 guaifenesin [Mucinex] 600 mg Tablet Extended Release 12hr 600 mg PO DAILY PRN PRN (Reason: Congestion) RF: 0 celecoxib 200 mg Capsule 200 mg PO BID PRN (Reason: arthritis) RF: 0 chlorpheniramine maleate [Chlorpheniramine Allergy] 4 mg Tablet 4 mg PO Q4H PRN (Reason: allergies) RF: 0 pregabalin 150 mg Capsule 150 mg PO BID RF: 0 naloxone [Narcan] 4 mg/actuation [place],Non-Aerosol 4 mg INTRANASAL Q3M PRN (Reason: overdose) RF: 0 Primary Care Provider: [place] Bills Referrals: [place] Bills MD [Primary Care Provider] - Alfredo Walter DO [STAFF PHYSICIAN] - As Needed Activity Restrictions/Additional Instructions: Your test today were okay. We do not have a specific cause for your chest pain. Follow-up with your oncologist as needed. Disposition Disposition: Home, Self Care
--- NOTE | 2022-04-28 17:16 | RAD_ITS ---
STUDY: X-RAY CHEST REASON FOR EXAM: Male, 71 years old. chest pain TECHNIQUE: XR Chest 1 View COMPARISON: 03.11.22 FINDINGS: There is a right pleural effusion. Right infiltrate. Normal size heart. Normal mediastinum and helen. Normal visualized pulmonary arteries. There is atherosclerotic calcification of the aortic arch with tortuosity. There are diffuse degenerative changes of the visualized thoracic spine. There is degenerative osteoarthritis of the bilateral shoulders. There is no demonstrated abnormality of the visualized soft tissue structures of the upper abdomen. RAD/Chest 1 View (Portable) IMPRESSION: There has been no change in the appearance of the chest since the prior study. Electronically Signed: Mendel Leach MD at 17:42 EDT ,
[2022-04-28 17:28] LABS: Absolute Lymphocyte Count 0.51 X10^3/uL (0.83-4.51); Absolute Neutrophil Count 7.2 X10^3/uL (2.0-7.7); Basophil# 0.05 X10^3/uL; Basophil% 0.6 % (0-1); Eosinophil# 0.08 X10^3/uL; Eosinophils% 0.9 % (0-5); Hematocrit 33.6 % (40-54); Hemoglobin 10.9 g/dL (13.0-16.5); Lymphocyte # 0.51 X10^3/ul (0.83-4.51); Mean Corp Hgb Conc 32.4 g/dL (32-36); Mean Corpuscular Hgb 33.4 pg (27.0-32.0); Mean Corpuscular Volume 103.1 fL (80-94); Mean Platelet Vol. 10.9 fl (6.2-12.0); Monocyte% 5.8 % (0-10); NRBC Flagged by Analyzer 0 % (0-5); Neutrophil # 7.24 X10^3/uL (2.7-7.7); Neutrophil % 84.7 % (47-70); POSITIVE DIFFERENTIAL YES; Platelet Count 257 K/mm3 (150-450); RBC Distribution Width CV 13.8 % (11.6-14.6); RBC Distribution Width SD 52.7 fl (35.1-43.9); Red Blood Count 3.26 M/mm3 (4.6-6.2); White Blood Count 8.6 K/mm3 (4.4-11.0)
[2022-04-28 17:35] LABS: Differential Indicated SCAN CRITERIA MET
[2022-04-28 17:38] LABS: Anion Gap 5 (5-15); BUN 25 mg/dL (7-18); BUN/Creat Ratio 17.7 RATIO (10-20); Calcium,Total 9.1 mg/dL (8.5-10.1); Chloride 105 mmol/L (98-107); Creatinine, Serum 1.41 mg/dL (0.70-1.30); EST Glomerular Filtration Rate 53 mL/min (>60); Est Glom Filt Rate - Afr Amer 64 mL/min (>60); Estimated Creatinine Clearance 57.43 ml/min; Glucose 112 mg/dL (74-106); Potassium 4.6 mmol/L (3.5-5.1); Sodium Level 138 mmol/L (136-145); Troponin-I HS (w/2H Reflex) < 3 pg/mL (3.0-78.0)
[2022-04-28 18:01] VITALS: BP 115/85; PULSE 84; RESP 16; O2SAT 95
[2022-04-28 18:04] LABS: Differential Comment SCANNED
[2022-04-28 19:02] VITALS: BP 122/87; PULSE 91; RESP 18; O2SAT 92
[2022-04-28 19:08] LABS: Reflex Troponin-HS? (from REC) Y
[2022-04-28 19:45] LABS: Troponin-I HS < 3 pg/mL (3.0-78.0)
[2022-04-28 20:26] VITALS: BP 132/88; PULSE 82; RESP 16; O2SAT 98
== END 2022-04-28 20:26 | disposition home or self-care (01) ==
PROVIDERS: Emergency Provider Emergency Medicine; PCP Family Medicine; Visit Provider Emergency Medicine
DX: R07.9 Chest pain, unspecified (principal); C34.90 Malignant neoplasm of unspecified part of unspecified bronchus or lung; J44.9 Chronic obstructive pulmonary disease, unspecified; I10 Essential (primary) hypertension; Z87.891 Personal history of nicotine dependence; Z79.899 Other long term (current) drug therapy; E03.9 Hypothyroidism, unspecified; F41.9 Anxiety disorder, unspecified; M19.90 Unspecified osteoarthritis, unspecified site; F32.A Depression, unspecified; K21.9 Gastro-esophageal reflux disease without esophagitis; Z79.890 Hormone replacement therapy
CPT/HCPCS: 36415; 71045; 80048; 84484; 85025; 93005; 99285

== ENCOUNTER 2022-05-26 11:38 | Inpatient (IN) | payer MEDICARE, OTHER, SELFPAY ==
[2022-05-26] VITALS (13 sets, daily range): BP systolic 99–130; BP diastolic 67–75; PULSE 94–110; RESP 16–23; TEMP 36.6–38.2; O2SAT 72–96; BMI 22.8; BMI 22.5
--- NOTE | 2022-05-26 11:48 | ED.RN ---
PARTS ROOM ASSISTANT AND RT NOTIFIED OF PT'S SPO2. PT IN BED CONNECTED TO WALL O2
--- NOTE | 2022-05-26 12:10 | CT_ITS ---
STUDY: CTA CHEST REASON FOR EXAM: Male, 71 years old. Hypoxia RADIATION DOSAGE (If Supplied By Facility): CTDIvol = ( 10.27 ) mGy, DLP = ( 397.31 ) mGycm TECHNIQUE: The examination was performed with the intravenous administration of IV 100mL Isovue-300. Post-processing of the angiographic images was performed, with multiplanar reformation and 3D reconstruction. Individualized dose optimization techniques were used for this CT. COMPARISON: Comparison is made with prior examination dated 03/11/2022. FINDINGS: Normal enhancement of the main pulmonary artery and right and left pulmonary arteries. Normal enhancement of the bilateral peripheral pulmonary arteries. There is no demonstrated pulmonary embolism. Normal thoracic aorta and visualized great vessels. There is no demonstrated aortic dissection. Normal heart and pericardium. Normal mediastinum. Normal hilar regions. Normal visualized trachea and bronchi. Volume loss in the right hemithorax. There is dense consolidation in the right hemithorax involving both the upper and lower lobes with air bronchograms. Patchy infiltrates in the right upper lobe with areas of scarring and bullous formation in the upper lobes and emphysema. Small right pleural effusion. Normal chest wall structures. There are degenerative changes of thoracic spine. There is a 4.4 cm cyst in the posterior upper aspect of the left kidney. Nonobstructive small bilateral intrarenal calculi. CT/CTA Chest W/WO Contrast IMPRESSION: Dense consolidation in the right hemithorax as described with patchy infiltrates in the left lung worse in the left upper lobe superimposed on emphysema with bullous formation in the upper lobes. Electronically Signed: Cam Dawn MD at 13:47 EDT ,
--- NOTE | 2022-05-26 12:10 | EKG12_ITS ---
Test Reason : SOB Blood Pressure : / mmHG Vent. Rate : 105 BPM Atrial Rate : 105 BPM P-R Int : 184 ms QRS Dur : 094 ms QT Int : 340 ms P-R-T Axes : 049 -20 051 degrees QTc Int : 449 ms Sinus tachycardia Otherwise normal ECG Confirmed by SHANIQUE AYOUB, ALFREDA ([id number]), website/blog editor KATHY AGUILAR ([id number]) on 05/28/2022 9:00:48 AM Referred By: PATRICA Confirmed By:ALFREDA BAY MD
--- NOTE | 2022-05-26 12:12 | EX.ED.DYSGE1 ---
HPI History of Present Illness Chief Complaint: Shortness of Breath Informant: patient Onset/Context/Timing Onset: Days (4 to 5 days) Context: Gradual Onset Narrative Narrative: Patient has a history of lung cancer and wears home oxygen. He states normally he is on 2 to 3 L and sat is right around 90%. Patient states since Wednesday his oxygen levels have been low dropping into the 70s. He turned his home oxygen up but has not been able to get up to 90. He came into the infusion center today and was sent to the emergency room. He does report a cough with occasional sputum production. He has chronic chest pain that is unchanged from baseline. He denies fever or chills. [facility] Medical History (Updated 05/26/22 @ 14:[address] Hattie Espino MD) Abdominal pain Anxiety Arthritis Back problem COPD (chronic obstructive pulmonary disease) Depression Fatigue GERD (gastroesophageal reflux disease) Gout Hemorrhoids Hypertension Hypothyroidism IBS (irritable bowel syndrome) Numbness and tingling SOB (shortness of breath) Thyroid disease Home Medications levothyroxine 75 mcg tablet 150 mcg PO DAILY thyroid 11/21/17 [History Last Taken 07/05/19] fexofenadine 180 mg tablet 180 mg PO DAILY allergies 01/14/18 [History Last Taken Unknown] valacyclovir 1 gram tablet 1,000 mg PO QDAY PRN cold sore 01/14/18 [History Last Taken Unknown] colchicine 0.6 mg tablet 0.6 mg PO UD PRN Pain 05/03/19 [History Last Taken Unknown] dicyclomine 20 mg tablet 20 mg PO DAILY PRN cramping 02/10/22 [History Last Taken Unknown] lorazepam 0.5 mg tablet 1 mg PO Q8H PRN PRN Anxiety 02/10/22 [History Last Taken Unknown] promethazine 25 mg tablet 25 mg PO DAILY PRN Nausea 02/10/22 [History Last Taken Unknown] famotidine 20 mg tablet 20 mg PO BID 03/11/22 [History Last Taken Unknown] folic acid 1 mg tablet 1 mg PO DAILY 03/11/22 [History Last Taken Unknown] guaifenesin 600 mg tablet, extended release 12 hr (Mucinex) 600 mg PO DAILY PRN PRN Congestion 03/11/22 [History Last Taken Unknown] lubiprostone 24 mcg capsule 24 mcg PO BID 03/11/22 [History Last Taken Unknown] morphine 15 mg tablet,extended release 15 mg PO BID 03/11/22 [History Last Taken Unknown] oxycodone 5 mg tablet 1 - 2 mg PO Q6H PRN Pain 03/11/22 [History Last Taken Unknown] psyllium 1 packet PO DAILY PRN PRN Constipation 03/11/22 [History Last Taken Unknown] celecoxib 200 mg capsule 200 mg PO BID PRN arthritis 04/28/22 [History Last Taken Unknown] chlorpheniramine maleate 4 mg tablet 4 mg PO Q4H PRN allergies 04/28/22 [History Last Taken Unknown] naloxone 4 mg/actuation nasal spray (Narcan) 4 mg intranasal Q3M PRN overdose 04/28/22 [History Last Taken Unknown] pregabalin 150 mg capsule 150 mg PO BID 04/28/22 [History Last Taken Unknown] Allergy/AdvReac Type Severity Reaction Status Date / Time Sulfa (Sulfonamide Allergy Severe Rash Verified 05/26/22 11:41 Antibiotics) levofloxacin [From Levaquin] Allergy Unknown Verified 05/26/22 11:41 metronidazole Allergy PT UNSURE Verified 05/26/22 11:41 OF REACTION Family History Mother CVA (cerebral vascular accident) Diabetes Heart disease Arthritis Father Cancer lung Arthritis Ulcer Surgical History H/O vasectomy History of left knee replacement Hx of bilateral inguinal hernia repair Hx of colonoscopy Hx of vasectomy S/P hernia repair Social History Smoking Status: Former smoker Tobacco: How many years used: 30 how long ago did patient quit smokin second hand exposure: No alcohol intake: current alcohol intake frequency: 0-2 drinks per day substance use type: does not use caffeine: Yes what type of physical activity do you participate in: walking, running and bicycling frequency: 5-6 times per week seatbelt use: always ROS ROS ED Constitutional Constitutional ED: Denies chills or fever(s) Eyes Eyes: Denies change in vision or discharge from eye(s) ENT ENT ED: Denies discharge from eye(s), rhinorrhea or sore throat Cardiovascular Cardiovascular: Reports chest pain; Denies palpitations Respiratory/Chest Respiratory/Chest: Reports cough and dyspnea Gastrointestinal Gastrointestinal: Denies abdominal pain, diarrhea, nausea or vomiting Genitourinary Genitourinary ED: Denies difficulty urinating or dysuria Musculoskeletal Musculoskeletal: Denies back pain or extremity pain Integumentary Denies Abrasions or rash Neurologic Neurologic: Denies headache(s) or weakness Allergic/Immunologic Allergic/Immunologic ED: Denies lip swelling or urticaria EXAM Physical Exam Narrative Exam Narrative: Patient sitting upright in bed no acute distress. Speaking full sentences. He is on 7 L high flow nasal cannula at the time of my exam and satting between 89 and 93%. Const Vital Signs: 05/26/22 11:38 05/26/22 11:48 05/26/22 12:03 Temperature 97.9 F Temperature Source Temporal Pulse Rate 110 H Respiratory Rate 20 H Respiratory Effort Respiratory Depth Respiratory Pattern Blood Pressure 130/75 H Blood Pressure Mean 93 Pulse Ox 72 89 90 Oxygen Delivery Method Nasal Cannula Nasal Cannula Nasal Cannula Oxygen Flow Rate (L/min) 5 6 5 05/26/22 12:03 05/26/22 13:24 Temperature 98.5 F Temperature Source Temporal Pulse Rate 101 H Respiratory Rate 23 H Respiratory Effort Short of Breath Labored Accessory Muscle Use Respiratory Depth Deep Respiratory Pattern Tachypnea Blood Pressure 105/73 Blood Pressure Mean 83 Pulse Ox 96 Oxygen Delivery Method Nasal Cannula High Flow Oxygen Flow Rate (L/min) 5 8 Positive well nourished and well developed General Appearance ED: well developed HEENT Reports normocephalic and head/scalp atraumatic Eyes PERRL and EOMs intact bilaterally Neck supple Chest Wall inspection of chest normal and palpation of chest normal Resp normal respiratory effort Resp Narrative: Diminished lung sounds bilateral bases. No wheezing appreciated. Cardio regular rhythm Rate: tachycardic GI normal to inspection, nondistended, normoactive bowel sounds Palpation: soft Extremity normal to inspection Neuro oriented x3 and no sensory deficits noted Sensorium / Orientation: alert Motor Exam: strength 5/5 throughout Psych mental status grossly normal Skin no rashes or lesions noted MDM MDM MDM Narrative Medical decision making narrative: EKG and lab work obtained. Patient sent for CTA of the chest. Lab Data Attestation: I reviewed the patient's lab results. Labs: Laboratory Results - last 24 hr 05/26/22 05/26/22 05/26/22 12:20 12:20 12:20 WBC 12.5 H RBC 3.58 L Hgb 11.4 L Hct 35.6 L MCV 99.4 H MCH 31.8 MCHC 32.0 RDW Std Deviation 52.3 H RDW Coeff of Callie 14.5 Plt Count 194 MPV 11.1 Immature Gran % (Auto) 1.500 H Neut % (Auto) 79.7 H Lymph % (Auto) 8.3 L [place] % (Auto) 8.1 Eos % (Auto) 1.8 Baso % (Auto) 0.6 Absolute Neuts (auto) 9.9 H Absolute Lymphs (auto) 1.03 Nucleated RBC % 0 Sodium 140 Potassium 4.1 Chloride 106 Carbon Dioxide 29.0 Anion Gap 5 BUN 23 H Creatinine 1.36 H Estim Creat Clear Calc 58.49 Est GFR (MDRD) Af Amer 66 Est GFR (MDRD) Non-Af 55 L BUN/Creatinine Ratio 16.9 Glucose 112 H Calcium 9.3 Troponin I High Sens < 3 L B-Natriuretic Peptide 22.3 Rapid COVID: Negative Radiography Diagnostic Testing: Clinical Impression(s) from Imaging Studies Chest CTA 05/26/22 12:10 IMPRESSION: Dense consolidation in the right hemithorax as described with patchy infiltrates in the left lung worse in the left upper lobe superimposed on emphysema with bullous formation in the upper lobes. Electronically Signed: Cam Dawn MD at 13:47 EDT , EKG Initial EKG: Attestation: I personally reviewed and interpreted this EKG as follows: Interpretation: Sinus Tachycardia (Sinus tach at 105. No acute ischemia.) Treatment and Re-Evaluation Narrative: On repeat evaluation patient's O2 sat is between 9395% on 7-1/2 L nasal cannula. CBC reveals mildly elevated white count at 12.5. 79% neutrophils. Chemistry studies reveal a BUN of 23 and a creatinine 1.36. Troponin is negative. BNP is 22. CTA of the chest reveals a dense consolidation in the right side consistent with pneumonia. There are also patchy infiltrates noted in the left lung. On review of prior chest x-rays he has had abnormal findings in the right lung previously. It sounds like it was felt to be scar tissue. Patient has not had radiation. Imaging on CT clearly shows air bronchograms with what appears to be infiltrate. Patient will be started on Rocephin and Zithromax and blood cultures will be drawn. Patient will be admitted for further treatment as he is requiring higher levels of oxygen. Discharge Plan Triage Chief Complaint: Shortness of Breath ED Provider: Hattie Espino Dx/Rx/DC Orders Clinical Impression: Pneumonia, Respiratory insufficiency Prescriptions: No Action fexofenadine 180 mg tablet 180 mg PO DAILY valacyclovir 1 gram tablet 1,000 mg PO QDAY PRN (Reason: cold sore) levothyroxine 75 MCG tablet 150 mcg PO DAILY colchicine 0.6 MG tablet 0.6 mg PO UD PRN (Reason: Pain) lorazepam 0.5 mg tablet 1 mg PO Q8H PRN PRN (Reason: Anxiety) Label Comments: TAKE 1 TABLET BY MOUTH TWICE DAILY NEEDED FOR UP TO 30 DAYS. dicyclomine 20 mg Tablet 20 mg PO DAILY PRN (Reason: cramping) promethazine 25 mg tablet 25 mg PO DAILY PRN (Reason: Nausea) Metamucil Packet 1 packet PO DAILY PRN PRN (Reason: Constipation) famotidine 20 mg Tablet 20 mg PO BID folic acid 1 mg Tablet 1 mg PO DAILY morphine 15 mg tablet extended release 15 mg PO BID Label Comments: TAKE 1 TABLET BY MOUTH EVERY 12 HOURS FOR 14 DAYS. FOR PAIN. oxycodone 5 mg Tablet 1 - 2 mg PO Q6H PRN (Reason: Pain) lubiprostone 24 mcg Capsule 24 mcg PO BID guaifenesin [Mucinex] 600 mg Tablet Extended Release 12hr 600 mg PO DAILY PRN PRN (Reason: Congestion) celecoxib 200 mg Capsule 200 mg PO BID PRN (Reason: arthritis) chlorpheniramine maleate [Chlorpheniramine Allergy] 4 mg Tablet 4 mg PO Q4H PRN (Reason: allergies) pregabalin 150 mg Capsule 150 mg PO BID naloxone [Narcan] 4 mg/actuation [place],Non-Aerosol 4 mg INTRANASAL Q3M PRN (Reason: overdose) Primary Care Provider: Montana Bills Referrals: Montana Bills MD [Primary Care Provider] - Disposition Disposition: Acute Care [facility]
[2022-05-26 12:32] LABS: Absolute Lymphocyte Count 1.03 X10^3/uL (0.83-4.51); Absolute Neutrophil Count 9.9 X10^3/uL (2.0-7.7); Basophil# 0.08 X10^3/uL; Basophil% 0.6 % (0-1); Eosinophil# 0.23 X10^3/uL; Eosinophils% 1.8 % (0-5); Hematocrit 35.6 % (40-54); Hemoglobin 11.4 g/dL (13.0-16.5); Lymphocyte # 1.03 X10^3/ul (0.83-4.51); Lymphocyte % 8.3 % (19-41); Mean Corpuscular Hgb 31.8 pg (27.0-32.0); Mean Corpuscular Volume 99.4 fL (80-94); Mean Platelet Vol. 11.1 fl (6.2-12.0); Monocyte# 1.01 X10^3/uL; Monocyte% 8.1 % (0-10); NRBC Flagged by Analyzer 0 % (0-5); Neutrophil # 9.92 X10^3/uL (2.7-7.7); Neutrophil % 79.7 % (47-70); Platelet Count 194 K/mm3 (150-450); RBC Distribution Width CV 14.5 % (11.6-14.6); RBC Distribution Width SD 52.3 fl (35.1-43.9); Red Blood Count 3.58 M/mm3 (4.6-6.2); White Blood Count 12.5 K/mm3 (4.4-11.0)
[2022-05-26 12:49] LABS: Anion Gap 5 (5-15); BUN 23 mg/dL (7-18); BUN/Creat Ratio 16.9 RATIO (10-20); Calcium,Total 9.3 mg/dL (8.5-10.1); Chloride 106 mmol/L (98-107); Creatinine, Serum 1.36 mg/dL (0.70-1.30); EST Glomerular Filtration Rate 55 mL/min (>60); Est Glom Filt Rate - Afr Amer 66 mL/min (>60); Estimated Creatinine Clearance 58.49 ml/min; Glucose 112 mg/dL (74-106); Potassium 4.1 mmol/L (3.5-5.1); Sodium Level 140 mmol/L (136-145); Troponin-I HS < 3 pg/mL (3.0-78.0)
[2022-05-26 12:51] LABS: BNP,B-Type NATRIURETIC PEPTIDE 22.3 pg/mL (0-100)
[2022-05-26] MEDS: Ceftriaxone 1 GM/50 ML BAG IV (14:44)
--- NOTE | 2022-05-26 15:40 | PCM.HP.STD ---
HPI - General General Date of Admission: 05/26/22 Date of Service: 05/26/22 Chief Complaint: Shortness of breath HPI Narrative ROB BLANCO, is a 71 M who presents with shortness of breath. Patient has been chronically short of breath for a long period of time and is on home oxygen. Initially started 2 L and eventually up to 4 L. Patient been stable for some time but then starting Wednesday, he has become much more short of breath with minimal exertion. He is coughing but is nonproductive. He was feeling worse today presented to the emergency room. In the emergency room, patient had a CAT scan that showed dense consolidation in the right hemithorax. Patient was started on azithromycin and ceftriaxone in the emergency room. 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 Walter. Patient's primary bridge/structure inspection team leader is Dr. Archuleta in [place], who diagnosed him with the small cell lung cancer. Patient has small cell lung cancer bilaterally. He is undergoing chemotherapy but has never received any radiation therapy for this cancer nor his history of lymphoma. [facility] Medical History (Updated 05/26/22 @ 15:[address], ) Abdominal pain Anxiety Arthritis Back problem COPD (chronic obstructive pulmonary disease) Depression Fatigue GERD (gastroesophageal reflux disease) Gout Hemorrhoids Hypertension Hypothyroidism IBS (irritable bowel syndrome) Numbness and tingling Small cell lung cancer SOB (shortness of breath) Thyroid disease Home Medications fexofenadine 180 mg tablet 180 mg PO DAILY allergies 01/14/18 [History Last Taken 05/26/22] valacyclovir 1 gram tablet 1,000 mg PO DAILY PRN Cold Sores 01/14/18 [History Last Taken 05/24/22] colchicine 0.6 mg tablet 0.6 mg PO DAILY gout 05/03/19 [History Last Taken 05/26/22] dicyclomine 20 mg tablet 20 mg PO DAILY PRN cramping 02/10/22 [History Last Taken Unknown] promethazine 25 mg tablet 25 mg PO TID nausea 02/10/22 [History Last Taken 05/26/22] folic acid 1 mg tablet 1 mg PO DAILY 03/11/22 [History Last Taken 05/26/22] guaifenesin 600 mg tablet, extended release 12 hr (Mucinex) 600 mg PO BID 03/11/22 [History Last Taken 05/26/22] lubiprostone 24 mcg capsule 24 mcg PO BID 03/11/22 [History Last Taken 05/26/22] morphine 15 mg tablet,extended release 15 mg PO BID 03/11/22 [History Last Taken Unknown] oxycodone 5 mg tablet 1 - 2 mg PO Q6H PRN Pain 03/11/22 [History Last Taken 05/25/22] celecoxib 200 mg capsule 200 mg PO BID PRN arthritis 04/28/22 [History Last Taken 05/26/22] pregabalin 150 mg capsule 150 mg PO BID 04/28/22 [History Last Taken 05/26/22] levothyroxine 150 mcg tablet 150 mcg PO DAILY thyroid 05/26/22 [History Last Taken 05/26/22] lorazepam 1 mg tablet 1 mg PO QHS sleep 05/26/22 [History Last Taken 05/25/22] Allergy/AdvReac Type Severity Reaction Status Date / Time Sulfa (Sulfonamide Allergy Severe Rash Verified 05/26/22 11:41 Antibiotics) levofloxacin [From Levaquin] Allergy Unknown Verified 05/26/22 11:41 metronidazole Allergy PT UNSURE Verified 05/26/22 11:41 OF REACTION Family History Mother CVA (cerebral vascular accident) Diabetes Heart disease Arthritis Father Cancer lung Arthritis Ulcer Surgical History H/O vasectomy History of left knee replacement Hx of bilateral inguinal hernia repair Hx of colonoscopy Hx of vasectomy S/P hernia repair Social History Smoking Status: Former smoker Tobacco: How many years used: 30 how long ago did patient quit smokin second hand exposure: No alcohol intake: current alcohol intake frequency: 0-2 drinks per day substance use type: does not use caffeine: Yes what type of physical activity do you participate in: walking, running and bicycling frequency: 5-6 times per week seatbelt use: always ROS ROS Narrative Weight loss. Weakness. Chest pain. All review of systems were negative except as mentioned above in the history of present illness and the other review of systems. Vital Signs Vital Signs Vital Signs: 05/26/22 11:38 05/26/22 11:48 05/26/22 12:03 Temperature 36.6 C Temperature Source Temporal Pulse Rate 110 H Respiratory Rate 20 H Respiratory Effort Respiratory Depth Respiratory Pattern Blood Pressure 130/75 H Blood Pressure Mean 93 Pulse Ox 72 89 90 Oxygen Delivery Method Nasal Cannula Nasal Cannula Nasal Cannula Oxygen Flow Rate (L/min) 5 6 5 05/26/22 12:03 05/26/22 13:24 05/26/22 14:42 Temperature 36.9 C Temperature Source Temporal Pulse Rate 101 H Respiratory Rate 23 H 22 H Respiratory Effort Short of Breath Labored Accessory Muscle Use Respiratory Depth Deep Respiratory Pattern Tachypnea Blood Pressure 105/73 Blood Pressure Mean 83 Pulse Ox 96 92 Oxygen Delivery Method Nasal Cannula High Flow Nasal Cannula Oxygen Flow Rate (L/min) 5 8 8 05/26/22 14:43 05/26/22 15:00 Temperature 36.9 C Temperature Source Temporal Pulse Rate 103 H 109 H Respiratory Rate 22 H 22 H Respiratory Effort Respiratory Depth Respiratory Pattern Blood Pressure 122/74 H 110/73 Blood Pressure Mean 90 85 Pulse Ox 93 92 Oxygen Delivery Method Nasal Cannula High Flow Oxygen Flow Rate (L/min) 8 6 Weight Weight: 83.007 kg Body Mass Index (BMI) 22.8 Physical Exam Const alert and no apparent distress HEENT normocephalic and head/scalp atraumatic Eyes Eyes Narrative: No icterus Neck no lymphadenopathy Neck Narrative: No thyromegaly Resp Resp Narrative: Crackles in the right upper lobe. Cardio regular rate, regular rhythm, S1 normal heart sound and S2 normal heart sound GI normal to inspection, nondistended, normoactive bowel sounds, soft to palpation, non-tender and non-distended Extremity normal to inspection and no clubbing, cyanosis or edema Neuro Sensorium / Orientation: awake and alert Psych affect normal Results Lab / Micro Data Attestation: I reviewed the patient's lab results. Result Diagrams: 05/26/22 12:20 05/26/22 12:20 Labs: Laboratory Results - last 24 hr 05/26/22 12:20: WBC 12.5 H, RBC 3.58 L, Hgb 11.4 L, Hct 35.6 L, MCV 99.4 H, MCH 31.8, MCHC 32.0, RDW Std Deviation 52.3 H, RDW Coeff of Callie 14.5, Plt Count 194, MPV 11.1, Immature Gran % (Auto) 1.500 H, Neut % (Auto) 79.7 H, Lymph % (Auto) 8.3 L, [place] % (Auto) 8.1, Eos % (Auto) 1.8, Baso % (Auto) 0.6, Absolute Neuts (auto) 9.9 H, Absolute Lymphs (auto) 1.03, Nucleated RBC % 0 05/26/22 12:20: Sodium 140, Potassium 4.1, Chloride 106, Carbon Dioxide 29.0, Anion Gap 5, BUN 23 H, Creatinine 1.36 H, Estim Creat Clear Calc 58.49, Est GFR (MDRD) Af Amer 66, Est GFR (MDRD) Non-Af 55 L, BUN/Creatinine Ratio 16.9, Glucose 112 H, Calcium 9.3, Troponin I High Sens < 3 L 05/26/22 12:20: B-Natriuretic Peptide 22.3 Micro: Microbiology 05/26/22 12:20 Nasal Secretion SARS-CoV-2 Antigen (Rapid) - Final Radiology Impression Chest CTA 05/26/22 12:10 IMPRESSION: Dense consolidation in the right hemithorax as described with patchy infiltrates in the left lung worse in the left upper lobe superimposed on emphysema with bullous formation in the upper lobes. 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 Culture at that time showed Klebsiella. I don't see any culture results positive for actinomyces. Unclear if this is pneumonia or due to his underlying lung cancer combination thereof. But given his rapid worsening I would be highly suspicious of an acute bacterial pneumonia. Patient was negative for COVID-19. Plan: Pulmonary toilet with vest therapy Broad-spectrum antibiotics with piperacillin/tazobactam and vancomycin I did recommend pulmonary consultation to see if he be a candidate for bronchoscopy and BAL. He would prefer to hold off on that for now. I told him if he does not get any better from today to tomorrow or if he worsens then we should consult pulmonology. He was in agreement to that. Patient informed me that he had a falling out with Dr. Potter in the past. I informed him that Dr. Potter is not on this week and that it is Dr. Phillips. Patient also tells me that he had a falling out with Dr. Carcamo as well. Patient's primary bridge/structure inspection team leader is Dr. Archuleta. I told the patient if he would prefer to be transferred [facility], that he should do so while he is still in the emergency room because otherwise if he were to be transferred to that hospital horizontal transfer as we have seen pulmonary capabilities they did. He is okay with staying at [facility]. (2) Small cell lung cancer: PLAN: Complicates care. Patient is due for chemotherapy and was sent here from the oncology center as you supposed to initiate his round of chemotherapy this week. That will be on hold for now. Patient will follow-up with Dr. Walter as outpatient. Given that this is a chronic malignancy and no acute issues I do not feel it is necessary to bring Dr. Walter to the hospital at this time. PLAN: Plan 3. VTE prophylaxis with enoxaparin 4. CODE STATUS: Addressed with the patient and his significant other bedside. Patient wishes to be DNR Comfort Care arrest with intubation. Patient informed he can change his mind at any time. Charges/Coding Visit Charges Inpatient E&M: 25473 Init Hosp L3
[2022-05-26] MEDS: Acetaminophen 500 MG Tablet 1000 MG PO (16:46)
[2022-05-26] MEDS: Ipratropium/Albuterol Sulfate 3 ML AMPUL.NEB INHALATION (19:29)
--- NOTE | 2022-05-26 19:37 | PCM.RX.CS ---
Consult Pharmacy has been consulted to manage selected antiobiotic: Vancomycin Type of Consult: New start Suspected Infection: Pneumonia Labs: Sodium 140 mmol/L (136-145) 05/26/22 12:20 Potassium 4.1 mmol/L (3.5-5.1) 05/26/22 12:20 Chloride 106 mmol/L (98-107) 05/26/22 12:20 Carbon Dioxide 29.0 mmol/L (21.0-32.0) 05/26/22 12:20 Anion Gap 5 (5-15) 05/26/22 12:20 BUN 23 mg/dL (7-18) H 05/26/22 12:20 Creatinine 1.36 mg/dL (0.70-1.30) H 05/26/22 12:20 Est GFR (MDRD) Af Amer 66 mL/min (>60) 05/26/22 12:20 Est GFR (MDRD) Non-Af 55 mL/min (>60) L 05/26/22 12:20 BUN/Creatinine Ratio 16.9 RATIO (10-20) 05/26/22 12:20 Glucose 112 mg/dL (74-106) H 05/26/22 12:20 Microbiology: Microbiology 05/26/22 12:20 Nasal Secretion SARS-CoV-2 Antigen (Rapid) - Final Goal Trough: 15-20 mcg/mL Pharmacy Plan for Drug Dosing: NEW START IV VANCOMYCIN Consulting Physician: Alma Rosa Indication: Pneumonia Goal Trough: 15-20 SrCr: 1.36 CrCl: 58.5mls/min Comments: pt received a 1250mg dose on 05/26/22 at 1800 Vancomcyin Dose: based on pts weight and renal function, recommend an initial dose of 750mg q12h starting 05/27/22 at 0600. Trough before the 4th total dose Pending Level: 05/28/22 at 0530 Pharmacy Service will continue to monitor and adjust dosing as required. Follow-Up Labs: Trough Vancomycin - 05/28/22 at 0530
[2022-05-26] MEDS: morphine SR 15 MG Tablet PO (21:17)
[2022-05-26] MEDS: LORazepam 1 MG Tablet PO (21:17)
[2022-05-26] MEDS: Pregabalin 75 MG Capsule 150 MG PO (21:17)
[2022-05-26] MEDS: proMETHazine 25 MG Tablet PO (21:19)
[2022-05-26] MEDS: guaiFENesin 1,200 MG Tablet 1200 MG PO (21:19)
[2022-05-26] MEDS: Lubiprostone 24 MCG Capsule PO (21:20)
[2022-05-27] VITALS (21 sets, daily range): BP systolic 90–114; BP diastolic 59–71; PULSE 78–116; RESP 15–28; TEMP 36.6–39.4; O2SAT 85–99
--- NOTE | 2022-05-27 01:23 | EKG12_ITS ---
Test Reason : CHEST PAIN Blood Pressure : / mmHG Vent. Rate : 116 BPM Atrial Rate : 116 BPM P-R Int : 168 ms QRS Dur : 098 ms QT Int : 326 ms P-R-T Axes : 040 -46 044 degrees QTc Int : 453 ms Sinus tachycardia Left axis deviation Low voltage QRS (Limb Leads) Abnormal ECG Confirmed by SHANIQUE AYOUB, ALFREDA ([id number]), metropolitan editor KATHY AGUILAR ([id number]) on 05/28/2022 9:15:09 AM Referred By: YASH Confirmed By:ALFREDA BAY MD
[2022-05-27] MEDS: Acetaminophen 325 MG Tablet 650 MG PO ×2 (01:32→14:19)
--- NOTE | 2022-05-27 02:22 | NURSING ---
Discussed pt's status with respiratory. Pt's 02 sats initially increased to 91-93% on 12L hiflo but at time of report pt betwen 89/90%. discussed with pt that next step would be transferring to PCU to go on bipap. Pt agreeable to same. He stated he was 'not ready to yet'. This nurse let respiratory know that pt was agreeable to bipap. Respiratory therapist will discuss with physician re transfer.
--- NOTE | 2022-05-27 02:36 | NURSING ---
Respiratory discussed with physician and in light of pt's claustrophobia, opted to try airvo. pt to remain on floor at this time.
[2022-05-27] MEDS: Ibuprofen 400 MG Tablet PO (03:31)
[2022-05-27] MEDS: Levothyroxine 150 MCG Tablet PO (06:02)
[2022-05-27] MEDS: proMETHazine 25 MG Tablet PO ×2 (06:46→22:24)
[2022-05-27 07:00] LABS: Absolute Lymphocyte Count 1.71 X10^3/uL (0.83-4.51); Absolute Neutrophil Count 9.5 X10^3/uL (2.0-7.7); Basophil# 0.09 X10^3/uL; Basophil% 0.7 % (0-1); Eosinophils% 1.5 % (0-5); Hematocrit 27.2 % (40-54); Hemoglobin 9.2 g/dL (13.0-16.5); Lymphocyte # 1.71 X10^3/ul (0.83-4.51); Lymphocyte % 13.1 % (19-41); Mean Corp Hgb Conc 33.8 g/dL (32-36); Mean Corpuscular Hgb 32.3 pg (27.0-32.0); Mean Corpuscular Volume 95.4 fL (80-94); Mean Platelet Vol. 10.7 fl (6.2-12.0); Monocyte# 1.43 X10^3/uL; NRBC Flagged by Analyzer 0 % (0-5); Neutrophil # 9.47 X10^3/uL (2.7-7.7); Neutrophil % 72.7 % (47-70); Platelet Count 168 K/mm3 (150-450); RBC Distribution Width CV 14.8 % (11.6-14.6); RBC Distribution Width SD 51.2 fl (35.1-43.9); Red Blood Count 2.85 M/mm3 (4.6-6.2)
[2022-05-27 07:27] LABS: Anion Gap 5 (5-15); BUN 25 mg/dL (7-18); Calcium,Total 8.2 mg/dL (8.5-10.1); Chloride 104 mmol/L (98-107); Creatinine, Serum 1.47 mg/dL (0.70-1.30); EST Glomerular Filtration Rate 50 mL/min (>60); Est Glom Filt Rate - Afr Amer 61 mL/min (>60); Estimated Creatinine Clearance 53.26 ml/min; Glucose 132 mg/dL (74-106); Potassium 3.6 mmol/L (3.5-5.1); Sodium Level 136 mmol/L (136-145)
[2022-05-27] MEDS: Ipratropium/Albuterol Sulfate 3 ML AMPUL.NEB INHALATION ×3 (07:46→19:38)
--- NOTE | 2022-05-27 08:13 | PN.HOSP_ITS ---
Subjective Subjective Worsening respiratory status, now on airVo. Still with non-productive cough. Objective Data Objective Data Vital Signs: Vital Signs Temp Pulse Resp BP Pulse Ox O2 Del Method O2 Flow Rate 36.6 C 79 20 H 90/60 95 Airvo 50 05/27/22 07:52 05/27/22 07:52 05/27/22 07:52 05/27/22 07:52 05/27/22 07:52 05/27/22 07:52 05/27/22 07:52 FiO2 83 05/27/22 07:52 Oxygen Flow Rate (L/min) 50 Oxygen Delivery Method Airvo Weight: 81.692 kg Body Mass Index (BMI) 22.5 Intake & Output: Intake and Output for Last 24 Hours 05/25/22 05/26/22 05/27/22 23:59 23:59 23:59 Intake Total 580 / 580 315 / 315 Balance 580 / 580 315 / 315 Lab / Micro Data Result Diagrams: 05/27/22 06:30 05/27/22 06:30 Labs: Laboratory Results - last 24 hr 05/26/22 12:20: WBC 12.5 H, RBC 3.58 L, Hgb 11.4 L, Hct 35.6 L, MCV 99.4 H, MCH 31.8, MCHC 32.0, RDW Std Deviation 52.3 H, RDW Coeff of Acllie 14.5, Plt Count 194, MPV 11.1, Immature Gran % (Auto) 1.500 H, Neut % (Auto) 79.7 H, Lymph % (Auto) 8.3 L, [place] % (Auto) 8.1, Eos % (Auto) 1.8, Baso % (Auto) 0.6, Absolute Neuts (auto) 9.9 H, Absolute Lymphs (auto) 1.03, Nucleated RBC % 0 05/26/22 12:20: Sodium 140, Potassium 4.1, Chloride 106, Carbon Dioxide 29.0, Anion Gap 5, BUN 23 H, Creatinine 1.36 H, Estim Creat Clear Calc 58.49, Est GFR (MDRD) Af Amer 66, Est GFR (MDRD) Non-Af 55 L, BUN/Creatinine Ratio 16.9, Glucose 112 H, Calcium 9.3, Troponin I High Sens < 3 L 05/26/22 12:20: B-Natriuretic Peptide 22.3 05/27/22 06:30: WBC 13.0 H, RBC 2.85 L, Hgb 9.2 L, Hct 27.2 L, MCV 95.4 H, MCH 32.3 H, MCHC 33.8 D, RDW Std Deviation 51.2 H, RDW Coeff of Callie 14.8 H, Plt Count 168, MPV 10.7, Immature Gran % (Auto) 1.000 H, Neut % (Auto) 72.7 H, Lymph % (Auto) 13.1 L, [place] % (Auto) 11.0 H, Eos % (Auto) 1.5, Baso % (Auto) 0.7, Absolute Neuts (auto) 9.5 H, Absolute Lymphs (auto) 1.71, Nucleated RBC % 0 05/27/22 06:30: Sodium 136, Potassium 3.6, Chloride 104, Carbon Dioxide 27.0, Anion Gap 5, BUN 25 H, Creatinine 1.47 H, Estim Creat Clear Calc 53.26, Est GFR (MDRD) Af Amer 61, Est GFR (MDRD) Non-Af 50 L, BUN/Creatinine Ratio 17.0, Glucose 132 H, Calcium 8.2 L Micro: Microbiology 05/26/22 21:30 Urine, Random Legionella Antigen - Final 05/26/22 21:30 Interface Orders Streptococcus pneumoniae Antigen (M - Final 05/26/22 12:20 Nasal Secretion SARS-CoV-2 Antigen (Rapid) - Final Radiography Diagnostic Testing: Radiology Impression Chest CTA 05/26/22 12:10 IMPRESSION: Dense consolidation in the right hemithorax as described with patchy infiltrates in the left lung worse in the left upper lobe superimposed on emphysema with bullous formation in the upper lobes. Electronically Signed: Cam Dawn MD at 13:47 EDT , Physical Exam Const alert and no apparent distress HEENT head/scalp atraumatic Resp Resp Narrative: coarse crackles throughout right lung field. crackles in LLL. 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 Culture at that time showed Klebsiella. I don't see any culture results positive for actinomyces. Unclear if this is pneumonia or due to his underlying lung cancer combination thereof. But given his rapid worsening I would be highly suspicious of an acute bacterial pneumonia. Patient was negative for COVID-19. Plan: * Pulmonary toilet with vest therapy * Broad-spectrum antibiotics with piperacillin/tazobactam and vancomycin * I did recommend pulmonary consultation to see if he be a candidate for bronchoscopy and BAL. He would prefer to hold off on that for now. I told him if he does not get any better from today to tomorrow or if he worsens then we should consult pulmonology. He was in agreement to that. Patient informed me that he had a falling out with Dr. Potter in the past. I informed him that Dr. Potter is not on this week and that it is Dr. Phillips. Patient also tells me that he had a falling out with Dr. Carcamo as well. Patient's primary regional operations director is Dr. Archuleta. I told the patient if he would prefer to be transferred [facility], that he should do so while he is still in the emergency room because otherwise if he were to be transferred to that hospital horizontal transfer as we have seen pulmonary capabilities they did. He is okay with staying at [facility]. (2) Small cell lung cancer: PLAN: Complicates care. Patient is due for chemotherapy and was sent here from the oncology center as you supposed to initiate his round of chemotherapy this week. That will be on hold for now. Patient will follow-up with Dr. Walter as outpatient. Given that this is a chronic malignancy and no acute issues I do not feel it is necessary to bring Dr. Walter to the hospital at this time. (3) Acute respiratory failure with hypoxia: PLAN: 2/2 pneumonia, COPD and SCLC Worse, now on Airvo 2/2 pneumonia, SCLC Consult pulmonary started on Methylprednisolone. PLAN: Plan 4. VTE prophylaxis with enoxaparin 5. CODE STATUS: Addressed with the patient and his significant other bedside. Patient wishes to be DNR Comfort Care arrest with intubation. Patient informed he can change his mind at any time. Charges/Coding Visit Charges Inpatient E&M: 28792 Subs Hosp L2
--- NOTE | 2022-05-27 09:22 | EX.PCM.CONCC ---
Assessment & Plan Assessment/Plan (1) Acute respiratory failure with hypoxia: (2) Small cell lung cancer: (3) Gram-negative pneumonia: (4) COPD (chronic obstructive pulmonary disease): PLAN: Plan RECOMMENDATIONS: 1. Schedule steroids and bronchodilators. Continue mucolytic 2. Agree with Coiln and Jess given severity of illness 3. Obtain sputum culture if possible 4. Initiate vest therapy twice daily 5. Wean oxygen as tolerated 6. Consider AVAPS (tidal volume 450) with sleep 7. Keep saturations 90 to 94% IMPRESSIONS: 1. Acute on chronic hypoxic respiratory failure secondary to possible gram-negative pneumonia Unclear etiology at this time. Pattern on imaging is consistent with possible aspiration, but no acute event has been reported. Patient appears to have patent airways with alveolar infiltrates suggesting an infectious process. Given patient's cancer, agree with broad-spectrum antibiotics pending cultures. Will add bronchodilators and steroids to help with pulmonary toileting. Patient will also be placed on a vest twice daily to see if this will also help with mobilization of secretions. Pattern is not consistent or typical for pneumonitis associated with chemotherapy. Patient is at high risk for progression given comorbidities. Patient does have a history of actinomyces. Could consider infectious disease evaluation if not improving after 24 to 48 hours of broad-spectrum antibiotics. Did confirm the patient is willing to be intubated temporarily if necessary. This may require bronchoscopy, but given current oxygen requirements, patient would have to be intubated. We will wait and see if patient responds to conservative therapy, but if intubated, likely proceed with bronchoscopy with BAL. 2. Small cell lung cancer/advanced age/baseline COPD/anxiety/depression/hypertension/GERD Complicates care, management, recovery and prognosis. Will add empiric steroids and bronchodilators. Patient can continue on her baseline medications. May need to transition to IV if patient becomes BiPAP dependent. Patient may require AVAPS to facilitate sleep given level of hypoxia. Patient follows with Dr. Walter. HPI Consult Data Date of Consult: 05/27/22 HPI Narrative Reason for Consultation: Respiratory failure HPI Narrative: ROB BLANCO is a 71 M, with past medical history listed below, who presents to [facility] on 05/26/2022 secondary to progressive shortness of breath and hypoxia. Patient wears between 2 to 3 L at rest and 5 L with exertion, but had saturations dropping into the 70s. Patient increased his oxygen but was unable to get his saturations above 90% when he arrived at the infusion center. Patient was subsequently sent to the emergency room. Patient did report a cough with occasional sputum production and chronic chest pain that is unchanged from baseline. Patient denied any fevers or chills. Patient does have a history of small cell lung carcinoma treated by Dr. Walter. Patient has been following with Dr. Archuleta for his respiratory concerns. In the ER, patient was afebrile, but tachycardic at 110 bpm. Patient was requiring 8 L nasal cannula to maintain saturations and was tachypneic as high as 23 breaths/min. White blood cell count showed a white count of 12.5 with a hemoglobin of 11.4. Chemistries were relatively unremarkable except for a bicarbonate of 29 and a creatinine of 1.36. Troponin and BNP were unremarkable. COVID testing was negative. Patient had a dense consolidation of the right hemithorax that was confirmed by CTA of the chest. EKG showed sinus tachycardia. Patient was given Rocephin, Zithromax and blood cultures and was admitted to the hospital for further evaluation. Patient initially had refused pulmonary consult on admission. However, overnight patient's hypoxia has gotten significantly worse, so a pulmonary consult was obtained. Patient has been seen by Dr. Potter in the past, but states they had a difference of opinion. Patient has been receiving his pulmonary care in [place] and [facility]. Patient states he is between 2 and 3 L at rest and 5 to 6 L with exertion. Patient states he has had symptoms for approximately 4 to 6 days of progressive shortness of breath. Patient denies any aspiration events, environmental exposures or sick contacts. Patient has not been able to provide a sputum culture since arrival. Patient is not aware of any previous MDR infections in the past. Patient states his small cell is controlled following chemotherapy. Patient has not received radiation per his report. Patient is not aware of his home inhaler therapies. Review of systems otherwise negative from a constitutional, HEENT, respiratory, cardiovascular, GI, genitourinary, musculoskeletal, skin, neurologic, psychiatric and hematologic system unless stated above. [facility] Medical History Abdominal pain Anxiety Arthritis Back problem COPD (chronic obstructive pulmonary disease) Depression Fatigue GERD (gastroesophageal reflux disease) Gout Hemorrhoids Hypertension Hypothyroidism IBS (irritable bowel syndrome) Numbness and tingling Small cell lung cancer SOB (shortness of breath) Thyroid disease Home Medications fexofenadine 180 mg tablet 180 mg PO DAILY allergies 01/14/18 [History Last Taken 05/26/22] valacyclovir 1 gram tablet 1,000 mg PO DAILY PRN Cold Sores 01/14/18 [History Last Taken 05/24/22] colchicine 0.6 mg tablet 0.6 mg PO DAILY gout 05/03/19 [History Last Taken 05/26/22] dicyclomine 20 mg tablet 20 mg PO DAILY PRN cramping 02/10/22 [History Last Taken Unknown] promethazine 25 mg tablet 25 mg PO TID nausea 02/10/22 [History Last Taken 05/26/22] folic acid 1 mg tablet 1 mg PO DAILY 03/11/22 [History Last Taken 05/26/22] guaifenesin 600 mg tablet, extended release 12 hr (Mucinex) 600 mg PO BID 03/11/22 [History Last Taken 05/26/22] lubiprostone 24 mcg capsule 24 mcg PO BID 03/11/22 [History Last Taken 05/26/22] morphine 15 mg tablet,extended release 15 mg PO BID 03/11/22 [History Last Taken Unknown] oxycodone 5 mg tablet 1 - 2 mg PO Q6H PRN Pain 03/11/22 [History Last Taken 05/25/22] celecoxib 200 mg capsule 200 mg PO BID PRN arthritis 04/28/22 [History Last Taken 05/26/22] pregabalin 150 mg capsule 150 mg PO BID 04/28/22 [History Last Taken 05/26/22] levothyroxine 150 mcg tablet 150 mcg PO DAILY thyroid 05/26/22 [History Last Taken 05/26/22] lorazepam 1 mg tablet 1 mg PO QHS sleep 05/26/22 [History Last Taken 05/25/22] Allergy/AdvReac Type Severity Reaction Status Date / Time Sulfa (Sulfonamide Allergy Severe Rash Verified 05/26/22 11:41 Antibiotics) levofloxacin [From Levaquin] Allergy Unknown Verified 05/26/22 11:41 metronidazole Allergy PT UNSURE Verified 05/26/22 11:41 OF REACTION Family History Mother CVA (cerebral vascular accident) Diabetes Heart disease Arthritis Father Cancer lung Arthritis Ulcer Surgical History H/O vasectomy History of left knee replacement Hx of bilateral inguinal hernia repair Hx of colonoscopy Hx of vasectomy S/P hernia repair Social History Smoking Status: Former smoker Tobacco: How many years used: 30 how long ago did patient quit smokin second hand exposure: No alcohol intake: current alcohol intake frequency: 0-2 drinks per day substance use type: does not use caffeine: Yes what type of physical activity do you participate in: walking, running and bicycling frequency: 5-6 times per week seatbelt use: always ROS ROS Narrative See HPI Medical Records Data Attestation: I reviewed the patient's medical records Medical records narrative: Patient receives most of his care in [place] and at the [facility]. However, patient does have a pulmonary function test completed in April 2021 showing an irreversible mild large airways obstructive ventilatory defect with preserved lung volumes and diffusion capacity. Patient's last echocardiogram completed in 2019 showed an EF of 55% with stage I diastolic dysfunction and mitral calcification. Lab / Micro Data Attestation: I reviewed the patient's lab results. Result Diagrams: 05/27/22 06:30 05/27/22 06:30 Labs: Laboratory Results - last 24 hr 05/26/22 12:20: WBC 12.5 H, RBC 3.58 L, Hgb 11.4 L, Hct 35.6 L, MCV 99.4 H, MCH 31.8, MCHC 32.0, RDW Std Deviation 52.3 H, RDW Coeff of Callie 14.5, Plt Count 194, MPV 11.1, Immature Gran % (Auto) 1.500 H, Neut % (Auto) 79.7 H, Lymph % (Auto) 8.3 L, [place]cdonald % (Auto) 8.1, Eos % (Auto) 1.8, Baso % (Auto) 0.6, Absolute Neuts (auto) 9.9 H, Absolute Lymphs (auto) 1.03, Nucleated RBC % 0 05/26/22 12:20: Sodium 140, Potassium 4.1, Chloride 106, Carbon Dioxide 29.0, Anion Gap 5, BUN 23 H, Creatinine 1.36 H, Estim Creat Clear Calc 58.49, Est GFR (MDRD) Af Amer 66, Est GFR (MDRD) Non-Af 55 L, BUN/Creatinine Ratio 16.9, Glucose 112 H, Calcium 9.3, Troponin I High Sens < 3 L 05/26/22 12:20: B-Natriuretic Peptide 22.3 05/27/22 06:30: WBC 13.0 H, RBC 2.85 L, Hgb 9.2 L, Hct 27.2 L, MCV 95.4 H, MCH 32.3 H, MCHC 33.8 D, RDW Std Deviation 51.2 H, RDW Coeff of Callie 14.8 H, Plt Count 168, MPV 10.7, Immature Gran % (Auto) 1.000 H, Neut % (Auto) 72.7 H, Lymph % (Auto) 13.1 L, Mcdonald % (Auto) 11.0 H, Eos % (Auto) 1.5, Baso % (Auto) 0.7, Absolute Neuts (auto) 9.5 H, Absolute Lymphs (auto) 1.71, Nucleated RBC % 0 05/27/22 06:30: Sodium 136, Potassium 3.6, Chloride 104, Carbon Dioxide 27.0, Anion Gap 5, BUN 25 H, Creatinine 1.47 H, Estim Creat Clear Calc 53.26, Est GFR (MDRD) Af Amer 61, Est GFR (MDRD) Non-Af 50 L, BUN/Creatinine Ratio 17.0, Glucose 132 H, Calcium 8.2 L Micro: Microbiology 05/26/22 21:30 Urine, Random Legionella Antigen - Final 05/26/22 21:30 Interface Orders Streptococcus pneumoniae Antigen (M - Final 05/26/22 12:20 Nasal Secretion SARS-CoV-2 Antigen (Rapid) - Final Rhythm Strip Rhythm Strip: Sinus Rhythm Rate: 79 Ectopy: None Radiology Impression Chest CTA 05/26/22 12:10 IMPRESSION: Dense consolidation in the right hemithorax as described with patchy infiltrates in the left lung worse in the left upper lobe superimposed on emphysema with bullous formation in the upper lobes. Electronically Signed: Cam Dawn MD at 13:47 EDT , Charges/Coding Visit Charges Inpatient E&M: 01034 Init Hosp L3
[2022-05-27] MEDS: Loratadine 10 MG Tablet PO (10:29)
[2022-05-27] MEDS: Enoxaparin 40 MG/0.4 ML Syringe SC (10:29)
[2022-05-27] MEDS: guaiFENesin 1,200 MG Tablet 1200 MG PO ×2 (10:29→22:24)
[2022-05-27] MEDS: Colchicine 0.6 MG TABLET PO (10:30)
[2022-05-27] MEDS: Folic Acid 1 MG Tablet PO (10:30)
[2022-05-27] MEDS: Lubiprostone 24 MCG Capsule PO ×2 (10:34→22:26)
--- NOTE | 2022-05-27 12:00 | CASEMGMT ---
DELROY LADD Face to Face with patient for initial transition planning/care coordination assessment. DELROY LADD introduced self and role at [facility]. Patient lying in bed, alert and oriented. Patient willing to participate in assessment and is able to answer all questions appropriately. Care providers, pharmacy, and demographics verified. Patient wishes to discharge home, denies need for home health at this time. Patient states he has no further needs or concerns at this time. CM to follow for discharge planning needs that may arise. PCP: [place] Bills Specialists: Jose Angel, oncologist; Kathe senior electrical design engineer, Sandy Joaquin Preferred Pharmacy: [facility] Insurance: [employer] [place] Prescription Benefit: yes Living Will/HPOA: none LNOK: Living Arrangements: Patient lives with in a single story home with bed and bath on first floor. Patient states he is independent at home. Transportation: self, DME/HHC: Patient states he has raised toilet, cane, pulse ox, oxygen 2lpm with [employer] with portable tanks. DELROY LADD called [employer] and verified oxygen order. No previous HHC or SNF. Disposition Plan: Patient to discharge home with family support and follow-up plans in place. Keyonna VIVAS, RN, CM
[2022-05-27] MEDS: morphine SR 15 MG Tablet PO (22:22)
[2022-05-27] MEDS: Pregabalin 75 MG Capsule 150 MG PO (22:22)
[2022-05-27] MEDS: LORazepam 1 MG Tablet PO (22:34)
[2022-05-28] VITALS (13 sets, daily range): BP systolic 109–118; BP diastolic 67–78; PULSE 76–95; RESP 14–22; TEMP 36.4–36.7; O2SAT 92–98
[2022-05-28] MEDS: Ipratropium/Albuterol Sulfate 3 ML AMPUL.NEB INHALATION ×4 (01:35→19:03)
[2022-05-28] MEDS: proMETHazine 25 MG Tablet PO ×3 (05:58→22:17)
[2022-05-28] MEDS: Levothyroxine 150 MCG Tablet PO (05:58)
[2022-05-28] MEDS: Acetaminophen 325 MG Tablet 650 MG PO ×2 (06:02→15:09)
[2022-05-28 06:24] LABS: Absolute Lymphocyte Count 0.92 X10^3/uL (0.83-4.51); Absolute Neutrophil Count 9.7 X10^3/uL (2.0-7.7); Basophil# 0.03 X10^3/uL; Basophil% 0.3 % (0-1); Eosinophil# 0.04 X10^3/uL; Eosinophils% 0.4 % (0-5); Hematocrit 28.3 % (40-54); Hemoglobin 9.4 g/dL (13.0-16.5); Lymphocyte # 0.92 X10^3/ul (0.83-4.51); Lymphocyte % 8.2 % (19-41); Mean Corp Hgb Conc 33.2 g/dL (32-36); Mean Corpuscular Hgb 31.4 pg (27.0-32.0); Mean Corpuscular Volume 94.6 fL (80-94); Mean Platelet Vol. 10.6 fl (6.2-12.0); Monocyte# 0.45 X10^3/uL; NRBC Flagged by Analyzer 0 % (0-5); Neutrophil % 86.3 % (47-70); Platelet Count 214 K/mm3 (150-450); RBC Distribution Width CV 14.4 % (11.6-14.6); RBC Distribution Width SD 48.5 fl (35.1-43.9); Red Blood Count 2.99 M/mm3 (4.6-6.2); White Blood Count 11.2 K/mm3 (4.4-11.0)
[2022-05-28 06:52] LABS: Anion Gap 7 (5-15); BUN 28 mg/dL (7-18); Calcium,Total 8.6 mg/dL (8.5-10.1); Chloride 105 mmol/L (98-107); Creatinine, Serum 1.27 mg/dL (0.70-1.30); EST Glomerular Filtration Rate 59 mL/min (>60); Est Glom Filt Rate - Afr Amer 72 mL/min (>60); Estimated Creatinine Clearance 61.64 ml/min; Glucose 175 mg/dL (74-106); Sodium Level 138 mmol/L (136-145)
--- NOTE | 2022-05-28 07:19 | PN.HOSP_ITS ---
Subjective Subjective Breathing better. Weaned down to 8l Objective Data Objective Data Vital Signs: Vital Signs Temp Pulse Resp BP Pulse Ox O2 Del Method O2 Flow Rate 36.6 C 82 18 109/70 97 Airvo 40 05/28/22 06:05 05/28/22 06:05 05/28/22 06:05 05/28/22 06:05 05/28/22 06:05 05/28/22 06:05 05/28/22 06:05 FiO2 71 05/28/22 06:05 Oxygen Flow Rate (L/min) 40 Oxygen Delivery Method Airvo Weight: 81.692 kg Body Mass Index (BMI) 22.5 Intake & Output: Intake and Output for Last 24 Hours 05/26/22 05/27/22 05/28/22 23:59 23:59 23:59 Intake Total 580 / 580 980 / 980 315 / 315 Output Total 500 / 500 1000 / 1000 Balance 580 / 580 480 / 480 -685 / -685 Lab / Micro Data Result Diagrams: 05/28/22 05:45 05/28/22 05:45 Labs: Laboratory Results - last 24 hr 05/27/22 06:30: Sodium 136, Potassium 3.6, Chloride 104, Carbon Dioxide 27.0, Anion Gap 5, BUN 25 H, Creatinine 1.47 H, Estim Creat Clear Calc 53.26, Est GFR (MDRD) Af Amer 61, Est GFR (MDRD) Non-Af 50 L, BUN/Creatinine Ratio 17.0, Glucose 132 H, Calcium 8.2 L 05/28/22 05:45: Vancomycin Trough 13.0 05/28/22 05:45: WBC 11.2 H, RBC 2.99 L, Hgb 9.4 L, Hct 28.3 L, MCV 94.6 H, MCH 31.4, MCHC 33.2, RDW Std Deviation 48.5 H, RDW Coeff of Callie 14.4, Plt Count 214, MPV 10.6, Immature Gran % (Auto) 0.800, Neut % (Auto) 86.3 H, Lymph % (Auto) 8.2 L, [place] % (Auto) 4.0, Eos % (Auto) 0.4, Baso % (Auto) 0.3, Absolute Neuts (auto) 9.7 H, Absolute Lymphs (auto) 0.92, Nucleated RBC % 0 05/28/22 05:45: Sodium 138, Potassium 4.0, Chloride 105, Carbon Dioxide 26.0, Anion Gap 7, BUN 28 H, Creatinine 1.27, Estim Creat Clear Calc 61.64, Est GFR (MDRD) Af Amer 72, Est GFR (MDRD) Non-Af 59 L, BUN/Creatinine Ratio 22.0 H, Glucose 175 H, Calcium 8.6 Micro: Microbiology 05/26/22 14:40 Blood Culture (Wb) - Right Forearm Blood Culture - Preliminary No growth in 48 hours. 05/26/22 14:41 Blood Culture (Wb) - Anticubital Left Blood Culture - Preliminary No growth in 48 hours. 05/26/22 21:30 Urine, Random Legionella Antigen - Final 05/26/22 21:30 Interface Orders Streptococcus pneumoniae Antigen (M - Final 05/26/22 12:20 Nasal Secretion SARS-CoV-2 Antigen (Rapid) - Final Rhythm Strip Rhythm Strip: Sinus Rhythm Rate: 79 Ectopy: None Physical Exam Const alert and no apparent distress Resp Resp Narrative: crackles right lung field. 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 Culture at that time showed Klebsiella. I don't see any culture results positive for actinomyces. Unclear if this is pneumonia or due to his underlying lung cancer combination thereof. But given his rapid worsening I would be highly suspicious of an acute bacterial pneumonia. Patient was negative for COVID-19. Strep and legionella antigens negative. Rapid COVID 19 negative. Plan: * Pulmonary toilet with vest therapy * Broad-spectrum antibiotics with piperacillin/tazobactam and vancomycin * I did recommend pulmonary consultation to see if he be a candidate for bronchoscopy and BAL. He would prefer to hold off on that for now. I told him if he does not get any better from today to tomorrow or if he worsens then we should consult pulmonology. He was in agreement to that. Patient informed me that he had a falling out with Dr. Potter in the past. I informed him that Dr. Potter is not on this week and that it is Dr. Phillips. Patient also tells me that he had a falling out with Dr. Carcamo as well. Patient's primary gluer machine setup operator is Dr. Archuleta. I told the patient if he would prefer to be transferred [facility], that he should do so while he is still in the emergency room because otherwise if he were to be transferred to that hospital horizontal transfer as we have seen pulmonary capabilities they did. He is okay with staying at [facility]. (2) Small cell lung cancer: PLAN: Complicates care. Patient is due for chemotherapy and was sent here from the oncology center as you supposed to initiate his round of chemotherapy this week. That will be on hold for now. Patient will follow-up with Dr. Walter as outpatient. Given that this is a chronic malignancy and no acute issues I do not feel it is necessary to bring Dr. Walter to the hospital at this time. (3) Acute respiratory failure with hypoxia: PLAN: 2/2 pneumonia, COPD and SCLC slightly improved 2/2 pneumonia, SCLC Pulm following Plan: * started on Methylprednisolone. * pulm toilet PLAN: Plan 4. VTE prophylaxis with enoxaparin 5. CODE STATUS: Addressed with the patient and his significant other bedside. Patient wishes to be DNR Comfort Care arrest with intubation. Patient informed he can change his mind at any time. Charges/Coding Visit Charges Inpatient E&M: 11565 Subs Hosp L2
[2022-05-28] MEDS: Folic Acid 1 MG Tablet PO (07:59)
[2022-05-28] MEDS: guaiFENesin 1,200 MG Tablet 1200 MG PO ×2 (08:01→22:17)
[2022-05-28] MEDS: Enoxaparin 40 MG/0.4 ML Syringe SC (08:02)
[2022-05-28] MEDS: Colchicine 0.6 MG TABLET PO (08:02)
[2022-05-28] MEDS: Loratadine 10 MG Tablet PO (08:03)
--- NOTE | 2022-05-28 08:09 | PCM.RX.CS ---
Consult Pharmacy has been consulted to manage selected antiobiotic: Vancomycin Type of Consult: Follow-up Suspected Infection: Pneumonia Prior Doses of Antibiotics Received/Current Regimen: 05/27/22 @ 0557 05/27/22 @ 1835 05/28/22 @ 0559 Labs: Sodium 138 mmol/L (136-145) 05/28/22 05:45 Potassium 4.0 mmol/L (3.5-5.1) 05/28/22 05:45 Chloride 105 mmol/L (98-107) 05/28/22 05:45 Carbon Dioxide 26.0 mmol/L (21.0-32.0) 05/28/22 05:45 Anion Gap 7 (5-15) 05/28/22 05:45 BUN 28 mg/dL (7-18) H 05/28/22 05:45 Creatinine 1.27 mg/dL (0.70-1.30) 05/28/22 05:45 Est GFR (MDRD) Af Amer 72 mL/min (>60) 05/28/22 05:45 Est GFR (MDRD) Non-Af 59 mL/min (>60) L 05/28/22 05:45 BUN/Creatinine Ratio 22.0 RATIO (10-20) H 05/28/22 05:45 Glucose 175 mg/dL (74-106) H 05/28/22 05:45 Vancomycin Trough 13.0 ug/mL (5.0-15.0) 05/28/22 05:45 Microbiology: Microbiology 05/26/22 14:40 Blood Culture (Wb) - Right Forearm Blood Culture - Preliminary No growth in 48 hours. 05/26/22 14:41 Blood Culture (Wb) - Anticubital Left Blood Culture - Preliminary No growth in 48 hours. 05/26/22 21:30 Urine, Random Legionella Antigen - Final 05/26/22 21:30 Interface Orders Streptococcus pneumoniae Antigen (M - Final 05/26/22 12:20 Nasal Secretion SARS-CoV-2 Antigen (Rapid) - Final Weight used for dosin.7 kg Estimated Creatinine Clearance: 61 Goal Trough: 15-20 mcg/mL Pharmacy Plan for Drug Dosing: Trough level 13 on 05/28/22. Increase Vancomycin to 1000mg q12h. Pharmacy Service will continue to monitor and adjust dosing as required. Follow-Up Labs: Trough Vancomycin Labs to be done on [date and time ordered]: 05/29/22 @ 0543
[2022-05-28] MEDS: Pregabalin 75 MG Capsule 150 MG PO ×2 (08:12→22:15)
[2022-05-28] MEDS: morphine SR 15 MG Tablet PO ×2 (08:12→22:15)
--- NOTE | 2022-05-28 08:21 | PN.CC_ITS ---
Assessment & Plan Assessment/Plan (1) Acute respiratory failure with hypoxia: (2) Small cell lung cancer: (3) Gram-negative pneumonia: (4) COPD (chronic obstructive pulmonary disease): PLAN: Plan RECOMMENDATIONS: 1. Continued steroids, mucolytic and bronchodilators. 2. Continue Vanco and Zosyn pending culture results 3. Out of bed as tolerated 4. Continue vest therapy twice daily 5. Wean oxygen as tolerated 6. Consider AVAPS (tidal volume 450) with sleep 7. Keep saturations 90 to 94% IMPRESSIONS: 1. Acute on chronic hypoxic respiratory failure secondary to possible gram- negative pneumonia Unclear etiology at this time. Pattern on imaging is consistent with possible aspiration, but no acute event has been reported. Patient appears to have patent airways with alveolar infiltrates suggesting an infectious process. Given patient's cancer, agree with broad-spectrum antibiotics pending cultures. Will add bronchodilators and steroids to help with pulmonary toileting. Patient will also be placed on a vest twice daily to see if this will also help with mobilization of secretions. Pattern is not consistent or typical for pneumonitis associated with chemotherapy. Patient is at high risk for pro gression given comorbidities. Patient appears to be improving at this time. If patient continues to improve, bronchoscopy may not be necessary. 2. Small cell lung cancer/advanced age/baseline COPD/anxiety/depression/hypertension/GERD Complicates care, management, recovery and prognosis. Will add empiric steroids and bronchodilators. Patient can continue on her baseline medications. May need to transition to IV if patient becomes BiPAP dependent. Patient may r equire AVAPS to facilitate sleep given level of hypoxia. Patient follows with Dr. Walter. Subjective Subjective Patient did well overnight. Patient subjectively feels improved compared to yesterday. Patient felt that the vest was helpful. Patient has produced a little bit of sputum, but subjectively feels less short of breath at rest. Patient denies any current chest pain. Patient is having some left knee discomfort. Objective Data Objective Data Vital Signs: Vital Signs Temp Pulse Resp BP Pulse Ox O2 Del Method O2 Flow Rate 36.7 C 84 20 H 109/67 96 Airvo 40 05/28/22 07:54 05/28/22 07:54 05/28/22 07:54 05/28/22 07:54 05/28/22 08:10 05/28/22 08:10 05/28/22 06:05 FiO2 61 05/28/22 08:10 Oxygen Flow Rate (L/min) 40 Oxygen Delivery Method Airvo Weight: 81.692 kg Body Mass Index (BMI) 22.5 Intake & Output: Intake and Output for Last 24 Hours 05/26/22 05/27/22 05/28/22 23:59 23:59 23:59 Intake Total 580 / 580 980 / 980 315 / 315 Output Total 500 / 500 1000 / 1000 Balance 580 / 580 480 / 480 -685 / -685 Lab / Micro Data Attestation: I reviewed the patient's lab results. Result Diagrams: 05/28/22 05:45 05/28/22 05:45 Labs: Laboratory Results - last 24 hr 05/28/22 05:45: Vancomycin Trough 13.0 05/28/22 05:45: WBC 11.2 H, RBC 2.99 L, Hgb 9.4 L, Hct 28.3 L, MCV 94.6 H, MCH 31.4, MCHC 33.2, RDW Std Deviation 48.5 H, RDW Coeff of Callie 14.4, Plt Count 214, MPV 10.6, Immature Gran % (Auto) 0.800, Neut % (Auto) 86.3 H, Lymph % (Auto) 8.2 L, [place] % (Auto) 4.0, Eos % (Auto) 0.4, Baso % (Auto) 0.3, Absolute Neuts (auto) 9.7 H, Absolute Lymphs (auto) 0.92, Nucleated RBC % 0 05/28/22 05:45: Sodium 138, Potassium 4.0, Chloride 105, Carbon Dioxide 26.0, Anion Gap 7, BUN 28 H, Creatinine 1.27, Estim Creat Clear Calc 61.64, Est GFR (MDRD) Af Amer 72, Est GFR (MDRD) Non-Af 59 L, BUN/Creatinine Ratio 22.0 H, Glucose 175 H, Calcium 8.6 Micro: Microbiology 05/26/22 14:40 Blood Culture (Wb) - Right Forearm Blood Culture - Preliminary No growth in 48 hours. 05/26/22 14:41 Blood Culture (Wb) - Anticubital Left Blood Culture - Preliminary No growth in 48 hours. 05/26/22 21:30 Urine, Random Legionella Antigen - Final 05/26/22 21:30 Interface Orders Streptococcus pneumoniae Antigen (M - Final 05/26/22 12:20 Nasal Secretion SARS-CoV-2 Antigen (Rapid) - Final Rhythm Strip Rhythm Strip: Sinus Rhythm Rate: 79 Ectopy: None Physical Exam Const alert and no apparent distress Constitutional Narrative: No conversational dyspnea General Appearance: cooperative and well developed HEENT head/scalp atraumatic Eyes PERRL and EOMs intact bilaterally Neck full ROM Chest Chest Narrative: Increased AP diameter Resp Resp Narrative: Egophony in the right base. Rales in the right base. No wheezing. Cardio regular rate, regular rhythm, S1 normal heart sound, S2 normal heart sound, no murmurs, no rub and no gallops GI normal to inspection, nondistended, normoactive bowel sounds Extremity no clubbing, cyanosis or edema Skin no rashes or lesions noted Neuro oriented x3 Sensorium / Orientation: awake and alert Psych affect normal Charges/Coding Visit Charges Inpatient E&M: 57028 Subs Hosp L3
[2022-05-28] MEDS: Lubiprostone 24 MCG Capsule PO ×2 (11:29→22:23)
--- NOTE | 2022-05-28 17:40 | NURSING ---
This RN assisted pt into chair at 1645. Pt using his I.S while sitting up in chair. Call light in reach.
[2022-05-28] MEDS: LORazepam 1 MG Tablet PO (22:15)
[2022-05-28] MEDS: 0.9% Saline Lock 10 ML Syringe IV (22:16)
[2022-05-29] VITALS (10 sets, daily range): BP systolic 104–123; BP diastolic 69–86; PULSE 71–88; RESP 16–20; TEMP 36.4–36.6; O2SAT 91–97
[2022-05-29] MEDS: Ipratropium/Albuterol Sulfate 3 ML AMPUL.NEB INHALATION ×4 (00:40→19:28)
[2022-05-29] MEDS: proMETHazine 25 MG Tablet PO ×3 (05:22→21:23)
[2022-05-29] MEDS: Levothyroxine 150 MCG Tablet PO (05:22)
[2022-05-29] MEDS: 0.9% Saline Lock 10 ML Syringe IV ×3 (05:22→21:24)
[2022-05-29 05:41] LABS: Absolute Lymphocyte Count 1.04 X10^3/uL (0.83-4.51); Absolute Neutrophil Count 14.7 X10^3/uL (2.0-7.7); Basophil# 0.02 X10^3/uL; Basophil% 0.1 % (0-1); Eosinophil# 0.07 X10^3/uL; Eosinophils% 0.4 % (0-5); Hemoglobin 9.6 g/dL (13.0-16.5); Lymphocyte # 1.04 X10^3/ul (0.83-4.51); Lymphocyte % 6.1 % (19-41); Mean Corp Hgb Conc 33.1 g/dL (32-36); Mean Corpuscular Hgb 32.1 pg (27.0-32.0); Mean Platelet Vol. 10.7 fl (6.2-12.0); Monocyte# 0.95 X10^3/uL; Monocyte% 5.5 % (0-10); NRBC Flagged by Analyzer 0 % (0-5); Neutrophil # 14.73 X10^3/uL (2.7-7.7); Neutrophil % 85.9 % (47-70); Platelet Count 240 K/mm3 (150-450); RBC Distribution Width CV 14.4 % (11.6-14.6); RBC Distribution Width SD 50.3 fl (35.1-43.9); Red Blood Count 2.99 M/mm3 (4.6-6.2); White Blood Count 17.2 K/mm3 (4.4-11.0)
[2022-05-29 06:40] LABS: Anion Gap 7 (5-15); BUN 29 mg/dL (7-18); BUN/Creat Ratio 26.1 RATIO (10-20); Calcium,Total 9.1 mg/dL (8.5-10.1); Chloride 106 mmol/L (98-107); Creatinine, Serum 1.11 mg/dL (0.70-1.30); EST Glomerular Filtration Rate 69 mL/min (>60); Est Glom Filt Rate - Afr Amer 84 mL/min (>60); Estimated Creatinine Clearance 70.53 ml/min; Glucose 169 mg/dL (74-106); Potassium 4.2 mmol/L (3.5-5.1); Sodium Level 139 mmol/L (136-145)
--- NOTE | 2022-05-29 07:49 | PN.HOSP_ITS ---
Subjective Subjective Breathing ok. No sputum production so far. Objective Data Objective Data Vital Signs: Vital Signs Temp Pulse Resp BP Pulse Ox O2 Del Method O2 Flow Rate 36.4 C L 78 18 106/69 96 Nasal Cannula 6.5 05/29/22 03:17 05/29/22 03:17 05/29/22 03:17 05/29/22 03:17 05/29/22 03:17 05/29/22 03:21 05/29/22 03:17 FiO2 51 05/28/22 11:32 Oxygen Flow Rate (L/min) 6.5 Oxygen Delivery Method Nasal Cannula Weight: 81.692 kg Body Mass Index (BMI) 22.5 Intake & Output: Intake and Output for Last 24 Hours 05/27/22 05/28/22 05/29/22 23:59 23:59 23:59 Intake Total 980 / 980 1725 / 1725 250 / 250 Output Total 500 / 500 2475 / 2475 600 / 600 Balance 480 / 480 -750 / -750 -350 / -350 Lab / Micro Data Result Diagrams: 05/29/22 04:58 05/29/22 04:58 Labs: Laboratory Results - last 24 hr 05/29/22 04:58: WBC 17.2 H, RBC 2.99 L, Hgb 9.6 L, Hct 29.0 L, MCV 97.0 H, MCH 32.1 H, MCHC 33.1, RDW Std Deviation 50.3 H, RDW Coeff of Callie 14.4, Plt Count 240, MPV 10.7, Immature Gran % (Auto) 2.000 H, Neut % (Auto) 85.9 H, Lymph % (Auto) 6.1 L, [place] % (Auto) 5.5, Eos % (Auto) 0.4, Baso % (Auto) 0.1, Absolute Neuts (auto) 14.7 H, Absolute Lymphs (auto) 1.04, Nucleated RBC % 0 05/29/22 04:58: Sodium 139, Potassium 4.2, Chloride 106, Carbon Dioxide 26.0, Anion Gap 7, BUN 29 H, Creatinine 1.11, Estim Creat Clear Calc 70.53, Est GFR (MDRD) Af Amer 84, Est GFR (MDRD) Non-Af 69, BUN/Creatinine Ratio 26.1 H, Glucose 169 H, Calcium 9.1 Micro: Microbiology 05/28/22 08:30 Sputum, Expectorated/Coughed Gram Stain - Final 05/26/22 14:40 Blood Culture (Wb) - Right Forearm Blood Culture - Preliminary No growth in 48 hours. 05/26/22 14:41 Blood Culture (Wb) - Anticubital Left Blood Culture - Preliminary No growth in 48 hours. 05/26/22 21:30 Urine, Random Legionella Antigen - Final 05/26/22 21:30 Interface Orders Streptococcus pneumoniae Antigen (M - Final 05/26/22 12:20 Nasal Secretion SARS-CoV-2 Antigen (Rapid) - Final Rhythm Strip Rhythm Strip: Sinus Rhythm Rate: 79 Ectopy: None Physical Exam Const alert and no apparent distress Resp normal respiratory effort Resp Narrative: crackles through right lung field. 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 Culture at that time showed Klebsiella. I don't see any culture results positive for actinomyces. Unclear if this is pneumonia or due to his underlying lung cancer combination thereof. But given his rapid worsening I would be highly suspicious of an acute bacterial pneumonia. Patient was negative for COVID-19. Strep and legionella antigens negative. Rapid COVID 19 negative. SCx pending Plan: * Pulmonary toilet with vest therapy * Broad-spectrum antibiotics with piperacillin/tazobactam and vancomycin * I did recommend pulmonary consultation to see if he be a candidate for bronchoscopy and BAL. He would prefer to hold off on that for now. I told him if he does not get any better from today to tomorrow or if he worsens then we should consult pulmonology. He was in agreement to that. Patient informed me that he had a falling out with Dr. Potter in the past. I informed him that Dr. Potter is not on this week and that it is Dr. Phillips. Patient also tells me that he had a falling out with Dr. Carcamo as well. Patient's primary research biostatistician is Dr. Archuleta. I told the patient if he would prefer to be transferred [facility], that he should do so while he is still in the emergency room because otherwise if he were to be transferred to that hospital horizontal transfer as we have seen pulmonary capabilities they did. He is okay with staying at [facility]. (2) Small cell lung cancer: PLAN: Complicates care. Patient is due for chemotherapy and was sent here from the oncology center as you supposed to initiate his round of chemotherapy this week. That will be on hold for now. Patient will follow-up with Dr. Walter as outpatient. Given that this is a chronic malignancy and no acute issues I do not feel it is necessary to bring Dr. Walter to the hospital at this time. (3) Acute respiratory failure with hypoxia: PLAN: 2/2 pneumonia, COPD and SCLC slightly improved, tolerating 6.5 L nc 2/2 pneumonia, SCLC Pulm following Plan: * started on Methylprednisolone. * pulm toilet * AVAPS w sleep PLAN: Plan 4. VTE prophylaxis with enoxaparin 5. CODE STATUS: Addressed with the patient and his significant other bedside. Patient wishes to be DNR Comfort Care arrest with intubation. Patient informed he can change his mind at any time. Charges/Coding Visit Charges Inpatient E&M: 66705 Subs Hosp L2
[2022-05-29] MEDS: Lubiprostone 24 MCG Capsule PO ×2 (08:03→21:23)
[2022-05-29] MEDS: Loratadine 10 MG Tablet PO (08:03)
[2022-05-29] MEDS: Colchicine 0.6 MG TABLET PO (08:04)
[2022-05-29] MEDS: Folic Acid 1 MG Tablet PO (08:04)
[2022-05-29] MEDS: guaiFENesin 1,200 MG Tablet 1200 MG PO ×2 (08:04→21:22)
[2022-05-29] MEDS: Pregabalin 75 MG Capsule 150 MG PO ×2 (08:07→21:21)
--- NOTE | 2022-05-29 09:29 | PCM.PN.INT ---
Assessment & Plan Assessment/Plan (1) Acute respiratory failure with hypoxia: (2) Small cell lung cancer: (3) Gram-negative pneumonia: (4) COPD (chronic obstructive pulmonary disease): PLAN: Plan RECOMMENDATIONS: 1. Continued steroids, mucolytic and bronchodilators. 2. Continue Vanco and Zosyn pending culture results 3. Out of bed as tolerated 4. Continue vest therapy twice daily 5. Wean oxygen as tolerated 6. Consider AVAPS (tidal volume 450) with sleep if decompensates 7. Keep saturations 90 to 94% IMPRESSIONS: 1. Acute on chronic hypoxic respiratory failure secondary to possible gram-negative pneumonia Unclear etiology at this time. Pattern on imaging is consistent with possible aspiration, but no acute event has been reported. Patient appears to have patent airways with alveolar infiltrates suggesting an infectious process. Given patient's cancer, agree with broad-spectrum antibiotics pending cultures. Will continue bronchodilators and steroids to help with pulmonary toileting. Patient will also be continued on a vest twice daily to help with mobilization of secretions. Pattern is not consistent or typical for pneumonitis associated with chemotherapy. Patient appears to be improving at this time. If patient continues to improve, bronchoscopy may not be necessary. 2. Small cell lung cancer/advanced age/baseline COPD/anxiety/depression/hypertension/GERD Complicates care, management, recovery and prognosis. Will add empiric steroids and bronchodilators. Patient can continue on her baseline medications. May need to transition to IV if patient becomes BiPAP dependent. Patient may require AVAPS to facilitate sleep given level of hypoxia. Patient follows with Dr. Walter. Subjective Subjective Patient was significant improvement over the last 24 hours. Patient is now comfortable on nasal cannula oxygen. Patient believes the vest is helping, but is not reporting significant expectoration. Patient denies any current chest pain or hemoptysis. Objective Data Objective Data Vital Signs: Vital Signs Temp Pulse Resp BP Pulse Ox O2 Del Method O2 Flow Rate 36.5 C L 88 16 107/70 97 Nasal Cannula 6.5 05/29/22 08:12 05/29/22 08:12 05/29/22 08:12 05/29/22 08:12 05/29/22 08:12 05/29/22 08:12 05/29/22 08:12 FiO2 51 05/28/22 11:32 Oxygen Flow Rate (L/min) 6.5 Oxygen Delivery Method Nasal Cannula Weight: 81.692 kg Body Mass Index (BMI) 22.5 Intake & Output: Intake and Output for Last 24 Hours 05/27/22 05/28/22 05/29/22 23:59 23:59 23:59 Intake Total 980 / 980 1725 / 1725 250 / 250 Output Total 500 / 500 2475 / 2475 600 / 600 Balance 480 / 480 -750 / -750 -350 / -350 Lab / Micro Data Attestation: I reviewed the patient's lab results. Result Diagrams: 05/29/22 04:58 05/29/22 04:58 Labs: Laboratory Results - last 24 hr 05/29/22 04:58: WBC 17.2 H, RBC 2.99 L, Hgb 9.6 L, Hct 29.0 L, MCV 97.0 H, MCH 32.1 H, MCHC 33.1, RDW Std Deviation 50.3 H, RDW Coeff of Callie 14.4, Plt Count 240, MPV 10.7, Immature Gran % (Auto) 2.000 H, Neut % (Auto) 85.9 H, Lymph % (Auto) 6.1 L, [place] % (Auto) 5.5, Eos % (Auto) 0.4, Baso % (Auto) 0.1, Absolute Neuts (auto) 14.7 H, Absolute Lymphs (auto) 1.04, Nucleated RBC % 0 05/29/22 04:58: Sodium 139, Potassium 4.2, Chloride 106, Carbon Dioxide 26.0, Anion Gap 7, BUN 29 H, Creatinine 1.11, Estim Creat Clear Calc 70.53, Est GFR (MDRD) Af Amer 84, Est GFR (MDRD) Non-Af 69, BUN/Creatinine Ratio 26.1 H, Glucose 169 H, Calcium 9.1 Micro: Microbiology 05/28/22 08:30 Sputum, Expectorated/Coughed Gram Stain - Final 05/26/22 14:40 Blood Culture (Wb) - Right Forearm Blood Culture - Preliminary No growth in 48 hours. 05/26/22 14:41 Blood Culture (Wb) - Anticubital Left Blood Culture - Preliminary No growth in 48 hours. 05/26/22 21:30 Urine, Random Legionella Antigen - Final 05/26/22 21:30 Interface Orders Streptococcus pneumoniae Antigen (M - Final 05/26/22 12:20 Nasal Secretion SARS-CoV-2 Antigen (Rapid) - Final Rhythm Strip Rhythm Strip: Sinus Rhythm Rate: 79 Ectopy: None Physical Exam Const alert and no apparent distress Constitutional Narrative: No conversational dyspnea General Appearance: cooperative and well developed HEENT head/scalp atraumatic Eyes PERRL and EOMs intact bilaterally Neck full ROM Chest Chest Narrative: Increased AP diameter Resp Resp Narrative: Egophony in the right base. Rales in the right base. No wheezing. Cardio regular rate, regular rhythm, S1 normal heart sound, S2 normal heart sound, no murmurs, no rub and no gallops GI normal to inspection, nondistended, normoactive bowel sounds Extremity no clubbing, cyanosis or edema Skin no rashes or lesions noted Neuro oriented x3 Sensorium / Orientation: awake and alert Psych affect normal Charges/Coding Visit Charges Inpatient E&M: 77306 Subs Hosp L2
[2022-05-29] MEDS: Enoxaparin 40 MG/0.4 ML Syringe SC (09:55)
[2022-05-29] MEDS: morphine SR 15 MG Tablet PO ×2 (09:55→21:21)
--- NOTE | 2022-05-29 15:44 | CASEMGMT ---
DELROY LADD NOTE: RN CM to room to discuss discharge planning. Pt and family interested in pt having C. PT/OT ordered. Pt ambulated 400 ft and no additional therapy recommended. DELROY LADD back to room and states he did not get SOB when ambulating in hallways. Discussed [facility] homebound guidelines and pt made aware he does not meet criteria at this time. He voices understanding. Pt was provided w/list of local [facility] agencies to have if needed in the future and instructed to discuss this with Dr Bills. Pt states may be interested in doing OP therapy. Questions answered. Pt states he has an appt w/Dr Walter on Wednesday and to start chemo. He plans to discuss OP therapy w/Dr Walter re: any concerns for neutropenia/risks for infection first. Pt inquired about Palliative care. Questions answered and pt states he would like referral made. Dr St notified and order received. E-mail sent to [facility] re: referral. Call received from [email or web address] [facility]. Someone will be in today to talk w/pt. Home O2 testing to be done @ d/c, starting w/baseline O2 of 2 l/m. If pt requires more than 2 l/m, new script to be faxed to [facility] [place]. Per Beverley @ [facility] [place], pt's concentrator @ home only goes up to 5 l/m and portable tanks go up to 6 l/m. If pt requires more than 5 l/m O2 @ d/c, he will need larger concentrator and also larger portable tanks if he requires more than 6l/m. Pt and family deny having any further discharge planning needs or concerns. Harshil VIVAS RN, CM
[2022-05-29 15:50] LABS: Mycoplasma Pneum AB IgG 211 U/mL (0-99); Mycoplasma pneum. AB IgM < 770 U/mL (0-769)
[2022-05-29] MEDS: LORazepam 1 MG Tablet PO (21:21)
[2022-05-30] VITALS (10 sets, daily range): BP systolic 104–119; BP diastolic 68–80; PULSE 78–89; RESP 16–20; TEMP 36.4–36.5; O2SAT 74–95
[2022-05-30] MEDS: Ipratropium/Albuterol Sulfate 3 ML AMPUL.NEB INHALATION ×4 (01:23→18:30)
[2022-05-30] MEDS: 0.9% Saline Lock 10 ML Syringe IV ×2 (05:12→21:35)
[2022-05-30] MEDS: proMETHazine 25 MG Tablet PO ×3 (05:12→21:35)
[2022-05-30] MEDS: Levothyroxine 150 MCG Tablet PO (05:12)
[2022-05-30 06:08] LABS: Absolute Lymphocyte Count 1.38 X10^3/uL (0.83-4.51); Absolute Neutrophil Count 15.5 X10^3/uL (2.0-7.7); Basophil# 0.03 X10^3/uL; Basophil% 0.2 % (0-1); Eosinophils% 0.5 % (0-5); Hematocrit 31.7 % (40-54); Lymphocyte # 1.38 X10^3/ul (0.83-4.51); Lymphocyte % 7.4 % (19-41); Mean Corp Hgb Conc 31.5 g/dL (32-36); Mean Corpuscular Hgb 31.4 pg (27.0-32.0); Mean Corpuscular Volume 99.7 fL (80-94); Mean Platelet Vol. 10.8 fl (6.2-12.0); Monocyte# 1.11 X10^3/uL; NRBC Flagged by Analyzer 0 % (0-5); Neutrophil # 15.48 X10^3/uL (2.7-7.7); Neutrophil % 83.2 % (47-70); Platelet Count 260 K/mm3 (150-450); RBC Distribution Width CV 14.4 % (11.6-14.6); RBC Distribution Width SD 51.7 fl (35.1-43.9); Red Blood Count 3.18 M/mm3 (4.6-6.2); White Blood Count 18.6 K/mm3 (4.4-11.0)
[2022-05-30] MEDS: Acetaminophen 325 MG Tablet 650 MG PO (06:35)
[2022-05-30 06:40] LABS: Anion Gap 7 (5-15); BUN 30 mg/dL (7-18); BUN/Creat Ratio 23.1 RATIO (10-20); Calcium,Total 9.2 mg/dL (8.5-10.1); Chloride 106 mmol/L (98-107); EST Glomerular Filtration Rate 58 mL/min (>60); Est Glom Filt Rate - Afr Amer 70 mL/min (>60); Estimated Creatinine Clearance 60.22 ml/min; Glucose 154 mg/dL (74-106); Potassium 4.3 mmol/L (3.5-5.1); Sodium Level 141 mmol/L (136-145)
[2022-05-30 06:49] LABS: Vancomycin, Trough Level 25.6 ug/mL (5.0-15.0)
--- NOTE | 2022-05-30 07:18 | PCM.PN.HOSP ---
Subjective Subjective Breathing better. Coughing up scant phlegm. Objective Data Objective Data Vital Signs: Vital Signs Temp Pulse Resp BP Pulse Ox O2 Del Method O2 Flow Rate 36.4 C L 80 20 H 119/80 94 Nasal Cannula 5 05/30/22 05:22 05/30/22 07:05 05/30/22 07:05 05/30/22 05:22 05/30/22 05:22 05/30/22 07:05 05/30/22 07:05 FiO2 51 05/28/22 11:32 Oxygen Flow Rate (L/min) 5 Oxygen Delivery Method Nasal Cannula Weight: 81.692 kg Body Mass Index (BMI) 22.5 Intake & Output: Intake and Output for Last 24 Hours 05/28/22 05/29/22 05/30/22 23:59 23:59 23:59 Intake Total 1725 / 1725 1050 / 1050 250 / 250 Output Total 2475 / 2475 1875 / 1875 1500 / 1500 Balance -750 / -750 -825 / -825 -1250 / -1250 Lab / Micro Data Result Diagrams: 05/30/22 05:28 05/30/22 05:28 Labs: Laboratory Results - last 24 hr 05/27/22 06:30: Mycoplasma pneumon IgG 211 H, Mycoplasma pneumon IgM < 770 05/30/22 05:28: Vancomycin Trough 25.6 H 05/30/22 05:28: WBC 18.6 H, RBC 3.18 L, Hgb 10.0 L, Hct 31.7 L, MCV 99.7 H, MCH 31.4, MCHC 31.5 L, RDW Std Deviation 51.7 H, RDW Coeff of Callie 14.4, Plt Count 260, MPV 10.8, Immature Gran % (Auto) 2.700 H, Neut % (Auto) 83.2 H, Lymph % (Auto) 7.4 L, [place] % (Auto) 6.0, Eos % (Auto) 0.5, Baso % (Auto) 0.2, Absolute Neuts (auto) 15.5 H, Absolute Lymphs (auto) 1.38, Nucleated RBC % 0 05/30/22 05:28: Sodium 141, Potassium 4.3, Chloride 106, Carbon Dioxide 28.0, Anion Gap 7, BUN 30 H, Creatinine 1.30, Estim Creat Clear Calc 60.22, Est GFR (MDRD) Af Amer 70, Est GFR (MDRD) Non-Af 58 L, BUN/Creatinine Ratio 23.1 H, Glucose 154 H, Calcium 9.2 Micro: Microbiology 05/28/22 08:30 Sputum, Expectorated/Coughed Gram Stain - Final 05/28/22 08:30 Sputum, Expectorated/Coughed Respiratory Culture - Preliminary Presumptive C albicans 05/26/22 14:40 Blood Culture (Wb) - Right Forearm Blood Culture - Preliminary No growth in 48 hours. 05/26/22 14:41 Blood Culture (Wb) - Anticubital Left Blood Culture - Preliminary No growth in 48 hours. 05/26/22 21:30 Urine, Random Legionella Antigen - Final 05/26/22 21:30 Interface Orders Streptococcus pneumoniae Antigen (M - Final 05/26/22 12:20 Nasal Secretion SARS-CoV-2 Antigen (Rapid) - Final Rhythm Strip Rhythm Strip: Sinus Rhythm Rate: 79 Ectopy: None Physical Exam Const alert and no apparent distress Resp normal respiratory effort and no retractions Resp Narrative: crackles throughout right lung field. 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 Culture at that time showed Klebsiella. I don't see any culture results positive for actinomyces. Unclear if this is pneumonia or due to his underlying lung cancer combination thereof. But given his rapid worsening I would be highly suspicious of an acute bacterial pneumonia. Patient was negative for COVID-19. Strep and legionella antigens negative. Rapid COVID 19 negative. SCx showing C. albicans. DW Dr. Phillips, likely oral contaminant and not a true infection. Plan: Pulmonary toilet with vest therapy Broad-spectrum antibiotics with piperacillin/tazobactam and vancomycin I did recommend pulmonary consultation to see if he be a candidate for bronchoscopy and BAL. He would prefer to hold off on that for now. I told him if he does not get any better from today to tomorrow or if he worsens then we should consult pulmonology. He was in agreement to that. Patient informed me that he had a falling out with Dr. Potter in the past. I informed him that Dr. Potter is not on this week and that it is Dr. Phillips. Patient also tells me that he had a falling out with Dr. Carcamo as well. Patient's primary vice president digital strategist is Dr. Archuleta. I told the patient if he would prefer to be transferred [facility], that he should do so while he is still in the emergency room because otherwise if he were to be transferred to that hospital horizontal transfer as we have seen pulmonary capabilities they did. He is okay with staying at [facility]. (2) Small cell lung cancer: PLAN: Complicates care. Patient is due for chemotherapy and was sent here from the oncology center as you supposed to initiate his round of chemotherapy this week. That will be on hold for now. Patient will follow-up with Dr. Walter as outpatient. Given that this is a chronic malignancy and no acute issues I do not feel it is necessary to bring Dr. Walter to the hospital at this time. (3) Acute respiratory failure with hypoxia: PLAN: improving 2/2 pneumonia, COPD and SCLC slightly improved, tolerating 6.5 L nc 2/2 pneumonia, SCLC Pulm following Plan: started on Methylprednisolone. pulm toilet AVAPS w sleep PLAN: Plan 4. VTE prophylaxis with enoxaparin 5. CODE STATUS: Addressed with the patient and his significant other bedside. Patient wishes to be DNR Comfort Care arrest with intubation. Patient informed he can change his mind at any time. Charges/Coding Visit Charges Inpatient E&M: 68763 Subs Hosp L2
--- NOTE | 2022-05-30 07:28 | PN.CC_ITS ---
Assessment & Plan Assessment/Plan (1) Acute respiratory failure with hypoxia: (2) Small cell lung cancer: (3) Gram-negative pneumonia: (4) COPD (chronic obstructive pulmonary disease): PLAN: Plan RECOMMENDATIONS: 1. Wean steroids. Continue mucolytic and bronchodilators. 2. Discontinue vancomycin given negative sputum culture. Continue Zosyn 3. Out of bed as tolerated 4. Continue vest therapy twice daily 5. Wean oxygen as tolerated 6. Keep saturations 90 to 94% 7. Will need follow-up chest imaging as an outpatient to document resolution IMPRESSIONS: 1. Acute on chronic hypoxic respiratory failure secondary to possible gram- negative pneumonia Unclear etiology at this time. Pattern on imaging is consistent with possible aspiration, but no acute event has been reported. Patient appears to have patent airways with alveolar infiltrates suggesting an infectious process. Patient is not having much production from the vest, but does feel it is helpful. Sputum cultures are showing only Alis, which likely represents a contaminant given improvement off antifungals. Clinical suspicion for bacterial pneumonia. Given staff has not grown, will discontinue vancomycin as this has a narrow therapeutic index. 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 2. Small cell lung cancer/advanced age/baseline COPD/anx iety/depression/hypertension/GERD Complicates care, management, recovery and prognosis. Will add empiric steroids and bronchodilators. Patient can continue on her baseline medications. Doubt patient will require BiPAP rescue given continued improvement. Patient follows with Dr. Walter. Subjective Subjective Patient did okay overnight. Patient reports subjective improvement in overall condition. Patient continues to have very little production, but does feel the vest is helpful. Patient denies any chest pain or abdominal pain. Patient has been weaned to 5 L. Objective Data Objective Data Vital Signs: Vital Signs Temp Pulse Resp BP Pulse Ox O2 Del Method O2 Flow Rate 36.4 C L 80 20 H 119/80 94 Nasal Cannula 5 05/30/22 05:22 05/30/22 07:05 05/30/22 07:05 05/30/22 05:22 05/30/22 05:22 05/30/22 07:05 05/30/22 07:05 FiO2 51 05/28/22 11:32 Oxygen Flow Rate (L/min) 5 Oxygen Delivery Method Nasal Cannula Weight: 81.692 kg Body Mass Index (BMI) 22.5 Intake & Output: Intake and Output for Last 24 Hours 05/28/22 05/29/22 05/30/22 23:59 23:59 23:59 Intake Total 1725 / 1725 1050 / 1050 250 / 250 Output Total 2475 / 2475 1875 / 1875 1500 / 1500 Balance -750 / -750 -825 / -825 -1250 / -1250 Lab / Micro Data Attestation: I reviewed the patient's lab results. Result Diagrams: 05/30/22 05:28 05/30/22 05:28 Labs: Laboratory Results - last 24 hr 05/27/22 06:30: Mycoplasma pneumon IgG 211 H, Mycoplasma pneumon IgM < 770 05/30/22 05:28: Vancomycin Trough 25.6 H 05/30/22 05:28: WBC 18.6 H, RBC 3.18 L, Hgb 10.0 L, Hct 31.7 L, MCV 99.7 H, MCH 31.4, MCHC 31.5 L, RDW Std Deviation 51.7 H, RDW Coeff of Callie 14.4, Plt Count 260, MPV 10.8, Immature Gran % (Auto) 2.700 H, Neut % (Auto) 83.2 H, Lymph % (Auto) 7.4 L, [place] % (Auto) 6.0, Eos % (Auto) 0.5, Baso % (Auto) 0.2, Absolute Neuts (auto) 15.5 H, Absolute Lymphs (auto) 1.38, Nucleated RBC % 0 05/30/22 05:28: Sodium 141, Potassium 4.3, Chloride 106, Carbon Dioxide 28.0, Anion Gap 7, BUN 30 H, Creatinine 1.30, Estim Creat Clear Calc 60.22, Est GFR (MDRD) Af Amer 70, Est GFR (MDRD) Non-Af 58 L, BUN/Creatinine Ratio 23.1 H, Glucose 154 H, Calcium 9.2 Micro: Microbiology 05/28/22 08:30 Sputum, Expectorated/Coughed Gram Stain - Final 05/28/22 08:30 Sputum, Expectorated/Coughed Respiratory Culture - Preliminary Presumptive C albicans 05/26/22 14:40 Blood Culture (Wb) - Right Forearm Blood Culture - Preli minary No growth in 48 hours. 05/26/22 14:41 Blood Culture (Wb) - Anticubital Left Blood Culture - Preliminary No growth in 48 hours. 05/26/22 21:30 Urine, Random Legionella Antigen - Final 05/26/22 21:30 Interface Orders Streptococcus pneumoniae Antigen (M - Final 05/26/22 12:20 Nasal Secretion SARS-CoV-2 Antigen (Rapid) - Final Physical Exam Const alert and no apparent distress Constitutional Narrative: No conversational dyspnea General Appearance: cooperative and well developed HEENT head/scalp atraumatic Eyes PERRL and EOMs intact bilaterally Neck full ROM Chest Chest Narrative: Increased AP diameter Resp Resp Narrative: Egophony in the right base. Rales in the right base. No wheezing. Cardio regular rate, regular rhythm, S1 normal heart sound, S2 normal heart sound, no murmurs, no rub and no gallops GI normal to inspection, nondistended, normoactive bowel sounds Extremity no clubbing, cyanosis or edema Skin no rashes or lesions noted Neuro oriented x3 Sensorium / Orientation: awake and alert Psych affect normal Charges/Coding Visit Charges Inpatient E&M: 25143 Subs Hosp L2
[2022-05-30] MEDS: guaiFENesin 1,200 MG Tablet 1200 MG PO ×2 (09:36→21:35)
[2022-05-30] MEDS: Colchicine 0.6 MG TABLET PO (09:37)
[2022-05-30] MEDS: Loratadine 10 MG Tablet PO (09:37)
[2022-05-30] MEDS: Folic Acid 1 MG Tablet PO (09:37)
[2022-05-30] MEDS: morphine SR 15 MG Tablet PO ×2 (09:37→21:39)
[2022-05-30] MEDS: Enoxaparin 40 MG/0.4 ML Syringe SC (09:38)
[2022-05-30] MEDS: Lubiprostone 24 MCG Capsule PO ×2 (09:38→21:39)
[2022-05-30] MEDS: Pregabalin 75 MG Capsule 150 MG PO ×2 (09:41→21:38)
[2022-05-30] MEDS: Bisacodyl 5 MG Tablet 15 MG PO (20:23)
[2022-05-30] MEDS: LORazepam 1 MG Tablet PO (21:39)
[2022-05-31] VITALS (10 sets, daily range): BP systolic 108–123; BP diastolic 67–78; PULSE 80–95; RESP 15–24; TEMP 36.5–36.7; O2SAT 91–94
[2022-05-31] MEDS: Ipratropium/Albuterol Sulfate 3 ML AMPUL.NEB INHALATION ×4 (01:10→19:05)
--- NOTE | 2022-05-31 05:09 | PN.CC_ITS ---
Assessment & Plan Assessment/Plan (1) Acute respiratory failure with hypoxia: (2) Small cell lung cancer: (3) Gram-negative pneumonia: (4) COPD (chronic obstructive pulmonary disease): PLAN: Plan RECOMMENDATIONS: 1. Transition to p.o. steroids and wean over 12 to 14 days. Continue mucolytic and bronchodilators. 2. Discontinue vancomycin given negative sputum culture. Continue Zosyn to complete 7 days 3. Out of bed as tolerated 4. Continue vest therapy twice daily 5. Wean oxygen as tolerated 6. Keep saturations 90 to 94% 7. Will need follow-up chest imaging as an outpatient to document resolution 8. We will sign off from a pulmonary perspective. Patient should follow-up with his primary prepress operator as an outpatient. 9. Consider evaluation for increasing home concentrator to 10 L/min capability IMPRESSIONS: 1. Acute on chronic hypoxic respiratory failure secondary to possible gram- negative pneumonia Unclear etiology at this time. Pattern on imaging is consistent with possible aspiration, but no acute event has been reported. Patient appears to have patent airways with alveolar infiltrates suggesting an infectious process. Patient is not having much production from the vest, but does feel it is helpful. Sputum cultures are showing only Alis, which likely represents a contaminant given improvement off antifungals. Repeat culture appears to be similar. Clinical suspicion for bacterial pneumonia. Given staff has not grown, will discontinue vancomycin as this has a narrow therapeutic index. Complete a total of 7 days of Zosyn. 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 We will transition to prednisone. Can be weaned over the next 12 to 14 days. 2. Small cell lung cancer/advanced age/baseline COPD/anxiety/depression/hypertension/GERD Complicates care, management, recovery and prognosis. Will wean steroids and bronchodilators. Patient can continue on her baseline medications. Doubt patient will require BiPAP rescue given continued improvement. Patient follows with Dr. Walter. Given advanced comorbid disease, anticipate slow recovery Subjective Subjective Patient did well overnight. No acute issues were reported. Patient does desaturate quickly with ambulation. Patient has been hemodynamically stable. No nursing concerns at this time. Objective Data Objective Data Vital Signs: Vital Signs Temp Pulse Resp BP Pulse Ox O2 Del Method O2 Flow Rate 36.7 C 95 24 H 123/76 H 91 Nasal Cannula 5 05/31/22 01:33 05/31/22 01:33 05/31/22 01:33 05/31/22 01:33 05/31/22 01:33 05/31/22 01:34 05/31/22 01:34 FiO2 51 05/28/22 11:32 Oxygen Flow Rate (L/min) [ 6 AMBULATING with Oxygen #2] Oxygen Flow Rate (L/min) [ 4 AMBULATING with Oxygen #1] Oxygen Flow Rate (L/min) 5 Oxygen Delivery Method Nasal Cannula Weight: 81.692 kg Body Mass Index (BMI) 22.5 Intake & Output: Intake and Output for Last 24 Hours 05/29/22 05/30/22 05/31/22 23:59 23:59 23:59 Intake Total 1050 / 1050 850 / 850 50 / 50 Output Total 1875 / 1875 1500 / 1500 Balance -825 / -825 -650 / -650 50 / 50 Lab / Micro Data Attestation: I reviewed the patient's lab results. Result Diagrams: 05/30/22 05:28 05/30/22 05:28 Labs: Laboratory Results - last 24 hr 05/30/22 05:28: Vancomycin Trough 25.6 H 05/30/22 05:28: WBC 18.6 H, RBC 3.18 L, Hgb 10.0 L, Hct 31.7 L, MCV 99.7 H, MCH 31.4, MCHC 31.5 L, RDW Std Deviation 51.7 H, RDW Coeff of Callie 14.4, Plt Count 260, MPV 10.8, Immature Gran % (Auto) 2.700 H, Neut % (Auto) 83.2 H, Lymph % (Auto) 7.4 L, [place] % (Auto) 6.0, Eos % (Auto) 0.5, Baso % (Auto) 0.2, Absolute Neuts (auto) 15.5 H, Absolute Lymphs (auto) 1.38, Nucleated RBC % 0 05/30/22 05:28: Sodium 141, Potassium 4.3, Chloride 106, Carbon Dioxide 28.0, A nion Gap 7, BUN 30 H, Creatinine 1.30, Estim Creat Clear Calc 60.22, Est GFR (MDRD) Af Amer 70, Est GFR (MDRD) Non-Af 58 L, BUN/Creatinine Ratio 23.1 H, Glucose 154 H, Calcium 9.2 Micro: Microbiology 05/30/22 08:10 Sputum, Expectorated/Coughed Gram Stain - Final 05/28/22 08:30 Sputum, Expectorated/Coughed Gram Stain - Final 05/28/22 08:30 Sputum, Expectorated/Coughed Respiratory Culture - Final Presumptive C albicans 05/26/22 14:40 Blood Culture (Wb) - Right Forearm Blood Culture - Preliminary No growth in 48 hours. 05/26/22 14:41 Blood Culture (Wb) - Anticubital Left Blood Culture - Preliminary No growth in 48 hours. 05/26/22 21:30 Urine, Random Legionella Antigen - Final 05/26/22 21:30 Interface Orders Streptococcus pneumoniae Antigen (M - Final 05/26/22 12:20 Nasal Secretion SARS-CoV-2 Antigen (Rapid) - Final Physical Exam Const no apparent distress Constitutional Narrative: No conversational dyspnea. Resting comfortably on arrival General Appearance: cooperative and well developed HEENT head/scalp atraumatic Eyes PERRL and EOMs intact bilaterally Neck full ROM Chest Chest Narrative: Increased AP diameter Resp Resp Narrative: Improved egophony in the right base. No rales in the right base. No wheezing. Cardio regular rate, regular rhythm, S1 normal heart sound, S2 normal heart sound, no murmurs, no rub and no gallops GI normal to inspection, nondistended, normoactive bowel sounds Extremity no clubbing, cyanosis or edema Skin no rashes or lesions noted Neuro oriented x3 Sensorium / Orientation: awake and alert Psych affect normal Charges/Coding Visit Charges Inpatient E&M: 67631 Subs Hosp L2
[2022-05-31] MEDS: proMETHazine 25 MG Tablet PO ×3 (05:44→20:59)
[2022-05-31] MEDS: Levothyroxine 150 MCG Tablet PO (05:44)
[2022-05-31 06:59] LABS: Absolute Lymphocyte Count 1.48 X10^3/uL (0.83-4.51); Absolute Neutrophil Count 12.3 X10^3/uL (2.0-7.7); Basophil# 0.04 X10^3/uL; Basophil% 0.3 % (0-1); Eosinophil# 0.26 X10^3/uL; Eosinophils% 1.7 % (0-5); Hematocrit 32.7 % (40-54); Hemoglobin 10.5 g/dL (13.0-16.5); Lymphocyte # 1.48 X10^3/ul (0.83-4.51); Lymphocyte % 9.6 % (19-41); Mean Corp Hgb Conc 32.1 g/dL (32-36); Mean Corpuscular Hgb 31.8 pg (27.0-32.0); Mean Corpuscular Volume 99.1 fL (80-94); Mean Platelet Vol. 10.6 fl (6.2-12.0); Monocyte# 0.91 X10^3/uL; Monocyte% 5.9 % (0-10); NRBC Flagged by Analyzer 0 % (0-5); Neutrophil # 12.29 X10^3/uL (2.7-7.7); Neutrophil % 79.8 % (47-70); Platelet Count 263 K/mm3 (150-450); RBC Distribution Width CV 14.5 % (11.6-14.6); RBC Distribution Width SD 51.8 fl (35.1-43.9); White Blood Count 15.4 K/mm3 (4.4-11.0)
[2022-05-31 07:17] LABS: Anion Gap 5 (5-15); BUN 27 mg/dL (7-18); BUN/Creat Ratio 21.1 RATIO (10-20); Calcium,Total 9.7 mg/dL (8.5-10.1); Chloride 105 mmol/L (98-107); Creatinine, Serum 1.28 mg/dL (0.70-1.30); EST Glomerular Filtration Rate 59 mL/min (>60); Est Glom Filt Rate - Afr Amer 71 mL/min (>60); Estimated Creatinine Clearance 61.16 ml/min; Glucose 144 mg/dL (74-106); Potassium 4.7 mmol/L (3.5-5.1); Sodium Level 140 mmol/L (136-145)
--- NOTE | 2022-05-31 07:51 | PN.HOSP_ITS ---
Subjective Subjective Still not expectorating much. Objective Data Objective Data Vital Signs: Vital Signs Temp Pulse Resp BP Pulse Ox O2 Del Method O2 Flow Rate 36.5 C L 90 21 H 110/78 91 Nasal Cannula 5 05/31/22 05:39 05/31/22 06:56 05/31/22 06:56 05/31/22 05:39 05/31/22 06:56 05/31/22 06:56 05/31/22 06:56 FiO2 51 05/28/22 11:32 Oxygen Flow Rate (L/min) [ 6 AMBULATING with Oxygen #2] Oxygen Flow Rate (L/min) [ 4 AMBULATING with Oxygen #1] Oxygen Flow Rate (L/min) 5 Oxygen Delivery Method Nasal Cannula Weight: 81.692 kg Body Mass Index (BMI) 22.5 Intake & Output: Intake and Output for Last 24 Hours 05/29/22 05/30/22 05/31/22 23:59 23:59 23:59 Intake Total 1050 / 1050 850 / 850 150 / 150 Output Total 1875 / 1875 1500 / 1500 Balance -825 / -825 -650 / -650 150 / 150 Lab / Micro Data Result Diagrams: 05/31/22 06:34 05/31/22 06:34 Labs: Laboratory Results - last 24 hr 05/31/22 06:34: WBC 15.4 H, RBC 3.30 L, Hgb 10.5 L, Hct 32.7 L, MCV 99.1 H, MCH 31.8, MCHC 32.1, RDW Std Deviation 51.8 H, RDW Coeff of Callie 14.5, Plt Count 263, MPV 10.6, Immature Gran % (Auto) 2.700 H, Neut % (Auto) 79.8 H, Lymph % (Auto) 9.6 L, [place] % (Auto) 5.9, Eos % (Auto) 1.7, Baso % (Auto) 0.3, Absolute Neuts (auto) 12.3 H, Absolute Lymphs (auto) 1.48, Nucleated RBC % 0 05/31/22 06:34: Sodium 140, Potassium 4.7, Chloride 105, Carbon Dioxide 30.0, Anion Gap 5, BUN 27 H, Creatinine 1.28, Estim Creat Clear Calc 61.16, Est GFR (MDRD) Af Amer 71, Est GFR (MDRD) Non-Af 59 L, BUN/Creatinine Ratio 21.1 H, G lucose 144 H, Calcium 9.7 Micro: Microbiology 05/30/22 08:10 Sputum, Expectorated/Coughed Gram Stain - Final 05/28/22 08:30 Sputum, Expectorated/Coughed Gram Stain - Final 05/28/22 08:30 Sputum, Expectorated/Coughed Respiratory Culture - Final Presumptive C albicans 05/26/22 14:40 Blood Culture (Wb) - Right Forearm Blood Culture - Preliminary No growth in 48 hours. 05/26/22 14:41 Blood Culture (Wb) - Anticubital Left Blood Culture - Preliminary No growth in 48 hours. 05/26/22 21:30 Urine, Random Legionella Antigen - Final 05/26/22 21:30 Interface Orders Streptococcus pneumoniae Antigen (M - Final 05/26/22 12:20 Nasal Secretion SARS-CoV-2 Antigen (Rapid) - Final Rhythm Strip Rhythm Strip: Sinus Rhythm Rate: 79 Ectopy: None Physical Exam Const alert and no apparent distress HEENT head/scalp atraumatic and moist oral mucous membranes Resp normal respiratory effort Resp Narrative: crackles throughout right lung field. 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 Culture at that time showed Klebsiella. I don't see any culture results positive for actinomyces. Unclear if this is pneumonia or due to his underlying lung cancer combination thereof. But given his rapid worsening I would be highly suspicious of an acute bacterial pneumonia. Patient was negative for COVID-19. Strep and legionella antigens negative. Rapid COVID 19 negative. SCx showing C. albicans. DW Dr. Phillips, likely oral contaminant and not a true infection. Plan: * Pulmonary toilet with vest therapy * Broad-spectrum antibiotics with piperacillin/tazobactam through the (2) Small cell lung cancer: PLAN: Complicates care. Patient is due for chemotherapy and was sent here from the oncology center as you supposed to initiate his round of chemotherapy this week. That will be on hold for now. Patient will follow-up with Dr. Walter as outpatient. Given that this is a chronic malignancy and no acute issues I do not feel it is necessary to bring Dr. Walter to the hospital at this time. (3) Acute respiratory failure with hypoxia: PLAN: improving 2/2 pneumonia, COPD and SCLC slightly improved, tolerating 6.5 L nc 2/2 pneumonia, SCLC Pulm following Plan: * changed to prednisone. Plan to wean over 12-14 days. * pulm toilet * AVAPS w sleep PLAN: Plan 4. VTE prophylaxis with enoxaparin 5. CODE STATUS: Addressed with the patient and his significant other bedside. Patient wishes to be DNR Comfort Care arrest with intubation. Patient informed he can change his mind at any time. Pulmonary has signed off. Patient has previously fired Dr. Potter, who takes over 06/01. Charges/Coding Visit Charges Inpatient E&M: 19986 Subs Hosp L2
[2022-05-31] MEDS: Loratadine 10 MG Tablet PO (10:59)
[2022-05-31] MEDS: predniSONE 20 MG Tablet 40 MG PO (10:59)
[2022-05-31] MEDS: Lubiprostone 24 MCG Capsule PO ×2 (11:00→20:59)
[2022-05-31] MEDS: guaiFENesin 1,200 MG Tablet 1200 MG PO ×2 (11:00→20:59)
[2022-05-31] MEDS: Colchicine 0.6 MG TABLET PO (11:01)
[2022-05-31] MEDS: Folic Acid 1 MG Tablet PO (11:01)
[2022-05-31] MEDS: Enoxaparin 40 MG/0.4 ML Syringe SC (11:02)
[2022-05-31] MEDS: morphine SR 15 MG Tablet PO ×2 (11:16→20:59)
[2022-05-31] MEDS: Pregabalin 75 MG Capsule 150 MG PO ×2 (11:16→20:59)
[2022-05-31] MEDS: 0.9% Saline Lock 10 ML Syringe IV (14:41)
--- NOTE | 2022-05-31 16:22 | NURSING ---
Pt wanted to walk in the [place] with THis RN with spo2 monitor to see what his oxygen level would be while walking with oxygen. Pt walked the unit twice around. First time around, pt started o2 at 6L and stayed around 85% on that. Spo2 87% on 8L then. After that, This nurse increased his oxygen to via portable oxygen tank to 15L he got as low at 67% on t he second lap of walking with 15L. Pt assisted back into bed and slowly came back up to 89% on 6L NC. Will continue to monitor.
[2022-05-31] MEDS: LORazepam 1 MG Tablet PO (20:59)
[2022-05-31] MEDS: Pantoprazole Sodium 40 MG Tablet PO (21:57)
[2022-06-01] VITALS (7 sets, daily range): BP systolic 107–114; BP diastolic 71–73; PULSE 77–91; RESP 16–18; TEMP 36.5–36.6; O2SAT 83–94
[2022-06-01] MEDS: Ipratropium/Albuterol Sulfate 3 ML AMPUL.NEB INHALATION ×3 (00:35→13:07)
[2022-06-01] MEDS: proMETHazine 25 MG Tablet PO (05:59)
[2022-06-01] MEDS: Levothyroxine 150 MCG Tablet PO (05:59)
[2022-06-01 06:16] LABS: Absolute Lymphocyte Count 2.86 X10^3/uL (0.83-4.51); Absolute Neutrophil Count 11.6 X10^3/uL (2.0-7.7); Basophil# 0.13 X10^3/uL; Basophil% 0.7 % (0-1); Eosinophil# 1.26 X10^3/uL; Eosinophils% 6.9 % (0-5); Hematocrit 31.8 % (40-54); Lymphocyte # 2.86 X10^3/ul (0.83-4.51); Lymphocyte % 15.7 % (19-41); Mean Corp Hgb Conc 31.4 g/dL (32-36); Mean Corpuscular Hgb 31.8 pg (27.0-32.0); Mean Corpuscular Volume 101.3 fL (80-94); Mean Platelet Vol. 10.4 fl (6.2-12.0); Monocyte# 1.44 X10^3/uL; Monocyte% 7.9 % (0-10); NRBC Flagged by Analyzer 0.2 % (0-5); Neutrophil % 63.9 % (47-70); Platelet Count 274 K/mm3 (150-450); RBC Distribution Width SD 54.5 fl (35.1-43.9); Red Blood Count 3.14 M/mm3 (4.6-6.2); White Blood Count 18.2 K/mm3 (4.4-11.0)
[2022-06-01 06:25] LABS: Anion Gap 4 (5-15); BUN 26 mg/dL (7-18); BUN/Creat Ratio 19.5 RATIO (10-20); Calcium,Total 9.4 mg/dL (8.5-10.1); Chloride 104 mmol/L (98-107); Creatinine, Serum 1.33 mg/dL (0.70-1.30); EST Glomerular Filtration Rate 56 mL/min (>60); Est Glom Filt Rate - Afr Amer 68 mL/min (>60); Estimated Creatinine Clearance 58.86 ml/min; Glucose 97 mg/dL (74-106); Sodium Level 140 mmol/L (136-145)
[2022-06-01] MEDS: Loratadine 10 MG Tablet PO (08:55)
[2022-06-01] MEDS: morphine SR 15 MG Tablet PO (08:55)
[2022-06-01] MEDS: Pregabalin 75 MG Capsule 150 MG PO (08:55)
[2022-06-01] MEDS: Lubiprostone 24 MCG Capsule PO (08:56)
[2022-06-01] MEDS: Colchicine 0.6 MG TABLET PO (08:56)
[2022-06-01] MEDS: Enoxaparin 40 MG/0.4 ML Syringe SC (08:56)
[2022-06-01] MEDS: guaiFENesin 1,200 MG Tablet 1200 MG PO (08:56)
[2022-06-01] MEDS: Pantoprazole Sodium 40 MG Tablet PO (08:57)
[2022-06-01] MEDS: predniSONE 20 MG Tablet 40 MG PO (08:57)
[2022-06-01] MEDS: Folic Acid 1 MG Tablet PO (08:59)
--- NOTE | 2022-06-01 11:13 | DS.PCM_ITS ---
Providers Date of Admission: 05/26/22 Date of Discharge: 06/01/22 Primary Care Physician: Dr. [place] Bills MD Consultations 05/27/22 08:12 Consult: Reducing Machine Operator / Pulmonary Medicine Routine Consulting Provider: [facility] Reason for Consult: respiratory failure. pneumonia EMERGENT Consult: No MD Notified: Yes Date Notified: 05/27/22 Time Notified: 08:13 Method of Notification: Verbal Reason For Visit: PNEUMONIA Diagnosis Discharge Diagnosis (1) Small cell lung cancer: Status: Acute Code(s): C34.90 - Malignant neoplasm of unspecified part of unspecified bronchus or lung (2) Acute respiratory failure with hypoxia: Status: Acute Code(s): J96.01 - Acute respiratory failure with hypoxia Medications at Discharge Home Medications fexofenadine 180 mg tablet 180 mg PO DAILY allergies 01/14/18 valacyclovir 1 gram tablet 1,000 mg PO DAILY PRN Cold Sores 01/14/18 colchicine 0.6 mg tablet 0.6 mg PO DAILY gout 05/03/19 dicyclomine 20 mg tablet 20 mg PO DAILY PRN cramping 02/10/22 promethazine 25 mg tablet 25 mg PO TID nausea 02/10/22 folic acid 1 mg tablet 1 mg PO DAILY 03/11/22 guaifenesin 600 mg tablet, extended release 12 hr (Mucinex) 600 mg PO BID 03/11/22 lubiprostone 24 mcg capsule 24 mcg PO BID 03/11/22 morphine 15 mg tablet,extended release 15 mg PO BID 03/11/22 oxycodone 5 mg tablet 1 - 2 mg PO Q6H PRN Pain 03/11/22 celecoxib 200 mg capsule 200 mg PO BID PRN arthritis 04/28/22 pregabalin 150 mg capsule 150 mg PO BID 04/28/22 levothyroxine 150 mcg tablet 150 mcg PO DAILY thyroid 05/26/22 lorazepam 1 mg tablet 1 mg PO QHS sleep 05/26/22 omeprazole 40 mg capsule,delayed release 40 mg PO BID GERD 05/31/22 guaifenesin 1,200 mg tablet, extended release 12 hr (Mucus Relief ER) 1,200 mg PO BID #0 tabs 06/01/22 levofloxacin 750 mg tablet 750 mg PO DAILY #2 tabs 06/01/22 prednisone 10 mg tablet 10 mg PO DAILY #40 tabs 06/01/22 Hospital Course Operations None Procedures None Summary of Care Provided Minutes Spent on Discharge: 39 Hospital Course: Mr. Leslie is a 71-year-old white male who presents emergency department [facility] on 05/27/2022 with the chief complaint of progressively worsening shortness of breath and hypoxia. The patient wears 3 to 5 L of oxygen at rest and has been wearing 6 L with exertion but she and saturations were dropping in the 70s while he was exerting himself. The patient increase his o xygen but when unable to get his saturations above 90 when he arrived to the infusion center so he was sent to the emergency department. Patient did complain of a cough and occasional sputum production as well as chronic chest pain that was unchanged from baseline. He currently has small cell lung carcinoma and being treated by Dr. Walter and follows with Dr. Archuleta for his pulmonary issues. In the emergency department he was afebrile but had tachycardia with a pulse of 110. He required 8 L of nasal cannula to maintain oxygen saturation and was tachypneic with respiratory rates as high as 23 breaths/min. He had a mild leukocytosis with a white count of 12.5. Chemistries were overall unremarkable except bicarbonate which was 29 and a serum creatinine of 1.36. BNP and troponin were unremarkable. A COVID test was performed and was negative. A CTA of the chest was performed and showed a dense consolidation of the right hemithorax. EKG showed sinus tachycardia and he was treated initially with Rocephin and Zithromax in the emergency department. Blood cultures were drawn at that time. Pulmonary medicine was consulted as his hypoxia worsened overnight requiring more supplemental oxygen. Blood culture showed no growth. Strep pneumo and Legionella antigens were negative. And sputum culture showed only presumptive Alis albicans. In addition to antibiotics which were broadened to vancomycin and Zosyn given concern for more invasive pathogens, Solu-Medrol was initiated as well as aggressive pulmonary toilet and Pep therapy. Given sputum cultures having no growth vancomycin was discontinued and the patient was maintained on Zosyn throughout his hospitalization. The etiology of his respiratory failure was uncertain however aspiration was a consideration. His airways were patent and he appeared to have alveolar infiltrate suggesting an infectious process. Clinical suspicion was still high for bacterial pneumonia and therefore he was maintained on IV antibio tics and converted to oral at discharge. We will would build to wean his oxygen slowly. On the day of discharge the patient was able to ambulate approximately 50 feet which is the most he stated he ambulates at home at 1 exertional effort and maintain oxygen saturations greater than 90% while on 8 L nasal cannula. At rest he required 5 L. He was discharged home to complete antibiotic therapy w maxi Smith for 2 more days and was given a slow prednisone taper. Encouraged him to follow-up with Dr. Walter as directed for continuation of his chemotherapy and with Dr. Archuleta from pulmonary medicine within the next week. Patient was discharged home in stable condition on 06/01/2022. Discharge diagnoses: Acute on chronic hypoxic respiratory failure Suspected gram-negative pneumonia versus aspiration pneumonia Small cell lung CA COPD Hypertension GERD Hypothyroidism Neuropathy History of gout IBS Depression Physical Exam Narrative Patient states he feels much better than when he presented. He reports that he is back to baseline and 100% improved. Anxious to go home to see his daughter who is here from [place]. Const alert, oriented x3, no apparent distress, average body habitus and no limitations Constitutional Narrative: Thin older white male sitting up in bed watching television, nasal cannula in place, patient appears comfortable nontoxic, no signs of respiratory distress. General Appearance: cooperative, comfortable, well kempt and well developed Orientation / Consciousness: awake Exam Limitations: no limitations HEENT normocephalic, head/scalp atraumatic and hearing grossly normal bilaterally HEENT Narrative: Mallampati 2, no thrush Eyes PERRL, EOMs intact bilaterally and conjunctivae normal Eyes Narrative: No scleral icterus Neck no lymphadenopathy, supple and no JVD Neck Narrative: Trachea midline, no thyroid enlargement Resp normal respiratory effort, no retractions and no use of accessory muscles Resp Narrative: Scattered crackles Auscultation: crackles; Negative for rales, rhonchi or wheezes Cardio regular rate, regular rhythm, S1 normal heart sound, S2 normal heart sound, no murmurs, no rub, no gallops, no clicks and no JVD GI normal to inspection, nondistended, normoactive bowel sounds, soft to palpation, non-tender and non-distended Extremity no clubbing, cyanosis or edema Extremity Narrative: 2+ pedal pulses Skin no rashes or lesions noted, no wounds, skin turgor normal and no jaundice Neuro oriented x3, CN's II-XII intact bilaterally, moves all extremities and no focal motor deficits Sensorium / Orientation: awake, alert, oriented to person, oriented to place and oriented to time Speech: speech normal Psych affect normal Psych Narrative: Very pleasant, good eye contact, patient appropriately interactive Weight / BMI Weight Weight: 81.692 kg Body Mass Index (BMI) 22.5 ABG / Lab / Microbiology Data Result Diagrams: 06/01/22 05:45 06/01/22 05:45 Laboratory: Laboratory Results - last 24 hr 06/01/22 05:45: WBC 18.2 H, RBC 3.14 L, Hgb 10.0 L, Hct 31.8 L, MCV 101.3 H, MCH 31.8, MCHC 31.4 L, RDW Std Deviation 54.5 H, RDW Coeff of Callie 15.0 H, Plt Count 274, MPV 10.4, Immature Gran % (Auto) 4.900 H, Neut % (Auto) 63.9, Lymph % (Auto) 15.7 L, Lee % (Auto) 7.9, Eos % (Auto) 6.9 H, Baso % (Auto) 0.7, Abso lute Neuts (auto) 11.6 H, Absolute Lymphs (auto) 2.86, Nucleated RBC % 0.2 06/01/22 05:45: Sodium 140, Potassium 4.0, Chloride 104, Carbon Dioxide 32.0, A nion Gap 4 L, BUN 26 H, Creatinine 1.33 H, Estim Creat Clear Calc 58.86, Est GFR (MDRD) Af Amer 68, Est GFR (MDRD) Non-Af 56 L, BUN/Creatinine Ratio 19.5, Glucose 97, Calcium 9.4 Microbiology: Microbiology 05/30/22 08:10 Sputum, Expectorated/Coughed Gram Stain - Final 05/30/22 08:10 Sputum, Expectorated/Coughed Respiratory Culture - Final Presumptive C albicans 05/26/22 14:40 Blood Culture (Wb) - Right Forearm Blood Culture - Final No growth in 5 days. 05/26/22 14:41 Blood Culture (Wb) - Anticubital Left Blood Culture - Final No growth in 5 days. 05/28/22 08:30 Sputum, Expectorated/Coughed Gram Stain - Final 05/28/22 08:30 Sputum, Expectorated/Coughed Respiratory Culture - Final Presumptive C albicans 05/26/22 21:30 Urine, Random Legionella Antigen - Final 05/26/22 21:30 Interface Orders Streptococcus pneumoniae Antigen (M - Final 05/26/22 12:20 Nasal Secretion SARS-CoV-2 Antigen (Rapid) - Final D/C Instructions Discharge Diet: No restrictions Discharge Activity: Return to Normal Activity Additional Instructions: O2 5 L at rest and 8L with ambulation Meaningful Use Info Meaningful Use Diagnoses (Choose all that apply): None applicable Discharge Plan Admission Admit Date/Time: 05/26/22 15:31 Primary Reason for Your Visit: Shortness of Breath Attending Provider: Marychuy Rendon Primary Care Provider: [place] Bills Consulting Providers: Abel Phillips ; Dalton Potter ; Adela Rivera NP ; [place] [address] Instructions Additional Instructions / Restrictions: 1. Please follow up with Dr. Archuleta within 1 week Discharge Orders/Prescriptions Prescriptions: New Mucus Relief ER 1,200 mg Tablet Extended Release 12hr 1,200 mg PO BID Qty: 0 0RF Rx Instructions: continue OTC Mucinex for 10 days prednisone 10 mg tablet 10 mg PO DAILY Qty: 40 0RF Rx Instructions: Tablets x4 days, 3 tablets x 4 days, 2 tablets x 4 days, 1 tablet x 4 days levofloxacin 750 mg tablet 750 mg PO DAILY Qty: 2 0RF Continued fexofenadine 180 mg tablet 180 mg PO DAILY valacyclovir 1 gram tablet 1,000 mg PO DAILY PRN (Reason: Cold Sores) colchicine 0.6 MG tablet 0.6 mg PO DAILY dicyclomine 20 mg Tablet 20 mg PO DAILY PRN (Reason: cramping) promethazine 25 mg tablet 25 mg PO TID folic acid 1 mg Tablet 1 mg PO DAILY morphine 15 mg tablet extended release 15 mg PO BID Label Comments: TAKE 1 TABLET BY MOUTH EVERY 12 HOURS FOR 14 DAYS. FOR PAIN. oxycodone 5 mg Tablet 1 - 2 mg PO Q6H PRN (Reason: Pain) lubiprostone 24 mcg Capsule 24 mcg PO BID guaifenesin [Mucinex] 600 mg Tablet Extended Release 12hr 600 mg PO BID celecoxib 200 mg Capsule 200 mg PO BID PRN (Reason: arthritis) pregabalin 150 mg Capsule 150 mg PO BID levothyroxine 150 mcg tablet 150 mcg PO DAILY Label Comments: TAKE 1 TABLET BY MOUTH EVERY DAY BEFORE BREAKFAST lorazepam 1 mg tablet 1 mg PO QHS Label Comments: TAKE 1 TABLET BY MOUTH EVERY 8 HOURS NEEDED FOR UP TO 30 DAYS. omeprazole 40 mg capsule,delayed release(DR/EC) 40 mg PO BID Label Comments: TAKE 1 (ONE) CAPSULE BY MOUTH TWICE DAILY Referrals / Follow Up: [place] Bills MD [Primary Care Provider] - Within 2 Weeks Disposition Disposition (needs filled in before D/C Order can be placed): Home, Self Care Charges/Coding Visit Charges Inpatient E&M: 60483 Disch Hosp
--- NOTE | 2022-06-01 11:45 | CASEMGMT ---
DELROY LADD updated that patient will need increase home oxygen at discharge. New script received and sent to [facility], patient's home oxygen supplier. DELROY LADD made arrangements for [facility] to coordinate with for oxygen supplies. CM will continue to follow this patient and plan for a safe discharge.
== END 2022-06-01 14:41 | disposition home or self-care (01) | DRG 177 ==
LOC: ED 16:24 → MS3 16:52
PROVIDERS: Hospitalist; Emergency Provider Emergency Medicine; PCP Family Medicine; Visit Provider Internal Medicine
DX: J15.6 Pneumonia due to other Gram-negative bacteria (principal); J96.21 Acute and chronic respiratory failure with hypoxia; C34.90 Malignant neoplasm of unspecified part of unspecified bronchus or lung; J44.0 Chronic obstructive pulmonary disease with (acute) lower respiratory infection; I10 Essential (primary) hypertension; F41.9 Anxiety disorder, unspecified; E03.9 Hypothyroidism, unspecified; K58.9 Irritable bowel syndrome, unspecified; K21.9 Gastro-esophageal reflux disease without esophagitis; M10.9 Gout, unspecified; G62.9 Polyneuropathy, unspecified; Z79.2 Long term (current) use of antibiotics; Z51.5 Encounter for palliative care; Z87.891 Personal history of nicotine dependence; F32.A Depression, unspecified
CPT/HCPCS: 36415; 71275; 80048; 80202; 83880; 84484; 85025; 86738; 87040; 87070; 87205; 87449; 87811; 93005; 94640; 94660; 94667; 94668; 94762; 97162; 97165; 97802; 99285; J7030; J7050; Q9967; A4216

== ENCOUNTER 2022-07-21 16:23 | Inpatient (IN) | payer MEDICARE, OTHER, SELFPAY ==
[2022-07-21] VITALS (20 sets, daily range): BP systolic 77–112; BP diastolic 55–68; PULSE 65–103; RESP 12–29; TEMP 35.7–37.1; O2SAT 58–93; BMI 23.3; BMI 23.1
--- NOTE | 2022-07-21 16:36 | EKG12_ITS ---
Test Reason : sob Blood Pressure : / mmHG Vent. Rate : 094 BPM Atrial Rate : 094 BPM P-R Int : 178 ms QRS Dur : 094 ms QT Int : 368 ms P-R-T Axes : 031 -44 024 degrees QTc Int : 460 ms Normal sinus rhythm Left axis deviation Low voltage QRS Abnormal ECG Confirmed by SHANIQUE AYOUB, ALFREDA ([id number]), non linear editor KATHY AGUILAR ([id number]) on 07/23/2022 8:11:37 AM Referred By: Gabby Confirmed By:ALFREDA BAY MD
--- NOTE | 2022-07-21 16:38 | ED.VIS.DYS ---
HPI History of Present Illness Chief Complaint: Shortness of Breath Informant: patient and spouse/S.O. Narrative Narrative: Presents worsening dyspnea this morning with productive cough starting yesterday. Fever today. History of metastatic cancer stage IV unclear if non-small cell or small cell at this time. This was diagnosed a year ago. He had initial treatment not helping went to hospice however taking a hospice started new treatment. He finished his first round 2 weeks ago. Has a second round to start this coming week. He is COVID vaccinated. No COVID infections the past several spouse states been around more people recently. He is followed by inside account executive Dr. Kathe smith at [facility]. Actually saw him in the office yesterday was plan for high flow oxygen for home. Baseline 6 L nasal cannula 8 L with exertion. Further discussion with his [employer], they states they have not filled out the paperwork however discussion with spouse and patient, noninvasive treatment, no intubation. Reviewing records notes history of small cell lung cancer. [facility] Medical History Abdominal pain Anxiety Arthritis Back problem COPD (chronic obstructive pulmonary disease) Depression Encounter for chemotherapy management Fatigue GERD (gastroesophageal reflux disease) Gout Hemorrhoids Hypertension Hypothyroidism IBS (irritable bowel syndrome) Lung cancer Lung metastasis Numbness and tingling Small cell lung cancer SOB (shortness of breath) Thyroid disease Home Medications fexofenadine 180 mg tablet 180 mg PO DAILY allergies 01/14/18 [History Last Taken 07/21/22] valacyclovir 1 gram tablet 1,000 mg PO DAILY PRN Cold Sores 01/14/18 [History Last Taken 05/24/22] colchicine 0.6 mg tablet 0.6 mg PO DAILY gout 05/03/19 [History Last Taken 07/21/22] dicyclomine 20 mg tablet 20 mg PO DAILY PRN cramping 02/10/22 [History Last Taken Unknown] promethazine 25 mg tablet 25 mg PO TID nausea 02/10/22 [History Last Taken 07/21/22] folic acid 1 mg tablet 1 mg PO DAILY supplement 03/11/22 [History Last Taken 07/21/22] guaifenesin 600 mg tablet, extended release 12 hr (Mucinex) 600 mg PO BID congestion 03/11/22 [History Last Taken 07/21/22] lubiprostone 24 mcg capsule 24 mcg PO BID IBS 03/11/22 [History Last Taken 07/21/22] morphine 15 mg tablet,extended release 15 mg PO BID pain 03/11/22 [History Last Taken 07/21/22] celecoxib 200 mg capsule 200 mg PO BID PRN arthritis 04/28/22 [History Last Taken 07/21/22] pregabalin 150 mg capsule 150 mg PO BID pain 04/28/22 [History Last Taken 07/21/22] levothyroxine 150 mcg tablet 150 mcg PO DAILY thyroid 05/26/22 [History Last Taken 07/21/22] lorazepam 1 mg tablet 1 mg PO QHS sleep 05/26/22 [History Last Taken 07/21/22] omeprazole 40 mg capsule,delayed release 40 mg PO BID GERD 05/31/22 [History Last Taken 07/21/22] amoxicillin 875 mg-potassium clavulanate 125 mg tablet 1 tab PO TID infection 06/16/22 [History Last Taken 07/21/22] Allergy/AdvReac Type Severity Reaction Status Date / Time Sulfa (Sulfonamide Allergy Severe Rash Verified 07/21/22 16:24 Antibiotics) levofloxacin [From Levaquin] Allergy Unknown Verified 07/21/22 16:24 metronidazole Allergy PT UNSURE Verified 07/21/22 16:24 OF REACTION Family History Mother CVA (cerebral vascular accident) Diabetes Heart disease Arthritis Father Cancer lung Arthritis Ulcer Surgical History H/O vasectomy History of left knee replacement Hx of bilateral inguinal hernia repair Hx of colonoscopy Hx of vasectomy S/P hernia repair Social History household members: spouse Smoking Status: Former smoker pack-years: 30 Tobacco: How many years used: 30 how long ago did patient quit smoking: quit 23 years ago, smoked [id number] second hand exposure: No alcohol intake: current alcohol intake frequency: a few times a week Alcohol type: beer substance use type: marijuana and other details: bakes in brownies occasionally caffeine: Yes Type: coffee Number of servings: 2 what type of physical activity do you participate in: none seatbelt use: always ROS ROS ED Constitutional Constitutional ED: Reports fever(s); Denies chills or sweats Eyes Eyes: Denies change in vision ENT ENT ED: Denies dysphagia or sore throat Cardiovascular Cardiovascular: Denies chest pain, leg edema, palpitations or racing heartbeat Respiratory/Chest Respiratory/Chest: Reports cough and dyspnea; Denies dyspnea on exertion Gastrointestinal Gastrointestinal: Denies abdominal pain, diarrhea, nausea or vomiting Genitourinary Genitourinary ED: Denies dysuria, hematuria or urinary frequency Musculoskeletal Musculoskeletal: Denies back pain, extremity pain or neck pain Integumentary Denies rash or wounds Neurologic Neurologic: Denies headache(s), paresthesias or weakness EXAM Physical Exam Const Vital Signs: 07/21/22 16:25 07/21/22 16:32 07/21/22 16:33 Temperature 98.1 F Temperature Source Temporal Pulse Rate 103 H Respiratory Rate 29 H Respiratory Effort Short of Breath Nasal Flaring Respiratory Pattern Tachypnea Blood Pressure 108/68 Blood Pressure Mean 81 Pulse Ox 58 67 Oxygen Delivery Method Non-Rebreather Non-Rebreather Non-Rebreather Oxygen Flow Rate (L/min) 15 67 15 Fraction of Inspired Oxygen (FIO2) 07/21/22 16:35 07/21/22 16:55 07/21/22 16:56 Temperature 98.1 F Temperature Source Temporal Pulse Rate 98 91 Respiratory Rate 29 H 23 H Respiratory Effort Respiratory Pattern Blood Pressure 108/68 108/68 Blood Pressure Mean 81 81 Pulse Ox 68 80 Oxygen Delivery Method Non-Rebreather Bi-pap Bi-pap Oxygen Flow Rate (L/min) 15 Fraction of Inspired Oxygen (FIO2) 07/21/22 16:56 07/21/22 17:11 07/21/22 17:25 Temperature 98.5 F Temperature Source Temporal Pulse Rate 92 90 Respiratory Rate 28 H 24 H Respiratory Effort Respiratory Pattern Blood Pressure 77/57 L Blood Pressure Mean 63 Pulse Ox 79 83 Oxygen Delivery Method Bi-pap Oxygen Flow Rate (L/min) Fraction of Inspired Oxygen (FIO2) 100 07/21/22 17:32 07/21/22 17:32 07/21/22 17:36 Temperature 98.4 F 98.4 F 98.4 F Temperature Source Temporal Temporal Temporal Pulse Rate 89 89 Respiratory Rate 26 H 26 H Respiratory Effort Respiratory Pattern Blood Pressure 85/67 L 85/67 L Blood Pressure Mean 73 73 Pulse Ox 81 81 Oxygen Delivery Method Bi-pap Bi-pap Oxygen Flow Rate (L/min) Fraction of Inspired Oxygen (FIO2) 07/21/22 18:13 07/21/22 18:13 07/21/22 18:13 Temperature 97.9 F 97.9 F 97.9 F Temperature Source Temporal Temporal Temporal Pulse Rate 87 87 Respiratory Rate 25 H 25 H Respiratory Effort Respiratory Pattern Blood Pressure 96/65 96/55 L Blood Pressure Mean 75 68 Pulse Ox 87 87 Oxygen Delivery Method Bi-pap Bi-pap Oxygen Flow Rate (L/min) Fraction of Inspired Oxygen (FIO2) 07/21/22 19:00 07/21/22 19:00 07/21/22 19:00 Temperature 98.7 F 98.7 F 98.7 F Temperature Source Temporal Temporal Temporal Pulse Rate 84 84 Respiratory Rate 19 H 19 H Respiratory Effort Respiratory Pattern Blood Pressure 94/66 94/66 Blood Pressure Mean 75 75 Pulse Ox 85 86 Oxygen Delivery Method Bi-pap Bi-pap Oxygen Flow Rate (L/min) Fraction of Inspired Oxygen (FIO2) Constitutional Narrative: 15 L nonrebreather speaking in short sentences HEENT Reports moist mucous membranes normocephalic and atraumatic Eyes PERRL, EOMs intact bilaterally and conjunctivae normal General Eye ED: Yes normal appearance of both eyes Neck no lymphadenopathy and supple General: Negative for tenderness Chest Wall Chest: Negative for tenderness Resp Resp Narrative: Diminished breath sounds bilaterally, symmetric bilaterally. Effort and Inspection: symmetric chest movement; Negative for respiratory distress Cardio regular rate, regular rhythm and no murmurs Peripheral Pulses: pulses 2+ throughout GI normal to inspection, nondistended, normoactive bowel sounds and non-tender Palpation: Negative for guarding or rebound tenderness present Back/Spine no CVA tenderness and no thoracic nor lumbar tenderness Extremity normal to inspection General Extremety ED: Negative for edema or tenderness General Extremity: Negative for edema Neuro oriented x3 and no sensory deficits noted Sensorium / Orientation: awake and alert Skin no rashes or lesions noted and no wounds MDM MDM MDM Narrative Medical decision making narrative: Patient will be DNR CCA on discussion with patient and spouse and nursing present. Sepsis labs, BiPAP ordered ABG. Chest x-ray ordered we will plan for CTA chest to rule out PE with his cancer history. Chest x-ray 1 view reviewed by myself read by radiology extensive infiltrate right lobe and mild on the left lobe. White blood cell count 39. ABG PaO2 49. On the BiPAP at 100% he was in the mid 80s. Clinically was feeling better on BiPAP. White count returned at 39,000 hemoglobin 10. Creatinine 2.08. Lactic acid 2. We discussed with patient DNR status for which she wishes to be Comfort Care arrest. Spoke with spouse, spoke with spouses [id number] and brother over the phone who are physicians. I discussed if he would like central lines for pressors if he becomes hypotensive, they states to only continue IV fluid if hypotensive. Therefore no central lines or pressors. DNR Comfort Care arrest forms were filled out. He was covered with Zosyn and vancomycin for broad coverage with his chemotherapy treatment 2 weeks ago. I spoke with hospitalist Dr. Smith for admission. He will be placed in PCU due to no heroic measures and no pressors. Lab Data Attestation: I reviewed the patient's lab results. Labs: Laboratory Results - last 24 hr 07/21/22 07/21/22 07/21/22 16:45 16:45 16:45 WBC 39.1 H* RBC 3.41 L Hgb 10.0 L Hct 31.0 L MCV 90.9 MCH 29.3 MCHC 32.3 RDW Std Deviation 56.7 H RDW Coeff of Callie 17.2 H Plt Count 235 MPV 10.5 Immature Gran % (Auto) 2.600 H Neut % (Auto) 89.5 H Lymph % (Auto) 3.0 L Ward % (Auto) 4.4 Eos % (Auto) 0.1 Baso % (Auto) 0.4 Absolute Neuts (auto) 35.0 H Absolute Lymphs (auto) 1.18 Nucleated RBC % 0 Diff Path Review May foll Platelet Estimate ADEQUATE RBC Morphology N CHROM Hypochromasia RARE Anisocytosis RARE Macrocytosis RARE PT 15.0 H INR 1.2 APTT 35.0 Sodium 138 Potassium 4.4 Chloride 102 Carbon Dioxide 27.0 Anion Gap 9 BUN 39 H Creatinine 2.08 H Estim Creat Clear Calc 38.93 Est GFR (MDRD) Af Amer 41 L Est GFR (MDRD) Non-Af 34 L BUN/Creatinine Ratio 18.8 Glucose 149 H Lactic Acid Calcium 8.7 Total Bilirubin 0.60 AST 20 ALT 16 Alkaline Phosphatase 130 H Total Protein 6.8 Albumin 2.4 L Globulin 4.4 H Albumin/Globulin Ratio 0.5 L 07/21/22 16:45 WBC RBC Hgb Hct MCV MCH MCHC RDW Std Deviation RDW Coeff of Callie Plt Count MPV Immature Gran % (Auto) Neut % (Auto) Lymph % (Auto) Ward % (Auto) Eos % (Auto) Baso % (Auto) Absolute Neuts (auto) Absolute Lymphs (auto) Nucleated RBC % Diff Path Review Platelet Estimate RBC Morphology Hypochromasia Anisocytosis Macrocytosis PT INR APTT Sodium Potassium Chloride Carbon Dioxide Anion Gap BUN Creatinine Estim Creat Clear Calc Est GFR (MDRD) Af Amer Est GFR (MDRD) Non-Af BUN/Creatinine Ratio Glucose Lactic Acid 2.0 Calcium Total Bilirubin AST ALT Alkaline Phosphatase Total Protein Albumin Globulin Albumin/Globulin Ratio ABG Data ABG results: ABG 07/21/22 17:02 Specimen Type ART Sample Site R Radial pH 7.42 Bicarbonate Actual 24.8 Total CO2 26 Base Excess 0 O2 Saturation 86 L O2 % 100 ABG pCO2 38.4 ABG pO2 50 L Clifford Test Positive O2 Delivery Device BiPAP Tidal Volume 450 Clinical Comments Radiography Diagnostic Testing: Clinical Impression(s) from Imaging Studies Chest X-Ray 07/21/22 17:03 IMPRESSION: 1. Markedly worsened right-sided pneumonia. 2. Less dense alveolar opacity in the left lung possibly consistent with bilateral pneumonia, pulmonary edema, or ARDS. Electronically Signed: Brijesh Pino MD at 17:32 EDT , Chest CTA 07/21/22 17:09 IMPRESSION: 1. No evidence of pulmonary embolus. 2. No aortic dissection or aneurysm. 3. Marked consolidation of the right lung with large right pleural effusion. 4. Small left pleural effusion. There is groundglass density throughout the left lung. 5. Mediastinal lymphadenopathy. Electronically Signed: Frank eNlson DO at 18:30 EDT , EKG Initial EKG: Attestation: I personally reviewed and interpreted this EKG as follows: Comments: Sinus rhythm 94, no ST or T wave changes. Prior: Unchanged Critical Care Time Critical Care Time: Yes Critical care time (excluding procedures): 30-74 minutes, Discussing w/Patient &/or Family/Technical Engineer, Discussing w/Consultants, Arranging Admission or Transfer, Performing Direct Patient Care at Bedside and - (45 minutes) Discharge Plan Dx/Rx/DC Orders Clinical Impression: Pneumonia, BALDEMAR (acute kidney injury), Small cell lung cancer, Hypoxia, DNR (do not resuscitate) discussion, Acute respiratory failure with hypoxia Disposition Disposition: Acute Care Hospital [facility] Discharge Date/Time: 07/21/22 19:55
--- NOTE | 2022-07-21 17:03 | RAD_ITS ---
STUDY: X-RAY CHEST REASON FOR EXAM: Male, 71 years old. sob TECHNIQUE: Single AP portable view of the chest. COMPARISON: 03/11/2022 FINDINGS: Extensive alveolar opacity in the right lung consistent with pneumonia. Interval development of alveolar opacity in the left lung may represent pneumonia, pulmonary edema, or ARDS. There is no demonstrated pleural abnormality. Normal size heart. Normal mediastinum and helen. Normal visualized pulmonary arteries. Normal visualized aortic arch and descending thoracic aorta. Normal visualized thoracic spine. Normal visualized ribs, clavicles, and shoulders. There is no demonstrated abnormality of the visualized soft tissue structures of the upper abdomen. RAD/Chest 1 View (Portable) IMPRESSION: 1. Markedly worsened right-sided pneumonia. 2. Less dense alveolar opacity in the left lung possibly consistent with bilateral pneumonia, pulmonary edema, or ARDS. Electronically Signed: Brijesh Pino MD at 17:32 EDT ,
[2022-07-21 17:04] LABS: Absolute Lymphocyte Count 1.18 X10^3/uL (0.83-4.51); Basophil# 0.16 X10^3/uL; Basophil% 0.4 % (0-1); Eosinophil# 0.04 X10^3/uL; Eosinophils% 0.1 % (0-5); Lymphocyte # 1.18 X10^3/ul (0.83-4.51); Mean Corp Hgb Conc 32.3 g/dL (32-36); Mean Corpuscular Hgb 29.3 pg (27.0-32.0); Mean Corpuscular Volume 90.9 fL (80-94); Mean Platelet Vol. 10.5 fl (6.2-12.0); Monocyte# 1.73 X10^3/uL; Monocyte% 4.4 % (0-10); NRBC Flagged by Analyzer 0 % (0-5); Neutrophil # 34.98 X10^3/uL (2.7-7.7); Neutrophil % 89.5 % (47-70); POSITIVE COUNT YES; POSITIVE DIFFERENTIAL YES; Platelet Count 235 K/mm3 (150-450); RBC Distribution Width CV 17.2 % (11.6-14.6); RBC Distribution Width SD 56.7 fl (35.1-43.9); Red Blood Count 3.41 M/mm3 (4.6-6.2)
[2022-07-21 17:05] LABS: Allen Test Positive; Base Excess 0 mmol/L (-2 to +2); Bicarbonate 24.8 mmol/L (22-26); Blood Gas Specimen Type ART; FI02 100; O2 Delivery Device BiPAP; PO2 50 mmHG (75-100); SITE R Radial; SO2 86 % (95-99); Total Carbon Dioxide 26 mmol/L; Vt 450; pCO2 38.4 mmHg (35-45); pH 7.42 (7.35-7.45)
--- NOTE | 2022-07-21 17:09 | CT_ITS ---
STUDY: CTA CHEST REASON FOR EXAM: Male, 71 years old. Dyspnea. RADIATION DOSAGE (If Supplied By Facility): CTDIvol = ( 11.74 ) mGy, DLP = ( 476.9 ) mGycm TECHNIQUE: The examination was performed with the intravenous administration of IV 100mL [id number]-370. Post-processing of the angiographic images was performed, with multiplanar reformation and 3D reconstruction. Individualized dose optimization techniques were used for this CT. COMPARISON: Chest, 07/21/2022 FINDINGS: Normal enhancement of the main pulmonary artery and right and left pulmonary arteries. Normal enhancement of the bilateral peripheral pulmonary arteries. There is no demonstrated pulmonary embolism. Normal thoracic aorta and visualized great vessels. There is no demonstrated aortic dissection. Normal heart and pericardium. No coronary artery calcification Enlarged prevascular, Tracheal, AP window and subcarinal lymph nodes. Normal hilar regions. Normal visualized trachea and bronchi. The lungs are well expanded. Marked emphysematous change of the lungs. There is a pleural effusion of about posterior lateral aspect of the right hemithorax was marked consolidation of the right upper lobe, right middle lobe and inferior right lower lobe. There is associated large bullae in the right lung apex. . Groundglass infiltrates in the perihilar distribution the left lung with patchy areas of consolidation in the superior segment of the left lower lobe. Small left pleural effusion. Normal chest wall structures. There are degenerative changes of thoracic spine. Question mild hepatosplenomegaly. The upper abdomen is grossly normal CT/CTA Chest W/WO Contrast IMPRESSION: 1. No evidence of pulmonary embolus. 2. No aortic dissection or aneurysm. 3. Marked consolidation of the right lung with large right pleural effusion. 4. Small left pleural effusion. There is groundglass density throughout the left lung. 5. Mediastinal lymphadenopathy. Electronically Signed: Frank Nelson DO at 18:30 EDT ,
[2022-07-21 17:11] LABS: White Blood Count 39.1 K/mm3 (4.4-11.0)
[2022-07-21 17:12] LABS: Differential Indicated SCAN CRITERIA MET
[2022-07-21 17:13] LABS: International Normalized Ratio 1.2
[2022-07-21 17:16] LABS: ALB/GLOB Ratio 0.5 RATIO (0.9-2.4); AST(SGOT) 20 U/L (15-37); Alanine Aminotransfer ALT/SGPT 16 U/L (16-61); Albumin, Serum 2.4 g/dL (3.2-5.0); Alkaline Phosphatase 130 U/L (45-117); Anion Gap 9 (5-15); BUN 39 mg/dL (7-18); BUN/Creat Ratio 18.8 RATIO (10-20); Calcium,Total 8.7 mg/dL (8.5-10.1); Chloride 102 mmol/L (98-107); Creatinine, Serum 2.08 mg/dL (0.70-1.30); EST Glomerular Filtration Rate 34 mL/min (>60); Est Glom Filt Rate - Afr Amer 41 mL/min (>60); Estimated Creatinine Clearance 38.93 ml/min; Globulin 4.4 g/dL (2.2-4.2); Glucose 149 mg/dL (74-106); Potassium 4.4 mmol/L (3.5-5.1); Protein, Total 6.8 g/dL (6.4-8.2); Sodium Level 138 mmol/L (136-145)
[2022-07-21 17:39] LABS: Anisocytosis RARE; Hypochromasia RARE; Macrocytosis RARE; Platelet Estimate ADEQUATE (ADEQ); Red Cell Morphology N CHROM NORMAL (NORM C&C)
[2022-07-21] MEDS: 0.9% Normal Saline 1,000 ML 999 ML IV (18:21)
--- NOTE | 2022-07-21 19:01 | HP.PCM_ITS ---
Documented by User: BJ Brown 07/21/22 19:25 HPI - General General Date of Admission: 07/21/22 Date of Service: 07/21/22 Chief Complaint: Shortness of breath HPI Narrative ROB BLANCO, is a 71 M who presents with complaints of shortness of breath and cough. Patient has a history of non-small cell lung cancer and states that he began feeling unwell last night and this morning he woke up feeling worse and having a severe cough and shortness of breath. Patient's reports that patient was hypoxic at home and that is when they decided to come in to be evaluated. Patient has recently restarted Taxotere for his cancer and had been feeling better. Patient also has some medical history that includes GERD, hypothyroidism, anxiety and depression, hypertension. Patient has a history of smoking. Patient denies current tobacco use however he does report that he occasionally drinks a beer and does use marijuana edibles. FOR[facility]LY [facility], LATER [facility] Medical History Abdominal pain Anxiety Arthritis Back problem COPD (chronic obstructive pulmonary disease) Depression Encounter for chemotherapy management Fatigue GERD (gastroesophageal reflux disease) Gout Hemorrhoids Hypertension Hypothyroidism IBS (irritable bowel syndrome) Lung cancer Lung metastasis Numbness and tingling Small cell lung cancer SOB (shortness of breath) Thyroid disease Home Medications fexofenadine 180 mg tablet 180 mg PO DAILY allergies 01/14/18 [History Last Taken 05/26/22] valacyclovir 1 gram tablet 1,000 mg PO DAILY PRN Cold Sores 01/14/18 [History Last Taken 05/24/22] colchicine 0.6 mg tablet 0.6 mg PO DAILY gout 05/03/19 [History Last Taken 05/26/22] dicyclomine 20 mg tablet 20 mg PO DAILY PRN cramping 02/10/22 [History Last Taken Unknown] promethazine 25 mg tablet 25 mg PO TID nausea 02/10/22 [History Last Taken 05/26/22] folic acid 1 mg tablet 1 mg PO DAILY 03/11/22 [History Last Taken 05/26/22] guaifenesin 600 mg tablet, extended release 12 hr (Mucinex) 600 mg PO BID 03/11/22 [History Last Taken 05/26/22] lubiprostone 24 mcg capsule 24 mcg PO BID 03/11/22 [History Last Taken 05/26/22] morphine 15 mg tablet,extended release 15 mg PO BID 03/11/22 [History Last Taken Unknown] oxycodone 5 mg tablet 1 - 2 mg PO Q6H PRN Pain 03/11/22 [History Last Taken 03/13] celecoxib 200 mg capsule 200 mg PO BID PRN arthritis 04/28/22 [History Last Taken 05/26/22] pregabalin 150 mg capsule 150 mg PO BID 04/28/22 [History Last Taken 05/26/22] levothyroxine 150 mcg tablet 150 mcg PO DAILY thyroid 05/26/22 [History Last Taken 05/26/22] lorazepam 1 mg tablet 1 mg PO QHS sleep 05/26/22 [History Last Taken 05/25/22] omeprazole 40 mg capsule,delayed release 40 mg PO BID GERD 05/31/22 [History Last Taken Unknown] guaifenesin 1,200 mg tablet, extended release 12 hr (Mucus Relief ER) 1,200 mg PO BID #0 tabs 06/01/22 [Rx Last Taken Unknown] amoxicillin 875 mg-potassium clavulanate 125 mg tablet 1 tab PO TID 06/16/22 [History Last Taken Unknown] Allergy/AdvReac Type Severity Reaction Status Date / Time Sulfa (Sulfonamide Allergy Severe Rash Verified 07/21/22 16:24 Antibiotics) levofloxacin [From Levaquin] Allergy Unknown Verified 07/21/22 16:24 metronidazole Allergy PT UNSURE Verified 07/21/22 16:24 OF REACTION Family History Mother CVA (cerebral vascular accident) Diabetes Heart disease Arthritis Father Cancer lung Arthritis Ulcer Surgical History H/O vasectomy History of left knee replacement Hx of bilateral inguinal hernia repair Hx of colonoscopy Hx of vasectomy S/P hernia repair Social History household members: spouse Smoking Status: Former smoker pack-years: 30 Tobacco: How many years used: 30 how long ago did patient quit smoking: quit 23 years ago, smoked [id number] second hand exposure: No alcohol intake: current alcohol intake frequency: a few times a week Alcohol type: beer substance use type: marijuana and other details: bakes in brownies occasionally caffeine: Yes Type: coffee Number of servings: 2 what type of physical activity do you participate in: none seatbelt use: always ROS Constitutional Constitutional: Reports chills and malaise; Denies anorexia, change in weight, fatigue or fever(s) Cardiovascular Cardiovascular: Denies chest pain, edema, palpitations or syncope Respiratory/Chest Respiratory/Chest: Reports cough, dyspnea, dyspnea on exertion, portable oxygen @ home and wheezing Gastrointestinal Gastrointestinal: Denies abdominal pain, constipation, diarrhea, nausea or vomiting Genitourinary Genitourinary: Denies dysuria Musculoskeletal Musculoskeletal: Denies back pain, extremity pain, joint pain or joint stiffness Integumentary Integumentary: Denies dry skin Neurologic Neurologic: Denies abnormal gait, abnormal speech, confusion or dizziness Psychiatric Psychiatric: Denies anxiety or depression Endocrine Endocrinology: Denies change in body appearance Hematologic/Lymphatic Hematologic/Lymphatic: Denies anemia Vital Signs Vital Signs Vital Signs: 07/21/22 16:25 07/21/22 16:32 07/21/22 16:33 Temperature 98.1 F Temperature Source Temporal Pulse Rate 103 H Respiratory Rate 29 H Respiratory Effort Short of Breath Nasal Flaring Respiratory Pattern Tachypnea Blood Pressure 108/68 Blood Pressure Mean 81 Pulse Ox 58 67 Oxygen Delivery Method Non-Rebreather Non-Rebreather Non-Rebreather Oxygen Flow Rate (L/min) 15 67 15 Fraction of Inspired Oxygen (FIO2) 07/21/22 16:35 07/21/22 16:55 07/21/22 16:56 Temperature 98.1 F Temperature Source Temporal Pulse Rate 98 91 Respiratory Rate 29 H 23 H Respiratory Effort Respiratory Pattern Blood Pressure 108/68 108/68 Blood Pressure Mean 81 81 Pulse Ox 68 80 Oxygen Delivery Method Non-Rebreather Bi-pap Bi-pap Oxygen Flow Rate (L/min) 15 Fraction of Inspired Oxygen (FIO2) 07/21/22 16:56 07/21/22 17:11 07/21/22 17:25 Temperature 98.5 F Temperature Source Temporal Pulse Rate 92 90 Respiratory Rate 28 H 24 H Respiratory Effort Respiratory Pattern Blood Pressure 77/57 L Blood Pressure Mean 63 Pulse Ox 79 83 Oxygen Delivery Method Bi-pap Oxygen Flow Rate (L/min) Fraction of Inspired Oxygen (FIO2) 100 07/21/22 17:32 07/21/22 17:32 07/21/22 17:36 Temperature 98.4 F 98.4 F 98.4 F Temperature Source Temporal Temporal Temporal Pulse Rate 89 89 Respiratory Rate 26 H 26 H Respiratory Effort Respiratory Pattern Blood Pressure 85/67 L 85/67 L Blood Pressure Mean 73 73 Pulse Ox 81 81 Oxygen Delivery Method Bi-pap Bi-pap Oxygen Flow Rate (L/min) Fraction of Inspired Oxygen (FIO2) 07/21/22 18:13 07/21/22 18:13 07/21/22 18:13 Temperature 97.9 F 97.9 F 97.9 F Temperature Source Temporal Temporal Temporal Pulse Rate 87 87 Respiratory Rate 25 H 25 H Respiratory Effort Respiratory Pattern Blood Pressure 96/65 96/55 L Blood Pressure Mean 75 68 Pulse Ox 87 87 Oxygen Delivery Method Bi-pap Bi-pap Oxygen Flow Rate (L/min) Fraction of Inspired Oxygen (FIO2) Weight Weight: 186 lb 15.232 oz Body Mass Index (BMI) 23.3 Physical Exam Const alert, oriented x3 and no apparent distress General Appearance: cooperative HEENT normocephalic and head/scalp atraumatic Eyes conjunctivae normal and no scleral icterus Neck no lymphadenopathy and supple General: trachea midline Resp no retractions Effort and Inspection: symmetric chest movement, tachypneic, respiratory distress and labored Auscultation: wheezes and diminished lung sounds Cardio regular rate, regular rhythm, S1 normal heart sound, S2 normal heart sound and no murmurs GI normal to inspection, nondistended, normoactive bowel sounds, soft to palpation and non-tender Extremity normal capillary refill, no clubbing, cyanosis or edema and no calf tenderness Skin General Skin Exam: no breakdown Lesions: no lesions Rashes: no rashes Neuro no focal motor deficits and no sensory deficits noted Speech: speech normal Psych thought process normal and cooperative Mood & Affect: flat affect Results Lab / Micro Data Result Diagrams: 07/21/22 16:45 07/21/22 16:45 Labs: Laboratory Results - last 24 hr 07/21/22 16:45: WBC 39.1 H*, RBC 3.41 L, Hgb 10.0 L, Hct 31.0 L, MCV 90.9, MCH 29.3, MCHC 32.3, RDW Std Deviation 56.7 H, RDW Coeff of Callie 17.2 H, Plt Count 235, MPV 10.5, Immature Gran % (Auto) 2.600 H, Neut % (Auto) 89.5 H, Lymph % (Auto) 3.0 L, [place] % (Auto) 4.4, Eos % (Auto) 0.1, Baso % (Auto) 0.4, Absolute Neuts (auto) 35.0 H, Absolute Lymphs (auto) 1.18, Nucleated RBC % 0, Diff Path Review March foll, Platelet Estimate ADEQUATE, RBC Morphology N CHROM, Hypochromasia RARE, Anisocytosis RARE, Macrocytosis RARE 07/21/22 16:45: PT 15.0 H, INR 1.2, APTT 35.0 07/21/22 16:45: Sodium 138, Potassium 4.4, Chloride 102, Carbon Dioxide 27.0, Anion Gap 9, BUN 39 H, Creatinine 2.08 H, Estim Creat Clear Calc 38.93, Est GFR (MDRD) Af Amer 41 L, Est GFR (MDRD) Non-Af 34 L, BUN/Creatinine Ratio 18.8, Glucose 149 H, Calcium 8.7, Total Bilirubin 0.60, AST 20, ALT 16, Alkaline Phosphatase 130 H, Total Protein 6.8, Albumin 2.4 L, Globulin 4.4 H, Albumin/Globulin Ratio 0.5 L 07/21/22 16:45: Lactic Acid 2.0 Micro: Microbiology 07/21/22 16:41 Nasal Secretion SARS-CoV-2 Antigen (Rapid) - Final ABG Data ABG results: ABG 07/21/22 17:02 Specimen Type ART Sample Site R Radial pH 7.42 Bicarbonate Actual 24.8 Total CO2 26 Base Excess 0 O2 Saturation 86 L O2 % 100 ABG pCO2 38.4 ABG pO2 50 L Clifford Test Positive O2 Delivery Device BiPAP Tidal Volume 450 Clinical Comments Radiology Impression Chest X-Ray 07/21/22 17:03 IMPRESSION: 1. Markedly worsened right-sided pneumonia. 2. Less dense alveolar opacity in the left lung possibly consistent with bilateral pneumonia, pulmonary edema, or ARDS. Electronically Signed: Brijesh Pino MD at 17:32 EDT , Chest CTA 07/21/22 17:09 IMPRESSION: 1. No evidence of pulmonary embolus. 2. No aortic dissection or aneurysm. 3. Marked consolidation of the right lung with large right pleural effusion. 4. Small left pleural effusion. There is groundglass density throughout the left lung. 5. Mediastinal lymphadenopathy. Electronically Signed: Frank Nelson DO at 18:30 EDT Reading Location ID and State: [address] [place] [address] Tel [phone], Service support , Assessment & Plan Assessment/Plan (1) Acute and chronic respiratory failure with hypoxia: (2) BALDEMAR (acute kidney injury): (3) Severe sepsis: (4) Pneumonia: PLAN: Plan 1. Acute on chronic respiratory failure with hypoxia and severe sepsis secondary to pneumonia -Admit to PCU -Patient has a history of lung cancer and is DNR CCA no intubation, currently on BiPAP, follows with palliative care -Patient initiated on vancomycin and Zosyn in ER, will continue -CBC, BMP ordered for a.m. -Sputum cultures as well as blood culture ordered -Legionella and strep pneumonia urine ordered -Scheduled and as needed breathing treatments ordered -Normal saline at 150 mL/h -N.p.o. while on BiPAP -Oxygen per protocol for BiPAP breaks, patient's baseline 6 to 8 L nasal cannula oxygen 2. Non-small cell lung cancer stage IV -Follows with Dr. Coyne -Currently receiving treatment with Taxotere -Patient received Neulasta 2 weeks ago at oncology appointment 3. Acute kidney injury -Creatinine 2.08, baseline 1.15-1.3 -Normal saline 150 mL/h -BMP daily 4. Hypothyroidism -Continue levothyroxine 5. Chronic pain -Continue Lyrica, oxycodone. -Patient given IV morphine as needed DVT prophylaxis-subcu Lovenox This patient was seen by Macrina Blakely NP-C under the supervision of Dr. Smith. 29 minutes spent in clinical coordination of patient's plan of care. Documented by User: Dr. Jem Smith DO 07/21/22 19:35 HPI - General General Date of Admission: 07/21/22 PFSH Medical History Abdominal pain Anxiety Arthritis Back problem COPD (chronic obstructive pulmonary disease) Depression Encounter for chemotherapy management Fatigue GERD (gastroesophageal reflux disease) Gout Hemorrhoids Hypertension Hypothyroidism IBS (irritable bowel syndrome) Lung cancer Lung metastasis Numbness and tingling Small cell lung cancer SOB (shortness of breath) Thyroid disease Home Medications fexofenadine 180 mg tablet 180 mg PO DAILY allergies 01/14/18 [History Last Taken 05/26/22] valacyclovir 1 gram tablet 1,000 mg PO DAILY PRN Cold Sores 01/14/18 [History Last Taken 05/24/22] colchicine 0.6 mg tablet 0.6 mg PO DAILY gout 05/03/19 [History Last Taken 05/26/22] dicyclomine 20 mg tablet 20 mg PO DAILY PRN cramping 02/10/22 [History Last Taken Unknown] promethazine 25 mg tablet 25 mg PO TID nausea 02/10/22 [History Last Taken 05/26/22] folic acid 1 mg tablet 1 mg PO DAILY 03/11/22 [History Last Taken 05/26/22] guaifenesin 600 mg tablet, extended release 12 hr (Mucinex) 600 mg PO BID 03/11/22 [History Last Taken 05/26/22] lubiprostone 24 mcg capsule 24 mcg PO BID 03/11/22 [History Last Taken 05/26/22] morphine 15 mg tablet,extended release 15 mg PO BID 03/11/22 [History Last Taken Unknown] oxycodone 5 mg tablet 1 - 2 mg PO Q6H PRN Pain 03/11/22 [History Last Taken 05/25/22] celecoxib 200 mg capsule 200 mg PO BID PRN arthritis 04/28/22 [History Last Taken 05/26/22] pregabalin 150 mg capsule 150 mg PO BID 04/28/22 [History Last Taken 05/26/22] levothyroxine 150 mcg tablet 150 mcg PO DAILY thyroid 05/26/22 [History Last Taken 05/26/22] lorazepam 1 mg tablet 1 mg PO QHS sleep 05/26/22 [History Last Taken 05/25/22] omeprazole 40 mg capsule,delayed release 40 mg PO BID GERD 05/31/22 [History Last Taken Unknown] guaifenesin 1,200 mg tablet, extended release 12 hr (Mucus Relief ER) 1,200 mg PO BID #0 tabs 06/01/22 [Rx Last Taken Unknown] amoxicillin 875 mg-potassium clavulanate 125 mg tablet 1 tab PO TID 06/16/22 [History Last Taken Unknown] Allergy/AdvReac Type Severity Reaction Status Date / Time Sulfa (Sulfonamide Allergy Severe Rash Verified 07/21/22 16:24 Antibiotics) levofloxacin [From Levaquin] Allergy Unknown Verified 07/21/22 16:24 metronidazole Allergy PT UNSURE Verified 07/21/22 16:24 OF REACTION Family History Mother CVA (cerebral vascular accident) Diabetes Heart disease Arthritis Father Cancer lung Arthritis Ulcer Surgical History H/O vasectomy History of left knee replacement Hx of bilateral inguinal hernia repair Hx of colonoscopy Hx of vasectomy S/P hernia repair Social History household members: spouse Smoking Status: Former smoker pack-years: 30 Tobacco: How many years used: 30 how long ago did patient quit smoking: quit 23 years ago, smoked [id number] second hand exposure: No alcohol intake: current alcohol intake frequency: a few times a week Alcohol type: beer substance use type: marijuana and other details: bakes in brownies occasionally caffeine: Yes Type: coffee Number of servings: 2 what type of physical activity do you participate in: none seatbelt use: always Results Lab / Micro Data Result Diagrams: 07/21/22 16:45 07/21/22 16:45 Assessment & Plan Assessment/Plan (1) Acute and chronic respiratory failure with hypoxia: (2) BALDEMAR (acute kidney injury): (3) Severe sepsis: (4) Pneumonia: Charges/Coding Addendum Addendum: Patient was seen and examined independently of Gail Blakely, he came to the ER today with complaints of progressive shortness of breath since yesterday, patient has an extensive history of non-small cell lung cancer stage IV and recently received chemotherapy. He also was given an injection of Neulasta recently. I talked by phone with his oncologist this evening. Patient does not want to be intubated and wants no resuscitation if he has a cardiac arrest. Work-up in the emergency room included a CTA of the chest which showed extensive changes in the right lung compatible with lung cancer/pneumonia, no signs of pulmonary emboli were noted, patient has significant emphysema noted in the right lung. Labs were remarkable for an elevated white blood cell count, p atient required BiPAP to maintain borderline oxygenation, patient was also hypotensive when he presented to the ER and was given IV fluids with some response of elevation of his blood pressure. Patient's labs are also remarkable for an elevated creatinine. Patient's lactic acid was 2. On examination he appeared frail and unwell. Vital signs as documented. Skin warm and dry and without overt rashes. Neck without JVD, neck was supple, trachea midline, thyroid was normal. Lungs-inspiratory rales were noted over the entire right lung field,, normal air movement was noted over the left lung fiel d. Heart exam notable for regular rhythm, patient was tachycardic, he had normal sounds and absence of murmurs, rubs or gallops. Abdomen unremarkable and without evidence of organomegaly, masses, or abdominal aortic enlargement. Bowel sounds are present, abdomen is not distended. Extremities nonedematous, no cyanosis was noted, no clubbing was noted. Neuro: Cranial nerves II through XII are glen ssly intact, no focal motor deficits were noted, sensation to light touch and pinprick intact, motor exam 5/5 throughout. Psych: Patient is alert and oriented x3, he does not appear anxious or depressed, he does not appear agitated. Impression: #1 severe sepsis secondary to community-acquired pneumonia-patient will be admitted to PCU, again he is a DNR CC arrest without intubation status, patient is presently on BiPAP, this will be maintained on the patient, his baseline oxygen requirement at home is 6 L at rest and 8 L when ambulating. Patient will be given IV vancomycin and Zosyn, he will be placed on aerosol treatments, Lovenox will be used for DVT prophylaxis. #2 stage IV non-small cell lung cancer-metastatic to both lungs-prognosis overall is poor, patient received chemotherapy recently, I talked with the patient's oncologist by phone and he agreed with the patient's decision to be a DNR CC arrest without intubation. #3 chronic obstructive pulmonary disease-patient will be placed on DuoNeb aerosols #4 acute on chronic hypoxic respiratory failure-patient is currently on BiPAP, his oxygenation currently is marginal #5 acute kidney injury-patient will be given IV fluids, labs will be rechecked #6 Marked leukocytosis-possibly in part secondary to Neulasta administration recently on a backdrop of probable community-acquired pneumonia and severe sepsis- CBC will be monitored #7 hypothyroidism-patient will remain on Synthroid #8 community-acquired pneumonia-again patient will be given Zosyn and vancomycin, urine antigen for Legionella and strep will be obtained as well as a sputum culture if possible. Overall prognosis for this patient is extremely guarded I have reviewed Gail Blakely's history and physical including her medical assessment and plan of care and with the above additions endorse it. Total clinical time spent by myself addressing the patient's medical issues, reviewing the data, and collaborating with patient's care team: 45 minutes Visit Charges Inpatient E&M: [id number] Init Hosp L3
--- NOTE | 2022-07-21 20:29 | PHA.PHARE_ITS ---
Consult Pharmacy has been consulted to manage selected antiobiotic: Vancomycin Type of Consult: New start Suspected Infection: Sepsis, Pneumonia Prior Doses of Antibiotics Received/Current Regimen: received vanc 2000mg IV x1 in E.R. starting at 19:03 tonight Labs: Sodium 138 mmol/L (136-145) 07/21/22 16:45 Potassium 4.4 mmol/L (3.5-5.1) 07/21/22 16:45 Chloride 102 mmol/L (98-107) 07/21/22 16:45 Carbon Dioxide 27.0 mmol/L (21.0-32.0) 07/21/22 16:45 Anion Gap 9 (5-15) 07/21/22 16:45 BUN 39 mg/dL (7-18) H 07/21/22 16:45 Creatinine 2.08 mg/dL (0.70-1.30) H 07/21/22 16:45 Est GFR (MDRD) Af Amer 41 mL/min (>60) L 07/21/22 16:45 Est GFR (MDRD) Non-Af 34 mL/min (>60) L 07/21/22 16:45 BUN/Creatinine Ratio 18.8 RATIO (10-20) 07/21/22 16:45 Glucose 149 mg/dL (74-106) H 07/21/22 16:45 Microbiology: Microbiology 07/21/22 16:41 Nasal Secretion SARS-CoV-2 Antigen (Rapid) - Final Weight used for dosin.1 kg Estimated Creatinine Clearance: 39ml/min Goal Trough: 15-20 mcg/mL Pharmacy Plan for Drug Dosing: Starting 24 hours after the E.R. dose, will continue with vanc 1250mg IV q24h per [facility] dosing protocol. Will check a trough before the 3rd total dose. Pharmacy Service will continue to monitor and adjust dosing as required. Follow-Up Labs: Trough Vancomycin Labs to be done on [date and time ordered]: 07/23/22 18:30
[2022-07-21 20:55] LABS: Reflex Lactate? Y
[2022-07-21] MEDS: morphine SR 15 MG Tablet PO (21:20)
[2022-07-21] MEDS: Enoxaparin 40 MG/0.4 ML Syringe SC (21:20)
[2022-07-21] MEDS: Pantoprazole Sodium 40 MG Tablet PO (21:20)
[2022-07-21] MEDS: guaiFENesin 600 MG Tablet PO (21:20)
[2022-07-21] MEDS: Pregabalin 75 MG Capsule 150 MG PO (21:20)
[2022-07-21] MEDS: 0.9% Normal Saline 1,000 ML 150 ML IV (21:22)
[2022-07-21 22:29] LABS: Lactic Acid 1.3 mmol/L (0.4-1.9)
[2022-07-21] MEDS: Ipratropium/Albuterol Sulfate 3 ML AMPUL.NEB INHALATION (22:51)
[2022-07-22] VITALS (22 sets, daily range): BP systolic 90–149; BP diastolic 60–91; PULSE 83–121; RESP 14–32; TEMP 36.3–36.7; O2SAT 80–92
[2022-07-22] MEDS: 0.9% Normal Saline 1,000 ML 150 ML IV ×2 (01:30→08:03)
[2022-07-22] MEDS: Ipratropium/Albuterol Sulfate 3 ML AMPUL.NEB INHALATION ×4 (02:40→14:16)
[2022-07-22 05:56] LABS: Absolute Lymphocyte Count 1.27 X10^3/uL (0.83-4.51); Absolute Neutrophil Count 23.2 X10^3/uL (2.0-7.7); Basophil# 0.15 X10^3/uL; Basophil% 0.6 % (0-1); Eosinophil# 0.31 X10^3/uL; Eosinophils% 1.2 % (0-5); Hematocrit 30.5 % (40-54); Hemoglobin 9.7 g/dL (13.0-16.5); Lymphocyte # 1.27 X10^3/ul (0.83-4.51); Lymphocyte % 4.8 % (19-41); Mean Corp Hgb Conc 31.8 g/dL (32-36); Mean Corpuscular Hgb 29.5 pg (27.0-32.0); Mean Corpuscular Volume 92.7 fL (80-94); Mean Platelet Vol. 10.7 fl (6.2-12.0); Monocyte# 1.41 X10^3/uL; Monocyte% 5.3 % (0-10); NRBC Flagged by Analyzer 0 % (0-5); Neutrophil # 23.18 X10^3/uL (2.7-7.7); Neutrophil % 86.9 % (47-70); POSITIVE DIFFERENTIAL YES; Platelet Count 213 K/mm3 (150-450); RBC Distribution Width CV 17.3 % (11.6-14.6); Red Blood Count 3.29 M/mm3 (4.6-6.2); White Blood Count 26.6 K/mm3 (4.4-11.0)
[2022-07-22] MEDS: 0.9% Saline Lock 10 ML Syringe IV ×2 (05:56→15:07)
[2022-07-22] MEDS: LORazepam 2 MG/ML Syringe IV (05:56)
[2022-07-22] MEDS: Levothyroxine 150 MCG Tablet PO (05:59)
[2022-07-22 06:16] LABS: Differential Indicated SCAN CRITERIA MET
[2022-07-22 06:39] LABS: Differential Comment SCANNED
[2022-07-22 06:42] LABS: Anion Gap 8 (5-15); BUN 33 mg/dL (7-18); BUN/Creat Ratio 21.6 RATIO (10-20); Calcium,Total 8.5 mg/dL (8.5-10.1); Chloride 110 mmol/L (98-107); Creatinine, Serum 1.53 mg/dL (0.70-1.30); EST Glomerular Filtration Rate 48 mL/min (>60); Est Glom Filt Rate - Afr Amer 58 mL/min (>60); Estimated Creatinine Clearance 53.93 ml/min; Glucose 88 mg/dL (74-106); Sodium Level 142 mmol/L (136-145)
[2022-07-22 09:07] LABS: BNP,B-Type NATRIURETIC PEPTIDE 157.1 pg/mL (0-100)
--- NOTE | 2022-07-22 09:35 | CASEMGMT ---
Nurse Practitioner Rody spoke with patient and his . Both are in agreement with Hospice. YAHIR called DELROY Montague at Hospice. YAHIR told Clari patient is maxed out on bipap. Patient's daughter lives in [place] and they would like for her to make it home before he would pass. Clari said they could get him into the Inpatient Unit. She will confer with their respiratory therapist. YAHIR called patient's , Brina and notified her of how the Hospice process works. She will be expecting a phone call from Hospice. YAHIR called Hospice referral line regarding referral. YAHIR also faxed referral. YAHIR updated RN, CUSTOMER SPECIALIST, and weigher and charger. Cookie Davey AGENCY CASHIER LEAD INFORMATICA DEVELOPER
[2022-07-22] MEDS: Enoxaparin 40 MG/0.4 ML Syringe SC (09:49)
[2022-07-22] MEDS: guaiFENesin 600 MG Tablet PO (09:49)
[2022-07-22] MEDS: Furosemide 40 MG/4 ML Vial IV (09:49)
[2022-07-22] MEDS: Pantoprazole Sodium 40 MG Tablet PO (09:49)
[2022-07-22] MEDS: Pregabalin 75 MG Capsule 150 MG PO (09:49)
[2022-07-22] MEDS: morphine SR 15 MG Tablet PO (09:50)
[2022-07-22] MEDS: Morphine 4 MG/ML Syringe IV ×2 (10:11→15:06)
--- NOTE | 2022-07-22 10:21 | CASEMGMT ---
Patient's condition worsened in the last few minutes. SW spoke with charge master specialist, physician, and Nurse Practitioner and it was decided to have Hospice hold off on calling . SW called Clari at Hospice and asked her to please hold off on calling patient's as patient is not doing well. SW will get back to her. Cookie Davey SUPERVISOR TANK HOUSE MAGGI
--- NOTE | 2022-07-22 10:24 | RAD_ITS ---
STUDY: X-RAY CHEST REASON FOR EXAM: Male, 71 years old. Shortness of breath and respiratory failure. TECHNIQUE: Single AP portable view of the chest. COMPARISON: Comparison is made with prior study dated 07/21/2022. FINDINGS: EKG electrodes are seen. Stable consolidation in the right hemithorax. Shift of the heart and mediastinal structures towards the right hemithorax suggests volume loss. Progressive consolidation in the left hemithorax. Small right pleural effusion. Normal size heart. Normal mediastinum and helen. Normal visualized pulmonary arteries. Normal visualized aortic arch and descending thoracic aorta. Normal visualized thoracic spine. Normal visualized ribs, clavicles, and shoulders. There is no demonstrated abnormality of the visualized soft tissue structures of the upper abdomen. RAD/Chest 1 View (Portable) IMPRESSION: Stable consolidation in the right hemithorax with progressive infiltrate in the left hemithorax. Electronically Signed: Cam Dawn MD at 10:55 EDT ,
[2022-07-22 10:36] LABS: Bedside Glucose 131 mg/dL (74-106)
--- NOTE | 2022-07-22 11:30 | CASEMGMT ---
SW notified Clari at Hospice that they can proceed with referral. Cookie Davey FIELD CASHIER HARDWARE INSTALLER
--- NOTE | 2022-07-22 12:48 | PN.HOSP_ITS ---
Subjective Subjective Patient seen and examined. Increased work of breathing this morning and difficulty maintaining O2 saturations on BiPAP. Discussed with patient plan of care and he is requesting comfort measures/hospice services. updated and agreeable to plan as well. Objective Data Objective Data Vital Signs: Vital Signs Temp Pulse Resp BP Pulse Ox O2 Del Method O2 Flow Rate 98.0 F 118 H 32 H 149/91 H 86 Bi-pap 15 07/22/22 08:00 07/22/22 10:31 07/22/22 10:31 07/22/22 09:51 07/22/22 08:00 07/22/22 08:00 07/21/22 16:35 FiO2 100 07/22/22 08:00 Oxygen Flow Rate (L/min) 15 Oxygen Delivery Method Bi-pap Weight: 189 lb 13.088 oz Body Mass Index (BMI) 23.1 Intake & Output: Intake and Output for Last 24 Hours 07/20/22 07/21/22 07/22/22 23:59 23:59 23:59 Intake Total 1640 / 1640 1982.5 / 1982.5 Output Total 650 / 650 2275 / 2275 Balance 990 / 990 -292.5 / -292.5 Lab / Micro Data Result Diagrams: 07/22/22 05:24 07/22/22 05:24 Labs: Laboratory Results - last 24 hr 07/21/22 16:45: WBC 39.1 H*, RBC 3.41 L, Hgb 10.0 L, Hct 31.0 L, MCV 90.9, MCH 29.3, MCHC 32.3, RDW Std Deviation 56.7 H, RDW Coeff of Callie 17.2 H, Plt Count 235, MPV 10.5, Immature Gran % (Auto) 2.600 H, Neut % (Auto) 89.5 H, Lymph % (Auto) 3.0 L, Coffey % (Auto) 4.4, Eos % (Auto) 0.1, Baso % (Auto) 0.4, Absolute Neuts (auto) 35.0 H, Absolute Lymphs (auto) 1.18, Nucleated RBC % 0, Diff Path Review May foll, Platelet Estimate ADEQUATE, RBC Morphology N CHROM, Hypochromasia RARE, Anisocytosis RARE, Macrocytosis RARE 07/21/22 16:45: PT 15.0 H, INR 1.2, APTT 35.0 07/21/22 16:45: Sodium 138, Potassium 4.4, Chloride 102, Carbon Dioxide 27.0, Anion Gap 9, BUN 39 H, Creatinine 2.08 H, Estim Creat Clear Calc 38.93, Est GFR (MDRD) Af Amer 41 L, Est GFR (MDRD) Non-Af 34 L, BUN/Creatinine Ratio 18.8, Glu cose 149 H, Calcium 8.7, Total Bilirubin 0.60, AST 20, ALT 16, Alkaline Phosp hatase 130 H, Total Protein 6.8, Albumin 2.4 L, Globulin 4.4 H, Albumin/Globulin Ratio 0.5 L 07/21/22 16:45: Lactic Acid 2.0 07/21/22 21:45: Lactic Acid 1.3 07/22/22 05:24: WBC 26.6 H, RBC 3.29 L, Hgb 9.7 L, Hct 30.5 L, MCV 92.7, MCH 29.5, MCHC 31.8 L, RDW Std Deviation 58.0 H, RDW Coeff of Callie 17.3 H, Plt Count 213, MPV 10.7, Immature Gran % (Auto) 1.200 H, Neut % (Auto) 86.9 H, Lymph % (Auto) 4.8 L, Coffey % (Auto) 5.3, Eos % (Auto) 1.2, Baso % (Auto) 0.6, Absolute Neuts (auto) 23.2 H, Absolute Lymphs (auto) 1.27, Nucleated RBC % 0, Differential Comment SCANNED 07/22/22 05:24: Sodium 142, Potassium 4.0, Chloride 110 H, Carbon Dioxide 24.0, Anion Gap 8, BUN 33 H, Creatinine 1.53 H, Estim Creat Clear Calc 53.93, Est GFR (MDRD) Af Amer 58 L, Est GFR (MDRD) Non-Af 48 L, BUN/Creatinine Ratio 21.6 H, Glucose 88, Calcium 8.5 07/22/22 05:24: B-Natriuretic Peptide 157.1 H 07/22/22 10:14: POC Glucose 131 H Micro: Microbiology 07/21/22 23:30 Urine, Clean Catch Legionella Antigen - Final 07/21/22 23:30 Urine, Clean Catch Streptococcus pneumoniae Antigen (M - Final 07/21/22 16:41 Nasal Secretion SARS-CoV-2 Antigen (Rapid) - Final ABG Data ABG results: ABG 07/21/22 17:02 Specimen Type ART Sample Site R Radial pH 7.42 Bicarbonate Actual 24.8 Total CO2 26 Base Excess 0 O2 Saturation 86 L O2 % 100 ABG pCO2 38.4 ABG pO2 50 L Clifford Test Positive O2 Delivery Device BiPAP Tidal Volume 450 Clinical Comments Radiography Diagnostic Testing: Radiology Impression Chest X-Ray 07/21/22 17:03 IMPRESSION: 1. Markedly worsened right-sided pneumonia. 2. Less dense alveolar opacity in the left lung possibly consistent with bilateral pneumonia, pulmonary edema, or ARDS. Electronically Signed: Brijesh Pino MD at 17:32 EDT , Chest CTA 07/21/22 17:09 IMPRESSION: 1. No evidence of pulmonary embolus. 2. No aortic dissection or aneurysm. 3. Marked consolidation of the right lung with large right pleural effusion. 4. Small left pleural effusion. There is groundglass density throughout the left lung. 5. Mediastinal lymphadenopathy. Electronically Signed: Frank Nelson DO at 18:30 EDT , Chest X-Ray 07/22/22 10:24 IMPRESSION: Stable consolidation in the right hemithorax with progressive infiltrate in the left hemithorax. Electronically Signed: Cam Dawn MD at 10:55 EDT , Physical Exam Const alert and oriented x3 Constitutional Narrative: Appears uncomfortable, noted respiratory distress HEENT normocephalic Mouth: dry mucous membranes Eyes PERRL, EOMs intact bilaterally and conjunctivae normal Neck no lymphadenopathy Resp Effort and Inspection: tachypneic and labored Auscultation: crackles Cardio regular rhythm and no murmurs Rate: tachycardic Peripheral Pulses: pulses 2+ throughout GI normal to inspection, nondistended, normoactive bowel sounds, non-tender and non-distended Extremity normal to inspection Skin no rashes or lesions noted Lesions: no lesions Rashes: no rashes Trauma: no lacerations or abrasions Neuro CN's II-XII intact bilaterally, no focal motor deficits, no sensory deficits noted and deep tendon reflexes 2+ bilaterally Psych mental status grossly normal and affect normal Assessment & Plan Assessment/Plan (1) Hypoxia: PLAN: Plan 1. Acute on chronic hypoxic respiratory failure secondary to right-sided pneumonia as well as bilateral pleural effusions, right greater than left- complicated by non-small cell lung cancer stage IV. Continue supplemental oxygen to maintain O2 at or above 90%. On continuous BiPAP FiO2 high percent. Patient with worsening respiratory status. Discussed plan of care with patient and and they are requesting transition to hospice services. Hospice consulted. Patient deciding on remaining in the hospital with hospice orders or transition to inpatient hospice unit. 2. Severe sepsis secondary to community-acquired pneumonia-IV vancomycin and IV Zosyn. Albuterol and DuoNeb aerosols. Blood cultures pending. 3. Non small cell lung cancer stage IV-following with Dr. Coyne. Plan for hospice transition as noted above. 4. Acute kidney injury-IV fluids, trend BMP. Improved. 5. Chronic COPD-albuterol and DuoNeb aerosols. 6. Hypothyroidism-continue Synthroid 7. Chronic pain-continue scheduled and as needed pain regimen. DVT prophylaxis-Lovenox This patient was seen by BJ Lim under the supervision of Dr. Ybarra. Time spent examining patient, reviewing data and subsequent management of care: 16 minutes
--- NOTE | 2022-07-22 12:52 | PCM.RX.CS ---
Consult Pharmacy has been consulted to manage selected antiobiotic: Vancomycin Type of Consult: Follow-up Suspected Infection: Sepsis, Pneumonia Prior Doses of Antibiotics Received/Current Regimen: Received 2gm loading dose in ER 07.21.22. Labs: Sodium 142 mmol/L (136-145) 07/22/22 05:24 Potassium 4.0 mmol/L (3.5-5.1) 07/22/22 05:24 Chloride 110 mmol/L (98-107) H 07/22/22 05:24 Carbon Dioxide 24.0 mmol/L (21.0-32.0) 07/22/22 05:24 Anion Gap 8 (5-15) 07/22/22 05:24 BUN 33 mg/dL (7-18) H 07/22/22 05:24 Creatinine 1.53 mg/dL (0.70-1.30) H 07/22/22 05:24 Est GFR (MDRD) Af Amer 58 mL/min (>60) L 07/22/22 05:24 Est GFR (MDRD) Non-Af 48 mL/min (>60) L 07/22/22 05:24 BUN/Creatinine Ratio 21.6 RATIO (10-20) H 07/22/22 05:24 Glucose 88 mg/dL (74-106) 07/22/22 05:24 Microbiology: Microbiology 07/21/22 23:30 Urine, Clean Catch Legionella Antigen - Final 07/21/22 23:30 Urine, Clean Catch Streptococcus pneumoniae Antigen (M - Final 07/21/22 16:41 Nasal Secretion SARS-CoV-2 Antigen (Rapid) - Final Weight used for dosin kg Estimated Creatinine Clearance: 54 ml/min Goal Trough: 15-20 mcg/mL Pharmacy Plan for Drug Dosing: Renal function reviewed. SCrCl improved from 39 to 54ml/min. Will change dose from 1250mg iv daily to 750mg iv q12h. Trough level to be obtained 30 min. before 4th dose on 07.24.22. Pharmacy Service will continue to monitor and adjust dosing as required. Follow-Up Labs: Trough Vancomycin - 07.24.22 @0030 before 0100 dose
[2022-07-22 13:53] LABS: Pathologist Review Reviewed
--- NOTE | 2022-07-22 14:23 | DS.PCM_ITS ---
Documented by User: Rody Wheeler NP, TRADING MANAGER-C 07/22/22 14:26 Providers Date of Admission: 07/21/22 Date of Discharge: 07/22/22 Primary Care Physician: Dr. Montana Bills MD Reason For Visit: HYPOXIC RESPIRATORY FAILURE, PNEUMONIA, SEVERE SEP Diagnosis Discharge Diagnosis (1) Hypoxia: Status: Acute Code(s): R09.02 - Hypoxemia Medications at Discharge Home Medications fexofenadine 180 mg tablet 180 mg PO DAILY allergies 01/14/18 valacyclovir 1 gram tablet 1,000 mg PO DAILY PRN Cold Sores 01/14/18 colchicine 0.6 mg tablet 0.6 mg PO DAILY gout 05/03/19 dicyclomine 20 mg tablet 20 mg PO DAILY PRN cramping 02/10/22 promethazine 25 mg tablet 25 mg PO TID nausea 02/10/22 folic acid 1 mg tablet 1 mg PO DAILY supplement 03/11/22 guaifenesin 600 mg tablet, extended release 12 hr (Mucinex) 600 mg PO BID congestion 03/11/22 lubiprostone 24 mcg capsule 24 mcg PO BID IBS 03/11/22 morphine 15 mg tablet,extended release 15 mg PO BID pain 03/11/22 celecoxib 200 mg capsule 200 mg PO BID PRN arthritis 04/28/22 pregabalin 150 mg capsule 150 mg PO BID pain 04/28/22 levothyroxine 150 mcg tablet 150 mcg PO DAILY thyroid 05/26/22 lorazepam 1 mg tablet 1 mg PO QHS sleep 05/26/22 omeprazole 40 mg capsule,delayed release 40 mg PO BID GERD 05/31/22 amoxicillin 875 mg-potassium clavulanate 125 mg tablet 1 tab PO TID infection 06/16/22 Hospital Course Operations None Procedures None Summary of Care Provided Hospital Course: Patient is a 71-year-old male admitted 07/21/2022 due to shortness of breath. 1.? Acute on chronic hypoxic respiratory failure secondary to right-sided pneumonia as well as bilateral pleural effusions, right greater than left- complicated by non-small cell lung cancer stage IV.? Continue supplemental oxygen to maintain O2 at or above 90%.? On continuous BiPAP FiO2 high percent.? Patient with worsening respiratory status.? Discussed plan of care with patient and and they are requesting transition to hospice services.? Hospice consulted.? Transition to inpatient hospice unit. 2. Severe sepsis secondary to community-acquired pneumonia-IV vancomycin and IV Zosyn during admission. 3. Non small cell lung cancer stage IV-following with Dr. Coyne.? Plan for hospice transition as noted above. 4. Acute kidney injury-IV fluids, Improved. 5. Chronic COPD-albuterol and DuoNeb aerosols. 6. Hypothyroidism-continue Synthroid 7. Chronic pain-continue scheduled and as needed pain regimen. Physical Exam Const alert and oriented x3 Constitutional Narrative: Appears uncomfortable, noted respiratory distress HEENT normocephalic Mouth: dry mucous membranes Eyes PERRL, EOMs intact bilaterally and conjunctivae normal Neck no lymphadenopathy Resp Effort and Inspection: tachypneic and labored Auscultation: crackles Cardio regular rhythm and no murmurs Rate: tachycardic Peripheral Pulses: pulses 2+ throughout GI normal to inspection, nondistended, normoactive bowel sounds, non-tender and non-distended Extremity normal to inspection Skin no rashes or lesions noted Lesions: no lesions Rashes: no rashes Trauma: no lacerations or abrasions Neuro CN's II-XII intact bilaterally, no focal motor deficits, no sensory deficits noted and deep tendon reflexes 2+ bilaterally Psych mental status grossly normal and affect normal Patient seen and examined prior to discharge. Physical assessment as noted above. Discharged to inpatient hospice unit. This patient was seen by BJ Lim under the supervision of Dr. Ybarra. Time spent examining patient, reviewing data and subsequent management of care: 27 minutes Weight / BMI Weight Weight: 189 lb 13.088 oz Body Mass Index (BMI) 23.1 ABG / Lab / Microbiology Data Result Diagrams: 07/22/22 05:24 07/22/22 05:24 Laboratory: Laboratory Results - last 24 hr 07/21/22 16:45: WBC 39.1 H*, RBC 3.41 L, Hgb 10.0 L, Hct 31.0 L, MCV 90.9, MCH 29.3, MCHC 32.3, RDW Std Deviation 56.7 H, RDW Coeff of Callie 17.2 H, Plt Count 235, MPV 10.5, Immature Gran % (Auto) 2.600 H, Neut % (Auto) 89.5 H, Lymph % (Auto) 3.0 L, Marshall % (Auto) 4.4, Eos % (Auto) 0.1, Baso % (Auto) 0.4, Absolute Neuts (auto) 35.0 H, Absolute Lymphs (auto) 1.18, Nucleated RBC % 0, Diff Path Review Reviewed, Platelet Estimate ADEQUATE, RBC Morphology N CHROM, Hypochromasia RARE, Anisocytosis RARE, Macrocytosis RARE 07/21/22 16:45: PT 15.0 H, INR 1.2, APTT 35.0 07/21/22 16:45: Sodium 138, Potassium 4.4, Chloride 102, Carbon Dioxide 27.0, Anion Gap 9, BUN 39 H, Creatinine 2.08 H, Estim Creat Clear Calc 38.93, Est GFR (MDRD) Af Amer 41 L, Est GFR (MDRD) Non-Af 34 L, BUN/Creatinine Ratio 18.8, Glucose 149 H, Calcium 8.7, Total Bilirubin 0.60, AST 20, ALT 16, Alkaline Phosphatase 130 H, Total Protein 6.8, Albumin 2.4 L, Globulin 4.4 H, Albumin/Globulin Ratio 0.5 L 07/21/22 16:45: Lactic Acid 2.0 07/21/22 21:45: Lactic Acid 1.3 07/22/22 05:24: WBC 26.6 H, RBC 3.29 L, Hgb 9.7 L, Hct 30.5 L, MCV 92.7, MCH 29.5, MCHC 31.8 L, RDW Std Deviation 58.0 H, RDW Coeff of Callie 17.3 H, Plt Count 213, MPV 10.7, Immature Gran % (Auto) 1.200 H, Neut % (Auto) 86.9 H, Lymph % (Auto) 4.8 L, Marshall % (Auto) 5.3, Eos % (Auto) 1.2, Baso % (Auto) 0.6, Absolute Neuts (auto) 23.2 H, Absolute Lymphs (auto) 1.27, Nucleated RBC % 0, Differential Comment SCANNED 07/22/22 05:24: Sodium 142, Potassium 4.0, Chloride 110 H, Carbon Dioxide 24.0, Anion Gap 8, BUN 33 H, Creatinine 1.53 H, Estim Creat Clear Calc 53.93, Est GFR (MDRD) Af Amer 58 L, Est GFR (MDRD) Non-Af 48 L, BUN/Creatinine Ratio 21.6 H, Glucose 88, Calcium 8.5 07/22/22 05:24: B-Natriuretic Peptide 157.1 H 07/22/22 10:14: POC Glucose 131 H Microbiology: Microbiology 07/21/22 23:30 Urine, Clean Catch Legionella Antigen - Final 07/21/22 23:30 Urine, Clean Catch Streptococcus pneumoniae Antigen (M - Final 07/21/22 16:41 Nasal Secretion SARS-CoV-2 Antigen (Rapid) - Final ABG: ABG 07/21/22 17:02 Specimen Type ART Sample Site R Radial pH 7.42 Bicarbonate Actual 24.8 Total CO2 26 Base Excess 0 O2 Saturation 86 L O2 % 100 ABG pCO2 38.4 ABG pO2 50 L Clifford Test Positive O2 Delivery Device BiPAP Tidal Volume 450 Clinical Comments Radiography Diagnostic Testing: Radiology Impression Chest X-Ray 07/21/22 17:03 IMPRESSION: 1. Markedly worsened right-sided pneumonia. 2. Less dense alveolar opacity in the left lung possibly consistent with bilateral pneumonia, pulmonary edema, or ARDS. Electronically Signed: Brijesh Pino MD at 17:32 EDT , Chest CTA 07/21/22 17:09 IMPRESSION: 1. No evidence of pulmonary embolus. 2. No aortic dissection or aneurysm. 3. Marked consolidation of the right lung with large right pleural effusion. 4. Small left pleural effusion. There is groundglass density throughout the left lung. 5. Mediastinal lymphadenopathy. Electronically Signed: Frank Nelson DO at 18:30 EDT , Chest X-Ray 07/22/22 10:24 IMPRESSION: Stable consolidation in the right hemithorax with progressive infiltrate in the left hemithorax. Electronically Signed: Cam Dawn MD at 10:55 EDT , Meaningful Use Info Meaningful Use Diagnoses (Choose all that apply): None applicable Discharge Plan Admission Admit Date/Time: 07/21/22 19:04 Attending Provider: Norma Ybarra Primary Care Provider: Montana Bills Consulting Providers: Jem Smith Discharge Orders/Prescriptions Prescriptions: No Action fexofenadine 180 mg tablet 180 mg PO DAILY valacyclovir 1 gram tablet 1,000 mg PO DAILY PRN (Reason: Cold Sores) amoxicillin-pot clavulanate 875-125 mg tablet 1 tab PO TID colchicine 0.6 MG tablet 0.6 mg PO DAILY dicyclomine 20 mg Tablet 20 mg PO DAILY PRN (Reason: cramping) promethazine 25 mg tablet 25 mg PO TID folic acid 1 mg Tablet 1 mg PO DAILY morphine 15 mg tablet extended release 15 mg PO BID Label Comments: TAKE 1 TABLET BY MOUTH EVERY 12 HOURS FOR 14 DAYS. FOR PAIN. lubiprostone 24 mcg Capsule 24 mcg PO BID guaifenesin [Mucinex] 600 mg Tablet Extended Release 12hr 600 mg PO BID celecoxib 200 mg Capsule 200 mg PO BID PRN (Reason: arthritis) pregabalin 150 mg Capsule 150 mg PO BID levothyroxine 150 mcg tablet 150 mcg PO DAILY Label Comments: TAKE 1 TABLET BY MOUTH EVERY DAY BEFORE BREAKFAST lorazepam 1 mg tablet 1 mg PO QHS Label Comments: TAKE 1 TABLET BY MOUTH EVERY 8 HOURS NEEDED FOR UP TO 30 DAYS. omeprazole 40 mg capsule,delayed release(DR/EC) 40 mg PO BID Label Comments: TAKE 1 (ONE) CAPSULE BY MOUTH TWICE DAILY Referrals / Follow Up: Montana Bills MD [Primary Care Provider] - Disposition Disposition (needs filled in before D/C Order can be placed): Hospice in Medical Facility Documented by User: Dr. Norma Ybarra MD 07/22/22 15:20 Providers Date of Admission: 07/21/22 Reason For Visit: HYPOXIC RESPIRATORY FAILURE, PNEUMONIA, SEVERE SEP Diagnosis Discharge Diagnosis (1) Hypoxia: Status: Acute Code(s): R09.02 - Hypoxemia Medications at Discharge Home Medications fexofenadine 180 mg tablet 180 mg PO DAILY allergies 01/14/18 valacyclovir 1 gram tablet 1,000 mg PO DAILY PRN Cold Sores 01/14/18 colchicine 0.6 mg tablet 0.6 mg PO DAILY gout 05/03/19 dicyclomine 20 mg tablet 20 mg PO DAILY PRN cramping 02/10/22 promethazine 25 mg tablet 25 mg PO TID nausea 02/10/22 folic acid 1 mg tablet 1 mg PO DAILY supplement 03/11/22 guaifenesin 600 mg tablet, extended release 12 hr (Mucinex) 600 mg PO BID congestion 03/11/22 lubiprostone 24 mcg capsule 24 mcg PO BID IBS 03/11/22 morphine 15 mg tablet,extended release 15 mg PO BID pain 03/11/22 celecoxib 200 mg capsule 200 mg PO BID PRN arthritis 04/28/22 pregabalin 150 mg capsule 150 mg PO BID pain 04/28/22 levothyroxine 150 mcg tablet 150 mcg PO DAILY thyroid 05/26/22 lorazepam 1 mg tablet 1 mg PO QHS sleep 05/26/22 omeprazole 40 mg capsule,delayed release 40 mg PO BID GERD 05/31/22 amoxicillin 875 mg-potassium clavulanate 125 mg tablet 1 tab PO TID infection 06/16/22 ABG / Lab / Microbiology Data Result Diagrams: 07/22/22 05:24 07/22/22 05:24 Discharge Plan Admission Admit Date/Time: 07/21/22 19:04 Attending Provider: Norma Ybarra Primary Care Provider: Montana Bills Consulting Providers: Jem Smith Discharge Orders/Prescriptions Prescriptions: No Action fexofenadine 180 mg tablet 180 mg PO DAILY valacyclovir 1 gram tablet 1,000 mg PO DAILY PRN (Reason: Cold Sores) amoxicillin-pot clavulanate 875-125 mg tablet 1 tab PO TID colchicine 0.6 MG tablet 0.6 mg PO DAILY dicyclomine 20 mg Tablet 20 mg PO DAILY PRN (Reason: cramping) promethazine 25 mg tablet 25 mg PO TID folic acid 1 mg Tablet 1 mg PO DAILY morphine 15 mg tablet extended release 15 mg PO BID Label Comments: TAKE 1 TABLET BY MOUTH EVERY 12 HOURS FOR 14 DAYS. FOR PAIN. lubiprostone 24 mcg Capsule 24 mcg PO BID guaifenesin [Mucinex] 600 mg Tablet Extended Release 12hr 600 mg PO BID celecoxib 200 mg Capsule 200 mg PO BID PRN (Reason: arthritis) pregabalin 150 mg Capsule 150 mg PO BID levothyroxine 150 mcg tablet 150 mcg PO DAILY Label Comments: TAKE 1 TABLET BY MOUTH EVERY DAY BEFORE BREAKFAST lorazepam 1 mg tablet 1 mg PO QHS Label Comments: TAKE 1 TABLET BY MOUTH EVERY 8 HOURS NEEDED FOR UP TO 30 DAYS. omeprazole 40 mg capsule,delayed release(DR/EC) 40 mg PO BID Label Comments: TAKE 1 (ONE) CAPSULE BY MOUTH TWICE DAILY Referrals / Follow Up: Montana Bills MD [Primary Care Provider] - Disposition Disposition (needs filled in before D/C Order can be placed): Hospice in Medical Facility Charges/Coding Addendum Addendum: This patient was seen in conjunction with Rody Wheeler NP. I have independently interviewed and examined the patient and reviewed pertinent historical, laboratory, and other data. I have reviewed her note and concur with her documentation 71y/o male with past medical history of COPD on chronic oxygen, history of non- small cell lung CA stage IV, status post chemotherapy. Patient presented with progressive shortness of breath. CT of the chest in the ED showed extensive changes in the right lung suggestive of extensive pneumonia. No acute PE was seen. 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 Patient was admitted on BiPAP. Started on antibiotics. His oxygen requirements got worse. He did receive Lasix as well as morphine. Hospice was consulted, patient was discharged to inpatient hospice facility. Physical Exam: Gen: Comfortable, in moderate respiratory distress, pale with cyanotic, on AVAPS, maxed out CVS:HS I +II, regular, no murmurs RESP: Diminished at lung bases GI: BS present and normal, soft, nontender, no palpable organs EXT:No edema Time spent coordinating all aspects of patient's care, discussing with nursin minutes Visit Charges Inpatient E&M: 65484 Disch Hosp
--- NOTE | 2022-07-22 14:42 | CASEMGMT ---
YAHIR spoke with Tash from Hospice. Tash said their mobile unit will be at [facility] to pepper picker patient in the next 20 minutes. Tash said their respiratory therapist said he will ride in the unit with patient. He won't be on bipap in the unit, but their respiratory therapist feels he is able to manage patient. RN is aware. YAHIR faxed d/c information to Hospice. Plan: d/c to [facility] Inpatient Unit. Hospice's mobile unit transported patient. Cookie TYA
--- NOTE | 2022-07-22 15:00 | NURSING ---
Called report to Adriana POTTS at [facility]
== END 2022-07-22 15:52 | disposition hospice, inpatient (51) | DRG 871 ==
LOC: ED 18:52 → PCU 19:14
PROVIDERS: Nurse Practitioner Family; Admitting Provider Internal Medicine; Emergency Provider Emergency Medicine; PCP Family Medicine; Visit Provider Internal Medicine
DX: A41.9 Sepsis, unspecified organism (principal); J96.21 Acute and chronic respiratory failure with hypoxia; J18.9 Pneumonia, unspecified organism; J90 Pleural effusion, not elsewhere classified; J44.0 Chronic obstructive pulmonary disease with (acute) lower respiratory infection; C34.92 Malignant neoplasm of unspecified part of left bronchus or lung; N17.9 Acute kidney failure, unspecified; R65.20 Severe sepsis without septic shock; E03.9 Hypothyroidism, unspecified; I10 Essential (primary) hypertension; Z51.5 Encounter for palliative care; Z66 Do not resuscitate; Z87.891 Personal history of nicotine dependence; Z92.21 Personal history of antineoplastic chemotherapy; G89.29 Other chronic pain
CPT/HCPCS: 36415; 36600; 71045; 71275; 80048; 80053; 82803; 82962; 83605; 83880; 85025; 85610; 85730; 87040; 87449; 87811; 93005; 94002; 94003; 94640; 94762; 99251; 99285; J7030; J7040; J7050; Q9967; A4216; G0463; J1940